=== PATIENT | female | born 1945 | race Caucasian/White ===

== ENCOUNTER 2020-01-25 12:00 | Emergency (ER) | payer MEDICARE, OTHER, SELFPAY ==
[2020-01-25 12:02] VITALS: BP 198/116; PULSE 84; RESP 18; TEMP 36.6; O2SAT 98; BMI 29.0
--- NOTE | 2020-01-25 12:16 | RAD_ITS ---
STUDY: X-RAY - RIGHT SHOULDER REASON FOR EXAM: Female, 74 years old. FALL. TECHNIQUE: 2 view(s) of the shoulder. COMPARISON: None. FINDINGS: Normal glenohumeral articulation. Normal acromioclavicular joint. Normal acromion. Comminuted fracture through the surgical neck of the humerus with extension to the greater tuberosity. Soft tissue swelling. Normal visualized pulmonary apex. RAD/Shoulder min 2 Views IMPRESSION: Comminuted fracture through the surgical neck of the humerus with extension to the greater tuberosity. Electronically Signed: Jeison Waters, at 12:54 EDT , Service support ,
--- NOTE | 2020-01-25 12:16 | CT_ITS ---
STUDY: CT BRAIN WITHOUT CONTRAST REASON FOR EXAM: Female, 74 years old. FALL, RT SHOULDER PAIN RADIATION DOSAGE (If Supplied By Facility): CTDIvol = ( 44.99 ) mGy, DLP = ( 745.49 ) mGycm TECHNIQUE: Transaxial CT imaging of the brain was performed without administration of intravenous contrast material. Individualized dose optimization techniques were used for this CT. COMPARISON: Comparison is made with prior study dated December 27, 2014. FINDINGS: Normal soft tissue structures. Normal calvarium. There is mild cerebral atrophy with widening of the extra-axial spaces and ventricular dilatation. There are areas of decreased attenuation within the white matter tracts of the supratentorial brain, consistent with microvascular disease changes. Normal basal ganglia and thalami. Normal brainstem. Normal cerebellum. There is no intracranial hemorrhage. There are no findings of an acute ischemic infarction. Atherosclerotic calcification of the cavernous portions of the internal carotid arteries bilaterally. Normal visualized paranasal sinuses. CT/Brain/Head without Contrast IMPRESSION: Chronic involutional changes of the brain. Electronically Signed: Jeison Waters, at 12:47 EDT , Service support ,
[2020-01-25] MEDS: Morphine 4 MG/ML Syringe IM (12:24)
--- NOTE | 2020-01-25 12:32 | ED.VIS.FALL ---
History of Present Illness Chief Complaint: Upper Extremity Injury Narrative: Patient presenting for evaluation secondary to a fall. Patient reports that she suffered a mechanical fall today in the garage when her sandal caught on something. She fell on her right side, she does report that she hit her head. She denies any loss of consciousness. No visual changes numbness or weakness associated with this. Patient states that she has a moderate to severe amount of pain in her right arm and shoulder that is worse with palpation and movement. She is not on any sort of anticoagulants. Review of systems otherwise negative. Past Medical History - Allergies and Home Meds Allergies/Adverse Reactions: Allergies amlodipine besylate [From Norvasc] Allergy (Verified 01/25/20 12:04) Swelling bisoprolol fumarate [From Ziac] Allergy (Verified 01/25/20 12:04) Unknown adhesive Adverse Reaction (Verified 01/25/20 12:04) Itching hydrochlorothiazide Adverse Reaction (Verified 01/25/20 12:04) Unknown Primary Care Physician: Bill Schuster III, MD [Primary Care Provider] - Prior records reviewed: Yes Past Medical History: - - Hypertension, hyperlipidemia Surgical History: - - Right total knee arthroplasty 03/24/16, left breast lumpectomy Lives: Spouse/ Significant Other Smoking Status: Never smoker Alcohol: None Drugs: None - Family History Maternal Family History: Reports: Hypertension Paternal Family History: Reports: Heart Disease Physical Exam Vital Signs/Narrative: Vital Signs Temp Pulse Resp BP Pulse Ox 01/25/20 12:02 97.9 F 84 18 198/116 H 98 Diagnostic/Tx/Re-eval Clinical Impression(s) from Imaging Studies Brain CT 01/25/20 12:16 IMPRESSION: Chronic involutional changes of the brain. Electronically Signed: Jeison Waters, at 12:47 EDT , Service support , Shoulder X-Ray 01/25/20 12:16 IMPRESSION: Comminuted fracture through the surgical neck of the humerus with extension to the greater tuberosity. Electronically Signed: Jeison Waters, at 12:54 EDT , Service support , - Medical Decision Making Patient presented secondary to a fall with head injury and a right arm injury. Patient had a CT brain which was negative per radiology. X-rays of the patient's right shoulder show evidence of a comminuted proximal humerus fracture. This is by radiology and my personal interpretation. Patient was placed in a sling and swath she was given morphine in the emergency department. Patient will be discharged with a course of tramadol for pain control. She will be given referral to orthopedics on-call, Dr. Mejia. Patient was discharged in stable condition. ED Disposition - Plan for ED Patient: Disposition: Home or Assisted Living Diagnosis: Proximal humerus fracture Instructions: ED Fracture Upper Extremity, ED Sling and Swathe Prescriptions: traMADol [Ultram] 50 mg PO Q4H PRN PRN 3 Days #18 tab PRN Reason: Pain Prescription Printed Referrals: Armin Mejia MD [STAFF PHYSICIAN] - 3-5 Days
== END 2020-01-25 13:37 | disposition home or self-care (01) ==
PROVIDERS: Emergency Provider Emergency Medicine; PCP Family Medicine
DX: S42.211A Unspecified displaced fracture of surgical neck of right humerus, initial encounter for closed fracture (principal); E78.5 Hyperlipidemia, unspecified; I10 Essential (primary) hypertension; Z79.899 Other long term (current) drug therapy; W18.30XA Fall on same level, unspecified, initial encounter; Y93.01 Activity, walking, marching and hiking; Y92.008 Other place in unspecified non-institutional (private) residence as the place of occurrence of the external cause; Y99.8 Other external cause status
CPT/HCPCS: 70450; 73030; 96372; 99283

== ENCOUNTER 2020-02-07 07:53 | Inpatient (IN) | payer MEDICARE, OTHER, SELFPAY ==
[2020-02-01 15:07] LABS: Absolute Lymphocyte Count 0.63 X10^3/uL (0.83-4.51); Absolute Neutrophil Count 2.3 X10^3/uL (2.0-7.7); Basophil# 0.01 X10^3/uL; Basophil% 0.3 % (0-1); Eosinophil# 0.21 X10^3/uL; Hemoglobin 7.5 g/dL (12.0-15.0); Lymphocyte # 0.63 X10^3/ul (4.0); Lymphocyte % 17.9 % (19-41); Mean Corp Hgb Conc 31.3 g/dL (32-36); Mean Corpuscular Hgb 30.1 pg (27.0-32.0); Mean Corpuscular Volume 96.4 fL (81-99); Mean Platelet Vol. 10.8 fl (6.2-12.0); Monocyte# 0.34 X10^3/uL; Monocyte% 9.7 % (0-10); NRBC Flagged by Analyzer 0 % (0-5); Neutrophil # 2.32 X10^3/uL (2.7-7.7); Neutrophil % 66.1 % (47-70); Platelet Count 149 K/mm3 (150-450); RBC Distribution Width CV 13.5 % (11.6-14.6); RBC Distribution Width SD 47.5 fl (35.1-43.9); Red Blood Count 2.49 M/mm3 (4.2-5.4); White Blood Count 3.5 K/mm3 (4.4-11.0)
--- NOTE | 2020-02-01 15:11 | EKG12_ITS ---
Test Reason : PRE OP Blood Pressure : / mmHG Vent. Rate : 076 BPM Atrial Rate : 076 BPM P-R Int : 144 ms QRS Dur : 100 ms QT Int : 402 ms P-R-T Axes : 044 -15 089 degrees QTc Int : 452 ms Normal sinus rhythm Nonspecific ST and T wave abnormality Abnormal ECG Confirmed by SCARLET LOPEZ, MILLY ([id number]), food expeditor ALYSON WEBSTER ([id number]) on 02/05/2020 11:38:01 AM Referred By: Armin Mejia Confirmed By:MARTHA NOVAK MD
[2020-02-01 15:31] LABS: Anion Gap 2 (5-15); BUN 14 mg/dL (7-18); BUN/Creat Ratio 16.8 RATIO (10-20); Calcium,Total 8.7 mg/dL (8.5-10.1); Chloride 108 mmol/L (98-107); Creatinine, Serum 0.84 mg/dL (0.55-1.02); EST Glomerular Filtration Rate 71 mL/min (>60); Est Glom Filt Rate - Afr Amer 86 mL/min (>60); Glucose 97 mg/dL (74-106); Potassium 4.4 mmol/L (3.5-5.1); Sodium Level 140 mmol/L (136-145)
[2020-02-05 10:50] LABS: Magnesium 2.2 mg/dL (1.6-2.6)
[2020-02-05 12:43] LABS: Probe Check PASS; Specimen Processing Control PASS
[2020-02-07] VITALS (13 sets, daily range): BP systolic 140–174; BP diastolic 63–77; PULSE 55–83; RESP 16–18; TEMP 36.1–37.3; O2SAT 92–100; BMI 30.7
--- NOTE | 2020-02-07 | SHO_PTH ---
PATIENT: BEBETO REMY LOC: [facility] U#:[id number] AGE/SX: 74/F ROOM: NC325 RE02/07/[address]: Dr. Armando Benjamin MD : 1945 BED: 1 DIS: 02/08/2020 SPEC #: [id number] RECD: 02/07/20 14:08 STATUS: JC HOGAN #: [id number] HEIDI: 02/07/20 00:[address]: Armin Mejia DEPT: SURGICAL PATHOLOGY RECD BY: Douglas Schulz ENTERED: 02/08/20 12:00 SP TYPE: HUMERUS OTHR DR: MD Dr. Lola Becerra MD Dr. Frank A Cebul III, MD Dr. Nicholas F Kotsonis, MD Dr. Steven Widmer, MD Tissues: Humerus, NOS Procedures: Decalcification bone/plaque Surgery Specimen Level IV Comments: @ Ordering doctor for DEC edited from to @ by PARUL at 02/08/20 1425 @ Ordering doctor for SUIV edited from to @ by PARUL at 02/08/20 1425 @ Submitting doctor edited from to @ by WALEOD at 02/08/20 1425 HEADER OPERATION: Reverse total shoulder arthroplasty with bone biopsy, right PRE-OP DIAGNOSIS: Two-part fracture of surgical neck of right humerus; displaced fracture of greater tuberosity right humerus TISSUE SUBMITTED: Right humeral head MICROSCOPIC DIAGNOSIS Right humeral head, total shoulder resection: Consistent with organizing fracture callous. AM:catarina 02/14/20 MICROSCOPIC DESCRIPTION Slides are reviewed. GROSS DESCRIPTION Received in fixative is one container labeled with the patient's name and designated right humeral head. The specimen consists of a portion of humeral head measuring 4.5 x 4.5 x 2.5 cm. The articular surface is smooth. The resection margin is irregular and hemorrhagic. No soft tissue is identified. Paper Coater sections are submitted in two cassettes after decalcification. / SHARON:catarina 02/08/20 TC:5 CPT: 66488, 46884
[2020-02-07 08:41] LABS: Hematocrit 25.4 % (37-47); Hemoglobin 7.7 g/dL (12.0-15.0)
[2020-02-07] MEDS: Celecoxib 200 MG Capsule 400 MG PO (08:56)
[2020-02-07] MEDS: Gabapentin 600 MG Tablet PO (08:57)
[2020-02-07 09:26] LABS: Bedside Glucose 85 mg/dL (70-110)
[2020-02-07] MEDS: Lactated Ringers 1,000 ML 100 ML IV (09:35)
[2020-02-07] MEDS: Cefazolin 2 GM in 0.9% Normal Saline 100 ML IV (10:05)
[2020-02-07] MEDS: dexAMETHasone 10 MG/ML Vial IV (10:21)
--- NOTE | 2020-02-07 11:57 | OP.PCM_ITS ---
Report of Operation Date of Procedure: 02/07/20 Pre-Operative Diagnosis: Right three-part proximal humerus fracture Post-Operative Diagnosis: Right three-part proximal humerus fracture Surgery/Procedure Performed:: Right reverse total shoulder replacement Description of Surgical Findings:: Stable shoulder, good repair the tuberosities. powdered sugar supervisor: Yue Lee Type of Anesthesia:: General/Regional Anesthesiologist: Johnie Prabhakar Special Medications: 2 g Ancef, 1 g TXA at incision, 1 g TXA closure, 10 mg Decadron, joint cocktail (5 mg Duramorph, 30 mL of 0.5% Ropivicaine, 1000 units of epinephrine, 30 mg of Toradol), IV vancomycin and incision Specimen's removed: Humeral head fracture component Estimated Blood Loss (mL): 250 Fluids Replaced: 900 mL crystalloid Description of Procedure: Components used 1. [place] reunion glenoid baseplate 2. Eliu reunion 32 mm, +6 mm Glenosphere 3. [place] reunion 32 mm, +6 mm humeral liner 4. [place] reunion reverse TSA humeral adapter tray +4 mm 5. Eliu reunion humeral stem fracture stem, 8 mm size Brief history/Operative indications: 74 yo F with history of R shoulder pain and three-part proximal humerus fracture. Patient failed conservative measures as mentioned in the H&P. After discussion of risk and benefits of reverse total shoulder replacement including but not limited to blood loss, DVTs, PEs, nerve vessel damage, infection, general risk of anesthesia including loss of life, instability and stiffness patient demonstrating understanding wish to proceed was able to sign informed consent. Medical clearance was obtained. Procedure: On the date of the procedure, patient's R upper extremity was marked in the preoperative area. Patient was taken back to the operating room where they were placed on the table in the supine position. Anesthesia assumed control of the C-spine and airway, then administered anesthetic. All bony prominences were identified well-padded, the head was secured and the patient was placed in the beachchair position at about 35? inclination. Anesthesia remained in control of the C-spine airway throughout the remainder of the procedure. Patient was then appropriately fastened to the table and the R upper extremity was prepped in a sterile fashion. The surgeons then scrubbed. Upon reentering the room, the R upper extremity was draped in a sterile fashion and the incision was marked out. Timeout was called, everyone agreed upon the side, the site, the procedure to be performed, patient identity and antibiotics given. Incision was taken down through skin and subcutaneous tissue, fat down to fascia. The stripe of the deltopectoral interval and cephalic vein were identified and blunt dissection was used to retract the deltoid. The cephalic vein was retracted laterally. Clavipectoral fascia was then incised and a cobra retractor was placed in the wound. The proximal one third of the pectoralis major insertion was released. Pectoralis tendon insertion was used to tenodesed the biceps tendon which was identified in the bicipital groove. Tenodesis was done with #1 Vicryl. Proximally we followed the biceps tendon after transecting it into the rotator interval. At this time we identified the greater tuberosity fragment and the head fragment. Attached to the head fragment was the lesser tuberosity. An osteotome was used and perform a osteotomy in order to have the lesser tuberosity connected to the anterior structures. Once we had our greater and lesser tuberosities identified we tagged them with #2 FiberWire sutures. Humeral head was removed and sent for pathology. We released down the anterior portion of the humeral head and a moreau elevator was used to release the inferior portion of the humeral head. The arm was externally rotated and the shoulder was dislocated. The humeral head was then cut at its natural retroversion. Once his humeral head cut was made humerus was retracted out of the way and the glenoid was exposed. After exposing the glenoid, the labrum and the remaining proximal biceps were debrided. At this time we are able to view the entire outer edge of the glenoid. A central pin was placed we sequentially reamed over this central pin to 24mm. Once this was completed the central screw was measured and found to be. The glenoid baseplate was screwed into place. Wound was closely irrigated out with normal saline we then drilled sequentially for 3 screws. Screws were placed superiorly and inferiorly and tightened down the screws. Once the screws were appropriately tightened into place the glenoid baseplate was compressed against the exposed subchondral bone. A 32mm glenosphere was impacted into place engaging the Munson taper. Attention was then turned towards the humerus. The humerus was again externally rotated exposing the proximal portion of the humerus. Central canal finder was then used to open up the canal. We reamed to a 9mm reamer. We then broached to a 8mm fracture stem. We trialed the 6mm liner, with the 4mm humeral baseplate. We obtained an adequate reduction at this time with a nice stable shoulder. Good internal rotation to the gluteus, forward elevation to 140?, external rotation to 20?. Final components were then assembled on the back table, trials were removed and the wound was copiously irrigated with normal saline after dislocating the shoulder. Once the final components were assembled they were impacted into place. Shoulder was then reduced and found to be stable with good range of motion. At this time a Betadine lavage was performed for 3 minutes. Wound is closing out normal saline. We then used the FiberWire sutures and the holes in the fracture stem to repair the tuberosities down. The wound was with chlorhexidine solution then copiously irrigated out with a 1 L normal saline lavage. The deltopectoral fascia was then closed using #1 Vicryl skin was closed using 2-0 Vicryl interrupted sutures and final skin closure was done with 3-0 Monocryl. Steri-Strips are placed for final skin closure. Sterile dressing was placed patient was then placed in a sling and awakened by anesthesia. Patient was then transferred to the PACU for recovery. Postoperative plan: Patient will be admitted to the hospital overnight. They will get physical therapy starting in 2 weeks with normal postoperative regimen. Patient will be placed on aspirin daily for DVT prophylaxis. The first postoperative ap pointment will be in 2 weeks for wound check and initiation of phase 1 physical therapy. - Complications No intraoperative complications - Admit VTE Documentation VTE Present on Admission: No VTE Mechan Device Prophylaxis: SCD's, Knee High DICKSON Hose VTE Pharm Prophylaxis ordered?: Yes
[2020-02-07] MEDS: Lactated Ringers 1,000 ML 999 ML IV (12:30)
--- NOTE | 2020-02-07 12:40 | RAD_ITS ---
STUDY: X-RAY - RIGHT SHOULDER REASON FOR EXAM: Female, 74 years old. Post op right shoulder TECHNIQUE: 3 view(s) of the shoulder. COMPARISON: Comparison is made with prior study dated 01/25/2020. FINDINGS: Status post right shoulder replacement. There is good alignment. Postoperative soft tissue changes. RAD/Shoulder min 2 Views IMPRESSION: Status post right shoulder replacement. There is good alignment. Postoperative soft tissue changes. Electronically Signed: Jeison Waters, at 13:23 EDT , Service support ,
[2020-02-07] MEDS: Lactated Ringers 1,000 ML 125 ML IV (13:23)
[2020-02-07 16:21] LABS: Hematocrit 23.8 % (37-47); Hemoglobin 7.5 g/dL (12.0-15.0)
[2020-02-07 16:39] LABS: Vitamin B12 632 pg/mL (211-911)
--- NOTE | 2020-02-07 16:40 | PN_ITS ---
Reason for Visit: post op right total shoulder. Subjective: This is a 74 year old female that underwent a right total shoulder with Dr. Mejia today. She is doing well with no complaints. She had some numbness in her right hand earlier that has resolved. No fever/chills/nausea/diarrhea/abdominal pain/SOB/cough/fever chills. She has a PMHx of breast cancer, HTN, HLD. She does appear to have a significant normocytic anemia with Hgb 7.7 today. Post op recheck pending. She has recently been on po iron and po folic acid. She reports the iron gives her black stools. No ramila blood in stool. No obvious recent bleeds. The patient had a colonoscopy last year that showed no abnormalities. Vitals/I&O's: Vital Signs Temp Pulse Resp BP Pulse Ox 98.5 F 69 18 157/63 H 94 02/07/20 14:32 02/07/20 14:32 02/07/20 14:32 02/07/20 14:32 02/07/20 15:07 Oxygen Flow Rate (L/min) 2 Oxygen Delivery Method Nasal Cannula Weight: 179 lb 0.246 oz Body Mass Index (BMI) 30.7 Intake and Output for Last 24 Hours 02/05/20 02/06/20 02/07/20 23:59 23:59 23:59 Intake Total 2710 / 2710 Balance 2710 / 2710 General: Alert, Oriented x3, Cooperative HEENT: Atraumatic, PERRLA, EOMI, Normocephalic Neck: Supple, No JVD, Negative Carotid Bruits Lungs: Clear to auscultation, Normal air movement Cardiovascular: Regular rate, No murmurs Abdomen: Bowel Sounds Present, Soft, Non Tender Extremities: No edema, Capillary Refill Less than 3 Seconds Skin: No rashes, No breakdown Musculoskeletal: No Tenderness to Palpation of Joints or Extremities Neurological: Cranial nerves II-XII grossly intact Psych/Mental Status: Normal Affect, Appropriate, Alert and oriented to time, place, person, mood and affect Laboratory Results 02/06/20 10:30: Blood Type Cancelled, A1 Antigen Typing Cancelled, Rho(D) Type Cancelled, Antibody Screen Cancelled, Crossmatch See Detail 02/07/20 08:30: Hgb 7.7 L, Hct 25.4 L 02/07/20 08:40: POC Glucose 85 02/07/20 16:10: Hgb 7.5 L, Hct 23.8 L 02/07/20 16:10: Iron Pending, TIBC Pending, Iron Saturation Pending, Ferritin Pending, Folate Pending 02/07/20 16:10: Vitamin B12 632 Current Medications Acetaminophen (Tylenol) 1,000 mg PO Q8 [facility] Aspirin (Aspirin) 325 mg PO DAILY@0800 [facility] Atorvastatin Calcium (Lipitor) 40 mg PO QHS [facility] Calcium Carbonate (Tums) 500 mg PO DAILYCM [facility] Cholecalciferol (Vitamin D (25mcg)) 2,000 unit PO DAILYCM [facility] Enteral Nutritional Formula (Ensure Surgery) 237 ml PO TIDCM [facility] Last Admin: 02/07/20 16:26 Dose: Not Given Documented by: Famotidine (Pepcid) 20 mg PO DAILY [facility] Lactated Ringer's () 1,000 mls @ 125 mls/hr IV .Q8H [facility] Last Admin: 02/07/20 13:23 Dose: 125 mls/hr Documented by: Lactated Ringer's () 1,000 mls @ 125 mls/hr IV .Q8H [facility] Cefazolin Sodium () 1 gm in 50 mls @ 150 mls/hr IV Q8H [facility] Stop: 02/08/20 02:19 Lactated Ringer's () 1,000 mls @ 100 mls/hr IV .Q10H [facility] Last Infusion: 02/07/20 13:23 Dose: Infused Documented by: Insulin Human Lispro (Humalog Marilynpen (Bkc)) 1 - 6 unit SC Q4H PRN PRN; Protocol PRN Reason: BG>/= 180, SEE PROTOCOL Labetalol HCl (Trandate) 200 mg PO BID [facility] Lisinopril (Zestril) 40 mg PO QHS [facility] Morphine Sulfate () 2 - 4 mg IV Q2H PRN PRN PRN Reason: Pain Score 6-10/10 Morphine Sulfate () 2 - 4 mg IV Q2H PRN PRN PRN Reason: Pain Score 6-10/10 Ondansetron HCl (Zofran) 4 mg IV Q8H PRN PRN PRN Reason: NAUSEA Promethazine HCl (Phenergan) 12.5 mg IM Q6H PRN PRN; Protocol PRN Reason: NAUSEA/VOMITING Senna/Docusate Sodium (Senokot-S, Mariela-Colace) 2 tablet PO BID [facility] Sodium Chloride () 10 - 40 ml IV UD PRN PRN Reason: SALINE FLUSH Tramadol HCl (Ultram) 50 - 100 mg PO Q6H PRN PRN PRN Reason: Pain Score 4-10/10 STROKE Vital Signs/Narrative: Vital Signs Temp Pulse Resp BP Pulse Ox 02/07/20 15:07 94 02/07/20 14:32 98.5 F 69 18 157/63 H 94 02/07/20 13:55 97.0 F L 58 L 16 156/77 H 100 02/07/20 13:45 59 L 16 163/77 H 100 02/07/20 13:30 56 L 16 162/73 H 100 02/07/20 13:15 55 L 16 164/74 H 100 02/07/20 13:00 56 L 16 164/73 H 100 02/07/20 12:45 55 L 16 156/73 H 100 Medical Necessity - Tobacco Use Smoking Status: Never smoker Assessment/Plan 1. osteoarthritis s/p right total shoulder POD#0 - care per Dr. Mejia. Doing well no complaints. Periop cefazolin 2. Anemia, mild thrombocytopenia - normocytic. unclear etiology. check iron/tibc/folate/b12/stool hemoccult/tsh. Given anemia and use of aspirin 325, advise holding other NSAIDs. 3. HTN - mildly elevated, trend. 4. HLD - statin 5. Hx breast cancer DVT ppx: per ortho Thank you for the opportunity to participate in the care of this patient. This patient was seen by Js Alex PA-C under the supervision of Dr. Naik.
[2020-02-07 16:49] LABS: Ferritin 95 ng/mL (8-252); Iron 20 ug/dL (50-170); Iron Binding Capacity,Total 371 ug/dL (250-450); PERCENT IRON SATURATION 5.4 % (15.0-55.0)
[2020-02-07] MEDS: Acetaminophen 500 MG Tablet 1000 MG PO ×2 (17:00→21:23)
[2020-02-07] MEDS: Cefazolin 1 GM/50 ML BAG IV (17:00)
[2020-02-07] MEDS: Senna/Docusate Sodium 1 Tablet 2 TABLET PO ×2 (17:00→21:24)
[2020-02-07] MEDS: Famotidine 20 MG Tablet PO (17:00)
[2020-02-07 17:20] LABS: Thyroid Stim Hormone (TSH) 0.21 uIU/mL (0.358-3.74)
[2020-02-07] MEDS: Ensure Surgery 237 ML LIQUID PO (18:52)
[2020-02-07] MEDS: Labetalol 200 MG Tablet PO (19:04)
[2020-02-07] MEDS: Lisinopril 40 MG Tablet PO (19:04)
[2020-02-07] MEDS: Atorvastatin Calcium 40 MG Tablet PO (21:24)
[2020-02-08] VITALS (14 sets, daily range): BP systolic 135–183; BP diastolic 60–110; PULSE 66–77; RESP 18; TEMP 36.4–37.2; O2SAT 94–100
[2020-02-08] MEDS: traMADol 50 MG Tablet PO ×3 (00:46→11:00)
[2020-02-08] MEDS: Cefazolin 1 GM/50 ML BAG IV (01:28)
[2020-02-08] MEDS: Acetaminophen 500 MG Tablet 1000 MG PO ×2 (05:19→13:33)
[2020-02-08 07:27] LABS: Hematocrit 22.2 % (37-47); Hemoglobin 6.9 g/dL (12.0-15.0); Mean Corp Hgb Conc 31.1 g/dL (32-36); Mean Corpuscular Hgb 29.9 pg (27.0-32.0); Mean Corpuscular Volume 96.1 fL (81-99); Mean Platelet Vol. 11.1 fl (6.2-12.0); Platelet Count 194 K/mm3 (150-450); RBC Distribution Width CV 13.4 % (11.6-14.6); RBC Distribution Width SD 47.4 fl (35.1-43.9); Red Blood Count 2.31 M/mm3 (4.2-5.4); White Blood Count 7.4 K/mm3 (4.4-11.0)
[2020-02-08 07:35] LABS: Anion Gap 3 (5-15); BUN 17 mg/dL (7-18); BUN/Creat Ratio 22.6 RATIO (10-20); Calcium,Total 8.3 mg/dL (8.5-10.1); Chloride 107 mmol/L (98-107); Creatinine, Serum 0.75 mg/dL (0.55-1.02); EST Glomerular Filtration Rate 80 mL/min (>60); Est Glom Filt Rate - Afr Amer 97 mL/min (>60); Estimated Creatinine Clearance 43.91 ml/min; Glucose 104 mg/dL (74-106); Potassium 3.9 mmol/L (3.5-5.1); Sodium Level 137 mmol/L (136-145)
--- NOTE | 2020-02-08 07:45 | PN.ORTHO_ITS ---
Subjective: Patient sitting up in bed, states her pain is very well managed. Patient denies any numbness or tingling in the hands or arm. Patient denies any chest pain, shortness of breath, calf pain, nausea vomiting. Patient has no other complaints at this time. Patient states she is ready for discharge home today. Objective: Dressings clean dry intact. Right arm is in a UltraSling. Patient has good flexion-extension of the elbow good flexion-extension of the wrist, supination pronation of the wrist. 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 I did review the labs and vitals all noted in the medical record. Patient is afebrile. Patient is in no respiratory distress, speaking in full sentences. - Physical Exam Vitals/I&O's: Vital Signs Temp Pulse Resp BP Pulse Ox 98.5 F 66 18 155/65 H 94 02/08/20 03:12 02/08/20 03:12 02/08/20 03:12 02/08/20 03:12 02/08/20 03:12 Oxygen Flow Rate (L/min) 2 Oxygen Delivery Method Room Air Weight: 81.2 kg Body Mass Index (BMI) 30.7 Intake and Output for Last 24 Hours 02/06/20 02/07/20 02/08/20 23:59 23:59 23:59 Intake Total 4368.34 / 4368.34 791.66 / 791.66 Output Total 500 / 500 1300 / 1300 Balance 3868.34 / 3868.34 -508.34 / -508.34 General: Alert, Oriented x3, Cooperative HEENT: PERRLA Oral: Moist Mucosa Cardiovascular: Regular rate Neurological: Cranial nerves II-XII grossly intact Psych/Mental Status: Normal Affect, Alert and oriented to time, place, person, mood and affect Laboratory Results 02/06/20 10:30: Blood Type Cancelled, A1 Antigen Typing Cancelled, Rho(D) Type Cancelled, Antibody Screen Cancelled, Crossmatch See Detail 02/07/20 08:30: Hgb 7.7 L, Hct 25.4 L 02/07/20 08:40: POC Glucose 85 02/07/20 16:10: Hgb 7.5 L, Hct 23.8 L 02/07/20 16:10: Iron 20 L, TIBC 371, Iron Saturation 5.4 L, Ferritin 95, Folate 19.60 02/07/20 16:10: Vitamin B12 632 02/07/20 16:10: TSH 0.21 L 02/08/20 07:10: WBC 7.4, RBC 2.31 L, Hgb 6.9 L, Hct 22.2 L, MCV 96.1, MCH 29.9, MCHC 31.1 L, RDW Std Deviation 47.4 H, RDW Coeff of Juan 13.4, Plt Count 194, MPV 11.1 02/08/20 07:10: Sodium 137, Potassium 3.9, Chloride 107, Carbon Dioxide 27.0, Anion Gap 3 L, BUN 17, Creatinine 0.75, Estim Creat Clear Calc 43.91, Est GFR (MDRD) Af Amer 97, Est GFR (MDRD) Non-Af 80, BUN/Creatinine Ratio 22.6 H, Glucose 104, Calcium 8.3 L Current Medications Acetaminophen (Tylenol) 1,000 mg PO Q8 [facility] Last Admin: 02/08/20 05:19 Dose: 1,000 mg Documented by: Aspirin (Aspirin) 325 mg PO DAILY@0800 [facility] Atorvastatin Calcium (Lipitor) 40 mg PO QHS [facility] Last Admin: 02/07/20 21:24 Dose: 40 mg Documented by: Calcium Carbonate (Tums) 500 mg PO DAILYCM [facility] Cholecalciferol (Vitamin D (25mcg)) 2,000 unit PO DAILYCM [facility] Enteral Nutritional Formula (Ensure Surgery) 237 ml PO TIDCM [facility] Last Admin: 02/07/20 18:52 Dose: 237 ml Documented by: Famotidine (Pepcid) 20 mg PO DAILY [facility] Last Admin: 02/07/20 17:00 Dose: 20 mg Documented by: Insulin Human Lispro (Humalog Kwikpen (Bkc)) 1 - 6 unit SC Q4H PRN PRN; Protocol PRN Reason: BG>/= 180, SEE PROTOCOL Labetalol HCl (Trandate) 200 mg PO BID [facility] Last Admin: 02/07/20 19:04 Dose: 200 mg Documented by: Lisinopril (Zestril) 40 mg PO QHS [facility] Last Admin: 02/07/20 19:04 Dose: 40 mg Documented by: Morphine Sulfate () 2 - 4 mg IV Q2H PRN PRN PRN Reason: Pain Score 6-10/10 Morphine Sulfate () 2 - 4 mg IV Q2H PRN PRN PRN Reason: Pain Score 6-10/10 Ondansetron HCl (Zofran) 4 mg IV Q8H PRN PRN PRN Reason: NAUSEA Promethazine HCl (Phenergan) 12.5 mg IM Q6H PRN PRN; Protocol PRN Reason: NAUSEA/VOMITING Senna/Docusate Sodium (Senokot-S, Mariela-Colace) 2 tablet PO BID [facility] Last Admin: 02/07/20 21:24 Dose: 2 tablet Documented by: Sodium Chloride () 10 - 40 ml IV UD PRN PRN Reason: SALINE FLUSH Tramadol HCl (Ultram) 50 - 100 mg PO Q6H PRN PRN PRN Reason: Pain Score 4-10/10 Last Admin: 02/08/20 01:28 Dose: 50 mg Documented by: Medical Necessity - Tobacco Use Smoking Status: Never smoker Assessment/Plan Status post right reverse total shoulder status post fracture Postop anemia/stable Plan 1. Continue all pain medications as prescribed 2. Continue physical therapy patient remain nonweightbearing with right arm and with continued use of the sling 3. Aspirin 325 mg 1 p.o. daily for postop DVT prophylaxis x30 days 4. Encourage incentive spirometry 4. Encourage incentive spirometry 5. Discharge home if cleared with medicine 6. Continue physical therapy at [facility] as scheduled
--- NOTE | 2020-02-08 07:56 | PCM.DC.ORTHO ---
Discharge Diet: No Restrictions Discharge Activity: May Not Drive May shower in (days): 5 Ice area for (Minutes): 20 - Every hour while awake. Weight Bearing Status: Weight bearing as tolerated, No weight bearing - no weight bearing on right shoulder. Must wear sling. Ice. Keep extremity elevated above heart level: Operative Extremity Call your doctor if your incision/area has: Continuous Slow Oozing, Sudden Increased Bleeding, Increased Pain/ Swelling, Increased Redness, Foul Smelling Discharge Call your doctor if you observe: Fever of 101 or Higher, Coldness, Increased Pain, Numbness or Tingling, Change in Color, Calf discomfort Remove Dressing in (days):: 6 Allergies/Adverse Reactions: Allergies amlodipine besylate [From Norvasc] Allergy (Verified 02/07/20 08:33) Swelling bisoprolol fumarate [From Ziac] Allergy (Verified 02/07/20 08:33) Unknown adhesive Adverse Reaction (Verified 02/07/20 08:33) Itching hydrochlorothiazide Adverse Reaction (Verified 02/07/20 08:33) Unknown Medications to take at Discharge Atorvastatin Calcium [Lipitor] 40 mg PO QHS 03/13/16 Calcium Carbonate [Calcium] 600 mg PO DAILY 03/13/16 Cholecalciferol (VIT D3) [Vitamin D3] 2,000 unit PO DAILY 03/13/16 Labetalol [Trandate (Beta Vincenzo)] 200 mg PO BID 03/13/16 Lisinopril [Zestril] 40 mg PO QHS 03/13/16 Magnesium 250 mg PO DAILY 03/13/16 traMADol [Ultram] 50 mg PO Q6H PRN PRN 01/30/20 Acetaminophen [Tylenol] 1,000 mg PO Q8 #90 tab 02/08/20 Aspirin 325 mg PO DAILY@0800 #30 tab 02/08/20 Senna/Docusate Sodium [Senokot-S] 2 tab PO BID tab 02/08/20 traMADol [Ultram] 50 - 100 mg PO Q6H PRN PRN 7 Days #56 tab 02/08/20 The following prescriptions were given: Aspirin 325 mg PO DAILY@0800 #30 tab Transmission Status: Pending to [facility] Acetaminophen [Tylenol] 1,000 mg PO Q8 #90 tab Transmission Status: Pending to [facility] traMADol [Ultram] 50 - 100 mg PO Q6H PRN PRN 7 Days #56 tab PRN Reason: Pain Score 4-1010 Transmission Status: Sent to [facility] Orders to be completed after discharge: 12 Lead EKG [CVS] Time Frame: 01/30/20, Facility: [facility], Location: Cardiovascular Services Primary Care Physician: Bill Schuster III, MD [Primary Care Provider] - Test Results: Test results from this visit will be discussed in further detail at your follow-up appointment, if applicable. Please Follow Up With: Armin Mejia MD When: as scheduled
[2020-02-08] MEDS: Calcium Carbonate 500 MG Tablet PO (08:26)
[2020-02-08] MEDS: Labetalol 200 MG Tablet PO (08:26)
[2020-02-08] MEDS: Aspirin 325 MG Tablet PO (08:27)
[2020-02-08] MEDS: Ensure Surgery 237 ML LIQUID PO ×2 (08:28→13:33)
[2020-02-08] MEDS: Senna/Docusate Sodium 1 Tablet 2 TABLET PO (11:01)
[2020-02-08] MEDS: Famotidine 20 MG Tablet PO (11:01)
--- NOTE | 2020-02-08 11:03 | PN_ITS ---
Subjective: Doing well, pain in her shoulders controlled well. No issues overnight. Vitals/I&O's: Vital Signs Temp Pulse Resp BP Pulse Ox 98.5 F 66 18 155/65 H 94 02/08/20 03:12 02/08/20 03:12 02/08/20 03:12 02/08/20 03:12 02/08/20 03:12 Oxygen Flow Rate (L/min) 2 Oxygen Delivery Method Room Air Weight: 179 lb 0.246 oz Body Mass Index (BMI) 30.7 Intake and Output for Last 24 Hours 02/06/20 02/07/20 02/08/20 23:59 23:59 23:59 Intake Total 4368.34 / 4368.34 791.66 / 791.66 Output Total 500 / 500 1300 / 1300 Balance 3868.34 / 3868.34 -508.34 / -508.34 General: Alert, Oriented x3, Cooperative, No apparent distress HEENT: Atraumatic, PERRLA, EOMI, Normocephalic Oral: Moist Mucosa Neck: Supple, No JVD Lungs: Clear to auscultation, Normal air movement, No rhonchi, No wheeze, No rales, Diminished Cardiovascular: Regular rate, Regular Rhythm, Normal S1, Normal S2, No murmurs Abdomen: Soft, Non Tender, Non-Distended, No Hepato-splenomegaly Extremities: No edema, Capillary Refill Less than 3 Seconds Skin: No rashes, No breakdown Musculoskeletal: Tenderness - Right shoulder at the incision, she is able to move her fingers Neurological: Neuro grossly intact, Motor Exam 5/5 strength throughout, Sensory exam intact to light touch and pain Psych/Mental Status: Normal Affect, Appropriate Laboratory Results 02/06/20 10:30: Blood Type Cancelled, A1 Antigen Typing Cancelled, Rho(D) Type Cancelled, Antibody Screen Cancelled, Crossmatch See Detail 02/07/20 16:10: Hgb 7.5 L, Hct 23.8 L 02/07/20 16:10: Iron 20 L, TIBC 371, Iron Saturation 5.4 L, Ferritin 95, Folate 19.60 02/07/20 16:10: Vitamin B12 632 02/07/20 16:10: TSH 0.21 L 02/08/20 07:10: WBC 7.4, RBC 2.31 L, Hgb 6.9 L, Hct 22.2 L, MCV 96.1, MCH 29.9, MCHC 31.1 L, RDW Std Deviation 47.4 H, RDW Coeff of Juan 13.4, Plt Count 194, MPV 11.1 02/08/20 07:10: Sodium 137, Potassium 3.9, Chloride 107, Carbon Dioxide 27.0, Anion Gap 3 L, BUN 17, Creatinine 0.75, Estim Creat Clear Calc 43.91, Est GFR (MDRD) Af Amer 97, Est GFR (MDRD) Non-Af 80, BUN/Creatinine Ratio 22.6 H, Glucose 104, Calcium 8.3 L Current Medications Acetaminophen (Tylenol) 1,000 mg PO Q8 [facility] Last Admin: 02/08/20 05:19 Dose: 1,000 mg Documented by: Aspirin (Aspirin) 325 mg PO DAILY@0800 [facility] Last Admin: 02/08/20 08:27 Dose: 325 mg Documented by: Atorvastatin Calcium (Lipitor) 40 mg PO QHS [facility] Last Admin: 02/07/20 21:24 Dose: 40 mg Documented by: [facility] Last Admin: 02/08/20 08:26 Dose: 500 mg Documented by: Cholecalciferol (Vitamin D (25mcg)) [facility] Last Admin: 02/08/20 08:26 Dose: 2,000 unit Documented by: Enteral Nutritional Formula (Ensure Surgery) 237 ml PO TIDCM [facility] Last Admin: 02/08/20 08:28 Dose: 237 ml Documented by: Famotidine (Pepcid) 20 mg PO DAILY [facility] Last Admin: 02/08/20 11:01 Dose: 20 mg Documented by: Insulin Human Lispro (Humalog Kwikpen (Bkc)) 1 - 6 unit SC Q4H PRN PRN; Protocol PRN Reason: BG>/= 180, SEE PROTOCOL Labetalol HCl (Trandate) 200 mg PO BID [facility] Last Admin: 02/08/20 08:26 Dose: 200 mg Documented by: Lisinopril (Zestril) 40 mg PO QHS [facility] Last Admin: 02/07/20 19:04 Dose: 40 mg Documented by: Morphine Sulfate () 2 - 4 mg IV Q2H PRN PRN PRN Reason: Pain Score 6-10/10 Morphine Sulfate () 2 - 4 mg IV Q2H PRN PRN PRN Reason: Pain Score 6-10/10 Ondansetron HCl (Zofran) 4 mg IV Q8H PRN PRN PRN Reason: NAUSEA Promethazine HCl (Phenergan) 12.5 mg IM Q6H PRN PRN; Protocol PRN Reason: NAUSEA/VOMITING Senna/Docusate Sodium (Senokot-S, Mariela-Colace) 2 tablet PO BID [facility] Last Admin: 02/08/20 11:01 Dose: 2 tablet Documented by: Sodium Chloride () 10 - 40 ml IV UD PRN PRN Reason: SALINE FLUSH Tramadol HCl (Ultram) 50 - 100 mg PO Q6H PRN PRN PRN Reason: Pain Score 4-10/10 Last Admin: 02/08/20 11:00 Dose: 100 mg Documented by: Medical Necessity - Tobacco Use Smoking Status: Never smoker Assessment/Plan 1. Right shoulder humeral fracture from mechanical fall status post repair 02/07/2020 -Pain management per primary -Likely stable for discharge today, she does need to be transfused as she is chronically anemic -Follow-up with PCP as an outpatient as well as orthopedic surgery 2. Chronic iron deficiency anemia -She was anemic in 2016, iron studies demonstrate an iron of 20 and iron saturation of 5.4 with a normal ferritin, vitamin B12 was normal -She has been baseline at 7.5 however today she is 6.9 this is likely related to surgery, she will be transfused 2 units today prior to discharge and she should follow-up with her PCP to have a CBC done as an outpatient -She needs to be on oral iron supplementation as an outpatient, she states that iron caused her to have black stools in the past 2. HTN/HLD -Blood pressure stable, will continue with her home medications -Continue with Lipitor DVT: Aspirin per primary Inpatient E&M: 10559 Subs Hosp L2
--- NOTE | 2020-02-08 12:10 | CASEMGMT ---
RN CM Face to Face with patient for initial transition planning/care coordination assessment. RN CM introduced self and role at [facility]. Patient lying in bed, alert and oriented. Patient willing to participate in assessment and is able to answer all questions appropriately. Care providers, pharmacy, and demographics verified. Patient wishes to discharge home, denies need for home health at this time. Patient states she has no further needs or concerns at this time. CM to follow for discharge planning needs that may arise. PCP: [facility] Specialists: mario Mejia; Kaelyn, planner chief Preferred Pharmacy: [facility] Insurance: [facility] [place], [employer] Prescription Benefit: yes Living Will/HPOA: None LNOK: Living Arrangements: Patient lives with in a 1 story home with 2 steps and railing to enter the home. Patient states she was independent at home prior to fracture Transportation: DME/HHC: Patient states she has raised toilet, cane, walker, grab bars. Patient to follow-up with [facility] in 2 weeks. Disposition Plan: Patient to discharge home with family support and follow-up plans in place. Tammie MCCAULEY, RN, CM
--- NOTE | 2020-02-08 12:41 | PHA.DC.MC ---
Pharmacy Service has performed discharge medication reconciliation and counseling for this patient. 1. ASPIRIN 325MG PO DAILY 2. ACETAMINOPHEN 1000MG Q8H 3. SENNA/DOCUSATE 2T PO BID 4. FERROUS SULFATE 325MG PO BIDCM The patient's discharge medication list was reviewed for discrepancies and discrepancies were resolved. Student spoke to patient about tramadol duplication. Patient recently had some filled so will not need new Rx. Advised to follow dosing on prescription sent today. Home Medications Atorvastatin Calcium [Lipitor] 40 mg PO QHS 03/13/16 Calcium Carbonate [Calcium] 600 mg PO DAILY 03/13/16 Cholecalciferol (VIT D3) [Vitamin D3] 2,000 unit PO DAILY 03/13/16 Labetalol [Trandate (Beta Vincenzo)] 200 mg PO BID 03/13/16 Lisinopril [Zestril] 40 mg PO QHS 03/13/16 Magnesium 250 mg PO DAILY 03/13/16 traMADol [Ultram] 50 mg PO Q6H PRN PRN 01/30/20 Acetaminophen [Tylenol] 1,000 mg PO Q8 #90 tab 02/08/20 Aspirin 325 mg PO DAILY@0800 #30 tab 02/08/20 Ferrous Sulfate 325 mg PO BIDCM #60 tab 02/08/20 Senna/Docusate Sodium [Senokot-S] 2 tab PO BID tab 02/08/20 traMADol [Ultram] 50 - 100 mg PO Q6H PRN PRN 7 Days #56 tab 02/08/20 The patient was counseled on the following discharge medications and changes in medications for homegoing were reviewed. The Reason for Use, instructions for use, and potential side effects were reviewed for all new medications. The patient's questions regarding all of their medications were answered. The patient was able to verbally demonstrate an understanding of their discharge medications. Patient counseled by international student advisorAmada.
== END 2020-02-08 19:17 | disposition home or self-care (01) | DRG 483 ==
LOC: ACINP 07:56 → MS3 10:18
PROVIDERS: Anesthesiology; Physician Assistant; Admitting Provider Specialist; PCP Family Medicine; Referring Provider Specialist; Visit Provider Family Medicine
PROC: 0RRJ00Z Replacement of Right Shoulder Joint with Reverse Ball and Socket Synthetic Substitute, Open Approach (ICD-10-PCS; CPT 23472; principal; 2020-02-07 09:30)
DX: S42.231A 3-part fracture of surgical neck of right humerus, initial encounter for closed fracture (principal); Z11.59 Encounter for screening for other viral diseases; Z85.3 Personal history of malignant neoplasm of breast; I10 Essential (primary) hypertension; E78.5 Hyperlipidemia, unspecified; D69.6 Thrombocytopenia, unspecified; M19.011 Primary osteoarthritis, right shoulder; D50.9 Iron deficiency anemia, unspecified; W18.30XA Fall on same level, unspecified, initial encounter; Y93.89 Activity, other specified; Y92.89 Other specified places as the place of occurrence of the external cause; Y99.8 Other external cause status; I25.2 Old myocardial infarction; E66.3 Overweight; Z68.29 Body mass index [BMI] 29.0-29.9, adult
CPT/HCPCS: 36415; 73030; 80048; 82607; 82728; 82746; 82962; 83540; 83550; 83735; 84443; 85014; 85018; 85025; 85027; 86850; 86900; 86901; 86920; 87081; 87635; 88305; 88311; 93005; 97166; 99251; C1713; C1776; G2023; J7040; J7050; J7120; P9016; A4216; G0463; U0003

== ENCOUNTER 2020-09-09 08:17 | Inpatient (IN) | payer MEDICARE, OTHER, SELFPAY ==
[2020-02-07 14:34] VITALS: BMI 30.7
[2020-09-09] VITALS (15 sets, daily range): BP systolic 142–174; BP diastolic 71–98; PULSE 75–104; RESP 18–27; TEMP 36.6–38.9; O2SAT 93–100; BMI 33.6; BMI 31.3; BMI 31.4
--- NOTE | 2020-09-09 08:37 | ED.DCSUM_ITS ---
- ER Visit Summary Date of Service: 09/09/20 Chief Complaint: [Rectal bleeding] History of Present Illness: The patient is a 75 F [presents to the emergency department complaint of rectal bleeding/black tarry stools x3 to 4 days. Patient states that she has had similar episode years ago but no etiology of her bleeding was noted. Patient states this morning she had 1 episode of vomiting blood. She denies any abdominal pain. She denies fever. She states intermittently she has been feeling somewhat lightheaded. She describes a mild dyspnea. She denies any recent illness. She denies any abdominal trauma. Patient is not anticoagulated. Patient has history of hypertension and high cholesterol.] Physical Examination: [HEENT-PERRLA, EOMI. Cranial nerves II through XII grossly intact. TMs clear. Mucous membranes moist. No adenopathy. Cardiovascular-regular rate and rhythm without murmur or ectopy Lungs-clear to auscultation, chest wall stable without crepitus or subcu emphysema Abdomen-normoactive bowel sounds, soft, nontender, no rebound or rigidity, no peritoneal signs. Extremities-intact ?4, normal range of motion, normal pulses, atraumatic] Test Results: [CBC with differential obtained showed a white count of 2.7, hemoglobin 9.2, hematocrit 27.5, plates 97. Sodium was 142, potassium 3.2, chloride 107, CO2 26, BUN 46 and creatinine 0.79. Hemoccult was positive. COVID-19 test was negative.] Emergency Department Course and Treatment: [IV line established on arrival. Patient given 1 L normal same fluid bolus. Patient started on a Protonix IV drip.] Treatment Plan: [Case discussed with Dr. Jaspreet Lopez who will consult on the case. Case discussed with hospitalist who will evaluate patient for admission] Disposition: [Admit] Impression: [Upper GI bleed Pancytopenia] This note was generated with [employer] dictation software. It may contain incorrect words, spelling, and punctuation that were not noted in review of the chart prior to signing ED Disposition - Plan for ED Patient: Referrals: Bill Schuster III, MD [Primary Care Provider] -
[2020-09-09] MEDS: 0.9% Normal Saline 1,000 ML 1000 ML IV (08:46)
[2020-09-09 09:14] LABS: Absolute Lymphocyte Count 0.36 X10^3/uL (0.83-4.51); Absolute Neutrophil Count 2.1 X10^3/uL (2.0-7.7); Basophil# 0.01 X10^3/uL; Basophil% 0.4 % (0-1); Hematocrit 27.5 % (37-47); Hemoglobin 9.2 g/dL (12.0-15.0); Lymphocyte # 0.36 X10^3/ul (4.0); Lymphocyte % 13.4 % (19-41); Mean Corp Hgb Conc 33.5 g/dL (32-36); Mean Corpuscular Hgb 31.8 pg (27.0-32.0); Mean Corpuscular Volume 95.2 fL (81-99); Mean Platelet Vol. 12.5 fl (6.2-12.0); Monocyte# 0.24 X10^3/uL; Monocyte% 8.9 % (0-10); NRBC Flagged by Analyzer 0 % (0-5); Neutrophil # 2.07 X10^3/uL (2.7-7.7); Neutrophil % 76.9 % (47-70); POSITIVE COUNT YES; POSITIVE DIFFERENTIAL YES; Platelet Count 97 K/mm3 (150-450); RBC Distribution Width CV 12.9 % (11.6-14.6); Red Blood Count 2.89 M/mm3 (4.2-5.4); White Blood Count 2.7 K/mm3 (4.4-11.0)
[2020-09-09 09:15] LABS: Differential Indicated SCAN CRITERIA MET
[2020-09-09 09:33] LABS: Anion Gap 9 (5-15); BUN 46 mg/dL (7-18); BUN/Creat Ratio 58.4 RATIO (10-20); Calcium,Total 8.7 mg/dL (8.5-10.1); Chloride 107 mmol/L (98-107); Creatinine, Serum 0.79 mg/dL (0.55-1.02); EST Glomerular Filtration Rate 76 mL/min (>60); Est Glom Filt Rate - Afr Amer 92 mL/min (>60); Estimated Creatinine Clearance 41.45 ml/min; Glucose 99 mg/dL (74-106); Potassium 3.2 mmol/L (3.5-5.1); Sodium Level 142 mmol/L (136-145)
[2020-09-09 09:42] LABS: Lactic Acid 1.1 mmol/L (0.4-1.9)
--- NOTE | 2020-09-09 09:44 | NURSING ---
HOSPITALIST PAGED DR CORTES PAGED AND RETURNED CALL
--- NOTE | 2020-09-09 09:55 | NURSING ---
DR DUNN FOR DR DURAN
[2020-09-09 10:01] LABS: Hypochromasia 1+; Platelet Estimate MKD DEC (ADEQ)
--- NOTE | 2020-09-09 10:03 | NURSING ---
MED SURG MONA UPPER GI BLEED, PANCYTOPENIA
--- NOTE | 2020-09-09 11:08 | CON.PCM_ITS ---
Problem List (1) GI bleed Status: Acute Qualifiers: GI bleed type/associated pathology: unspecified gastrointestinal hemorrhage type Qualified Code(s): K92.2 - Gastrointestinal hemorrhage, unspecified Reason for Consult Date of Consultation: 09/09/20 History of Present Illness: The patient is a 75 F presents to the emergency department complaint of rectal bleeding/black tarry stools x3 to 4 days. Patient states that she has had similar episode years ago but no etiology of her bleeding was noted. Patient states this morning she had 1 episode of vomiting blood. She denies any abdominal pain. She denies fever. She states intermittently she has been feeling somewhat lightheaded. She describes a mild dyspnea. She denies any recent illness. She denies any abdominal trauma. Patient is not anticoagulated. Patient has history of hypertension and high cholesterol. Past Medical History Past Medical History (Chronic Problems): Chronic Problems Osteoarthritis (Chronic) Hyperlipidemia (Chronic) Hypertension (Chronic) Allergies amlodipine besylate [From Norvasc] Allergy (Verified 09/09/20 08:21) Swelling bisoprolol fumarate [From Ziac] Allergy (Verified 09/09/20 08:21) Unknown adhesive Adverse Reaction (Verified 09/09/20 08:21) Itching hydrochlorothiazide Adverse Reaction (Verified 09/09/20 08:21) Unknown Home Medications: Ambulatory Orders Medication Instructions Recorded Calcium Carbonate [Calcium] 600 mg PO DAILY 03/13/16 Cholecalciferol (VIT D3) [Vitamin 2,000 unit PO DAILY 03/13/16 D3] Labetalol [Trandate (Beta Vincenzo)] 200 mg PO BID 03/13/16 Magnesium 250 mg PO DAILY 03/13/16 Acetaminophen [Tylenol] 1,000 mg PO Q8H PRN PRN 09/09/20 Surgical History: - - Right total knee arthroplasty 03/24/16, left breast lumpectomy Psychiatric History: No pertinent psych hx CLINICAL DOCUMENTATION MANAGER History: No pertinent CLINICAL DOCUMENTATION MANAGER history Lives: Spouse/ Significant Other Smoking Status: Never smoker - *Family History Maternal History Items: Hypertension Paternal History Items: Heart Disease Review of Systems Constitutional: Denies: Chills, Fever, Weight Change Cardiovascular: Denies: Chest Pain, Chest Pressure, Chest Tightness, Palpitations Respiratory: Reports: Cough Gastrointestinal: Reports: Hematemesis, Melena, Vomiting. Denies: Abdominal Pain, Constipation, Diarrhea, Nausea - Physical Exam Vitals/I&O's: Vital Signs Temp Pulse Resp BP Pulse Ox 97.9 F 95 27 H 162/98 H 93 09/09/20 10:16 09/09/20 10:16 09/09/20 10:16 09/09/20 10:16 09/09/20 10:16 Oxygen Delivery Method Room Air Weight: 190 lb Body Mass Index (BMI) 33.6 Intake and Output for Last 24 Hours 09/07/20 09/08/20 09/09/20 23:59 23:59 23:59 Intake Total 1110 / 1110 Balance 111 1110 General: Alert, Oriented x3 Lungs: Clear to auscultation Cardiovascular: Regular rate, Regular Rhythm, No murmurs Abdomen: Bowel Sounds Present, Soft, Non Tender, Non-Distended Microbiology Past 72 Hours 09/09/20 08:54 Mucosa - Nose SARS-CoV-2 Antigen (Rapid) - Final 09/09/20 08:30 Stool Stool Occult Blood (CIERRA) - Final Occult Blood Positive Laboratory Results 09/09/20 08:40: WBC 2.7 L, RBC 2.89 L, Hgb 9.2 L, Hct 27.5 L, MCV 95.2, MCH 31.8, MCHC 33.5, RDW Std Deviation 45.0 H, RDW Coeff of Juan 12.9, Plt Count 97 L , MPV 12.5 H, Immature Gran % (Auto) 0.400, Neut % (Auto) 76.9 H, Lymph % (Auto) 13.4 L, [place] % (Auto) 8.9, Eos % (Auto) 0.0, Baso % (Auto) 0.4, Absolute Neuts (auto) 2.1, Absolute Lymphs (auto) 0.36 L, Nucleated RBC % 0, Diff Path Review November foll, Platelet Estimate MKD DEC, Hypochromasia 1+ 09/09/20 08:40: Sodium 142, Potassium 3.2 L, Chloride 107, Carbon Dioxide 26.0, Anion Gap 9, BUN 46 H, Creatinine 0.79, Estim Creat Clear Calc 41.45, Est GFR (MDRD) Af Amer 92, Est GFR (MDRD) Non-Af 76, BUN/Creatinine Ratio 58.4 H, Glucose 99, Calcium 8.7 09/09/20 08:40: Lactic Acid 1.1 09/09/20 08:40: Blood Type A POSITIVE, Antibody Screen NEGATIVE Assessment/Plan All Active Problems GI bleed (Acute) My plan is to perform a upper and lower endoscopy on her tomorrow. Risk benefits of the procedure were reviewed which include bleeding possible injury to the esophagus or colon which could require further operations. In addition they understand that blood clots heart attacks pneumonia strokes are also risk although very low for this type of procedure. All questions asked were answered and they are willing to proceed.
[2020-09-09] MEDS: 0.9% Normal Saline 1,000 ML 75 ML IV (12:48)
[2020-09-09] MEDS: Electrolyte Solution/Peg's 4000 ML PO (12:48)
--- NOTE | 2020-09-09 12:48 | PCM.HP.STD ---
<Heather Mercado [employer]ACHINE [employer]PER[employer] - Last Filed: 09/09/20 13:02> Problem List (1) GI bleed Status: Acute Qualifiers: GI bleed type/associated pathology: unspecified gastrointestinal hemorrhage type Qualified Code(s): K92.2 - Gastrointestinal hemorrhage, unspecified (2) Osteoarthritis Status: Chronic Qualifiers: Osteoarthritis location: multiple joints Osteoarthritis type: primary Qualified Code(s): M89.49 - Other hypertrophic osteoarthropathy, multiple sites (3) Hyperlipidemia Status: Chronic Qualifiers: Hyperlipidemia type: pure hypercholesterolemia Qualified Code(s): E78.00 - Pure hypercholesterolemia, unspecified (4) Hypertension Status: Chronic Qualifiers: Hypertension type: essential hypertension Qualified Code(s): I10 - Essential (primary) hypertension History of Present Illness Date of Admission: 09/09/20 Chief Complaint: Black stools, vomiting blood. The patient is a 75 year old F who presents to the emergency room due to black stools and episode of bloody emesis. Patient states over the past week she has felt unusually weak and fatigued. For the past 2 days she has had black loose stools. Patient also reports episode of dark emesis this morning which was mixed with blood. She denies further episodes of emesis. She denies abdominal pain. She denies recent NSAID use. She states she had a similar episode many years ago and there was no found source of bleeding. She reports mild shortness of breath. Denies lightheadedness, chest pain, dizziness. She has a past medical history of osteoarthritis, hypertension, hyperlipidemia, history of breast cancer, chronic anemia. Past Medical History Past Medical History (Chronic Problems): Chronic Problems Osteoarthritis (Chronic) Hyperlipidemia (Chronic) Hypertension (Chronic) Allergies amlodipine besylate [From Norvasc] Allergy (Verified 09/09/20 08:21) Swelling bisoprolol fumarate [From Ziac] Allergy (Verified 09/09/20 08:21) Unknown adhesive Adverse Reaction (Verified 09/09/20 08:21) Itching hydrochlorothiazide Adverse Reaction (Verified 09/09/20 08:21) Unknown Home Medications: Ambulatory Orders Medication Instructions Recorded Calcium Carbonate [Calcium] 600 mg PO DAILY 03/13/16 Cholecalciferol (VIT D3) [Vitamin 2,000 unit PO DAILY 03/13/16 D3] Labetalol [Trandate (Beta Vincenzo)] 200 mg PO BID 03/13/16 Magnesium 250 mg PO DAILY 03/13/16 Acetaminophen [Tylenol] 1,000 mg PO Q8H PRN PRN 09/09/20 Surgical History: - - Right total knee arthroplasty 03/24/16, left breast lumpectomy, right shoulder surgery Psychiatric History: No pertinent psych hx 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 Denies: Chills, Fever, Weight Change HEENT: Denies: Head Aches, Sinus Congestion, Sinus Drainage Cardiovascular: Denies: Chest Pain, Palpitations Respiratory: Denies: Cough, Shortness of breath at rest, Sputum production Gastrointestinal: Reports: Diarrhea, Hematemesis, Nausea, Melena, Vomiting. Denies: Abdominal Pain Genitourinary: Denies: Dysuria Musculoskeletal: Denies: Joint Pain, Joint Tenderness Skin: Denies: Rash, Wounds Neurological: Denies: Numbness, Tingling, Focal weakness Psychiatric: Denies: Anxiety, Depression, Homicidal Ideations, Suicidal Ideations Hematologic/ Lymphatic: Denies: Easy Bruising, Easy Bleeding VTE Information - Inpt Only VTE Present on Admission: No VTE Mechan Device Prophylaxis: SCD's VTE Pharm Prophylaxis ordered?: No Reason prophylaxis not ordered:: Medical Contraindication Patient Problems: Active and Suspected Problems GI bleed (Acute) - Physical Exam Vitals/I&O's: Vital Signs Temp Pulse Resp BP Pulse Ox 100.1 F H 92 18 161/77 H 100 09/09/20 12:46 09/09/20 12:46 09/09/20 12:46 09/09/20 12:46 09/09/20 12:46 Oxygen Flow Rate (L/min) 2 Oxygen Delivery Method Nasal Cannula Weight: 177 lb Body Mass Index (BMI) 31.3 Intake and Output for Last 24 Hours 09/07/20 09/08/20 09/09/20 23:59 23:59 23:59 Intake Total 1260 / 1260 Output Total 2 / 2 Balance 1258 / 1258 General: Alert, Oriented x3, Cooperative HEENT: Atraumatic, PERRLA, EOMI, Normocephalic Neck: Supple, No JVD, Negative Carotid Bruits Lungs: Clear to auscultation, Normal air movement Cardiovascular: Regular rate, No murmurs Abdomen: Bowel Sounds Present, Soft, Non Tender, Non-Distended Extremities: No clubbing, No cyanosis, No edema, Capillary Refill Less than 3 Seconds Skin: No rashes, No breakdown Musculoskeletal: No Tenderness to Palpation of Joints or Extremities Neurological: Cranial nerves II-XII grossly intact, Neuro grossly intact Psych/Mental Status: Normal Affect, Appropriate Microbiology Past 72 Hours 09/09/20 08:54 Mucosa - Nose SARS-CoV-2 Antigen (Rapid) - Final 09/09/20 08:30 Stool Stool Occult Blood (CIERRA) - Final Occult Blood Positive Laboratory Results 09/09/20 08:40: WBC 2.7 L, RBC 2.89 L, Hgb 9.2 L, Hct 27.5 L, MCV 95.2, MCH 31.8, MCHC 33.5, RDW Std Deviation 45.0 H, RDW Coeff of Juan 12.9, Plt Count 97 L, MPV 12.5 H, Immature Gran % (Auto) 0.400, Neut % (Auto) 76.9 H, Lymph % (Auto) 13.4 L, Greenlee % (Auto) 8.9, Eos % (Auto) 0.0, Baso % (Auto) 0.4, Absolute Neuts (auto) 2.1, Absolute Lymphs (auto) 0.36 L, Nucleated RBC % 0, Diff Path Review November, Platelet Estimate MKD DEC, Hypochromasia 1+ 09/09/20 08:40: Sodium 142, Potassium 3.2 L, Chloride 107, Carbon Dioxide 26.0, Anion Gap 9, BUN 46 H, Creatinine 0.79, Estim Creat Clear Calc 41.45, Est GFR (MDRD) Af Amer 92, Est GFR (MDRD) Non-Af 76, BUN/Creatinine Ratio 58.4 H, Glucose 99, Calcium 8.7 09/09/20 08:40: Lactic Acid 1.1 09/09/20 08:40: Blood Type A POSITIVE, Antibody Screen NEGATIVE Current Medications Acetaminophen (Acetaminophen 325 Mg Tablet) 650 mg PO Q6H PRN PRN PRN Reason: Pain Score 1-10/Temp > 100.7 F Calcium Carbonate (Calcium Carbonate 500 Mg Tablet) 500 mg PO DAILYCM STEPH Cholecalciferol (Cholecalciferol (Vit D3) 1,000 Unit (25mcg)) 2,000 unit PO DAILY STEPH Sodium Chloride () 1,000 mls @ 75 mls/hr IV .[id number] STEPH Pantoprazole Sodium 40 mg/ (Sodium Chloride) 110 mls @ 330 mls/hr IV Q12 STEPH Labetalol HCl (Labetalol 100 Mg Tablet) 200 mg PO BID STEPH Magnesium Chloride (Magnesium Chloride 64 Mg Delay Rel.Tablet) 64 mg PO DAILY STEPH Melatonin (Melatonin 3 Mg Tablet) 3 mg PO QHS PRN PRN PRN Reason: INSOMNIA Ondansetron HCl (Ondansetron 4 Mg/2 Ml Vial) 4 mg IV Q8H PRN PRN PRN Reason: NAUSEA/VOMITING Assessment/Plan All Active Problems GI bleed (Acute) 1. Acute GI bleed- Dr. Lopez, general surgery consulted. Plan for EGD/colonoscopy tomorrow. IV PPI. Clear liquid diet. N.p.o. after midnight. Trend CBC. 2. Mild hypokalemia-replace per protocol, trend BMP. 3. Chronic normocytic anemia/iron deficiency anemia-trend CBC. 4. Hypertension-elevated on admission. Continue home labetalol regimen. As needed hydralazine for systolic blood pressure greater than 160. 5. Hyperlipidemia-not on statin. DVT prophylaxis- SCDs CODE STATUS: Discussed with patient, elects full CODE STATUS. This patient was seen by ROBINSON Smith under the supervision of Dr. Benjamin. <Armando Benjamin F - Last Filed: 09/09/20 13:50> History of Present Illness The patient is a 75 year old F [] Past Medical History Allergies amlodipine besylate [From Norvasc] Allergy (Verified 09/09/20 08:21) Swelling bisoprolol fumarate [From Ziac] Allergy (Verified 09/09/20 08:21) Unknown adhesive Adverse Reaction (Verified 09/09/20 08:21) Itching hydrochlorothiazide Adverse Reaction (Verified 09/09/20 08:21) Unknown - Physical Exam Vitals/I&O's: Vital Signs Temp Pulse Resp BP Pulse Ox 100.1 F H 92 18 161/77 H 100 09/09/20 12:46 09/09/20 12:46 09/09/20 12:46 09/09/20 12:46 09/09/20 12:46 Oxygen Flow Rate (L/min) 2 Oxygen Delivery Method Nasal Cannula Weight: 177 lb Body Mass Index (BMI) 31.3 Intake and Output for Last 24 Hours 09/07/20 09/08/20 09/09/20 23:59 23:59 23:59 Intake Total 1260 / 1260 Output Total 2 / 2 Balance 1258 / 1258 Microbiology Past 72 Hours 09/09/20 08:54 Mucosa - Nose SARS-CoV-2 Antigen (Rapid) - Final 09/09/20 08:30 Stool Stool Occult Blood (CIERRA) - Final Occult Blood Positive Laboratory Results 09/09/20 08:40: WBC 2.7 L, RBC 2.89 L, Hgb 9.2 L, Hct 27.5 L, MCV 95.2, MCH 31.8, MCHC 33.5, RDW Std Deviation 45.0 H, RDW Coeff of Juan 12.9, Plt Count 97 L, MPV 12.5 H, Immature Gran % (Auto) 0.400, Neut % (Auto) 76.9 H, Lymph % (Auto) 13.4 L, Greenlee % (Auto) 8.9, Eos % (Auto) 0.0, Baso % (Auto) 0.4, Absolute Neuts (auto) 2.1, Absolute Lymphs (auto) 0.36 L, Nucleated RBC % 0, Diff Path Review November, Platelet Estimate MKD DEC, Hypochromasia 1+ 09/09/20 08:40: Sodium 142, Potassium 3.2 L, Chloride 107, Carbon Dioxide 26.0, Anion Gap 9, BUN 46 H, Creatinine 0.79, Estim Creat Clear Calc 41.45, Est GFR (MDRD) Af Amer 92, Est GFR (MDRD) Non-Af 76, BUN/Creatinine Ratio 58.4 H, Glucose 99, Calcium 8.7 09/09/20 08:40: Lactic Acid 1.1 09/09/20 08:40: Blood Type A POSITIVE, Antibody Screen NEGATIVE Current Medications Acetaminophen (Acetaminophen 325 Mg Tablet) 650 mg PO Q6H PRN PRN PRN Reason: Pain Score 1-10/Temp > 100.7 F Calcium Carbonate (Calcium Carbonate 500 Mg Tablet) 500 mg PO DAILYCM STEPH Cholecalciferol (Cholecalciferol (Vit D3) 1,000 Unit (25mcg)) 2,000 unit PO DAILY [facility] Hydralazine HCl (Hydralazine 20 Mg/Ml Vial) 5 mg IV Q4H PRN PRN PRN Reason: BLOOD PRESSURE Sodium Chloride () 1,000 mls @ 75 mls/hr IV .[id number] [facility] Last Admin: 09/09/20 12:48 Dose: 75 mls/hr Documented by: Pantoprazole Sodium 40 mg/ (Sodium Chloride) 110 mls @ 330 mls/hr IV Q12 STEPH Labetalol HCl (Labetalol 100 Mg Tablet) 200 mg PO BID [facility] Last Admin: 09/09/20 13:31 Dose: 200 mg Documented by: Magnesium Chloride (Magnesium Chloride 64 Mg Delay Rel.Tablet) 64 mg PO DAILY [facility] Melatonin (Melatonin 3 Mg Tablet) 3 mg PO QHS PRN PRN PRN Reason: INSOMNIA Ondansetron HCl (Ondansetron 4 Mg/2 Ml Vial) 4 mg IV Q8H PRN PRN PRN Reason: NAUSEA/VOMITING Addendum: Dr. Benjamin I personally examined the patient and reviewed the chart. I agree with the above. 75-year-old female presents from home because of 2 days of dark black stools and an episode of bloody emesis today. She states that she has been feeling weak and fatigued over the last week. She denies any use of anticoagulants or NSAIDs. She is not on any aspirin at home and only has a history of hypertension taking labetalol twice daily. We will plan for EGD and a colonoscopy tomorrow, she is currently on clears with a bowel prep overnight. We will continue with twice daily Protonix and will monitor her hemoglobin. She denies any abdominal pain. She is hemodynamically stable and her hemoglobin on admission was 9.2, which is probably baseline. She was at 11.9 in 2015 and 2015 however in 2019 her hemoglobin has been steady at 7.5. OBSV E&M: 01483 Initial observation care L3
[2020-09-09] MEDS: Labetalol 100 MG Tablet 200 MG PO ×2 (13:31→21:35)
[2020-09-09] MEDS: Potassium Chloride Oral Tablet 20 MEQ 40 MEQ PO (13:34)
[2020-09-09] MEDS: Acetaminophen 325 MG Tablet 650 MG PO (18:17)
[2020-09-09 19:46] LABS: Hematocrit 22.5 % (37-47); Hemoglobin 7.3 g/dL (12.0-15.0)
[2020-09-10] VITALS (18 sets, daily range): BP systolic 136–179; BP diastolic 65–85; PULSE 67–90; RESP 16–18; TEMP 36.7–37.6; O2SAT 95–100; BMI 31.3
--- NOTE | 2020-09-10 | GASB_PTH ---
PATIENT: BEBETO REMY LOC: MS3 U#:[id number] AGE/SX: 75/F ROOM: CO313 RE09/10/[address]: Dr. Armando Benjamin MD : 1945 BED: 1 DIS: 09/11/2020 SPEC #: [id number] RECD: 09/10/20 13:09 STATUS: JC HOGAN #: [id number] HEIDI: 09/10/20 00:[address]: Jaspreet Lopez DEPT: SURGICAL PATHOLOGY RECD BY: Douglas Schulz ENTERED: 09/10/20 13:10 SP TYPE: Gastric Bx OTHR DR: MD Dr. Bill Forrester III, MD Dr. Nicholas F Kotsonis, MD Tissues: Gastric mucous membrane Procedures: Surgery Specimen Level IV Comments: @ Ordering doctor for SUIV edited from to @ pia TERAN at 09/10/20 1440 @ Submitting doctor edited from to @ pia TERAN at 09/10/20 1440 HEADER OPERATION: Colonoscopy, [place] PRE-OP DIAGNOSIS: GI bleed TISSUE SUBMITTED: Antral biopsy, H. pylori and path MICROSCOPIC DIAGNOSIS Antral biopsy: Mild gastritis. See microscopic description and comment. SHARON:catarina 09/11/2020 COMMENT The results of immunohistochemistry for Helicobacter pylori will be reported separately ([id number]). MICROSCOPIC DESCRIPTION Slides are reviewed. The specimen shows fragments of gastric mucosa with chronic inflammatory cell infiltrates in the lamina propria consisting of lymphocytes and plasma cells, consistent with mild chronic gastritis. GROSS DESCRIPTION Received in fixative is one container labeled with the patient's name and designated antral biopsy. The specimen consists of one irregular fragment of light zhang soft tissue that measures 0.4 x 0.3 x 0.1 cm. The specimen is totally submitted in one cassette. / SHARON:catarina 09/10/20 TC:3 CPT: 76529
[2020-09-10] MEDS: 0.9% Normal Saline 1,000 ML 75 ML IV ×2 (06:06→14:19)
[2020-09-10 08:02] LABS: Anion Gap 7 (5-15); BUN 27 mg/dL (7-18); BUN/Creat Ratio 45.5 RATIO (10-20); Calcium,Total 8.3 mg/dL (8.5-10.1); Chloride 117 mmol/L (98-107); Creatinine, Serum 0.59 mg/dL (0.55-1.02); EST Glomerular Filtration Rate 106 mL/min (>60); Est Glom Filt Rate - Afr Amer 128 mL/min (>60); Estimated Creatinine Clearance 41.45 ml/min; Glucose 87 mg/dL (74-106); Potassium 3.2 mmol/L (3.5-5.1); Sodium Level 147 mmol/L (136-145)
[2020-09-10 08:05] LABS: Absolute Lymphocyte Count 0.81 X10^3/uL (0.83-4.51); Absolute Neutrophil Count 1.3 X10^3/uL (2.0-7.7); Basophil# 0.01 X10^3/uL; Basophil% 0.4 % (0-1); Eosinophil# 0.03 X10^3/uL; Eosinophils% 1.3 % (0-5); Hematocrit 28.7 % (37-47); Hemoglobin 9.4 g/dL (12.0-15.0); Lymphocyte # 0.81 X10^3/ul (4.0); Lymphocyte % 34.6 % (19-41); Mean Corp Hgb Conc 32.8 g/dL (32-36); Mean Corpuscular Hgb 31.3 pg (27.0-32.0); Mean Corpuscular Volume 95.7 fL (81-99); Mean Platelet Vol. 12.2 fl (6.2-12.0); Monocyte# 0.24 X10^3/uL; Monocyte% 10.3 % (0-10); NRBC Flagged by Analyzer 0 % (0-5); Neutrophil # 1.25 X10^3/uL (2.7-7.7); Neutrophil % 53.4 % (47-70); POSITIVE COUNT YES; Platelet Count 89 K/mm3 (150-450); RBC Distribution Width CV 13.4 % (11.6-14.6); RBC Distribution Width SD 46.9 fl (35.1-43.9); White Blood Count 2.3 K/mm3 (4.4-11.0)
[2020-09-10 08:18] LABS: International Normalized Ratio 1.1; Prothrombin Time (Protime)PT. 13.5 SECONDS (11.7-14.9)
[2020-09-10 08:19] LABS: Partial Thromboplast Time 34.4 Seconds (24.1-36.2)
[2020-09-10] MEDS: hydrALAZINE 20 MG/ML Vial 5 MG IV (10:02)
--- NOTE | 2020-09-10 12:27 | OP.CCLET_ITS ---
09/10/2020 [address] [place] [address] Re : Upper GI endoscopy procedure for Gabi Ashby Dear Dr. Schuster This procedure was performed on Thursday, September 10, 2020. My impressions and recommendations are as follows: Impressions : - Normal esophagus. - Normal stomach. Biopsied. - Normal examined duodenum. No specimens collected. Recommendations : - [facility]. - Advance diet as tolerated. - Continue present medications. - Await pathology results. - Repeat upper endoscopy (date not yet determined) for surveillance. - Return to primary care physician PRN. My findings are described in the full procedure note, which is enclosed. If I can be of further assistance, please feel free to contact me at Doctor phone number(s): , Fax: [phone], Work: . Sincerely, MD Jaspreet Hernandez MD 09/10/2020 12:27:04 PM This report has been signed electronically.
--- NOTE | 2020-09-10 12:27 | OP.EGD_ITS ---
Patient Name: Gabi Ashby Procedure Date: 09/10/2020 11:50 AM Date of : 1945 Age: 75 Procedure: Upper GI endoscopy Indications: Recent gastrointestinal bleeding Providers: Jasrpeet Lopez MD Medicines: See the Anesthesia note for documentation of the administered medications Patient Profile: This is a 75 year old female. Refer to note in patient chart for documentation of history and physical. Complications: No immediate complications. Procedure: Pre-Anesthesia Assessment: - Prior to the procedure, a History and Physical was performed, and patient medications and allergies were reviewed. The patient's tolerance of previous anesthesia was also reviewed. The risks and benefits of the procedure and the sedation options and risks were discussed with the patient. All questions were answered, and informed consent was obtained. Prior Anticoagulants: The patient has taken no previous anticoagulant or antiplatelet agents. ASA Grade Assessment: II - A patient with mild systemic disease. After reviewing the risks and benefits, the patient was deemed in satisfactory condition to undergo the procedure. After obtaining informed consent, the endoscope was passed under direct vision. Throughout the procedure, the patient's blood pressure, pulse, and oxygen saturations were monitored continuously. The gastroscope was introduced through the mouth, and advanced to the second part of duodenum. The upper GI endoscopy was accomplished without difficulty. The patient tolerated the procedure well. Scope In: 12:02:35 PM Scope Out: 12:05:27 PM Total Procedure Duration Time 0 hours 2 minutes 52 seconds Findings: The examined esophagus was normal. The entire examined stomach was normal. Biopsies were taken with a cold forceps for Helicobacter pylori testing. The examined duodenum was normal. No biopsies or other specimens were collected for this exam. Impression: - Normal esophagus. - Normal stomach. Biopsied. - Normal examined duodenum. No specimens collected. Recommendation: - [facility]. - Advance diet as tolerated. - Continue present medications. - Await pathology results. - Repeat upper endoscopy (date not yet determined) for surveillance. - Return to primary care physician PRN. Procedure Code(s): --- Professional --- 20983, Esophagogastroduodenoscopy, flexible, transoral; with biopsy, single or multiple Diagnosis Code(s): --- Professional --- K92.2, Gastrointestinal hemorrhage, unspecified CPT copyright 2017 [employer]. All rights reserved. The codes documented in this report are preliminary and upon braille coder review may be revised to meet current compliance requirements. MD Jaspreet Hernandez MD 09/10/2020 12:27:04 PM This report has been signed electronically. Number of Addenda: 0 Note Initiated On: 09/10/2020 11:50 AM
--- NOTE | 2020-09-10 12:30 | IMM_PTH ---
PATIENT: BEBETO REMY LOC: MS3 U#:[id number] AGE/SX: 75/F ROOM: AZ313 RE09/10/[address]: Dr. Armando Benjamin MD : 1945 BED: 1 DIS: 09/11/2020 SPEC #: [id number] RECD: 09/10/20 14:40 STATUS: JC HOGAN #: [id number] HEIDI: 09/10/20 12:[address]: Jaspreet Lopez DEPT: IMMUNOHISTOCHEMISTRY RECD BY: Johanne Dupont ENTERED: 09/10/20 14:40 SP TYPE: IMMUNO OTHR DR: MD Dr. Armando Elizabeth III, MD Tissues: Stomach, NOS Procedures: H Pylori (initial) PHYSICIAN & INSTITUTION [place] [id number] SPECIMEN INFORMATION: Tissue Source: Antral biopsy Clinical Info: GI bleed Specimen Number: [id number] CPT code: 43881 METHODOLOGY: Deparaffinized sections of prefer/formalin-fixed tissue or PAP/DQ stained slides are incubated with monoclonal/polyclonal antibodies/oligonucleotide probes. Localization is made via biotin free immunoperoxidase method. Appropriate controls are performed and reacted as expected. Results on target cell population are indicated in the following table: RESULTS: ANTIBODY / CLONE RESULT H Pylori (polyclonal) negative These tests were developed and their performance characteristics determined by [facility]. They may not have been cleared or approved by the U.S. Food and Drug Administration. The FDA has determined that such clearance or approval is not necessary. INTERPRETATION: Antral biopsy: Negative for Helicobacter pylori organisms. SJ:catarina 09/11/2020
--- NOTE | 2020-09-10 12:31 | OP.COLON_ITS ---
Patient Name: Gabi Ashby Procedure Date: 09/10/2020 12:06 PM Date of : 1945 Age: 75 Procedure: Colonoscopy Indications: Gastrointestinal bleeding Providers: Jaspreet Lopez MD Medicines: See the Anesthesia note for documentation of the administered medications Patient Profile: This is a 75 year old female. Refer to note in patient chart for documentation of history and physical. Last Colonoscopy: 10 years ago. Complications: No immediate complications. Procedure: Pre-Anesthesia Assessment: - Prior to the procedure, a History and Physical was performed, and patient medications and allergies were reviewed. The patient's tolerance of previous anesthesia was also reviewed. The risks and benefits of the procedure and the sedation options and risks were discussed with the patient. All questions were answered, and informed consent was obtained. Prior Anticoagulants: The patient has taken no previous anticoagulant or antiplatelet agents. ASA Grade Assessment: II - A patient with mild systemic disease. After reviewing the risks and benefits, the patient was deemed in satisfactory condition to undergo the procedure. After I obtained informed consent, the scope was passed under direct vision. Throughout the procedure, the patient's blood pressure, pulse, and oxygen saturations were monitored continuously. The colonoscope was introduced through the anus with the intention of advancing to the cecum. The scope was advanced to the ascending colon before the procedure was aborted. Medications were given. The colonoscopy was aborted due to the extreme difficulty of the procedure. Applying abdominal pressure did not allow for the successful completion of the procedure. The colonoscopy was extremely difficult due to significant looping. Successful completion of the procedure was aided by applying abdominal pressure. The patient tolerated the procedure well. The quality of the bowel preparation was good. Scope In: 12:08:14 PM Scope Withdrawal Time 0 hours 7 minutes 24 seconds Scope Out: 12:20:36 PM Total Procedure Duration Time 0 hours 12 minutes 22 seconds Findings: Non-bleeding internal hemorrhoids were found during retroflexion. The hemorrhoids were mild and small. The exam was otherwise without abnormality. Impression: - The procedure was aborted due to the extreme difficulty of the procedure. - Non-bleeding internal hemorrhoids. - The examination was otherwise normal. - No specimens collected. Recommendation: - [facility]. - Advance diet as tolerated. - Continue present medications. - Perform an air contrast barium enema today. - Repeat colonoscopy in 10 years for screening purposes. Procedure Code(s): --- Professional --- 91256, 53, Colonoscopy, flexible; diagnostic, including collection of specimen(s) by brushing or washing, when performed (separate procedure) Diagnosis Code(s): --- Professional --- Z53.8, Procedure and treatment not carried out for other reasons K64.8, Other hemorrhoids K92.2, Gastrointestinal hemorrhage, unspecified CPT copyright 2017 [employer]. All rights reserved. The codes documented in this report are preliminary and upon safety deposit boxes custodian review may be revised to meet current compliance requirements. MD Jaspreet Hernandez MD 09/10/2020 12:31:12 PM This report has been signed electronically. Number of Addenda: 0 Note Initiated On: 09/10/2020 12:06 PM
--- NOTE | 2020-09-10 12:31 | OP.CCLET_ITS ---
09/10/2020 [address] [place] [address] Re : Colonoscopy procedure for Gabi Ashby Dear Dr. Schuster This procedure was performed on Thursday, September 10, 2020. My impressions and recommendations are as follows: Impressions : - The procedure was aborted due to the extreme difficulty of the procedure. - Non-bleeding internal hemorrhoids. - The examination was otherwise normal. - No specimens collected. Recommendations : - [facility]. - Advance diet as tolerated. - Continue present medications. - Perform an air contrast barium enema today. - Repeat colonoscopy in 10 years for screening purposes. My findings are described in the full procedure note, which is enclosed. If I can be of further assistance, please feel free to contact me at Doctor phone number(s): , Fax: [phone], Work: . Sincerely, MD Jaspreet Hernandez MD 09/10/2020 12:31:12 PM This report has been signed electronically.
--- NOTE | 2020-09-10 13:02 | PCM.PROGNOTE ---
<RogelioHeather SCRAP PICKER - Last Filed: 09/10/20 13:11> Patient Problems: Active and Suspected Problems GI bleed (Acute) Subjective: Patient seen and examined. Denies further nausea, vomiting. Received 2 units of blood overnight. Denies shortness of breath, lightheadedness. Underwent EGD/colonoscopy. No source of bleeding found however colonoscopy was aborted due to procedure difficulty. - Physical Exam Vitals/I&O's: Vital Signs Temp Pulse Resp BP Pulse Ox 99.7 F H 85 16 159/67 H 97 09/10/20 12:41 09/10/20 12:41 09/10/20 12:41 09/10/20 12:41 09/10/20 12:41 Oxygen Flow Rate (L/min) 96 Oxygen Delivery Method Room Air Weight: 176 lb 15.088 oz Body Mass Index (BMI) 31.3 Intake and Output for Last 24 Hours 09/08/20 09/09/20 09/10/20 23:59 23:59 23:59 Intake Total 2320 / 2320 2918.75 / 2918.75 Output Total 2 / 2 Balance 2318 / 2318 2918.75 / 2918.75 General: Alert, Oriented x3, Cooperative HEENT: Atraumatic, PERRLA, EOMI, Normocephalic Neck: Supple, No JVD, Negative Carotid Bruits Lungs: Clear to auscultation, Normal air movement Cardiovascular: Regular rate, No murmurs Abdomen: Bowel Sounds Present, Soft, Non Tender Extremities: No clubbing, No cyanosis, No edema, Capillary Refill Less than 3 Seconds Skin: No rashes, No breakdown Musculoskeletal: No Tenderness to Palpation of Joints or Extremities Neurological: Cranial nerves II-XII grossly intact, Neuro grossly intact Psych/Mental Status: Normal Affect, Appropriate Microbiology Past 72 Hours 09/09/20 08:54 Mucosa - Nose SARS-CoV-2 Antigen (Rapid) - Final 09/09/20 08:30 Stool Stool Occult Blood (CIERRA) - Final Occult Blood Positive Laboratory Results 09/09/20 08:40: Crossmatch See Detail 09/09/20 19:34: Hgb 7.3 L, Hct 22.5 L 09/10/20 07:30: WBC 2.3 L, RBC 3.00 L, Hgb 9.4 L, Hct 28.7 L, MCV 95.7, MCH 31.3, MCHC 32.8, RDW Std Deviation 46.9 H, RDW Coeff of Juan 13.4, Plt Count 89 L, MPV 12.2 H, Immature Gran % (Auto) 0.000, Neut % (Auto) 53.4, Lymph % (Auto) 34.6, [place] % (Auto) 10.3 H, Eos % (Auto) 1.3, Baso % (Auto) 0.4, Absolute Neuts (auto) 1.3 L, Absolute Lymphs (auto) 0.81 L, Nucleated RBC % 0 09/10/20 07:30: Sodium 147 H, Potassium 3.2 L, Chloride 117 H, Carbon Dioxide 23.0, Anion Gap 7, BUN 27 H, Creatinine 0.59, Estim Creat Clear Calc 41.45, Est GFR (MDRD) Af Amer 128, Est GFR (MDRD) Non-Af 106, BUN/Creatinine Ratio 45.5 H, Glucose 87, Calcium 8.3 L 09/10/20 07:30: PT 13.5, INR 1.1, APTT 34.4 Current Medications Acetaminophen (Acetaminophen 325 Mg Tablet) 650 mg PO Q6H PRN PRN PRN Reason: Pain Score 1-10/Temp > 100.7 F Last Admin: 09/09/20 18:17 Dose: 650 mg Documented by: Calcium Carbonate (Calcium Carbonate 500 Mg Tablet) [facility] Cholecalciferol (Cholecalciferol (Vit D3) 1,000 Unit (25mcg)) 2,000 unit PO DAILY [facility] Hydralazine HCl (Hydralazine 20 Mg/Ml Vial) 5 mg IV Q4H PRN PRN PRN Reason: BLOOD PRESSURE Last Admin: 09/10/20 10:02 Dose: 5 mg Documented by: Sodium Chloride () 1,000 mls @ 75 mls/hr IV .[id number] [facility] Last Admin: 09/10/20 06:06 Dose: 75 mls/hr Documented by: Pantoprazole Sodium 40 mg/ (Sodium Chloride) 110 mls @ 330 mls/hr IV Q12 [facility] Last Infusion: 09/09/20 22:09 Dose: Infused Documented by: Labetalol HCl (Labetalol 100 Mg Tablet) 200 mg PO BID [facility] Last Admin: 09/09/20 21:35 Dose: 200 mg Documented by: Magnesium Chloride (Magnesium Chloride 64 Mg Delay Rel.Tablet) 64 mg PO DAILY [facility] Melatonin (Melatonin 3 Mg Tablet) 3 mg PO QHS PRN PRN PRN Reason: INSOMNIA Ondansetron HCl (Ondansetron 4 Mg/2 Ml Vial) 4 mg IV Q8H PRN PRN PRN Reason: NAUSEA/VOMITING Medical Necessity - Tobacco Use Smoking Status: Never smoker Assessment/Plan All Active Problems GI bleed (Acute) 1. Acute GI bleed- Dr. Lopez, general surgery consulted. EGD/colonoscopy tomorrow 09/10/2020. EGD normal, biopsies taken. Colonoscopy aborted due to procedure difficulties however no evidence of bleeding. IV PPI. Await further surgery recommendations. Barium enema ordered. 2. Mild hypokalemia-replace per protocol, trend BMP. 3. Acute blood loss anemia secondary to #1 on chronic normocytic anemia/iron deficiency anemia-status post 2 units PRBC. Trend CBC. 4. Hypertension-elevated on admission. Continue home labetalol regimen. As needed hydralazine for systolic blood pressure greater than 160. Improved. 5. Hyperlipidemia-not on statin. DVT prophylaxis- SCDs This patient was seen by ROBINSON Smith under the supervision of Dr. Benjamin. <Armando Benjamin F - Last Filed: 09/10/20 13:45> - Physical Exam Vitals/I&O's: Vital Signs Temp Pulse Resp BP Pulse Ox 99.0 F 84 18 158/65 H 96 09/10/20 12:58 09/10/20 12:58 09/10/20 12:58 09/10/20 12:58 09/10/20 12:58 Oxygen Flow Rate (L/min) 96 Oxygen Delivery Method Room Air Weight: 176 lb 15.088 oz Body Mass Index (BMI) 31.3 Intake and Output for Last 24 Hours 09/08/20 09/09/20 09/10/20 23:59 23:59 23:59 Intake Total 2320 / 2320 2918.75 / 2918.75 Output Total 2 / 2 Balance 2318 / 2318 2918.75 / 2918.75 Microbiology Past 72 Hours 09/09/20 08:54 Mucosa - Nose SARS-CoV-2 Antigen (Rapid) - Final 09/09/20 08:30 Stool Stool Occult Blood (CIERRA) - Final Occult Blood Positive Laboratory Results 09/09/20 08:40: Diff Path Review Reviewed 09/09/20 08:40: Crossmatch See Detail 09/09/20 19:34: Hgb 7.3 L, Hct 22.5 L 09/10/20 07:30: WBC 2.3 L, RBC 3.00 L, Hgb 9.4 L, Hct 28.7 L, MCV 95.7, MCH 31.3, MCHC 32.8, RDW Std Deviation 46.9 H, RDW Coeff of Juan 13.4, Plt Count 89 L, MPV 12.2 H, Immature Gran % (Auto) 0.000, Neut % (Auto) 53.4, Lymph % (Auto) 34.6, [place] % (Auto) 10.3 H, Eos % (Auto) 1.3, Baso % (Auto) 0.4, Absolute Neuts (auto) 1.3 L, Absolute Lymphs (auto) 0.81 L, Nucleated RBC % 0 09/10/20 07:30: Sodium 147 H, Potassium 3.2 L, Chloride 117 H, Carbon Dioxide 23.0, Anion Gap 7, BUN 27 H, Creatinine 0.59, Estim Creat Clear Calc 41.45, Est GFR (MDRD) Af Amer 128, Est GFR (MDRD) Non-Af 106, BUN/Creatinine Ratio 45.5 H, Glucose 87, Calcium 8.3 L 09/10/20 07:30: PT 13.5, INR 1.1, APTT 34.4 Current Medications Acetaminophen (Acetaminophen 325 Mg Tablet) 650 mg PO Q6H PRN PRN PRN Reason: Pain Score 1-10/Temp > 100.7 F Last Admin: 09/09/20 18:17 Dose: 650 mg Documented by: Calcium Carbonate (Calcium Carbonate 500 Mg Tablet) [facility] Last Admin: 09/10/20 13:06 Dose: 500 mg Documented by: Cholecalciferol (Cholecalciferol (Vit D3) 1,000 Unit (25mcg)) 2,000 unit PO DAILY [facility] Last Admin: 09/10/20 13:05 Dose: 2,000 unit Documented by: Hydralazine HCl (Hydralazine 20 Mg/Ml Vial) 5 mg IV Q4H PRN PRN PRN Reason: BLOOD PRESSURE Last Admin: 09/10/20 10:02 Dose: 5 mg Documented by: Sodium Chloride () 1,000 mls @ 75 mls/hr IV .[id number] [facility] Last Admin: 09/10/20 06:06 Dose: 75 mls/hr Documented by: Pantoprazole Sodium 40 mg/ (Sodium Chloride) 110 mls @ 330 mls/hr IV Q12 [facility] Last Admin: 09/10/20 13:07 Dose: Not Given Documented by: Labetalol HCl (Labetalol 100 Mg Tablet) 200 mg PO BID [facility] Last Admin: 09/10/20 13:05 Dose: 200 mg Documented by: Magnesium Chloride (Magnesium Chloride 64 Mg Delay Rel.Tablet) 64 mg PO DAILY [facility] Last Admin: 09/10/20 13:06 Dose: 64 mg Documented by: Melatonin (Melatonin 3 Mg Tablet) 3 mg PO QHS PRN PRN PRN Reason: INSOMNIA Ondansetron HCl (Ondansetron 4 Mg/2 Ml Vial) 4 mg IV Q8H PRN PRN PRN Reason: NAUSEA/VOMITING Addendum: Dr. Benjamin I personally examined the patient and reviewed the chart. I agree with the above. 75-year-old female presents from home because of 2 days of dark black stools and an episode of bloody emesis today. She states that she has been feeling weak and fatigued over the last week. She denies any use of anticoagulants or NSAIDs. She is not on any aspirin at home and only has a history of hypertension taking labetalol twice daily. We will plan for EGD and a colonoscopy tomorrow, she is currently on clears with a bowel prep overnight. We will continue with twice daily Protonix and will monitor her hemoglobin. She denies any abdominal pain. She is hemodynamically stable and her hemoglobin on admission was 9.2, which is probably baseline. She was at 11.9 in 2014 and 2015 however in 2019 her hemoglobin has been steady at 7.5. 09/10/2020: Feels much better after being transfused 2 units, hemoglobin dropped to 7.3 and is back up to 9.4 after 2 units which is an appropriate increase. Her EGD was unremarkable today however her colonoscopy could not be completed as she had excessive looping, however the colonoscope did make it to the ascending colon and findings then were unremarkable. She does have some nonbleeding internal hemorrhoids which could be the cause of her bleeding. We will continue with PPI and will follow her hemoglobin in the morning. Appreciate surgery's assistance. OBSV E&M: [id number] Subsequent observation care L2
[2020-09-10] MEDS: Labetalol 100 MG Tablet 200 MG PO ×2 (13:05→21:14)
[2020-09-10] MEDS: Magnesium Chloride 64 MG Delay Rel.Tablet PO (13:06)
[2020-09-10] MEDS: Calcium Carbonate 500 MG Tablet PO (13:06)
[2020-09-10 13:17] LABS: Pathologist Review Reviewed
[2020-09-10] MEDS: Potassium Chloride Oral Tablet 20 MEQ 40 MEQ PO (14:24)
[2020-09-10] MEDS: Acetaminophen 325 MG Tablet 650 MG PO (22:12)
[2020-09-11] VITALS (7 sets, daily range): BP systolic 152–182; BP diastolic 67–82; PULSE 63–78; RESP 18; TEMP 36.8–37.2; O2SAT 94–95
[2020-09-11] MEDS: 0.9% Normal Saline 1,000 ML 75 ML IV (03:36)
[2020-09-11 06:51] LABS: Hematocrit 24.2 % (37-47); Mean Corp Hgb Conc 33.1 g/dL (32-36); Mean Corpuscular Hgb 31.1 pg (27.0-32.0); Mean Corpuscular Volume 94.2 fL (81-99); Mean Platelet Vol. 11.9 fl (6.2-12.0); POSITIVE COUNT YES; Platelet Count 76 K/mm3 (150-450); RBC Distribution Width CV 13.9 % (11.6-14.6); RBC Distribution Width SD 47.3 fl (35.1-43.9); Red Blood Count 2.57 M/mm3 (4.2-5.4); White Blood Count 1.7 K/mm3 (4.4-11.0)
[2020-09-11 07:14] LABS: Anion Gap 6 (5-15); BUN 12 mg/dL (7-18); BUN/Creat Ratio 22.1 RATIO (10-20); Calcium,Total 8.2 mg/dL (8.5-10.1); Chloride 117 mmol/L (98-107); Creatinine, Serum 0.54 mg/dL (0.55-1.02); EST Glomerular Filtration Rate 117 mL/min (>60); Est Glom Filt Rate - Afr Amer 141 mL/min (>60); Estimated Creatinine Clearance 41.45 ml/min; Glucose 88 mg/dL (74-106); Potassium 3.5 mmol/L (3.5-5.1); Sodium Level 145 mmol/L (136-145)
[2020-09-11] MEDS: Calcium Carbonate 500 MG Tablet PO (07:28)
[2020-09-11] MEDS: Magnesium Chloride 64 MG Delay Rel.Tablet PO (07:28)
[2020-09-11] MEDS: Labetalol 100 MG Tablet 200 MG PO (07:29)
--- NOTE | 2020-09-11 09:00 | RAD_ITS ---
STUDY: BARIUM ENEMA. REASON FOR EXAM: Female, 75 years old. Incomplete colonoscopy. Rectal bleeding. FLUOROSCOPY TIME (if supplied): ( 60 seconds ) minutes/seconds. Images were obtained. TECHNIQUE: A pediatric urologist film was obtained. Following this, contrast was instilled retrograde through the rectum. Entire colon was opacified. COMPARISON: None. FINDINGS: A pediatric urologist film was obtained. Unremarkable bowel gas pattern. There is evidence of a diverticulosis of the sigmoid colon. The sigmoid colon is redundant. No evidence of a antegrade or retrograde obstruction to the flow of contrast. No mass lesion is seen. RAD/Barium Enema No Air Cont IMPRESSION: Sigmoid diverticulosis without radiographic evidence of diverticulitis. No mass lesion is seen. Electronically Signed: Jeison Waters MD at 10:42 EST , Service support ,
--- NOTE | 2020-09-11 10:25 | CASEMGMT ---
RN ISSA Face to Face with patient for initial transition planning/care coordination assessment. RN CM introduced self and role at [facility]. Patient lying in bed, alert and oriented, at bedside. Patient willing to participate in assessment and is able to answer all questions appropriately. Care providers, pharmacy, and demographics verified. Patient wishes to discharge home, denies need for home health at this time. Patient states she has no further needs or concerns at this time. CM to follow for discharge planning needs that may arise. PCP: [facility] Specialists: [employer] [employer] [facility]erred [facility] Prescription Benefit: yes Living Will/HPOA: none LNOK: Living Arrangements: Patient lives with in a single story home with 3 steps and railing to enter the home. Patient states she is independent at home. Transportation: self/ DME/HHC: Patient states she has shower chair, raised toilet, cane, walker, grab bars at home. Patient denies previous HHC. Disposition Plan: Patient to discharge home with family support and follow-up plans in place. Tammie MCCAULEY, RN, CM
[2020-09-11] MEDS: Acetaminophen 325 MG Tablet 650 MG PO (12:44)
[2020-09-11] MEDS: hydrALAZINE 20 MG/ML Vial 5 MG IV (12:44)
[2020-09-11 13:18] LABS: Hematocrit 26.4 % (37-47); POSITIVE COUNT YES
--- NOTE | 2020-09-11 13:52 | PCM.DC ---
- Discharge Diagnoses Current Active Problems: Current Active and Chronic Problems GI bleed (Acute) Osteoarthritis (Chronic) Hyperlipidemia (Chronic) Hypertension (Chronic) You will use the following diet at home:: Other - Advance diet as tolerated Discharge Activity: Return to Normal Activity Call your doctor if you observe: Shortness of breath, Dizziness, Fainting spells, Chest pain Instructions: Understanding Diverticulosis and Diverticulitis, ED Diverticulosis Allergies/Adverse Reactions: Allergies amlodipine besylate [From Norvasc] Allergy (Verified 09/09/20 08:21) Swelling bisoprolol fumarate [From Ziac] Allergy (Verified 09/09/20 08:21) Unknown adhesive Adverse Reaction (Verified 09/09/20 08:21) Itching hydrochlorothiazide Adverse Reaction (Verified 09/09/20 08:21) Unknown Medications to take at Discharge Calcium Carbonate [Calcium] 600 mg PO DAILY 03/13/16 Cholecalciferol (VIT D3) [Vitamin D3] 2,000 unit PO DAILY 03/13/16 Labetalol [Trandate (Beta Vincenzo)] 200 mg PO BID 03/13/16 Magnesium 250 mg PO DAILY 03/13/16 Acetaminophen [Tylenol] 1,000 mg PO Q8H PRN PRN 09/09/20 Pantoprazole Sodium [Protonix] 40 mg PO BID #60 tab 09/11/20 The following prescriptions were given: Pantoprazole Sodium [Protonix] 40 mg PO BID #60 tab Transmission Status: Pending to [facility] [facility] Primary Care Physician: Bill Schuster III, MD [Primary Care Provider] - Please follow up with your Primary Care Physician in: 1 Week Test Results: Test results from this visit will be discussed in further detail at your follow-up appointment, if applicable. Please Follow Up With: Jaspreet Lopez MD When: 2 Weeks Proposed Discharge Date: 09/11/20
--- NOTE | 2020-09-11 13:58 | PCM.DC.SUM ---
<Heather Mercado INSTRUMENT CHECKER - Last Filed: 09/11/20 14:05> Discharge Date and Diagnosis - Problem List Patient Problems: Active and Suspected Problems GI bleed (Acute) Date of Admission: 09/09/20 Date of Discharge: 09/11/20 - Primary Discharge Diagnosis Acute Problems: Active Problems 1. Acute GI bleed, unclear source 2. Mild hypokalemia 3. Acute blood loss anemia secondary to #1 on chronic normocytic anemia/iron deficiency anemia 4. Hypertension 5. Hyperlipidemia - Secondary Discharge Diagnosis Chronic Problems: Chronic Problems Osteoarthritis (Chronic) Hyperlipidemia (Chronic) Hypertension (Chronic) Hospital Course and Treatment Imaging Results: Diagnostic Data Barium Enema 09/11/20 09:00 IMPRESSION: Sigmoid diverticulosis without radiographic evidence of diverticulitis. No mass lesion is seen. Electronically Signed: Jeison Waters MD at 10:42 EST , Service support , Dr. Lopez, general surgery Operations: None Procedures: Colonoscopy, EGD Summary of Care Provided: The patient is a 75 year old F admitted 09/09/2020 due to black stools and vomiting blood. 1. Acute GI bleed- Dr. Lopez, general surgery consulted. EGD normal, biopsies taken. Colonoscopy aborted due to procedure difficulties however no evidence of bleeding. Stool positive for occult blood. Barium enema shows sigmoid diverticulosis without evidence of diverticulitis. Unclear source of bleeding. Continue PPI twice daily. Follow-up with general surgery in 2 weeks. 2. Mild hypokalemia-replace per protocol, resolved. 3. Acute blood loss anemia secondary to #1 on chronic normocytic anemia/iron deficiency anemia-status post 2 units PRBC. Hemoglobin stable at discharge. 4. Hypertension-Continue home labetalol regimen. 5. Hyperlipidemia-not on statin. General: Alert, Oriented x3, Cooperative HEENT: Atraumatic, PERRLA, EOMI, Normocephalic Neck: Supple, No JVD, Negative Carotid Bruits Lungs: Clear to auscultation, Normal air movement Cardiovascular: Regular rate, No murmurs Abdomen: Bowel Sounds Present, Soft, Non Tender Extremities: No clubbing, No cyanosis, No edema, Capillary Refill Less than 3 Seconds Skin: No rashes, No breakdown Musculoskeletal: No Tenderness to Palpation of Joints or Extremities Neurological: Cranial nerves II-XII grossly intact, Neuro grossly intact Psych/Mental Status: Normal Affect, Appropriate Patient seen and examined prior to discharge. Physical assessment as noted above. Patient is stable for discharge with follow up recommendations as noted above. This patient was seen by ROBINSON Smith under the supervision of Dr. Benjamin. Patient Problems: Active and Suspected Problems GI bleed (Acute) - Physical Exam Vitals/I&O's: Vital Signs Temp Pulse Resp BP Pulse Ox 98.2 F 63 18 182/78 H 94 09/11/20 12:36 09/11/20 12:44 09/11/20 12:36 09/11/20 12:39 09/11/20 12:36 Oxygen Flow Rate (L/min) 96 Oxygen Delivery Method Room Air Weight: 176 lb 15.088 oz Body Mass Index (BMI) 31.3 Intake and Output for Last 24 Hours 09/09/20 09/10/20 09/11/20 23:59 23:59 23:59 Intake Total 2320 / 2320 4643.75 / 4643.75 1428.75 / 1428.75 Output Total 2 / 2 300 / 300 Balance 2318 / 2318 4643.75 / 4643.75 1128.75 / 1128.75 Microbiology Past 72 Hours 09/09/20 08:54 Mucosa - Nose SARS-CoV-2 Antigen (Rapid) - Final 09/09/20 08:30 Stool Stool Occult Blood (CIERRA) - Final Occult Blood Positive Laboratory Results 09/11/20 06:20: WBC 1.7 L, RBC 2.57 L, Hgb 8.0 L, Hct 24.2 L, MCV 94.2, MCH 31.1, MCHC 33.1, RDW Std Deviation 47.3 H, RDW Coeff of Juan 13.9, Plt Count 76 L, MPV 11.9 09/11/20 06:20: Sodium 145, Potassium 3.5, Chloride 117 H, Carbon Dioxide 22.0, Anion Gap 6, BUN 12, Creatinine 0.54 L, Estim Creat Clear Calc 41.45, Est GFR (MDRD) Af Amer 141, Est GFR (MDRD) Non-Af 117, BUN/Creatinine Ratio 22.1 H, Glucose 88, Calcium 8.2 L 09/11/20 13:05: Hgb 9.0 L, Hct 26.4 L Current Medications Acetaminophen (Acetaminophen 325 Mg Tablet) 650 mg PO Q6H PRN PRN PRN Reason: Pain Score 1-10/Temp > 100.7 F Last Admin: 09/11/20 12:44 Dose: 650 mg Documented by: Calcium Carbonate (Calcium Carbonate 500 Mg Tablet) 500 mg PO DAILYCM [facility] Last Admin: 09/11/20 07:28 Dose: 500 mg Documented by: Cholecalciferol (Cholecalciferol (Vit D3) 1,000 Unit (25mcg)) 2,000 unit PO DAILY [facility] Last Admin: 09/11/20 07:28 Dose: 2,000 unit Documented by: Hydralazine HCl (Hydralazine 20 Mg/Ml Vial) 5 mg IV Q4H PRN PRN PRN Reason: BLOOD PRESSURE Last Admin: 09/11/20 12:44 Dose: 5 mg Documented by: Sodium Chloride () 1,000 mls @ 75 mls/hr IV .[id number] [facility] Last Infusion: 09/11/20 11:10 Dose: 75 mls/hr Documented by: Pantoprazole Sodium 40 mg/ (Sodium Chloride) 110 mls @ 330 mls/hr IV Q12 [facility] Last Infusion: 09/11/20 11:10 Dose: Infused Documented by: Labetalol HCl (Labetalol 100 Mg Tablet) 200 mg PO BID [facility] Last Admin: 09/11/20 07:29 Dose: 200 mg Documented by: Magnesium Chloride (Magnesium Chloride 64 Mg Delay Rel.Tablet) 64 mg PO DAILY [facility] Last Admin: 09/11/20 07:28 Dose: 64 mg Documented by: Melatonin (Melatonin 3 Mg Tablet) 3 mg PO QHS PRN PRN PRN Reason: INSOMNIA Ondansetron HCl (Ondansetron 4 Mg/2 Ml Vial) 4 mg IV Q8H PRN PRN PRN Reason: NAUSEA/VOMITING Sodium Chloride (0.9% Saline Lock 10 Ml Syringe) 10 - 40 ml IV UD PRN PRN Reason: SALINE FLUSH Discharge Diet: Light diet - advance as tolerated Discharge Activity: Return to Normal Activity Call your doctor if you observe: Shortness of breath, Dizziness, Fainting spells, Chest pain Home Medications: Medications to take at Discharge Calcium Carbonate [Calcium] 600 mg PO DAILY 03/13/16 Cholecalciferol (VIT D3) [Vitamin D3] 2,000 unit PO DAILY 03/13/16 Labetalol [Trandate (Beta Vincenzo)] 200 mg PO BID 03/13/16 Magnesium 250 mg PO DAILY 03/13/16 Acetaminophen [Tylenol] 1,000 mg PO Q8H PRN PRN 09/09/20 Pantoprazole Sodium [Protonix] 40 mg PO BID #60 tab 09/11/20 Following Prescriptions Were Given to Patient: Pantoprazole Sodium [Protonix] 40 mg PO BID #60 tab Transmission Status: Received by [facility] [facility] Primary Care Physician: Bill Schuster III, MD [Primary Care Provider] - Please follow up with your Primary Care Physician in: 1 Week Please Follow Up With: Jaspreet Lopez MD When: 2 Weeks Patient Instructions: Understanding Diverticulosis and Diverticulitis, ED Diverticulosis Disposition: Home Minutes spent on discharge:: 35 Patient Condition:: Stable Medical Necessity - Tobacco Use Smoking Status: Never smoker Meaningful Use Info Meaningful Use Diagnoses (Choose all that apply): None applicable <Armando Benjamin F - Last Filed: 09/11/20 15:33> Discharge Date and Diagnosis - Primary Discharge Diagnosis Acute Problems: Active Problems GI bleed (Acute) - Secondary Discharge Diagnosis Chronic Problems: Chronic Problems Osteoarthritis (Chronic) Hyperlipidemia (Chronic) Hypertension (Chronic) Hospital Course and Treatment Imaging Results: 09/11/20 09:00 Barium Enema No Air Cont [RAD] Urgent Summary of Care Provided: The patient is a 75 year old F [] - Physical Exam Vitals/I&O's: Vital Signs Temp Pulse Resp BP Pulse Ox 98.5 F 78 18 165/67 H 95 09/11/20 14:49 09/11/20 14:49 09/11/20 14:49 09/11/20 14:49 09/11/20 14:49 Oxygen Flow Rate (L/min) 96 Oxygen Delivery Method Room Air Weight: 176 lb 15.088 oz Body Mass Index (BMI) 31.3 Intake and Output for Last 24 Hours 09/09/20 09/10/20 09/11/20 23:59 23:59 23:59 Intake Total 2320 / 2320 4643.75 / 4643.75 1428.75 / 1428.75 Output Total 300 / 300 Balance 2318 / 2318 4643.75 / 4643.75 1128.75 / 1128.75 Microbiology Past 72 Hours 09/09/20 08:54 Mucosa - Nose SARS-CoV-2 Antigen (Rapid) - Final 09/09/20 08:30 Stool Stool Occult Blood (CIERRA) - Final Occult Blood Positive Laboratory Results 09/11/20 06:20: WBC 1.7 L, RBC 2.57 L, Hgb 8.0 L, Hct 24.2 L, MCV 94.2, MCH 31.1, MCHC 33.1, RDW Std Deviation 47.3 H, RDW Coeff of Juan 13.9, Plt Count 76 L, MPV 11.9 09/11/20 06:20: Sodium 145, Potassium 3.5, Chloride 117 H, Carbon Dioxide 22.0, Anion Gap 6, BUN 12, Creatinine 0.54 L, Estim Creat Clear Calc 41.45, Est GFR (MDRD) Af Amer 141, Est GFR (MDRD) Non-Af 117, BUN/Creatinine Ratio 22.1 H, Glucose 88, Calcium 8.2 L 09/11/20 13:05: Hgb 9.0 L, Hct 26.4 L Addendum: Dr. Benjamin I personally examined the patient and reviewed the chart. I agree with the above. 75-year-old female presents from home because of 2 days of dark black stools and an episode of bloody emesis today. She states that she has been feeling weak and fatigued over the last week. She denies any use of anticoagulants or NSAIDs. She is not on any aspirin at home and only has a history of hypertension taking labetalol twice daily. We will plan for EGD and a colonoscopy tomorrow, she is currently on clears with a bowel prep overnight. We will continue with twice daily Protonix and will monitor her hemoglobin. She denies any abdominal pain. She is hemodynamically stable and her hemoglobin on admission was 9.2, which is probably baseline. She was at 11.9 in 2014 and 2015 however in 2019 her hemoglobin has been steady at 7.5. 09/10/2020: Feels much better after being transfused 2 units, hemoglobin dropped to 7.3 and is back up to 9.4 after 2 units which is an appropriate increase. Her EGD was unremarkable today however her colonoscopy could not be completed as she had excessive looping, however the colonoscope did make it to the ascending colon and findings then were unremarkable. She does have some nonbleeding internal hemorrhoids which could be the cause of her bleeding. We will continue with PPI and will follow her hemoglobin in the morning. Appreciate surgery's assistance. 09/11/2020: Feels better today, states that she still has a little bit of black stools but no bright blood in her stools today. She had her barium enema which did not show any mass lesion and was okay for discharge by general surgery. Her hemoglobin this morning was down to 8 however it was rechecked at 1:00 this afternoon and it was up to 9 and she felt good enough to go home and would like to go home. The plan for discharge was discussed and she expressed understanding of the risks and benefits for discharge. She will need to follow-up with general surgery as an outpatient and would also recommend following up with her PCP in 3 to 5 days. Inpatient E&M: [id number] Disch Hosp
--- NOTE | 2020-09-11 15:07 | PHA.DC.MC ---
Pharmacy Service has performed discharge medication reconciliation and counseling for this patient. 1. PANTOPRAZOLE 40MG PO BID The patient's discharge medication list was reviewed for discrepancies and discrepancies were resolved. Home Medications Calcium Carbonate [Calcium] 600 mg PO DAILY 03/13/16 Cholecalciferol (VIT D3) [Vitamin D3] 2,000 unit PO DAILY 03/13/16 Labetalol [Trandate (Beta Vincenzo)] 200 mg PO BID 03/13/16 Magnesium 250 mg PO DAILY 03/13/16 Acetaminophen [Tylenol] 1,000 mg PO Q8H PRN PRN 09/09/20 Pantoprazole Sodium [Protonix] 40 mg PO BID #60 tab 09/11/20 The patient was counseled on the following discharge medications and changes in medications for homegoing were reviewed. The Reason for Use, instructions for use, and potential side effects were reviewed for all new medications. The patient's questions regarding all of their medications were answered. The patient was able to verbally demonstrate an understanding of their discharge medications.
== END 2020-09-11 15:17 | disposition home or self-care (01) | DRG 378 ==
LOC: ED 09:12 → MS3 10:14
PROVIDERS: Anesthesiology; Nurse Practitioner Family; Surgery; Admitting Provider Family Medicine; Emergency Provider Emergency Medicine; PCP Family Medicine; Visit Provider Family Medicine
PROC: 0DJD8ZZ Inspection of Lower Intestinal Tract, Via Natural or Artificial Opening Endoscopic (ICD-10-PCS; CPT 45378; principal; 2020-09-10 12:25)
DX: K92.2 Gastrointestinal hemorrhage, unspecified (principal); D62 Acute posthemorrhagic anemia; D61.818 Other pancytopenia; K57.30 Diverticulosis of large intestine without perforation or abscess without bleeding; K29.70 Gastritis, unspecified, without bleeding; K64.8 Other hemorrhoids; E87.6 Hypokalemia; D50.9 Iron deficiency anemia, unspecified; I10 Essential (primary) hypertension; E78.5 Hyperlipidemia, unspecified; Z79.899 Other long term (current) drug therapy
CPT/HCPCS: 36415; 74270; 80048; 82274; 83605; 85014; 85018; 85025; 85027; 85610; 85730; 86850; 86900; 86901; 86920; 87426; 88305; 88342; 97802; 99285; J7030; J7040; P9016; A4216; J2405

== ENCOUNTER 2020-09-17 20:22 | Inpatient (IN) | payer MEDICARE, OTHER, SELFPAY ==
[2020-09-10 11:19] VITALS: BMI 31.3
[2020-09-17] VITALS (8 sets, daily range): BP systolic 188–193; BP diastolic 96–109; PULSE 79–103; RESP 12–34; TEMP 36.4; O2SAT 86–97; BMI 28.5
--- NOTE | 2020-09-17 20:51 | EKG12_ITS ---
Test Reason : AM EKG Blood Pressure : / mmHG Vent. Rate : 074 BPM Atrial Rate : 074 BPM P-R Int : 134 ms QRS Dur : 106 ms QT Int : 502 ms P-R-T Axes : 000 -15 097 degrees QTc Int : 557 ms Sinus rhythm with marked sinus arrhythmia Incomplete left bundle branch block ST & T wave abnormality, consider anterior ischemia Prolonged QT Abnormal ECG Confirmed by OLEGARIO LOPEZ, CHRISTA ([id number]), brands editor MICHAEL OLIVIER ([id number]) on 09/19/2020 11:06:28 AM Referred By: CEE Confirmed By:CHRISTA MELVIN MD
[2020-09-17 21:21] LABS: Absolute Lymphocyte Count 0.37 X10^3/uL (0.83-4.51); Absolute Neutrophil Count 3.8 X10^3/uL (2.0-7.7); Basophil# 0.01 X10^3/uL; Basophil% 0.2 % (0-1); Eosinophil# 0.01 X10^3/uL; Eosinophils% 0.2 % (0-5); Hematocrit 28.4 % (37-47); Hemoglobin 9.2 g/dL (12.0-15.0); Lymphocyte # 0.37 X10^3/ul (4.0); Lymphocyte % 8.2 % (19-41); Mean Corp Hgb Conc 32.4 g/dL (32-36); Mean Corpuscular Hgb 31.4 pg (27.0-32.0); Mean Corpuscular Volume 96.9 fL (81-99); Mean Platelet Vol. 11.5 fl (6.2-12.0); Monocyte# 0.35 X10^3/uL; Monocyte% 7.8 % (0-10); NRBC Flagged by Analyzer 0 % (0-5); Neutrophil # 3.75 X10^3/uL (2.7-7.7); Neutrophil % 83.2 % (47-70); POSITIVE DIFFERENTIAL YES; POSITIVE MORPHOLOGY YES; Platelet Count 154 K/mm3 (150-450); RBC Distribution Width CV 13.5 % (11.6-14.6); RBC Distribution Width SD 48.1 fl (35.1-43.9); Red Blood Count 2.93 M/mm3 (4.2-5.4); White Blood Count 4.5 K/mm3 (4.4-11.0)
--- NOTE | 2020-09-17 21:26 | RAD_ITS ---
STUDY: X-RAY CHEST REASON FOR EXAM: Female, 75 years old. dyspnea TECHNIQUE: AP portable COMPARISON: 12/27/2014 FINDINGS: Bilateral perihilar interstitial thickening is noted. There are patchy areas of slightly increased density in the lower lobes and left upper lobe possibly inflammatory.. There is no demonstrated pleural abnormality. Heart is enlarged.. Normal mediastinum and pati. Normal visualized pulmonary arteries. Mildly calcified aortic arch and descending thoracic aorta. Normal visualized thoracic spine. Normal visualized ribs, and clavicles. Right shoulder prosthesis is noted. There is no demonstrated abnormality of the visualized soft tissue structures of the upper abdomen. RAD/Chest 1 View (Portable) IMPRESSION: ASHD and coexisting bilateral perihilar interstitial thickening with patchy areas of increased density possibly inflammatory. Clinical correlation recommended to exclude possibility of Covid 19 pneumonia Electronically Signed: Nicolas Metz MD at 21:44 EST , Service support ,
[2020-09-17 21:30] LABS: International Normalized Ratio 1.1; Prothrombin Time (Protime)PT. 14.1 SECONDS (11.7-14.9)
[2020-09-17 21:31] LABS: Partial Thromboplast Time 33.7 Seconds (24.1-36.2)
[2020-09-17 21:35] LABS: Allen Test Positive; Base Excess 2 mmol/L (-2 to +2); Bicarbonate 26.1 mmol/L (22-26); Blood Gas Specimen Type ART; O2 Delivery Device Cannula; PO2 96 mmHG (75-100); SITE L Radial; SO2 98 % (95-99); Total Carbon Dioxide 27 mmol/L; pCO2 37.1 mmHg (35-45); pH 7.46 (7.35-7.45)
[2020-09-17 21:35] LABS: Differential Indicated SCAN CRITERIA MET
[2020-09-17 21:50] LABS: ALB/GLOB Ratio 1.1 RATIO (0.9-2.4); AST(SGOT) 13 U/L (15-37); Alanine Aminotransfer ALT/SGPT 29 U/L (13-56); Albumin, Serum 3.3 g/dL (3.2-5.0); Alkaline Phosphatase 82 U/L (45-117); Anion Gap 7 (5-15); BUN 11 mg/dL (7-18); BUN/Creat Ratio 14.9 RATIO (10-20); Calcium,Total 8.5 mg/dL (8.5-10.1); Chloride 106 mmol/L (98-107); Creatinine, Serum 0.74 mg/dL (0.55-1.02); EST Glomerular Filtration Rate 82 mL/min (>60); Est Glom Filt Rate - Afr Amer 99 mL/min (>60); Estimated Creatinine Clearance 43.27 ml/min; Globulin 2.9 g/dL (2.2-4.2); Glucose 146 mg/dL (74-106); Lactic Acid 1.3 mmol/L (0.4-1.9); Lipase 70 U/L (73-393); Potassium 3.1 mmol/L (3.5-5.1); Protein, Total 6.2 g/dL (6.4-8.2); Sodium Level 142 mmol/L (136-145)
[2020-09-17 21:51] LABS: Anisocytosis RARE; Hypochromasia RARE; Macrocytosis RARE; Platelet Estimate ADEQUATE (ADEQ); Red Cell Morphology N CHROM NORMAL (NORM C&C)
--- NOTE | 2020-09-17 22:07 | CT_ITS ---
STUDY: CTA CHEST REASON FOR EXAM: Female, 75 years old. Dyspnea. Shortness of breath and cough. Please see second COVID 19 vaccine 3 days ago. RADIATION DOSAGE (If Supplied By Facility): CTDIvol = ( 14.78 ) mGy, DLP = ( 503.07 ) mGycm TECHNIQUE: The examination was performed with the intravenous administration of IV 100mL Isovue-370. Post-processing of the angiographic images was performed, with multiplanar reformation and 3D reconstruction. Individualized dose optimization techniques were used for this CT. COMPARISON: Chest, 09/17/2020. FINDINGS: Normal enhancement of the main pulmonary artery and right and left pulmonary arteries. Normal enhancement of the bilateral peripheral pulmonary arteries. There is no demonstrated pulmonary embolism. Without tortuosity of the thoracic aorta without aneurysm. There is no demonstrated aortic dissection. The heart is mildly enlarged. Small pericardial effusion. There are coronary artery calcifications. Normal mediastinum. Normal hilar regions. Normal visualized trachea and bronchi. The lungs are well expanded. Small bilateral pleural effusions and subsegmental atelectasis. There is patchy areas of consolidation in both upper lobes with thickened interlobular septa. Normal chest wall structures. There are degenerative changes of thoracic spine. Normal visualized upper abdomen. CT/CTA Chest W/WO Contrast IMPRESSION: 1. No evidence of pulmonary embolus. 2. No aortic dissection or aneurysm. 3. Cardiomegaly with mild paraortic pericardial effusion. 4. Septal thickening and patchy alveolar infiltrates in the upper lobes. 5. Bilateral pleural effusions and atelectasis. Electronically Signed: Brendan Beckford DO at 23:33 EST Tel [phone], Service support ,
--- NOTE | 2020-09-17 22:08 | ED.VIS.GEN ---
History of Present Illness Chief Complaint: Shortness of Breath Informant: Patient, Significant Other Narrative: 75-year-old female presenting for shortness of breath and cough. Patient states that she has been this way for a week. She was actually admitted last week for a GI bleed and was transfused 2 units. She tells me her stool has been black since discharge but her tells me that it is actually been normal and then she agrees with that statement. Reportedly her shortness of breath is worsened over the past several days. Cough is nonproductive. Noted to be 86% on room air by triage. She does not wear oxygen at home. Patient got her second Covid vaccination on Wednesday. Patient denies any known cardiac history. She denies any chest pain. - Past Medical History (1) Hyperlipidemia Status: Chronic (2) Hypertension Status: Chronic (3) Osteoarthritis Status: Chronic Past Medical History - Allergies and Home Meds Allergies/Adverse Reactions: Allergies amlodipine besylate [From Norvasc] Allergy (Verified 09/17/20 20:38) Swelling bisoprolol fumarate [From Ziac] Allergy (Verified 09/17/20 20:38) Unknown adhesive Adverse Reaction (Verified 09/17/20 20:38) Itching hydrochlorothiazide Adverse Reaction (Verified 09/17/20 20:38) Unknown Primary Care Physician: Bill Schuster III, MD [Primary Care Provider] - Prior records reviewed: Yes Surgical History: - - Right total knee arthroplasty 03/24/16, left breast lumpectomy, right shoulder surgery Lives: Spouse/ Significant Other Smoking Status: Never smoker Drugs: None - Family History Maternal Family History: Reports: Hypertension Paternal Family History: Reports: Heart Disease Review of Systems General: Denies: Chills, Fever, Sweats Eyes: Denies: Visual changes - bilaterally, Diplopia ENT: Denies: Rhinorrhea, Sore throat Cardiovascular: Denies: Chest pain, Palpitations Respiratory: Reports: Dyspnea, Cough, Dyspnea on exertion Gastrointestinal: Denies: Abdominal pain, Nausea, Vomiting, Diarrhea, Melena, Hematochezia Genitourinary: Denies: Dysuria, Hematuria, Frequency Musculoskeletal: Denies: Back pain, Extremity Pain Skin: Denies: Rash, Wounds Neurological: Denies: Headache, Weakness, Numbness Physical Exam Vital Signs/Narrative: Vital Signs Temp Pulse Resp BP Pulse Ox 09/17/20 22:00 27 H 97 09/17/20 21:22 79 34 H 96 09/17/20 20:55 26 H 86 09/17/20 20:23 97.5 F L 96 26 H 191/96 H 88 Inital Vital Signs reviewed: Yes General: Well nourished, Well developed, No Acute Distress Head: Normocephalic, Atraumatic Eyes: Perrl, EOMI ENT: Moist mucous membranes, No rhinorrhea Neck: Supple, Nontender Cardiovascular: Regular rate, Regular rhythm, Murmur Respiratory: CTA bilaterally, Chest nontender, - - The patient is tachypneic Abdomen: Soft, Nontender, Nondistended, Normal bowel sounds Back: Nontender, Normal Inspection Extremities: Nontender, Edema - 1+ pitting edema of the lower extremity. Skin: No rash, Pallor Neurological: Alert, Oriented x3, Cranial nerves II-XII grossly intact, Normal Strength, Normal Sensation Psychological: Normal affect, Normal Mood Diagnostic/Tx/Re-eval Clinical Impression(s) from Imaging Studies Chest X-Ray 09/17/20 21:26 IMPRESSION: ASHD and coexisting bilateral perihilar interstitial thickening with patchy areas of increased density possibly inflammatory. Clinical correlation recommended to exclude possibility of Covid 19 pneumonia Electronically Signed: Nicolas Metz MD at 21:44 EST , Service support , Chest CTA 09/17/20 22:07 IMPRESSION: 1. No evidence of pulmonary embolus. 2. No aortic dissection or aneurysm. 3. Cardiomegaly with mild paraortic pericardial effusion. 4. Septal thickening and patchy alveolar infiltrates in the upper lobes. 5. Bilateral pleural effusions and atelectasis. Electronically Signed: Brendan Beckford DO at 23:33 EST Tel [phone], Service support , Laboratory Last Values WBC 4.5 K/mm3 (4.4-11.0) 09/17/20 21:00 RBC 2.93 M/mm3 (4.2-5.4) L 09/17/20 21:00 Hgb 9.2 g/dL (12.0-15.0) L 09/17/20 21:00 Hct 28.4 % (37-47) L 09/17/20 21:00 MCV 96.9 fL (81-99) 09/17/20 21:00 MCH 31.4 pg (27.0-32.0) 09/17/20 21:00 MCHC 32.4 g/dL (32-36) 09/17/20 21:00 RDW Std Deviation 48.1 fl (35.1-43.9) H 09/17/20 21:00 RDW Coeff of Juan 13.5 % (11.6-14.6) 09/17/20 21:00 Plt Count 154 K/mm3 (150-450) 09/17/20 21:00 MPV 11.5 fl (6.2-12.0) 09/17/20 21:00 Immature Gran % (Auto) 0.400 % (0.0-0.9) 09/17/20 21:00 Neut % (Auto) 83.2 % (47-70) H 09/17/20 21:00 Lymph % (Auto) 8.2 % (19-41) L 09/17/20 21:00 [place] % (Auto) 7.8 % (0-10) 09/17/20 21:00 Eos % (Auto) 0.2 % (0-5) 09/17/20 21:00 Baso % (Auto) 0.2 % (0-1) 09/17/20 21:00 Absolute Neuts (auto) 3.8 X10^3/uL (2.0-7.7) 09/17/20 21:00 Absolute Lymphs (auto) 0.37 X10^3/uL (0.83-4.51) L 09/17/20 21:00 Nucleated RBC % 0 % (0-5) 09/17/20 21:00 Differential Comment SEE COMMENT 09/17/20 21: Platelet Estimate ADEQUATE (ADEQ) 09/17/20 21:00 RBC Morphology N CHROM NORMAL (NORM C&C) 09/17/20 21:00 Hypochromasia RARE 09/17/20 21:00 Anisocytosis RARE 09/17/20 21:00 Macrocytosis RARE 09/17/20 21:00 PT 14.1 SECONDS (11.7-14.9) 09/17/20 21:00 INR 1.1 09/17/20 21: APTT 33.7 Seconds (24.1-36.2) 09/17/20 21: Specimen Type ART 09/17/20: Sample Site L Radial 09/17/20: pH 7.46 (7.35-7.45) H 09/17/20: Bicarbonate Actual 26.1 mmol/L (22-26) H 09/17/20: Total CO2 27 mmol/L 09/17/20: Base Excess 2 mmol/L (-2 to +2) 09/17/20: O2 Saturation 98 % (95-99) 09/17/20: ABG pCO2 37.1 mmHg (35-45) 09/17/20: ABG pO2 96 mmHG (75-100) 09/17/20: Rocky Test Positive 09/17/20: O2 Delivery Device Cannula 09/17/20: Liter Flow 3.0 /min 09/17/20: Sodium 142 mmol/L (136-145) 09/17/20 21: Potassium 3.1 mmol/L (3.5-5.1) L 09/17/20: Chloride 106 mmol/L (98-107) 09/17/20 21: Carbon Dioxide 29.0 mmol/L (21.0-32.0) 09/17/20 21: Anion Gap 7 (5-15) 09/17/20 21: BUN 11 mg/dL (7-18) 09/17/20 21:00 Creatinine 0.74 mg/dL (0.55-1.02) 09/17/20 21: Estim Creat Clear Calc 43.27 ml/min 09/17/20 21:00 Est GFR (MDRD) Af Amer 99 mL/min (>60) 09/17/20 21: Est GFR (MDRD) Non-Af 82 mL/min (>60) 09/17/20 21: BUN/Creatinine Ratio 14.9 RATIO (10-20) 09/17/20 21: Glucose 146 mg/dL (74-106) H 09/17/20 21:00 Lactic Acid 1.3 mmol/L (0.4-1.9) 09/17/20 21:00 Calcium 8.5 mg/dL (8.5-10.1) 09/17/20 21:00 Total Bilirubin 0.60 mg/dL (0.20-1.00) 09/17/20 21:00 AST 13 U/L (15-37) L 09/17/20 21:00 ALT 29 U/L (13-56) 09/17/20 21:00 Alkaline Phosphatase 82 U/L (45-117) 09/17/20 21:00 Troponin I < 0.015 ng/mL (<0.045) 09/17/20 21:00 B-Natriuretic Peptide 1228.8 pg/mL (0-100) H 09/17/20 21:00 Total Protein 6.2 g/dL (6.4-8.2) L 09/17/20 21:00 Albumin 3.3 g/dL (3.2-5.0) 09/17/20 21: Globulin 2.9 g/dL (2.2-4.2) 09/17/20 21:00 Albumin/Globulin Ratio 1.1 RATIO (0.9-2.4) 09/17/20 21:00 Lipase 70 U/L (73-393) L 09/17/20 21:00 - EKG Initial EKG Interpretation: Sinus Rhythm - EKG demonstrates a sinus rhythm with sinus arrhythmia at a rate of 97 - Medical Decision Making Basic blood work showed an elevated beta natruretic peptide of about 1100. White count is 4.5. Troponin negative. Lactic acid negative. ABG negative. CT of the chest is negative for pulmonary embolism. It does show bilateral pleural effusions, possible pericardial effusion, and alveolar infiltrates in the upper lobes. During the patient's last admission she was noted to be leukopenic her Covid test have been negative both then and now and she has had 2 Covid vaccinations. She has not had no fever no sputum production. She does have some lower extremity mild pretibial edema. Remains tachypneic despite supplemental oxygen. She continued to have high blood pressure readings however she was quite anxious and consistently moving her arm and rubbing the cough stating that it hurt. Eventually placed her on BiPAP which is called her breathing has made her less anxious. We are going to reevaluate her blood pressure after she settles in on that. I went ahead and gave her Lasix. Hesitant to give her any additional antihypertensive until she is more relaxed was the not to cause her to be hypotensive. Patient has not had an echocardiogram that I can see in the computer. Patient used to be a smoker and has some emphysematous changes on the CT. Unsure of the etiology of these alveolar infiltrates. Plan is admission to ICU. 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
--- NOTE | 2020-09-17 23:48 | PCM.HP.STD ---
<Judith Moeller - Last Filed: 09/18/20 00:14> Problem List (1) Acute exacerbation of CHF (congestive heart failure) Status: Acute (2) Hypokalemia Status: Acute (3) Iron deficiency anemia Status: Acute (4) Hyperlipidemia Status: Chronic Qualifiers: Hyperlipidemia type: pure hypercholesterolemia Qualified Code(s): E78.00 - Pure hypercholesterolemia, unspecified (5) Hypertension Status: Chronic Qualifiers: Hypertension type: essential hypertension Qualified Code(s): I10 - Essential (primary) hypertension History of Present Illness Date of Admission: 09/17/20 Chief Complaint: Shortness of breath The patient is a 75 year old F presents today with shortness of breath and a room air pulse ox of 88%. Patient reports that this has been ongoing over the past 2 to 3 weeks. Patient denies fever, chills, chest pain, palpitations, nausea, vomiting. Patient was recently admitted with a GI bleed which her and her report has been resolved. Patient is a poor historian so information was gathered from her and her who is at bedside. Patient has no history of heart failure and is currently on BiPAP FiO2 30% and appears comfortable. Past Medical History Past Medical History (Chronic Problems): Chronic Problems Osteoarthritis (Chronic) Hyperlipidemia (Chronic) Hypertension (Chronic) Allergies amlodipine besylate [From Norvasc] Allergy (Verified 09/17/20 20:38) Swelling bisoprolol fumarate [From Ziac] Allergy (Verified 09/17/20 20:38) Unknown adhesive Adverse Reaction (Verified 09/17/20 20:38) Itching hydrochlorothiazide Adverse Reaction (Verified 09/17/20 20:38) Unknown Home Medications: Ambulatory Orders Medication Instructions Recorded Calcium Carbonate [Calcium] 600 mg PO DAILY 03/13/16 Cholecalciferol (VIT D3) [Vitamin 2,000 unit PO DAILY 03/13/16 D3] Labetalol [Trandate (Beta Vincenzo)] 200 mg PO BID 03/13/16 Magnesium 250 mg PO DAILY 03/13/16 Acetaminophen [Tylenol] 1,000 mg PO Q8H PRN PRN 09/09/20 Pantoprazole Sodium [Protonix] 40 mg PO BID #60 tab 09/11/20 Hydroxychloroquine Sulfate 200 mg PO BID 09/18/20 Surgical History: - - Right total knee arthroplasty, left breast lumpectomy, right shoulder surgery Psychiatric History: No pertinent psych hx BUSINESS ADMINISTRATOR History: No pertinent BUSINESS ADMINISTRATOR history Lives: Spouse/ Significant Other Smoking Status: Never smoker Tobacco Use: Non-smoker Drugs: None - *Family History Maternal History Items: Hypertension Paternal History Items: Heart Disease Review of Systems Constitutional: Reports: Fatigue. Denies: Chills, Fever, Weight Change HEENT: Denies: Head Aches, Sinus Congestion, Sinus Drainage Cardiovascular: Reports: Edema - Nonpitting bilateral lower extremity edema. Denies: Chest Pain, Palpitations Respiratory: Reports: Cough - Dry nonproductive, Shortness of breath at rest, Shortness of breath upon exertion, -. Denies: Sputum production Gastrointestinal: Denies: Abdominal Pain, Nausea, Vomiting Genitourinary: Denies: Dysuria Musculoskeletal: Denies: Joint Pain, Joint Tenderness Skin: Denies: Rash, Wounds Neurological: Denies: Numbness, Tingling, Focal weakness Psychiatric: Denies: Anxiety, Depression, Homicidal Ideations, Suicidal Ideations Hematologic/ Lymphatic: Denies: Easy Bruising, Easy Bleeding VTE Information - Inpt Only VTE Present on Admission: No VTE Mechan Device Prophylaxis: None VTE Pharm Prophylaxis ordered?: Yes Patient Problems: Active and Suspected Problems Acute hypoxemic respiratory failure (Acute) Acute exacerbation of CHF (congestive heart failure) (Acute) Hypokalemia (Acute) Iron deficiency anemia (Acute) Bilateral pleural effusion (Acute) - Physical Exam Vitals/I&O's: Vital Signs Temp Pulse Resp BP Pulse Ox 97.5 F L 102 H 30 H 189/109 H 96 09/17/20 20:23 09/17/20 23:00 09/17/20 23:00 09/17/20 23:00 09/17/20 23:00 Oxygen Flow Rate (L/min) 2 Oxygen Delivery Method Nasal Cannula Weight: 166 lb Body Mass Index (BMI) 28.5 General: Alert, Oriented x3, Cooperative HEENT: Atraumatic, PERRLA, EOMI, Normocephalic Neck: Supple, No JVD, Negative Carotid Bruits Lungs: Clear to auscultation, Normal air movement, Short of Breath - BiPAP, Wheezes - Bilateral bases Cardiovascular: Regular rate, Regular Rhythm, Murmur, Tachycardic Abdomen: Bowel Sounds Present, Soft, Non Tender Extremities: Capillary Refill Less than 3 Seconds, Edema - Nonpitting bilateral lower extremities, Peripheral Pulses Normal Skin: No rashes, No breakdown Musculoskeletal: No Tenderness to Palpation of Joints or Extremities Neurological: Cranial nerves II-XII grossly intact Psych/Mental Status: Normal Affect, Appropriate Microbiology Past 72 Hours 09/17/20 21:00 Mucosa - Nose SARS-CoV-2 Antigen (Rapid) - Final Laboratory Results 09/17/20 21:00: WBC 4.5, RBC 2.93 L, Hgb 9.2 L, Hct 28.4 L, MCV 96.9, MCH 31.4, MCHC 32.4, RDW Std Deviation 48.1 H, RDW Coeff of Juan 13.5, Plt Count 154, MPV 11.5, Immature Gran % (Auto) 0.400, Neut % (Auto) 83.2 H, Lymph % (Auto) 8.2 L, [place] % (Auto) 7.8, Eos % (Auto) 0.2, Baso % (Auto) 0.2, Absolute Neuts (auto) 3.8, Absolute Lymphs (auto) 0.37 L, Nucleated RBC % 0, Differential Comment SEE COMMENT, Platelet Estimate ADEQUATE, RBC Morphology N CHROM, Hypochromasia RARE, Anisocytosis RARE, Macrocytosis RARE 09/17/20 21:00: PT 14.1, INR 1.1, APTT 33.7 09/17/20 21:00: Sodium 142, Potassium 3.1 L, Chloride 106, Carbon Dioxide 29.0, Anion Gap 7, BUN 11, Creatinine 0.74, Estim Creat Clear Calc 43.27, Est GFR (MDRD) Af Amer 99, Est GFR (MDRD) Non-Af 82, BUN/Creatinine Ratio 14.9, Glucose 146 H, Calcium 8.5, Total Bilirubin 0.60, AST 13 L, ALT 29, Alkaline Phosphatase 82, Troponin I < 0.015, Total Protein 6.2 L, Albumin 3.3, Globulin 2.9, Albumin/Globulin Ratio 1.1, Lipase 70 L 09/17/20 21:00: Lactic Acid 1.3 09/17/20 21:00: B-Natriuretic Peptide 1228.8 H 09/17/20 21:28: Specimen Type ART, Sample Site L Radial, pH 7.46 H, Bicarbonate Actual 26.1 H, Total CO2 27, Base Excess 2, O2 Saturation 98, ABG pCO2 37.1, ABG pO2 96, Rocky Test Positive, O2 Delivery Device Cannula, Liter Flow 3.0 Assessment/Plan All Active Problems GI bleed (Acute) Acute hypoxemic respiratory failure (Acute) Acute exacerbation of CHF (congestive heart failure) (Acute) Hypokalemia (Acute) Iron deficiency anemia (Acute) Bilateral pleural effusion (Acute) 1. Acute congestive heart failure exacerbation -BNP 1228. Received 80 mg IV Lasix x1 in ER. -Initiate IV Lasix 40 mg twice daily. -Obtain echocardiogram in the morning. -BiPAP initiated in ER will continue. 2. Hypokalemia -Potassium 3.1, will initiate oral potassium replacement. 3. Iron deficiency anemia -Chronic, will trend hemoglobin. 4.Hypertension -Continue labetalol. 5. Hyperlipidemia -Not on a statin. DVT prophylaxis subcu Lovenox. This patient was seen by ROBINSON Weiner under the supervision of Dr. Luna. <Patrick Luna - Last Filed: 09/18/20 01:26> History of Present Illness The patient is a 75 year old F with recent admission for GI bleed between September 09 to September 11, 2020 came to ED with exertional dyspnea for past 2 to 3 weeks which progressed to worst today, dyspnea at rest. Denies chest pain/tightness. No fever or chills.. Patient found hypoxic 86% on room air, tachypneic RR 34 per note high blood pressure, 188/105 and heart rate 95 in ED. Patient put on BiPAP. [] Past Medical History Allergies amlodipine besylate [From Norvasc] Allergy (Verified 09/17/20 20:38) Swelling bisoprolol fumarate [From Ziac] Allergy (Verified 09/17/20 20:38) Unknown adhesive Adverse Reaction (Verified 09/17/20 20:38) Itching hydrochlorothiazide Adverse Reaction (Verified 09/17/20 20:38) Unknown Objective: General: Alert, Oriented x3, Cooperative, short of breath HEENT: Atraumatic, PERRLA, EOMI, Normocephalic Oral: On BiPAP. No Gingival or Mucosal Lesions/ Ulcerations Neck: Supple, No JVD, Negative Carotid Bruits Lungs: Air entry diminished in bilateral lung bases. Mild expiratory rhonchi. Tachypnea, labored breathing Cardiovascular: Regular rate, Regular Rhythm, Normal S1, Normal S2, No murmurs Abdomen: Bowel Sounds Present, Soft, Non Tender, Non-Distended : No renal angle tenderness. No suprapubic tenderness. Extremities: Bilateral leg 3+ edema, Capillary Refill Less than 3 Seconds Skin: No rashes, No breakdown Musculoskeletal: No Tenderness to Palpation of Joints or Extremities Neurological: Cranial nerves II-XII grossly intact, Deep Tendon Reflexes 2+/4 and Symmetrical, Neuro grossly intact Psych/Mental Status: Normal Affect, Appropriate. - Physical Exam Vitals/I&O's: Vital Signs Temp Pulse Resp BP Pulse Ox 98 F 89 17 160/87 H 98 09/18/20 00:11 09/18/20 01:11 09/18/20 01:11 09/18/20 00:11 09/18/20 01:11 Oxygen Flow Rate (L/min) 2 Oxygen Delivery Method Bi-pap Weight: 178 lb 12.718 oz Body Mass Index (BMI) 31.6 Microbiology Past 72 Hours 09/17/20 21:00 Mucosa - Nose SARS-CoV-2 Antigen (Rapid) - Final Laboratory Results 09/17/20 21:00: WBC 4.5, RBC 2.93 L, Hgb 9.2 L, Hct 28.4 L, MCV 96.9, MCH 31.4, MCHC 32.4, RDW Std Deviation 48.1 H, RDW Coeff of Juan 13.5, Plt Count 154, MPV 11.5, Immature Gran % (Auto) 0.400, Neut % (Auto) 83.2 H, Lymph % (Auto) 8.2 L, [place] % (Auto) 7.8, Eos % (Auto) 0.2, Baso % (Auto) 0.2, Absolute Neuts (auto) 3.8, Absolute Lymphs (auto) 0.37 L, Nucleated RBC % 0, Differential Comment SEE COMMENT, Platelet Estimate ADEQUATE, RBC Morphology N CHROM, Hypochromasia RARE, Anisocytosis RARE, Macrocytosis RARE 09/17/20 21:00: PT 14.1, INR 1.1, APTT 33.7 09/17/20 21:00: Sodium 142, Potassium 3.1 L, Chloride 106, Carbon Dioxide 29.0, Anion Gap 7, BUN 11, Creatinine 0.74, Estim Creat Clear Calc 43.27, Est GFR (MDRD) Af Amer 99, Est GFR (MDRD) Non-Af 82, BUN/Creatinine Ratio 14.9, Glucose 146 H, Calcium 8.5, Total Bilirubin 0.60, AST 13 L, ALT 29, Alkaline Phosphatase 82, Troponin I < 0.015, Total Protein 6.2 L, Albumin 3.3, Globulin 2.9, Albumin/Globulin Ratio 1.1, Lipase 70 L 09/17/20 21:00: Lactic Acid 1.3 09/17/20 21:00: B-Natriuretic Peptide 1228.8 H 09/17/20 21:28: Specimen Type ART, Sample Site L Radial, pH 7.46 H, Bicarbonate Actual 26.1 H, Total CO2 27, Base Excess 2, O2 Saturation 98, ABG pCO2 37.1, ABG pO2 96, Rocky Test Positive, O2 Delivery Device Cannula, Liter Flow 3.0 09/18/20 01:05: Troponin I Pending Current Medications Acetaminophen (Acetaminophen 325 Mg Tablet) 650 mg PO Q6H PRN PRN PRN Reason: Pain Score 1-10/Temp > 100.7 F Calcium Carbonate (Calcium Carbonate 500 Mg Tablet) 500 mg PO DAILY STEPH Cholecalciferol (Cholecalciferol (Vit D3) 1,000 Unit (25mcg)) 2,000 unit PO DAILY STEPH Enoxaparin Sodium (Enoxaparin 40 Mg/0.4 Ml Syringe) 40 mg SC DAILY STEPH Furosemide (Furosemide 40 Mg/4 Ml Vial) 40 mg IV BID@1000,1700 STEPH Hydralazine HCl (Hydralazine 20 Mg/Ml Vial) 10 mg IV Q4H PRN PRN PRN Reason: SBP GREATER THAN 170 Sodium Chloride () 250 mls @ 15 mls/hr IV .[id number] PRN PRN Reason: Saline Flush Sodium Chloride () 250 mls @ 15 mls/hr IV .[id number] PRN PRN Reason: Additional IVPB Infusion Labetalol HCl (Labetalol 200 Mg Tablet) 200 mg PO BID STEPH Magnesium Chloride (Magnesium Chloride 64 Mg Delay Rel.Tablet) 64 mg PO DAILY STEPH Ondansetron HCl (Ondansetron 4 Mg/2 Ml Vial) 4 mg IV Q8H PRN PRN PRN Reason: NAUSEA/VOMITING Pantoprazole Sodium (Pantoprazole Sodium 40 Mg Tablet) 40 mg PO BID STEPH Potassium Chloride (Potassium Chloride Oral Tablet 20 Meq) 40 meq PO BID@1000,1700 STEPH Sodium Chloride (0.9% Saline Lock 10 Ml Syringe) 10 - 40 ml IV UD PRN PRN Reason: SALINE FLUSH Assessment/Plan This patient was seen in conjunction with NILSON Wong. I have independently interviewed and examined the patient and reviewed pertinent history, examination findings, laboratory and plan of management. I have reviewed the note and agree with the documented findings with the few additional points. In brief, patient is admitted for dyspnea on exertion progressive dyspnea at rest most probably secondary to acute heart failure exacerbation. Patient had IV fluid resuscitation during previous admission. Patient had 80 mg IV Lasix and her shortness of breath has improved. Continue Lasix 40 mg IV twice daily, heart failure core measures including intake and output, fluid restriction less than 1500 mL, daily weight monitoring, kidney and electrolytes monitoring, 2D echo and low-salt diet. Titrate the BiPAP. Mild hypokalemia, K3.1. Potassium getting replaced. Check magnesium. BNP elevated. Fasting for tomorrow a.m. Patient denies history of smoking. Other comorbidities as mentioned above including chronic iron deficiency anemia. Patient had recent EGD last admission which was reported normal. I have discussed my assessment with NILSON Wong and orders have been reviewed. Living will/advanced directive/end of life care: Patient does not have living will or advanced directive. Her is power of banking attorney for health. After discussion of benefits/risks procedures involved with full code, DNR CC arrest and DNR CC, the patient opted for full code. Patient does want artificial life support including intubation, tube feed, ventilator and/chest compression, central venous catheter, vasopressor and DC shock if needed Total time spent in [id number] encounter in discussion of advanced directive 16 minutes. Inpatient E&M: 86903 Init Hosp L3 Procedures: 26339 Advncd Care Plan 30 Min
[2020-09-18] VITALS (34 sets, daily range): BP systolic 108–179; BP diastolic 54–96; PULSE 62–96; RESP 12–25; TEMP 36.6–37.3; O2SAT 95–998; BMI 31.6; BMI 31.7
[2020-09-18] MEDS: Furosemide 100 MG/10 ML Vial 80 MG IV (00:02)
--- NOTE | 2020-09-18 00:59 | ECHOD_ITS ---
Reason For Study: CHF Procedure This was a 2D Doppler, Color Flow transthoracic echocardiogram. The study was technically difficult. Exam performed portable in ICU/CCU. Left Ventricle Normal LV size. Mild concentric left ventricular hypertrophy. The estimated ejection fraction is 53 %. Stage 1 diastolic dysfunction. No regional wall motion abnormalities noted. Right Ventricle Normal RV size. Normal systolic function. Atria Normal left atrium. Normal right atrium. Mitral Valve Normal mitral valve. Mild (1+) eccentric mitral valve insufficiency. Tricuspid Valve Normal tricuspid valve. Mild tricuspid valve insufficiency. Aortic Valve Trisinus/trileaflet aortic valve. Mild focal aortic valve calcification. Peak aortic valve gradient 39 mmHg. Mean aortic valve gradient 24 mmHg. Mild (1+) eccentric aortic valve insufficiency. Pulmonic Valve Normal pulmonic valve. Great Vessels Normal aortic root. The pulmonary artery is normal size. Normal inferior vena cava. Pericardium/Pleural Small pericardial effusion. MMode/2D Measurements & Calculations LVIDd: 5.8 cm IVSd: 1.3 cm LVOT diam: 2.0 cm LVIDs: 3.6 cm LVPWd: 1.3 cm LVOT area: 3.2 cm2 RVDd: 3.4 cm FS: 37.4 % Ao root diam: 2.8 cm LAV(MOD-bp): 101.0 ml LA A4 area: 26.7 cm2 LAV(MOD-bp) Indexed: 54.3 ml/m2 LAV(MOD-sp2): 98.5 ml LAV(MOD-sp4): 96.2 ml LA dimension(2D): 3.8 cm RA A4 area: 16.7 cm2 Time Measurements MV dec time: 0.21 sec Doppler Measurements & Calculations MV E max endy: 104.4 cm/sec Lat Peak E' Endy: 4.5 cm/sec Med Peak E' Endy: 3.3 cm/sec MV A max endy: 133.7 cm/sec E/E' lat: 23.4 E/E' med: 31.7 MV E/A: 0.78 Ao V2 max: 311.5 cm/sec AI max endy: 460.4 cm/sec LV V1 max: 130.3 cm/sec Ao max P.9 mmHg AI max P.0 mmHg LV V1 max P.8 mmHg Ao V2 mean: 235.5 cm/sec AI dec slope: 193.2 cm/sec2 LV V1 mean P.1 mmHg Ao mean P.2 mmHg AI P1/2t: 698.0 msec LV V1 mean: 97.6 cm/sec Ao V2 VTI: 66.2 cm LV V1 VTI: 26.7 cm GEMMA(I,D): 1.3 cm2 GEMMA(V,D): 1.3 cm2 SV(LVOT): 84.3 ml PA V2 max: 93.2 cm/sec Interpretation Summary Normal LV size. The estimated ejection fraction is 53 %. Mild (1+) eccentric mitral valve insufficiency. Mild (1+) eccentric aortic valve insufficiency. Small pericardial effusion. Mild focal aortic valve calcification. Stage 1 diastolic dysfunction. Mean aortic valve gradient 24 mmHg. Mild concentric left ventricular hypertrophy. Ordering Physician: Judith Moeller Referring Physician: Bill Schuster Performed By: Teresa Gonzales RDCS, RVT
[2020-09-18] MEDS: Labetalol 200 MG Tablet PO ×3 (01:38→21:10)
[2020-09-18 04:56] LABS: Absolute Lymphocyte Count 0.36 X10^3/uL (0.83-4.51); Absolute Neutrophil Count 3.3 X10^3/uL (2.0-7.7); Basophil# 0.01 X10^3/uL; Basophil% 0.2 % (0-1); Differential Indicated SCAN CRITERIA MET; Hematocrit 27.6 % (37-47); Hemoglobin 9.1 g/dL (12.0-15.0); Lymphocyte # 0.36 X10^3/ul (4.0); Lymphocyte % 8.8 % (19-41); Mean Corpuscular Hgb 31.7 pg (27.0-32.0); Mean Corpuscular Volume 96.2 fL (81-99); Mean Platelet Vol. 11.4 fl (6.2-12.0); Monocyte# 0.42 X10^3/uL; Monocyte% 10.3 % (0-10); NRBC Flagged by Analyzer 0 % (0-5); Neutrophil # 3.27 X10^3/uL (2.7-7.7); Neutrophil % 80.2 % (47-70); POSITIVE DIFFERENTIAL YES; Platelet Count 148 K/mm3 (150-450); RBC Distribution Width CV 13.4 % (11.6-14.6); RBC Distribution Width SD 47.5 fl (35.1-43.9); Red Blood Count 2.87 M/mm3 (4.2-5.4); White Blood Count 4.1 K/mm3 (4.4-11.0)
[2020-09-18 05:19] LABS: Anion Gap 6 (5-15); BUN 10 mg/dL (7-18); BUN/Creat Ratio 14.3 RATIO (10-20); Calcium,Total 8.6 mg/dL (8.5-10.1); Chloride 101 mmol/L (98-107); EST Glomerular Filtration Rate 87 mL/min (>60); Est Glom Filt Rate - Afr Amer 106 mL/min (>60); Estimated Creatinine Clearance 41.45 ml/min; Glucose 110 mg/dL (74-106); Magnesium 1.7 mg/dL (1.6-2.6); Potassium 2.8 mmol/L (3.5-5.1); Sodium Level 141 mmol/L (136-145); Thyroid Stim Hormone (TSH) 0.09 uIU/mL (0.358-3.74)
--- NOTE | 2020-09-18 05:40 | CON.PCM_ITS ---
Reason for Consult Date of Consultation: 09/18/20 Reason for Consultation: Acute hypoxemic respiratory failure History of Present Illness: The patient is a 75-year-old female, with a history as outlined below, who presented to the emergency department on September 17 with complaints of progressive shortness of breath which initially began on Wednesday. The patient was just discharged from the hospital on September 11 after having been admitted for 2 days with a suspected GI bleed. The patient did receive transfusion of blood products during her hospitalization. She denied having been short of breath upon discharge from the hospital. She denies a history of any known cardiac disease. On presentation to the emergency department, the patient was noted to be hypertensive with a blood pressure of 191/96 mmHg. She was also tachypneic and hypoxemic, saturating 88% on room air. Laboratory evaluation revealed a normal white blood cell count. Hemoglobin was stable at 9.2 g/dL. Coagulation profile was within normal limits. ABG obtained on 3 L/min revealed a pH of 7.46 with a corresponding PCO2 of 37 and PO2 of 96. Chemistry profile was notable for a potassium of 3.1. Creatinine was within normal limits. Troponin was negative. However, BNP was elevated to 1228. CTA chest showed no evidence for PE. Small bilateral pleural effusions with subsegmental atelectasis was noted. The patient received IV Lasix and was started on BiPAP therapy. She was admitted to the medical intensive care unit for further management. Past Medical History Past Medical History (Chronic Problems): Chronic Problems Osteoarthritis (Chronic) Hyperlipidemia (Chronic) Hypertension (Chronic) Allergies amlodipine besylate [From Norvasc] Allergy (Verified 09/17/20 20:38) Swelling bisoprolol fumarate [From Ziac] Allergy (Verified 09/17/20 20:38) Unknown adhesive Adverse Reaction (Verified 09/17/20 20:38) Itching hydrochlorothiazide Adverse Reaction (Verified 09/17/20 20:38) Unknown Home Medications: Ambulatory Orders Medication Instructions Recorded Calcium Carbonate [Calcium] 600 mg PO DAILY 03/13/16 Cholecalciferol (VIT D3) [Vitamin 2,000 unit PO DAILY 03/13/16 D3] Labetalol [Trandate (Beta Vincenzo)] 200 mg PO BID 03/13/16 Magnesium 250 mg PO DAILY 03/13/16 Acetaminophen [Tylenol] 1,000 mg PO Q8H PRN PRN 09/09/20 Pantoprazole Sodium [Protonix] 40 mg PO BID #60 tab 09/11/20 Hydroxychloroquine Sulfate 200 mg PO BID 09/18/20 Surgical History: - - Right total knee arthroplasty, left breast lumpectomy, right shoulder surgery Psychiatric History: No pertinent psych hx [employer] History: No pertinent [employer] history Lives: Spouse/ Significant Other Smoking Status: Never smoker Tobacco Use: Non-smoker Drugs: None - *Family History Maternal History Items: Hypertension Paternal History Items: Heart Disease Review of Systems Constitutional: Denies: Chills, Fever Eyes: Denies: Blurred vision, Double vision HEENT: Denies: Head Aches, Sinus Congestion, Sinus Drainage Cardiovascular: Reports: Edema. Denies: Chest Pain, Palpitations Respiratory: Reports: Shortness of Breath Gastrointestinal: Denies: Abdominal Pain, Nausea, Vomiting Genitourinary: Denies: Dysuria Musculoskeletal: Denies: Joint Pain, Joint Tenderness Skin: Denies: Rash, Wounds Neurological: Denies: Numbness, Tingling, Focal weakness Psychiatric: Denies: Anxiety, Depression, Homicidal Ideations, Suicidal Ideations Hematologic/ Lymphatic: Reports: Anemia, Hx of blood transfusion Patient Problems: Active and Suspected Problems Acute hypoxemic respiratory failure (Acute) Acute exacerbation of CHF (congestive heart failure) (Acute) Hypokalemia (Acute) Iron deficiency anemia (Acute) Bilateral pleural effusion (Acute) Objective: The patient's most recent lab work, culture data and imaging studies have all been personally reviewed. - Physical Exam Vitals/I&O's: Vital Signs Temp Pulse Resp BP Pulse Ox 97.9 F 73 23 H 151/66 H 97 09/18/20 04:00 09/18/20 05:00 09/18/20 05:00 09/18/20 05:00 09/18/20 05:00 Oxygen Flow Rate (L/min) 30 Oxygen Delivery Method Nasal Cannula Weight: 178 lb 12.718 oz Body Mass Index (BMI) 31.6 Intake and Output for Last 24 Hours 09/16/20 09/17/20 09/18/20 23:59 23:59 23:59 Intake Total 120 / 120 Output Total 1200 / 1200 Balance -1080 / -1080 General: Alert, Oriented x3, Cooperative, No apparent distress HEENT: Atraumatic, PERRLA, Normocephalic Oral: Moist Mucosa, No Gingival or Mucosal Lesions/ Ulcerations Neck: Supple, No Nodes, Trachea Midline Lungs: Normal air movement, No rhonchi, No wheeze, No rales Cardiovascular: Regular rate, Regular Rhythm, Murmur Abdomen: Bowel Sounds Present, Soft, Non Tender Extremities: No clubbing, No cyanosis, Edema Skin: No breakdown Musculoskeletal: No Tenderness to Palpation of Joints or Extremities Lymphatic: No Cervical, Supraclavicular, or Inguinal Adenopathy Neurological: Cranial nerves II-XII grossly intact, Neuro grossly intact Psych/Mental Status: Alert and oriented to time, place, person, mood and affect Labs (Last 48 Hours) 09/17/20 09/17/20 09/17/20 21:00 21:00 21:00 WBC 4.5 RBC 2.93 L Hgb 9.2 L Hct 28.4 L MCV 96.9 MCH 31.4 MCHC 32.4 RDW Std Deviation 48.1 H RDW Coeff of Juan 13.5 Plt Count 154 MPV 11.5 Immature Gran % (Auto) 0.400 Neut % (Auto) 83.2 H Lymph % (Auto) 8.2 L [place] % (Auto) 7.8 Eos % (Auto) 0.2 Baso % (Auto) 0.2 Absolute Neuts (auto) 3.8 Absolute Lymphs (auto) 0.37 L Nucleated RBC % 0 Differential Comment SEE COMMENT Diff Path Review Platelet Estimate ADEQUATE RBC Morphology N CHROM Hypochromasia RARE Anisocytosis RARE Macrocytosis RARE PT 14.1 INR 1.1 APTT 33.7 Specimen Type Sample Site pH Bicarbonate Actual Total CO2 Base Excess O2 Saturation ABG pCO2 ABG pO2 Rocky Test O2 Delivery Device Liter Flow Sodium 142 Potassium 3.1 L Chloride 106 Carbon Dioxide 29.0 Anion Gap 7 BUN 11 Creatinine 0.74 Estim Creat Clear Calc 43.27 Est GFR (MDRD) Af Amer 99 Est GFR (MDRD) Non-Af 82 BUN/Creatinine Ratio 14.9 Glucose 146 H Lactic Acid Calcium 8.5 Magnesium Total Bilirubin 0.60 AST 13 L ALT 29 Alkaline Phosphatase 82 Troponin I < 0.015 B-Natriuretic Peptide Total Protein 6.2 L Albumin 3.3 Globulin 2.9 Albumin/Globulin Ratio 1.1 Lipase 70 L TSH 09/17/20 09/17/20 09/17/20 21:00 21:00 21:28 WBC RBC Hgb Hct MCV MCH MCHC RDW Std Deviation RDW Coeff of Juan Plt Count MPV Immature Gran % (Auto) Neut % (Auto) Lymph % (Auto) [place] % (Auto) Eos % (Auto) Baso % (Auto) Absolute Neuts (auto) Absolute Lymphs (auto) Nucleated RBC % Differential Comment Diff Path Review Platelet Estimate RBC Morphology Hypochromasia Anisocytosis Macrocytosis PT INR APTT Specimen Type ART Sample Site L Radial pH 7.46 H Bicarbonate Actual 26.1 H Total CO2 27 Base Excess 2 O2 Saturation 98 ABG pCO2 37.1 ABG pO2 96 Rocky Test Positive O2 Delivery Device Cannula Liter Flow 3.0 Sodium Potassium Chloride Carbon Dioxide Anion Gap BUN Creatinine Estim Creat Clear Calc Est GFR (MDRD) Af Amer Est GFR (MDRD) Non-Af BUN/Creatinine Ratio Glucose Lactic Acid 1.3 Calcium Magnesium Total Bilirubin AST ALT Alkaline Phosphatase Troponin I B-Natriuretic Peptide 1228.8 H Total Protein Albumin Globulin Albumin/Globulin Ratio Lipase TSH 09/18/20 09/18/20 09/18/20 01:05 04:50 04:50 WBC 4.1 L RBC 2.87 L Hgb 9.1 L Hct 27.6 L MCV 96.2 MCH 31.7 MCHC 33.0 RDW Std Deviation 47.5 H RDW Coeff of Juan 13.4 Plt Count 148 L MPV 11.4 Immature Gran % (Auto) 0.500 Neut % (Auto) 80.2 H Lymph % (Auto) 8.8 L [place] % (Auto) 10.3 H Eos % (Auto) 0.0 Baso % (Auto) 0.2 Absolute Neuts (auto) 3.3 Absolute Lymphs (auto) 0.36 L Nucleated RBC % 0 Differential Comment Diff Path Review May foll Platelet Estimate RBC Morphology Hypochromasia Anisocytosis Macrocytosis PT INR APTT Specimen Type Sample Site pH Bicarbonate Actual Total CO2 Base Excess O2 Saturation ABG pCO2 ABG pO2 Rocky Test O2 Delivery Device Liter Flow Sodium 141 Potassium 2.8 L Chloride 101 Carbon Dioxide 34.0 H Anion Gap 6 BUN 10 Creatinine 0.70 Estim Creat Clear Calc 41.45 Est GFR (MDRD) Af Amer 106 Est GFR (MDRD) Non-Af 87 BUN/Creatinine Ratio 14.3 Glucose 110 H Lactic Acid Calcium 8.6 Magnesium 1.7 Total Bilirubin AST ALT Alkaline Phosphatase Troponin I 0.099 H 0.126 H B-Natriuretic Peptide Total Protein Albumin Globulin Albumin/Globulin Ratio Lipase TSH 0.09 L Microbiology 09/17/20 21:00 Mucosa - Nose SARS-CoV-2 Antigen (Rapid) - Final Clinical Impression(s) from Imaging Studies Chest X-Ray 09/17/20 21:26 IMPRESSION: ASHD and coexisting bilateral perihilar interstitial thickening with patchy areas of increased density possibly inflammatory. Clinical correlation recommended to exclude possibility of Covid 19 pneumonia Electronically Signed: Nicolas Metz MD at 21:44 EST , Service support , Chest CTA 09/17/20 22:07 IMPRESSION: 1. No evidence of pulmonary embolus. 2. No aortic dissection or aneurysm. 3. Cardiomegaly with mild paraortic pericardial effusion. 4. Septal thickening and patchy alveolar infiltrates in the upper lobes. 5. Bilateral pleural effusions and atelectasis. Electronically Signed: Brendan Beckford DO at 23:33 EST Tel [phone], Service support , Current Medications Acetaminophen (Acetaminophen 325 Mg Tablet) 650 mg PO Q6H PRN PRN PRN Reason: Pain Score 1-10/Temp > 100.7 F Calcium Carbonate (Calcium Carbonate 500 Mg Tablet) 500 mg PO DAILY [facility] Cholecalciferol (Cholecalciferol (Vit D3) 1,000 Unit (25mcg)) 2,000 unit PO DAILY [facility] Enoxaparin Sodium (Enoxaparin 40 Mg/0.4 Ml Syringe) 40 mg SC DAILY [facility] Furosemide (Furosemide 40 Mg/4 Ml Vial) 40 mg IV BID@1000,1700 [facility] Hydralazine HCl (Hydralazine 20 Mg/Ml Vial) 10 mg IV Q4H PRN PRN PRN Reason: SBP more than 180 mmHg Hydroxychloroquine Sulfate (Hydroxychloroquine 200 Mg Tablet) 200 mg PO BID [facility] Sodium Chloride () 250 mls @ 15 mls/hr IV .[id number] PRN PRN Reason: Saline Flush Sodium Chloride () 250 mls @ 15 mls/hr IV .[id number] PRN PRN Reason: Additional IVPB Infusion Labetalol HCl (Labetalol 200 Mg Tablet) 200 mg PO BID [facility] Last Admin: 09/18/20 01:38 Dose: 200 mg Documented by: Magnesium Chloride (Magnesium Chloride 64 Mg Delay Rel.Tablet) 64 mg PO DAILY [facility] Pantoprazole Sodium (Pantoprazole Sodium 40 Mg Tablet) 40 mg PO BID [facility] Prochlorperazine Edisylate (Prochlorperazine 10 Mg/2 Ml Vial) 5 mg IV Q6H PRN PRN PRN Reason: NAUSEA/VOMITING Sodium Chloride (0.9% Saline Lock 10 Ml Syringe) 10 - 40 ml IV UD PRN PRN Reason: SALINE FLUSH Assessment/Plan Active and Suspected Problems Acute hypoxemic respiratory failure (Acute) Acute exacerbation of CHF (congestive heart failure) (Acute) Hypokalemia (Acute) Iron deficiency anemia (Acute) Bilateral pleural effusion (Acute) RECOMMENDATIONS: 1. Await results of echocardiogram. 2. Wean supplemental oxygen to maintain saturations at or above 90%. 3. Continue diuretic therapy as tolerated by hemodynamics and renal function. 4. Potassium repletion as ordered. 5. Encourage incentive spirometer use and mobilize patient as tolerated. IMPRESSIONS: 1. Acute hypoxemic respiratory failure Clinical concern for decompensated heart failure given presenting symptoms, radiographic findings and symptom response to noninvasive positive pressure ventilatory support and diuretic therapy. The patient has been weaned to supplemental oxygen via nasal cannula as of this morning. She reports significant improvement in her respiratory symptoms. Echocardiogram is currently pending. Recommend continuing gentle diuresis as tolerated by hemodynamics and renal function. 2. Hypokalemia Electrolyte repletion as ordered. Recheck levels in the morning. 3. Anemia/hypertension/GERD Complicates care, management, recovery and prognosis. Continue home medications as indicated. Continue to monitor H&H daily. Transfuse if hemoglobin drops below 7 g/dL. This note was generated with [employer] dictation software. It may contain incorrect words, spelling, and punctuation that were not noted in checking the note before signing. Inpatient E&M: 70604 Init Hosp L3
--- NOTE | 2020-09-18 05:55 | EKG12_ITS ---
Test Reason : SOB Blood Pressure : / mmHG Vent. Rate : 097 BPM Atrial Rate : 097 BPM P-R Int : 144 ms QRS Dur : 100 ms QT Int : 372 ms P-R-T Axes : 096 -11 083 degrees QTc Int : 472 ms Sinus rhythm with marked sinus arrhythmia Nonspecific ST and T wave abnormality Abnormal ECG Confirmed by SCARLET LOPEZ, MILLY ([id number]), manager editorial MICHAEL OLIVIER ([id number]) on 09/23/2020 10:22:09 A M Referred By: RICH Confirmed By:MARTHA NOVAK MD
[2020-09-18 07:49] LABS: T4 Free Direct 1.37 ng/dL (0.76-1.46)
[2020-09-18] MEDS: Potassium Chloride 10mEq/100mL 10 MEQ/100 ML IV.SOLN. 100 MEQ IV BOLUS ×4 (09:10→13:14)
[2020-09-18] MEDS: Hydroxychloroquine 200 MG Tablet PO ×2 (09:12→21:10)
[2020-09-18] MEDS: Enoxaparin 40 MG/0.4 ML Syringe SC (09:13)
[2020-09-18] MEDS: Furosemide 40 MG/4 ML Vial IV ×2 (09:13→18:27)
[2020-09-18] MEDS: Pantoprazole Sodium 40 MG Tablet PO ×2 (09:13→21:10)
[2020-09-18] MEDS: Magnesium Chloride 64 MG Delay Rel.Tablet PO (09:14)
[2020-09-18] MEDS: Calcium Carbonate 500 MG Tablet PO (09:14)
[2020-09-18 11:52] LABS: Pathologist Review Reviewed
--- NOTE | 2020-09-18 12:19 | PCM.PN.HOSP ---
Patient Problems: Active and Suspected Problems Acute hypoxemic respiratory failure (Acute) Acute exacerbation of CHF (congestive heart failure) (Acute) Hypokalemia (Acute) Iron deficiency anemia (Acute) Bilateral pleural effusion (Acute) Subjective: Patient seen and examined. She was admitted with complaint of shortness of breath and has been managed for acute exacerbation of heart failure. Patient seen today. She feels much better and states her shortness of breath is vastly improved. Review of systems otherwise negative. He was on 2 L of oxygen and has remained hemodynamically stable. Potassium is 2.8 today. Troponin did trend up slightly to 0.126 this early due to demand ischemia from heart failure should he have any chest pain whatsoever. Schedule 0.09 but free T4 is 1.37. Vitals/I&O's: Vital Signs Temp Pulse Resp BP Pulse Ox 97.8 F 64 18 111/74 98 09/18/20 12:00 09/18/20 12:00 09/18/20 12:00 09/18/20 12:00 09/18/20 12:00 Oxygen Flow Rate (L/min) 2 Oxygen Delivery Method Nasal Cannula Weight: 178 lb 12.718 oz Body Mass Index (BMI) 31.6 Intake and Output for Last 24 Hours 09/16/20 09/17/20 09/18/20 23:59 23:59 23:59 Intake Total 620 / 620 Output Total 1850 / 1850 Balance -1230 / -1230 General: Alert, Oriented x3, Cooperative, No apparent distress HEENT: Atraumatic, PERRLA, EOMI, Normocephalic Oral: Moist Mucosa Neck: Supple, No JVD, Negative Carotid Bruits Lungs: - - diminished breath sounds bibasally, no wheezes or crackles. On 2L of oxygen. Cardiovascular: Regular rate, Regular Rhythm, Normal S1, Normal S2, No murmurs Abdomen: Bowel Sounds Present, Soft, Non Tender Extremities: No clubbing, No cyanosis, No edema, Capillary Refill Less than 3 Seconds Skin: No rashes, No breakdown Musculoskeletal: No Tenderness to Palpation of Joints or Extremities Lymphatic: No Cervical, Supraclavicular, or Inguinal Adenopathy Neurological: Cranial nerves II-XII grossly intact, Neuro grossly intact, Motor Exam 5/5 strength throughout Psych/Mental Status: Normal Affect, Appropriate, Alert and oriented to time, place, person, mood and affect Microbiology Past 72 Hours 09/17/20 21:00 Mucosa - Nose SARS-CoV-2 Antigen (Rapid) - Final Laboratory Results 09/17/20 21:00: WBC 4.5, RBC 2.93 L, Hgb 9.2 L, Hct 28.4 L, MCV 96.9, MCH 31.4, MCHC 32.4, RDW Std Deviation 48.1 H, RDW Coeff of Juan 13.5, Plt Count 154, MPV 11.5, Immature Gran % (Auto) 0.400, Neut % (Auto) 83.2 H, Lymph % (Auto) 8.2 L, [place] % (Auto) 7.8, Eos % (Auto) 0.2, Baso % (Auto) 0.2, Absolute Neuts (auto) 3.8, Absolute Lymphs (auto) 0.37 L, Nucleated RBC % 0, Differential Comment SEE COMMENT, Platelet Estimate ADEQUATE, RBC Morphology N CHROM, Hypochromasia RARE, Anisocytosis RARE, Macrocytosis RARE 09/17/20 21:00: PT 14.1, INR 1.1, APTT 33.7 09/17/20 21:00: Sodium 142, Potassium 3.1 L, Chloride 106, Carbon Dioxide 29.0, Anion Gap 7, BUN 11, Creatinine 0.74, Estim Creat Clear Calc 43.27, Est GFR (MDRD) Af Amer 99, Est GFR (MDRD) Non-Af 82, BUN/Creatinine Ratio 14.9, Glucose 146 H, Calcium 8.5, Total Bilirubin 0.60, AST 13 L, ALT 29, Alkaline Phosphatase 82, Troponin I < 0.015, Total Protein 6.2 L, Albumin 3.3, Globulin 2.9, Albumin/Globulin Ratio 1.1, Lipase 70 L 09/17/20 21:00: Lactic Acid 1.3 09/17/20 21:00: B-Natriuretic Peptide 1228.8 H 09/17/20 21:28: Specimen Type ART, Sample Site L Radial, pH 7.46 H, Bicarbonate Actual 26.1 H, Total CO2 27, Base Excess 2, O2 Saturation 98, ABG pCO2 37.1, ABG pO2 96, Rocky Test Positive, O2 Delivery Device Cannula, Liter Flow 3.0 09/18/20 01:05: Troponin I 0.099 H 09/18/20 04:50: WBC 4.1 L, RBC 2.87 L, Hgb 9.1 L, Hct 27.6 L, MCV 96.2, MCH 31.7, MCHC 33.0, RDW Std Deviation 47.5 H, RDW Coeff of Juan 13.4, Plt Count 148 L, MPV 11.4, Immature Gran % (Auto) 0.500, Neut % (Auto) 80.2 H, Lymph % (Auto) 8.8 L, [place] % (Auto) 10.3 H, Eos % (Auto) 0.0, Baso % (Auto) 0.2, Absolute Neuts (auto) 3.3, Absolute Lymphs (auto) 0.36 L, Nucleated RBC % 0, Diff Path Review Reviewed 09/18/20 04:50: Sodium 141, Potassium 2.8 L, Chloride 101, Carbon Dioxide 34.0 H, Anion Gap 6, BUN 10, Creatinine 0.70, Estim Creat Clear Calc 41.45, Est GFR (MDRD) Af Amer 106, Est GFR (MDRD) Non-Af 87, BUN/Creatinine Ratio 14.3, Glucose 110 H, Calcium 8.6, Magnesium 1.7, Troponin I 0.126 H, TSH 0.09 L 09/18/20 04:50: Free T4 1.37 Diagnostic Data Chest X-Ray 09/17/20 21:26 IMPRESSION: ASHD and coexisting bilateral perihilar interstitial thickening with patchy areas of increased density possibly inflammatory. Clinical correlation recommended to exclude possibility of Covid 19 pneumonia Electronically Signed: Nicolas Metz MD at 21:44 EST , Service support , Chest CTA 09/17/20 22:07 IMPRESSION: 1. No evidence of pulmonary embolus. 2. No aortic dissection or aneurysm. 3. Cardiomegaly with mild paraortic pericardial effusion. 4. Septal thickening and patchy alveolar infiltrates in the upper lobes. 5. Bilateral pleural effusions and atelectasis. Electronically Signed: Brendan Beckford DO at 23:33 EST Tel [phone], Service support , Current Medications Acetaminophen (Acetaminophen 325 Mg Tablet) 650 mg PO Q6H PRN PRN PRN Reason: Pain Score 1-10/Temp > 100.7 F Calcium Carbonate (Calcium Carbonate 500 Mg Tablet) 500 mg PO DAILY [facility] Last Admin: 09/18/20 09:14 Dose: 500 mg Documented by: Cholecalciferol (Cholecalciferol (Vit D3) 1,000 Unit (25mcg)) 2,000 unit PO DAILY [facility] Last Admin: 09/18/20 09:13 Dose: 2,000 unit Documented by: Enoxaparin Sodium (Enoxaparin 40 Mg/0.4 Ml Syringe) 40 mg SC DAILY [facility] Last Admin: 09/18/20 09:13 Dose: 40 mg Documented by: Furosemide (Furosemide 40 Mg/4 Ml Vial) 40 mg IV BID@1000,1700 [facility] Last Admin: 09/18/20 09:13 Dose: 40 mg Documented by: Hydralazine HCl (Hydralazine 20 Mg/Ml Vial) 10 mg IV Q4H PRN PRN PRN Reason: SBP more than 180 mmHg Hydroxychloroquine Sulfate (Hydroxychloroquine 200 Mg Tablet) 200 mg PO BID [facility] Last Admin: 09/18/20 09:12 Dose: 200 mg Documented by: Sodium Chloride () 250 mls @ 15 mls/hr IV .[id number] PRN PRN Reason: Saline Flush Last Admin: 09/18/20 09:10 Dose: 15 mls/hr Documented by: Sodium Chloride () 250 mls @ 15 mls/hr IV .[id number] PRN PRN Reason: Additional IVPB Infusion Labetalol HCl (Labetalol 200 Mg Tablet) 200 mg PO BID [facility] Last Admin: 09/18/20 09:12 Dose: 200 mg Documented by: Magnesium Chloride (Magnesium Chloride 64 Mg Delay Rel.Tablet) 64 mg PO DAILY [facility] Last Admin: 09/18/20 09:14 Dose: 64 mg Documented by: Pantoprazole Sodium (Pantoprazole Sodium 40 Mg Tablet) 40 mg PO BID [facility] Last Admin: 09/18/20 09:13 Dose: 40 mg Documented by: Prochlorperazine Edisylate (Prochlorperazine 10 Mg/2 Ml Vial) 5 mg IV Q6H PRN PRN PRN Reason: NAUSEA/VOMITING Sodium Chloride (0.9% Saline Lock 10 Ml Syringe) 10 - 40 ml IV UD PRN PRN Reason: SALINE FLUSH STROKE Vital Signs/Narrative: Vital Signs Temp Pulse Resp BP BP Pulse Ox 09/18/20 12:00 97.8 F 64 18 111/74 98 09/18/20 11:52 97.8 F 66 18 98 09/18/20 11:40 91 18 998 09/18/20 11:02 68 09/18/20 11:00 66 23 H 112/54 L 97 09/18/20 10:00 66 24 H 124/58 H 95 09/18/20 09:00 70 23 H 145/64 H 98 09/18/20 08:28 97 Medical Necessity - Tobacco Use Smoking Status: Never smoker Tobacco Use: Non-smoker Assessment/Plan All Active Problems GI bleed (Acute) Acute hypoxemic respiratory failure (Acute) Acute exacerbation of CHF (congestive heart failure) (Acute) Hypokalemia (Acute) Iron deficiency anemia (Acute) Bilateral pleural effusion (Acute) #Acute heart failure with preserved EF As of breath has improved. She is on 2 L of oxygen now. 2D echo done today showed normal left ventricular size with left ventricular hypertrophy and estimated EF of 53% with stage I diastolic dysfunction and no regional wall motion abnormalities noted. Aortic valve gradient is 24 mmHg. Continue diuresing with IV Lasix 40 mg twice daily. Monitor intake and output. Fluid restriction to 1500 cc daily. #Hypokalemia: Potassium is 2.8 today. Will replace aggressively per protocol and trend. #Iron deficiency anemia Hemogllobin is 9.1. This is chronic. Will monitor. #Hypertension: On labetalol. IV hydralazine prn #Hyperlipidemia: Likely diet controlled as she is not on a statin #Subclinical hyperthyroidism: TSH was markedly suppressed free T3 is within normal limits. Should follow-up with PCP for monitoring and repeat labs as needed. #DVT prophylaxis: lovenox Inpatient E&M: 30292 Subs Hosp L2
--- NOTE | 2020-09-18 14:28 | CASEMGMT ---
ORALIA PARSONS readmission note: Prior admission: Admitted 09/10/20 with GIB. Discharged home with her . She declined need for HHC. Protonix was e-scribed to [facility]. Pt instructed to f/u with her PCP and w/Dr Lopez. Current admission: Pt re-admitted w/new dx of Acute CHF. Pt does not have history of CHF. ORALIA PARSONS to room to meet with pt. Pt states she did leaf size picker the Protonix and has been taking all of her medications as instructed. She states she made an appt with PCP, Dr Isabelle Schuster for Saturday 09/[address] Lopez, 09/24. Pt states she manages her own medications and appts. She voices concern re: almost being out of her blood pressure pill. She states that [facility] only gave her 5 tablets as they are awaiting response back from Dr Isabelle Schuster's for refill. She states she only had 2 tablets left and that her has went to the pharmacy 2 or 3 times to see if they have it ready yet, but Dr Schuster's office has not sent in a script for a refill. ORALIA PARSONS placed call to [facility]. She states they are still awaiting response from Dr Schuster's office for refill on the Labetalol. ORALIA PARSONS placed call to Dr Isabelle Schuster's office and spoke with Jenna. She was made aware of pt need for refill. She states they are no longer accepting requests from pharmacies for refills, that the pt/family must call in for the request. She states pt has had had a physical with Dr Schuster since 2018, and other than that she has only been in to see [facility] for pre-op visit. Jenna was made aware pt is currently in the hospital and that she reports she has an appt with Dr Schuster on 09/23 and that she states she only has 2 tablets of Labetolo left. She states she will send a message to Dr Schuster to inquire if he will be willing to send a refill prior to pt's appt. She asks for ORALIA PARSONS to inform pt that she needs to schedule an appt for a physical in addition to her hospital f/u visit on Wednesday. Pt made aware. Jenna also states, that per their records, pt should have ran out of her Labetolol weeks ago. RN ISSA inquired of pt about this and she states she has been taking it as prescribed and has not run out of it until now. Discussed new diagnoses of CHF and reviewed importance of fluid restriction and daily weights. Discussed HHC and [facility] for teaching/med mgmt. Pt declines need for HHC but states is interested in [facility]. Order placed and call placed to [facility]. VM left w/Bo re: new referral. D/C Plan: Home w/ and discharge plans in place. [facility] referral made d/t new diagnoses of CHF. Palliative screening completed using [facility] screening tool. Pt does not meet criteria/no referral made at this time. Akbar MCCAULEY RN CM
[2020-09-18] MEDS: 0.9% Saline Lock 10 ML Syringe IV (18:27)
[2020-09-19] VITALS (13 sets, daily range): BP systolic 115–160; BP diastolic 58–84; PULSE 57–86; RESP 16–20; TEMP 36.6–37.5; O2SAT 93–100
--- NOTE | 2020-09-19 07:22 | PN_ITS ---
Subjective: The patient was seen and examined at the bedside this morning. Events from the last 24 hours have been reviewed. The patient is currently afebrile, hemodynamically stable and maintaining appropriate oxygen saturations on 2 L/min via nasal cannula. The patient is currently documented to be overall net -1 L for the hospital admission. The patient remains on twice daily scheduled IV Lasix. Objective: The patient's most recent lab work, culture data and imaging studies have all been personally reviewed. Surface echocardiogram revealed normal LV size with mild concentric LVH and an ejection fraction of 53%. Stage I diastolic dysfunction was noted. Rapid coronavirus antigen testing was negative. Blood cultures have shown no growth to date. General: Alert, Cooperative, No apparent distress HEENT: Atraumatic, Normocephalic Oral: Moist Mucosa, No Gingival or Mucosal Lesions/ Ulcerations Neck: Supple, No Nodes, Trachea Midline Lungs: Normal air movement, No rhonchi, No wheeze, No rales Cardiovascular: Regular rate, Regular Rhythm, Murmur Abdomen: Bowel Sounds Present, Soft, Non Tender Extremities: No clubbing, No cyanosis Skin: No breakdown Musculoskeletal: No Tenderness to Palpation of Joints or Extremities Lymphatic: No Cervical, Supraclavicular, or Inguinal Adenopathy Neurological: Cranial nerves II-XII grossly intact, Neuro grossly intact Psych/Mental Status: Alert and oriented to time, place, person, mood and affect Vital Signs Temp Pulse Resp BP Pulse Ox 98.5 F 61 17 160/73 H 100 09/19/20 04:00 09/19/20 04:00 09/19/20 04:00 09/19/20 04:00 09/19/20 04:00 Oxygen Flow Rate (L/min) 2 Oxygen Delivery Method Nasal Cannula Weight: 178 lb 12.718 oz Body Mass Index (BMI) 31.6 Intake and Output for Last 24 Hours 09/17/20 09/18/20 09/19/20 23:59 23:59 23:59 Intake Total 1479.5 / 1554.5 75 / 75 Output Total 2500 / 2600 100 / 100 Balance -1020.5 / -1045.5 -25 / -25 Labs (Last 48 Hours) 09/17/20 09/17/20 09/17/20 21:00 21:00 21:00 WBC 4.5 RBC 2.93 L Hgb 9.2 L Hct 28.4 L MCV 96.9 MCH 31.4 MCHC 32.4 RDW Std Deviation 48.1 H RDW Coeff of Juan 13.5 Plt Count 154 MPV 11.5 Immature Gran % (Auto) 0.400 Neut % (Auto) 83.2 H Lymph % (Auto) 8.2 L Graves % (Auto) 7.8 Eos % (Auto) 0.2 Baso % (Auto) 0.2 Absolute Neuts (auto) 3.8 Absolute Lymphs (auto) 0.37 L Nucleated RBC % 0 Differential Comment SEE COMMENT Diff Path Review Platelet Estimate ADEQUATE RBC Morphology N CHROM Hypochromasia RARE Anisocytosis RARE Macrocytosis RARE PT 14.1 INR 1.1 APTT 33.7 Specimen Type Sample Site pH Bicarbonate Actual Total CO2 Base Excess O2 Saturation ABG pCO2 ABG pO2 Rocky Test O2 Delivery Device Liter Flow Sodium 142 Potassium 3.1 L Chloride 106 Carbon Dioxide 29.0 Anion Gap 7 BUN 11 Creatinine 0.74 Estim Creat Clear Calc 43.27 Est GFR (MDRD) Af Amer 99 Est GFR (MDRD) Non-Af 82 BUN/Creatinine Ratio 14.9 Glucose 146 H Lactic Acid Calcium 8.5 Magnesium Total Bilirubin 0.60 AST 13 L ALT 29 Alkaline Phosphatase 82 Troponin I < 0.015 B-Natriuretic Peptide Total Protein 6.2 L Albumin 3.3 Globulin 2.9 Albumin/Globulin Ratio 1.1 Lipase 70 L TSH Free T4 09/17/20 09/17/20 09/17/20 21:00 21:00 21:28 WBC RBC Hgb Hct MCV MCH MCHC RDW Std Deviation RDW Coeff of Juan Plt Count MPV Immature Gran % (Auto) Neut % (Auto) Lymph % (Auto) Graves % (Auto) Eos % (Auto) Baso % (Auto) Absolute Neuts (auto) Absolute Lymphs (auto) Nucleated RBC % Differential Comment Diff Path Review Platelet Estimate RBC Morphology Hypochromasia Anisocytosis Macrocytosis PT INR APTT Specimen Type ART Sample Site L Radial pH 7.46 H Bicarbonate Actual 26.1 H Total CO2 27 Base Excess 2 O2 Saturation 98 ABG pCO2 37.1 ABG pO2 96 Rocky Test Positive O2 Delivery Device Cannula Liter Flow 3.0 Sodium Potassium Chloride Carbon Dioxide Anion Gap BUN Creatinine Estim Creat Clear Calc Est GFR (MDRD) Af Amer Est GFR (MDRD) Non-Af BUN/Creatinine Ratio Glucose Lactic Acid 1.3 Calcium Magnesium Total Bilirubin AST ALT Alkaline Phosphatase Troponin I B-Natriuretic Peptide 1228.8 H Total Protein Albumin Globulin Albumin/Globulin Ratio Lipase TSH Free T4 09/18/20 09/18/20 09/18/20 01:05 04:50 04:50 WBC 4.1 L RBC 2.87 L Hgb 9.1 L Hct 27.6 L MCV 96.2 MCH 31.7 MCHC 33.0 RDW Std Deviation 47.5 H RDW Coeff of Juan 13.4 Plt Count 148 L MPV 11.4 Immature Gran % (Auto) 0.500 Neut % (Auto) 80.2 H Lymph % (Auto) 8.8 L Graves % (Auto) 10.3 H Eos % (Auto) 0.0 Baso % (Auto) 0.2 Absolute Neuts (auto) 3.3 Absolute Lymphs (auto) 0.36 L Nucleated RBC % 0 Differential Comment Diff Path Review Reviewed Platelet Estimate RBC Morphology Hypochromasia Anisocytosis Macrocytosis PT INR APTT Specimen Type Sample Site pH Bicarbonate Actual Total CO2 Base Excess O2 Saturation ABG pCO2 ABG pO2 Rocky Test O2 Delivery Device Liter Flow Sodium 141 Potassium 2.8 L Chloride 101 Carbon Dioxide 34.0 H Anion Gap 6 BUN 10 Creatinine 0.70 Estim Creat Clear Calc 41.45 Est GFR (MDRD) Af Amer 106 Est GFR (MDRD) Non-Af 87 BUN/Creatinine Ratio 14.3 Glucose 110 H Lactic Acid Calcium 8.6 Magnesium 1.7 Total Bilirubin AST ALT Alkaline Phosphatase Troponin I 0.099 H 0.126 H B-Natriuretic Peptide Total Protein Albumin Globulin Albumin/Globulin Ratio Lipase TSH 0.09 L Free T4 09/18/20 04:50 WBC RBC Hgb Hct MCV MCH MCHC RDW Std Deviation RDW Coeff of Juan Plt Count MPV Immature Gran % (Auto) Neut % (Auto) Lymph % (Auto) Graves % (Auto) Eos % (Auto) Baso % (Auto) Absolute Neuts (auto) Absolute Lymphs (auto) Nucleated RBC % Differential Comment Diff Path Review Platelet Estimate RBC Morphology Hypochromasia Anisocytosis Macrocytosis PT INR APTT Specimen Type Sample Site pH Bicarbonate Actual Total CO2 Base Excess O2 Saturation ABG pCO2 ABG pO2 Rocky Test O2 Delivery Device Liter Flow Sodium Potassium Chloride Carbon Dioxide Anion Gap BUN Creatinine Estim Creat Clear Calc Est GFR (MDRD) Af Amer Est GFR (MDRD) Non-Af BUN/Creatinine Ratio Glucose Lactic Acid Calcium Magnesium Total Bilirubin AST ALT Alkaline Phosphatase Troponin I B-Natriuretic Peptide Total Protein Albumin Globulin Albumin/Globulin Ratio Lipase TSH Free T4 1.37 Microbiology 09/17/20 21:00 Mucosa - Nose SARS-CoV-2 Antigen (Rapid) - Final Clinical Impression(s) from Imaging Studies Chest X-Ray 09/17/20 21:26 IMPRESSION: ASHD and coexisting bilateral perihilar interstitial thickening with patchy areas of increased density possibly inflammatory. Clinical correlation recommended to exclude possibility of Covid 19 pneumonia Electronically Signed: Nicolas Metz MD at 21:44 EST , Service support , Chest CTA 09/17/20 22:07 IMPRESSION: 1. No evidence of pulmonary embolus. 2. No aortic dissection or aneurysm. 3. Cardiomegaly with mild paraortic pericardial effusion. 4. Septal thickening and patchy alveolar infiltrates in the upper lobes. 5. Bilateral pleural effusions and atelectasis. Electronically Signed: Brendan Beckford DO at 23:33 EST Tel [phone], Service support , Medical Necessity - Tobacco Use Smoking Status: Never smoker Tobacco Use: Non-smoker Assessment/Plan All Active Problems GI bleed (Acute) Acute hypoxemic respiratory failure (Acute) Acute exacerbation of CHF (congestive heart failure) (Acute) Hypokalemia (Acute) Iron deficiency anemia (Acute) Bilateral pleural effusion (Acute) RECOMMENDATIONS: 1. Wean supplemental oxygen to maintain saturations at or above 90%. 2. Continue diuretic therapy as tolerated by hemodynamics and renal function. 3. Potassium repletion as ordered. 4. Encourage incentive spirometer use and mobilize patient as tolerated. 5. Given the patient's lack of further ICU needs, will sign off. Please call with any additional questions. IMPRESSIONS: 1. Acute hypoxemic respiratory failure Clinical concern for decompensated heart failure given presenting symptoms, radiographic findings and symptom response to noninvasive positive pressure ventilatory support and diuretic therapy. Plan to continue diuretic therapy as tolerated by hemodynamics and renal function. Continue to wean supplemental oxygen to maintain saturations at or above 90%. Encourage incentive spirometer use and mobilize patient as tolerated. 2. Hypokalemia Electrolyte repletion as ordered. Recheck levels in the morning. 3. Anemia/hypertension/GERD Complicates care, management, recovery and prognosis. Continue home medications as indicated. Continue to monitor H&H daily. Transfuse if hemoglobin drops below 7 g/dL. This note was generated with [employer] dictation software. It may contain incorrect words, spelling, and punctuation that were not noted in checking the note before signing. Inpatient E&M: 98247 Subs Hosp L2
[2020-09-19 08:12] LABS: Absolute Lymphocyte Count 0.61 X10^3/uL (0.83-4.51); Absolute Neutrophil Count 1.4 X10^3/uL (2.0-7.7); Hematocrit 27.9 % (37-47); Lymphocyte # 0.61 X10^3/ul (4.0); Mean Corp Hgb Conc 32.3 g/dL (32-36); Mean Corpuscular Hgb 31.4 pg (27.0-32.0); Mean Corpuscular Volume 97.2 fL (81-99); Mean Platelet Vol. 11.3 fl (6.2-12.0); Monocyte# 0.36 X10^3/uL; Monocyte% 15.3 % (0-10); NRBC Flagged by Analyzer 0 % (0-5); Neutrophil # 1.38 X10^3/uL (2.7-7.7); Neutrophil % 58.7 % (47-70); Platelet Count 148 K/mm3 (150-450); RBC Distribution Width CV 13.4 % (11.6-14.6); RBC Distribution Width SD 47.9 fl (35.1-43.9); Red Blood Count 2.87 M/mm3 (4.2-5.4); White Blood Count 2.4 K/mm3 (4.4-11.0)
[2020-09-19 08:24] LABS: Anion Gap 4 (5-15); BUN 12 mg/dL (7-18); BUN/Creat Ratio 17.5 RATIO (10-20); Calcium,Total 8.5 mg/dL (8.5-10.1); Chloride 102 mmol/L (98-107); Creatinine, Serum 0.68 mg/dL (0.55-1.02); EST Glomerular Filtration Rate 90 mL/min (>60); Est Glom Filt Rate - Afr Amer 108 mL/min (>60); Estimated Creatinine Clearance 41.45 ml/min; Glucose 94 mg/dL (74-106); Potassium 3.2 mmol/L (3.5-5.1); Sodium Level 142 mmol/L (136-145)
[2020-09-19] MEDS: Enoxaparin 40 MG/0.4 ML Syringe SC (10:22)
[2020-09-19] MEDS: Labetalol 200 MG Tablet PO ×2 (10:22→21:15)
[2020-09-19] MEDS: Pantoprazole Sodium 40 MG Tablet PO ×2 (10:22→21:15)
[2020-09-19] MEDS: Hydroxychloroquine 200 MG Tablet PO ×2 (10:22→21:15)
[2020-09-19] MEDS: Magnesium Chloride 64 MG Delay Rel.Tablet PO (10:23)
[2020-09-19] MEDS: Calcium Carbonate 500 MG Tablet PO (10:23)
[2020-09-19] MEDS: Furosemide 40 MG/4 ML Vial IV ×2 (10:23→17:35)
[2020-09-19] MEDS: Potassium Chloride Oral Tablet 20 MEQ 40 MEQ PO (13:11)
--- NOTE | 2020-09-19 13:15 | PN_ITS ---
Patient Problems: Active and Suspected Problems Acute hypoxemic respiratory failure (Acute) Acute exacerbation of CHF (congestive heart failure) (Acute) Hypokalemia (Acute) Iron deficiency anemia (Acute) Bilateral pleural effusion (Acute) Subjective: Patient seen and examined. Feels much better today. She has no complaints. Re view systems otherwise negative. Potassium is 3.2 today. Vitals/I&O's: Vital Signs Temp Pulse Resp BP Pulse Ox 97.9 F 70 19 H 144/66 H 97 09/19/20 07:55 09/19/20 11:10 09/19/20 07:55 09/19/20 07:55 09/19/20 07:55 Oxygen Flow Rate (L/min) 3 Oxygen Delivery Method Nasal Cannula Weight: 178 lb 12.718 oz Body Mass Index (BMI) 31.6 Intake and Output for Last 24 Hours 09/17/20 09/18/20 09/19/20 23:59 23:59 23:59 Intake Total 1479.5 / 1554.5 75 / 75 Output Total 2500 / 2600 950 / 950 Balance -1020.5 / -1045.5 -875 / -875 General: Alert, Oriented x3, Cooperative HEENT: Atraumatic, PERRLA, EOMI, Normocephalic Oral: Moist Mucosa Neck: Supple, No JVD, Negative Carotid Bruits Lungs: Clear to auscultation, Normal air movement Cardiovascular: Regular rate, No murmurs Abdomen: Bowel Sounds Present, Soft, Non Tender Extremities: No edema, Capillary Refill Less than 3 Seconds Skin: No rashes, No breakdown Musculoskeletal: No Tenderness to Palpation of Joints or Extremities Neurological: Cranial nerves II-XII grossly intact, Neuro grossly intact, Motor Exam 5/5 strength throughout Psych/Mental Status: Normal Affect, Appropriate, Alert and oriented to time, place, person, mood and affect Microbiology Past 72 Hours 09/17/20 21:00 Mucosa - Nose SARS-CoV-2 Antigen (Rapid) - Final Laboratory Results 09/19/20 08:00: WBC 2.4 L, RBC 2.87 L, Hgb 9.0 L, Hct 27.9 L, MCV 97.2, MCH 31.4, MCHC 32.3, RDW Std Deviation 47.9 H, RDW Coeff of Juan 13.4, Plt Count 148 L, MPV 11.3, Immature Gran % (Auto) 0.000, Neut % (Auto) 58.7, Lymph % (Auto) 26.0, [place] % (Auto) 15.3 H, Eos % (Auto) 0.0, Baso % (Auto) 0.0, Absolute Neuts (auto) 1.4 L, Absolute Lymphs (auto) 0.61 L, Nucleated RBC % 0 09/19/20 08:00: Sodium 142, Potassium 3.2 L, Chloride 102, Carbon Dioxide 36.0 H , Anion Gap 4 L, BUN 12, Creatinine 0.68, Estim Creat Clear Calc 41.45, Est GFR (MDRD) Af Amer 108, Est GFR (MDRD) Non-Af 90, BUN/Creatinine Ratio 17.5, Glucose 94, Calcium 8.5 Current Medications Acetaminophen (Acetaminophen 325 Mg Tablet) 650 mg PO Q6H PRN PRN PRN Reason: Pain Score 1-10/Temp > 100.7 F Calcium Carbonate (Calcium Carbonate 500 Mg Tablet) 500 mg PO DAILY [facility] Last Admin: 09/19/20 10:23 Dose: 500 mg Documented by: Cholecalciferol (Cholecalciferol (Vit D3) 1,000 Unit (25mcg)) 2,000 unit PO DAILY [facility] Last Admin: 09/19/20 10:22 Dose: 2,000 unit Documented by: Enoxaparin Sodium (Enoxaparin 40 Mg/0.4 Ml Syringe) 40 mg SC DAILY [facility] Last Admin: 09/19/20 10:22 Dose: 40 mg Documented by: Furosemide (Furosemide 40 Mg/4 Ml Vial) 40 mg IV BID@1000,1700 [facility] Last Admin: 09/19/20 10:23 Dose: 40 mg Documented by: Hydralazine HCl (Hydralazine 20 Mg/Ml Vial) 10 mg IV Q4H PRN PRN PRN Reason: SBP more than 180 mmHg Hydroxychloroquine Sulfate (Hydroxychloroquine 200 Mg Tablet) 200 mg PO BID [facility] Last Admin: 09/19/20 10:22 Dose: 200 mg Documented by: Sodium Chloride () 250 mls @ 15 mls/hr IV .[id number] PRN PRN Reason: Saline Flush Last Infusion: 09/18/20 19:48 Dose: 0 mls/hr Documented by: Sodium Chloride () 250 mls @ 15 mls/hr IV .[id number] PRN PRN Reason: Additional IVPB Infusion Labetalol HCl (Labetalol 200 Mg Tablet) 200 mg PO BID [facility] Last Admin: 09/19/20 10:22 Dose: 200 mg Documented by: Magnesium Chloride (Magnesium Chloride 64 Mg Delay Rel.Tablet) 64 mg PO DAILY [facility] Last Admin: 09/19/20 10:23 Dose: 64 mg Documented by: Pantoprazole Sodium (Pantoprazole Sodium 40 Mg Tablet) 40 mg PO BID [facility] Last Admin: 09/19/20 10:22 Dose: 40 mg Documented by: Prochlorperazine Edisylate (Prochlorperazine 10 Mg/2 Ml Vial) 5 mg IV Q6H PRN PRN PRN Reason: NAUSEA/VOMITING Sodium Chloride (0.9% Saline Lock 10 Ml Syringe) 10 - 40 ml IV UD PRN PRN Reason: SALINE FLUSH Last Admin: 09/18/20 18:27 Dose: 10 ml Documented by: STROKE Vital Signs/Narrative: Vital Signs Pulse 09/19/20 11:10 70 Medical Necessity - Tobacco Use Smoking Status: Never smoker Tobacco Use: Non-smoker Assessment/Plan All Active Problems GI bleed (Acute) Acute hypoxemic respiratory failure (Acute) Acute exacerbation of CHF (congestive heart failure) (Acute) Hypokalemia (Acute) Iron deficiency anemia (Acute) Bilateral pleural effusion (Acute) #Acute heart failure with preserved EF * shortness of breath much better. * 2D echo done today showed normal left ventricular size with left ventricular hypertrophy and estimated EF of 53% with stage I diastolic dysfunction and no regional wall motion abnormalities noted. Aortic valve gradient is 24 mmHg. * On IV Lasix 40 mg twice daily. Monitor intake and output. * Fluid restriction to 1500 cc daily. * #Hypokalemia: Potassium is 3.2 today. Will replace aggressively per protocol and trend. #Iron deficiency anemia * stable. is chronic. Will monitor * #Hypertension: On labetalol. IV hydralazine prn #Hyperlipidemia: Likely diet controlled as she is not on a statin #Subclinical hyperthyroidism: TSH was markedly suppressed free T3 is within normal limits. Should follow-up with PCP for monitoring and repeat labs as needed. #DVT prophylaxis: lovenox Disposition: for likely dc tomorrow. Inpatient E&M: [id number] Subs Hosp L2
[2020-09-20] VITALS (10 sets, daily range): BP systolic 122–148; BP diastolic 60–77; PULSE 62–81; RESP 16–18; TEMP 36.9–37.2; O2SAT 87–97
[2020-09-20 06:51] LABS: Anion Gap 4 (5-15); BUN 17 mg/dL (7-18); BUN/Creat Ratio 21.7 RATIO (10-20); Calcium,Total 8.7 mg/dL (8.5-10.1); Chloride 105 mmol/L (98-107); Creatinine, Serum 0.78 mg/dL (0.55-1.02); EST Glomerular Filtration Rate 77 mL/min (>60); Est Glom Filt Rate - Afr Amer 93 mL/min (>60); Estimated Creatinine Clearance 41.45 ml/min; Glucose 89 mg/dL (74-106); Potassium 3.5 mmol/L (3.5-5.1); Sodium Level 144 mmol/L (136-145)
[2020-09-20] MEDS: Furosemide 40 MG/4 ML Vial IV (08:47)
[2020-09-20] MEDS: Pantoprazole Sodium 40 MG Tablet PO (08:47)
[2020-09-20] MEDS: Enoxaparin 40 MG/0.4 ML Syringe SC (08:47)
[2020-09-20] MEDS: Magnesium Chloride 64 MG Delay Rel.Tablet PO (08:47)
[2020-09-20] MEDS: Hydroxychloroquine 200 MG Tablet PO (08:47)
[2020-09-20] MEDS: Calcium Carbonate 500 MG Tablet PO (08:48)
[2020-09-20] MEDS: Labetalol 200 MG Tablet PO (08:48)
[2020-09-20] MEDS: 0.9% Saline Lock 10 ML Syringe IV (08:55)
--- NOTE | 2020-09-20 11:03 | DCINST_ITS ---
- Discharge Diagnoses Current Active Problems: Current Active and Chronic Problems Acute hypoxemic respiratory failure (Acute) Acute exacerbation of CHF (congestive heart failure) (Acute) Hypokalemia (Acute) Iron deficiency anemia (Acute) Bilateral pleural effusion (Acute) Osteoarthritis (Chronic) Hyperlipidemia (Chronic) Hypertension (Chronic) You will use the following diet at home:: Cardiac Your food should be the consistency of: Regular Your liquids should be the consistency of: Regular/Thin Discharge Activity: Return to Normal Activity Weight Bearing Status: Weight bearing as tolerated Call your doctor if you observe: Shortness of breath, Dizziness, Fainting spells, Swelling in the ankles, Chest pain Instructions: Heart Failure Allergies/Adverse Reactions: Allergies amlodipine besylate [From Norvasc] Allergy (Verified 09/17/20 20:38) Swelling bisoprolol fumarate [From Ziac] Allergy (Verified 09/17/20 20:38) Unknown adhesive Adverse Reaction (Verified 09/17/20 20:38) Itching hydrochlorothiazide Adverse Reaction (Verified 09/17/20 20:38) Unknown Medications to take at Discharge Calcium Carbonate [Calcium] 600 mg PO DAILY 03/13/16 Cholecalciferol (VIT D3) [Vitamin D3] 2,000 unit PO DAILY 03/13/16 Magnesium 250 mg PO DAILY 03/13/16 Acetaminophen [Tylenol] 1,000 mg PO Q8H PRN PRN 09/09/20 Pantoprazole Sodium [Protonix] 40 mg PO BID #60 tab 09/11/20 Hydroxychloroquine Sulfate 200 mg PO BID 09/18/20 Furosemide [Lasix] 40 mg PO DAILY #30 tab 09/20/20 Lisinopril 5 mg PO DAILY #30 tab 09/20/20 Metoprolol(XL)Succ [Toprol Xl (Beta Vincenzo)] 25 mg PO DAILY #30 tab 09/20/20 Potassium Chloride Oral Tablet [K-Dur] 20 meq PO DAILY #30 tab 09/20/20 The following prescriptions were given: Potassium Chloride Oral Tablet [K-Dur] 20 meq PO DAILY #30 tab Transmission Status: Pending to [facility] Furosemide [Lasix] 40 mg PO DAILY #30 tab Transmission Status: Pending to [facility] Lisinopril 5 mg PO DAILY #30 tab Transmission Status: Pending to [facility] Metoprolol(XL)Succ [Toprol Xl (Beta Vincenzo)] 25 mg PO DAILY #30 tab Transmission Status: Pending to [facility] Primary Care Physician: Bill Schuster III, MD [Primary Care Provider] - Test Results: Test results from this visit will be discussed in further detail at your follow- up appointment, if applicable. Please Follow Up With: Bill Schuster III, MD When: 1-2 weeks Please Follow Up With: Franc Edwards MD When: 2-4 weeks to establish cardiology follow up Proposed Discharge Date: 09/20/20
--- NOTE | 2020-09-20 11:09 | PCM.DC.SUM ---
Discharge Date and Diagnosis - Problem List Patient Problems: Active and Suspected Problems Acute hypoxemic respiratory failure (Acute) Acute exacerbation of CHF (congestive heart failure) (Acute) Hypokalemia (Acute) Iron deficiency anemia (Acute) Bilateral pleural effusion (Acute) Date of Admission: 09/17/20 Date of Discharge: 09/20/20 - Primary Discharge Diagnosis Acute Problems: Active Problems Acute hypoxemic respiratory failure (Acute) Acute exacerbation of CHF (congestive heart failure) (Acute) Hypokalemia (Acute) Iron deficiency anemia (Acute) Bilateral pleural effusion (Acute) acute heart failure with preserved EF - Secondary Discharge Diagnosis Chronic Problems: Chronic Problems Osteoarthritis (Chronic) Hyperlipidemia (Chronic) Hypertension (Chronic) Hospital Course and Treatment Imaging Results: Diagnostic Data Chest X-Ray 09/17/20 21:26 IMPRESSION: ASHD and coexisting bilateral perihilar interstitial thickening with patchy areas of increased density possibly inflammatory. Clinical correlation recommended to exclude possibility of Covid 19 pneumonia Electronically Signed: Nicolas Metz MD at 21:44 EST , Service support , Chest CTA 09/17/20 22:07 IMPRESSION: 1. No evidence of pulmonary embolus. 2. No aortic dissection or aneurysm. 3. Cardiomegaly with mild paraortic pericardial effusion. 4. Septal thickening and patchy alveolar infiltrates in the upper lobes. 5. Bilateral pleural effusions and atelectasis. Electronically Signed: Brendan Beckford DO at 23:33 EST Tel [phone], Service support , critical care- Dr Martinez Operations: None Procedures: 2-D Echocardiogram Summary of Care Provided: The patient is a 75 year old F with a past medical history as outlined was admitted through the ED on 09/17/2020 with a complaint of worsening shortness of breath which had begun a few days prior to admission. Patient had just been discharged on September 11 from the hospital after being admitted for 2 days of on account of suspected GI bleed. She received blood transfusions during that admission. She did not have any history of cardiac disease. On admission in the ED this time, she was found to be hypertensive and tachypneic as well as hypoxemic, with saturation of 88% on room air. Hemoglobin was stable at 9.2. Troponin was negative and EKG showed no acute ST changes. BNP was elevated at thousand 228 and CTA of the chest was negative for PE but did show small bilateral pleural effusions. She was started on IV Lasix and started on BiPAP and admitted to the ICU and managed for acute hypoxic respiratory failure due to acute exacerbation of heart failure. Shortness of breath resolved and patient was weaned off of BiPAP and onto oxygen and subsequently weaned off of oxygen. She was diuresed extensively with IV Lasix. 2D echo done showed EF of 53% with stage I diastolic dysfunction and normal left ventricular size with left ventricular hypertrophy and no regional wall motion abnormalities noted. Hospital stay was complicated by hypokalemia which resolved with correction. TSH was also markedly suppressed though T3 was within normal limits. Patient remained stable and was discharged on 09/20/2020 with a prescription for p.o. Lasix 40 mg daily as well as p.o. lisinopril 5 mg daily and p.o. metoprolol 25 mg daily. She is to follow-up with her primary care doctor and was referred to cardiology. Of note, her labetalol was discontinued. Patient seen and examined prior to discharge; she has no complaints. Review of systems otherwise negative. Labs and vitals reviewed. Home meds reviewed and reconciled. [] O/E: Vital Signs Temp Pulse Resp BP Pulse Ox 98.9 F 67 16 122/60 H 96 09/20/20 11:09 09/20/20 11:09 09/20/20 11:09 09/20/20 11:09 09/20/20 11:09 General: Alert, Oriented x3, Cooperative HEENT: Atraumatic, PERRLA, EOMI, Normocephalic Neck: Supple, No JVD, Negative Carotid Bruits Lungs: Clear to auscultation, Normal air movement Cardiovascular: Regular rate, No murmurs Abdomen: Bowel Sounds Present, Soft, Non Tender Extremities: No clubbing, No cyanosis, No edema, Capillary Refill Less than 3 Seconds Skin: No rashes, No breakdown, - - Lumbar dressing, drain intact. Musculoskeletal: No Tenderness to Palpation of Joints or Extremities Neurological: Cranial nerves II-XII grossly intact, Neuro grossly intact Psych/Mental Status: Normal Affect, Appropriate Plan is for discharge home today. Patient Problems: Active and Suspected Problems Acute hypoxemic respiratory failure (Acute) Acute exacerbation of CHF (congestive heart failure) (Acute) Hypokalemia (Acute) Iron deficiency anemia (Acute) Bilateral pleural effusion (Acute) - Physical Exam Vitals/I&O's: Vital Signs Temp Pulse Resp BP Pulse Ox 98.9 F 80 16 148/77 H 94 09/20/20 08:33 09/20/20 10:35 09/20/20 08:33 09/20/20 08:33 09/20/20 08:52 Oxygen Flow Rate (L/min) 1 Oxygen Delivery Method Room Air Weight: 173 lb 8.061 oz Body Mass Index (BMI) 31.6 Intake and Output for Last 24 Hours 09/18/20 09/19/20 09/20/20 23:59 23:59 23:59 Intake Total 1479.5 / 1554.5 435 / 555 240 / 240 Output Total 2500 / 2600 1150 / 1150 300 / 300 Balance -1020.5 / -1045.5 -715 / -595 -60 / -60 Microbiology Past 72 Hours 09/17/20 21:08 Blood Culture (Wb) - Right Wrist Blood Culture - Preliminary No growth in 48 hours. 09/17/20 21:00 Blood Culture (Wb) - Anticubital Right Blood Culture - Preliminary No growth in 48 hours. 09/17/20 21:00 Mucosa - Nose SARS-CoV-2 Antigen (Rapid) - Final Laboratory Results 09/20/20 06:09: Sodium 144, Potassium 3.5, Chloride 105, Carbon Dioxide 35.0 H, Anion Gap 4 L, BUN 17, Creatinine 0.78, Estim Creat Clear Calc 41.45, Est GFR (MDRD) Af Amer 93, Est GFR (MDRD) Non-Af 77, BUN/Creatinine Ratio 21.7 H, Glucose 89, Calcium 8.7 Current Medications Acetaminophen (Acetaminophen 325 Mg Tablet) 650 mg PO Q6H PRN PRN PRN Reason: Pain Score 1-10/Temp > 100.7 F Calcium Carbonate (Calcium Carbonate 500 Mg Tablet) 500 mg PO DAILY [facility] Last Admin: 09/20/20 08:48 Dose: 500 mg Documented by: Cholecalciferol (Cholecalciferol (Vit D3) 1,000 Unit (25mcg)) 2,000 unit PO DAILY [facility] Last Admin: 09/20/20 08:48 Dose: 2,000 unit Documented by: Enoxaparin Sodium (Enoxaparin 40 Mg/0.4 Ml Syringe) 40 mg SC DAILY [facility] Last Admin: 09/20/20 08:47 Dose: 40 mg Documented by: Furosemide (Furosemide 40 Mg/4 Ml Vial) 40 mg IV BID@1000,1700 [facility] Last Admin: 09/20/20 08:47 Dose: 40 mg Documented by: Hydralazine HCl (Hydralazine 20 Mg/Ml Vial) 10 mg IV Q4H PRN PRN PRN Reason: SBP more than 180 mmHg Hydroxychloroquine Sulfate (Hydroxychloroquine 200 Mg Tablet) 200 mg PO BID [facility] Last Admin: 09/20/20 08:47 Dose: 200 mg Documented by: Sodium Chloride () 250 mls @ 15 mls/hr IV .[id number] PRN PRN Reason: Saline Flush Last Infusion: 09/19/20 15:51 Dose: Infused Documented by: Sodium Chloride () 250 mls @ 15 mls/hr IV .[id number] PRN PRN Reason: Additional IVPB Infusion Labetalol HCl (Labetalol 200 Mg Tablet) 200 mg PO BID [facility] Last Admin: 09/20/20 08:48 Dose: 200 mg Documented by: Magnesium Chloride (Magnesium Chloride 64 Mg Delay Rel.Tablet) 64 mg PO DAILY [facility] Last Admin: 09/20/20 08:47 Dose: 64 mg Documented by: Pantoprazole Sodium (Pantoprazole Sodium 40 Mg Tablet) 40 mg PO BID [facility] Last Admin: 09/20/20 08:47 Dose: 40 mg Documented by: Prochlorperazine Edisylate (Prochlorperazine 10 Mg/2 Ml Vial) 5 mg IV Q6H PRN PRN PRN Reason: NAUSEA/VOMITING Sodium Chloride (0.9% Saline Lock 10 Ml Syringe) 10 - 40 ml IV UD PRN PRN Reason: SALINE FLUSH Last Admin: 09/20/20 08:55 Dose: 10 ml Documented by: Discharge Diet: Low fat/ Low Cholesterol Discharge Activity: Return to Normal Activity Weight Bearing Status: Weight bearing as tolerated Call your doctor if you observe: Shortness of breath, Dizziness, Fainting spells, Swelling in the ankles, Chest pain Home Medications: Medications to take at Discharge Calcium Carbonate [Calcium] 600 mg PO DAILY 03/13/16 Cholecalciferol (VIT D3) [Vitamin D3] 2,000 unit PO DAILY 03/13/16 Magnesium 250 mg PO DAILY 03/13/16 Acetaminophen [Tylenol] 1,000 mg PO Q8H PRN PRN 09/09/20 Pantoprazole Sodium [Protonix] 40 mg PO BID #60 tab 09/11/20 Hydroxychloroquine Sulfate 200 mg PO BID 09/18/20 Furosemide [Lasix] 40 mg PO DAILY #30 tab 09/20/20 Lisinopril 5 mg PO DAILY #30 tab 09/20/20 Metoprolol(XL)Succ [Toprol Xl (Beta Vincenzo)] 25 mg PO DAILY #30 tab 09/20/20 Potassium Chloride Oral Tablet [K-Dur] 20 meq PO DAILY #30 tab 09/20/20 Following Prescriptions Were Given to Patient: Potassium Chloride Oral Tablet [K-Dur] 20 meq PO DAILY #30 tab Transmission Status: Received by [address] Furosemide [Lasix] 40 mg PO DAILY #30 tab Transmission Status: Received by [address] Lisinopril 5 mg PO DAILY #30 tab Transmission Status: Received by [address] Metoprolol(XL)Succ [Toprol Xl (Beta Vincenzo)] 25 mg PO DAILY #30 tab Transmission Status: Received by [address] Primary Care Physician: Bill Schuster III, MD [Primary Care Provider] - Please Follow Up With: Bill Schuster III, MD When: 1-2 weeks Please Follow Up With: Franc Edwards MD When: 2-4 weeks to establish cardiology follow up Patient Instructions: Heart Failure Disposition: Home Minutes spent on discharge:: 45 Patient Condition:: Stable Medical Necessity - Tobacco Use Smoking Status: Never smoker Tobacco Use: Non-smoker Meaningful Use Info Meaningful Use Diagnoses (Choose all that apply): CHF - CHF INDIGO/ARB ordered at discharge?: Yes Documented LVEF (%): 53 Inpatient E&M: 45808 Disch Hosp
--- NOTE | 2020-09-20 12:54 | PHA.DC.MC ---
Pharmacy Service has performed discharge medication reconciliation and counseling for this patient. 1. FUROSEMIDE 40MG PO DAILY 2. LISINOPRIL 5MG PO DAILY 3. METOPROLOL SUCCINATE 25MG PO DAILY 4. POTASSIUM CHLORIDE 20MEQ PO DAILY The patient's discharge medication list was reviewed for discrepancies and discrepancies were resolved. Home Medications Calcium Carbonate [Calcium] 600 mg PO DAILY 03/13/16 Cholecalciferol (VIT D3) [Vitamin D3] 2,000 unit PO DAILY 03/13/16 Magnesium 250 mg PO DAILY 03/13/16 Acetaminophen [Tylenol] 1,000 mg PO Q8H PRN PRN 09/09/20 Pantoprazole Sodium [Protonix] 40 mg PO BID #60 tab 09/11/20 Hydroxychloroquine Sulfate 200 mg PO BID 09/18/20 Furosemide [Lasix] 40 mg PO DAILY #30 tab 09/20/20 Lisinopril 5 mg PO DAILY #30 tab 09/20/20 Metoprolol(XL)Succ [Toprol Xl (Beta Vincenzo)] 25 mg PO DAILY #30 tab 09/20/20 Potassium Chloride Oral Tablet [K-Dur] 20 meq PO DAILY #30 tab 09/20/20 The patient was counseled on the following discharge medications and changes in medications for homegoing were reviewed. The Reason for Use, instructions for use, and potential side effects were reviewed for all new medications. The patient's questions regarding all of their medications were answered. The patient was able to verbally demonstrate an understanding of their discharge medications.
--- NOTE | 2020-09-23 15:38 | CASEMGMT ---
ORALIA PARSNOS Discharge Follow up Phone Call: BAUTISTA: Krista Strata: 3 Call Date: 09/23/2020 Time of Call:[id number] Duration: <1 min Admitting Diagnosis: exac of CHF, hypokalemia, iron deficiency anemia ORALIA PARSONS completed FU tc after recent hospitalization. Left message on pt vm to return call if able/want to.
--- NOTE | 2020-09-30 08:47 | CCN.REFER ---
Unable to get a hold of patient to discuss CCN. Multiple voicemails left between [employer] COUNSELOR and this RN.
== END 2020-09-20 12:57 | disposition home or self-care (01) | DRG 291 ==
LOC: ED 23:38 → ICU 09-18 00:54 → PCU 09-19 11:26
PROVIDERS: Nurse Practitioner Family; Admitting Provider Internal Medicine; Emergency Provider Emergency Medicine; PCP Family Medicine; Visit Provider Student in an Organized Health Care Education/Training Program
DX: I11.0 Hypertensive heart disease with heart failure (principal); J96.01 Acute respiratory failure with hypoxia; I50.33 Acute on chronic diastolic (congestive) heart failure; E87.6 Hypokalemia; D50.9 Iron deficiency anemia, unspecified; E78.5 Hyperlipidemia, unspecified; K21.9 Gastro-esophageal reflux disease without esophagitis; E05.90 Thyrotoxicosis, unspecified without thyrotoxic crisis or storm
CPT/HCPCS: 36415; 36600; 71045; 71275; 80048; 80053; 82803; 83605; 83690; 83735; 83880; 84439; 84443; 84484; 85025; 85610; 85730; 87040; 87426; 93005; 93306; 94002; 94003; 97110; 97161; 97166; 97530; 97535; 97802; 99285; J7050; Q9967; A4216; J1940

== ENCOUNTER → 2021-01-29 06:52 | Outpatient (CLI) | payer MEDICARE, OTHER, SELFPAY ==
[2021-01-16 15:43] VITALS: BMI 29.4
--- NOTE | 2021-01-29 13:23 | STRESSREP ---
Stress Test Report Pharmacologic myocardial perfusion stress test. 75-year-old lady with history of coronary artery disease. Stress protocol: Resting EKG demonstrates normal sinus rhythm with a rate of 69 bpm normal intervals are noted resting blood pressure is 156/88 mmHg. 0.4 mg of regadenoson was infused per usual protocol followed by rapid intravenous saline flush injection continuous EKG monitoring was performed. The maximum heart rate attained was 92 bpm which was 62% of max infected heart rate the maximum workload was 1 metabolic equivalent. At rest and during peak infusion nonspecific ST changes were noted with did not meet the criteria for ischemia. No clinical angina was noted. Myocardial perfusion protocol. 10.8 mCi of technetium 99m sestamibi was injected stress images were obtained stress and rest images were reconstructed and compared in the short axis vertical long horizontal long axis. Gated images were also obtained per Perfusion SPECT analysis: Review of the stress images demonstrated normal uptake of tracer noted in all areas of the myocardium. The resting images similarly demonstrate normal uptake of tracer noted in all areas of the myocardium. No areas of reversibility are noted to suggest ischemia no previous infarct is noted. Gated SPECT analysis: The gated ejection fraction is 58%. Conclusion: Normal pharmacologic myocardial perfusion stress test with no evidence of ischemia. Preserved ejection fraction.
== END ==
PROVIDERS: PCP Family Medicine; Referring Provider Internal Medicine Cardiovascular Disease; Visit Provider Internal Medicine Cardiovascular Disease
DX: I25.10 Atherosclerotic heart disease of native coronary artery without angina pectoris (principal)
CPT/HCPCS: 78452; 93017; A9500; A4216; J2785

== ENCOUNTER 2022-12-10 10:56 | Emergency (ER) | payer MEDICARE, OTHER, SELFPAY ==
[2022-12-10 10:57] VITALS: BP 180/162; PULSE 85; RESP 14; TEMP 36.2; O2SAT 98; BMI 29.8
--- NOTE | 2022-12-10 11:32 | CT_ITS ---
INDICATION: Right orbital tenderness, fall EXAMINATION: CT FACIAL BONES - CT Maxillofacial W/O Contrast Injection TECHNIQUE: Helically acquired images were obtained of the facial bones. A radiation dose optimization technique was used for this scan. IV Contrast dosage and agent: None. RADIATION DOSAGE (If Supplied By Facility): CTDIvol = ( 29.68 ) mGy, DLP = ( 532.76 ) mGycm COMPARISON: FINDINGS: SOFT TISSUES: There is right periorbital edema. VISUALIZED PARANASAL SINUSES: There is high attenuation fluid within the right maxillary sinus consistent with hemorrhage. There is mild opacification of the ethmoids sinuses as well. There is a sclerotic round focus within the right frontal sinus suggestive of an osteoma. VISUALIZED MASTOID AIR CELLS: Clear. FACIAL BONES, MANDIBLE AND TMJs: There is a right orbital roof fracture with downward displacement. There is a right orbital floor fracture as well with no herniating fat nor an extraocular muscle. There is a fracture of the right lateral orbital wall as well. There are degenerative changes of the right TMJ. VISUALIZED DENTITION: No periodontal osseous erosion. ORBITAL CONTENTS: Both globes, extraocular muscles and retrobulbar fat appear unremarkable. CT/Sinus/Facial Bone IMPRESSION: Right orbital roof, floor and lateral wall fractures. Right periorbital edema. Electronically Signed: Ilana Guzman MD at 12:58 EDT ,
--- NOTE | 2022-12-10 11:32 | CT_ITS ---
INDICATION: fall, head injury EXAMINATION: CT BRAIN - CT Head or Brain W/O Contrast Injection TECHNIQUE: Multiple axial images were obtained of the head without intravenous contrast. A radiation dose optimization technique was used for this scan. IV Contrast dosage and agent: None. RADIATION DOSAGE (If Supplied By Facility): CTDIvol = ( 44.99 ) mGy, DLP = ( 745.49 ) mGycm COMPARISON: January 22, 2020 FINDINGS: BRAIN PARENCHYMA: No intra- or extra-axial hemorrhage. No evidence of acute infarct. No intracranial mass or mass effect. There is preservation of the diego/white matter interface. Posterior fossa structures are unremarkable. CSF SPACES: Appropriate for age. No hydrocephalus. Basal cisterns are patent. CALVARIUM, SKULL BASE, PARANASAL SINUSES AND MASTOID AIR CELLS: There is a right orbital roof fracture associated with inferiorly displaced bone fragments. There is a right orbital floor fracture as well. There is partial opacification of the visualized paranasal sinuses. There is a separate dedicated CT report of the facial bones. ASPECTS Score for Acute Strokes: 10 CT/Brain/Head without Contrast IMPRESSION: No acute intracranial process. Right orbital roof and floor fractures. Electronically Signed: Ilana Guzman MD at 12:44 EDT ,
--- NOTE | 2022-12-10 11:44 | CT_ITS ---
INDICATION: fall EXAMINATION: CT CERVICAL SPINE - CT Spine Cervical W/O Contrast Injection TECHNIQUE: Helically acquired images were obtained of the cervical spine. 2D reformatted images were reviewed. A radiation dose optimization technique was used for this scan. IV Contrast dosage and agent: None. RADIATION DOSAGE (If Supplied By Facility): CTDIvol = ( 21.72 ) mGy, DLP = ( 438.62 ) mGycm COMPARISON: July 29, 2014 FINDINGS: VERTEBRAE: No fracture or traumatic subluxation. No discrete lytic or blastic abnormality. Normal alignment. There is multilevel facet hypertrophy. Normal craniocervical junction and cervicothoracic junction. DISCS and SPINAL CANAL: There is multilevel degenerative disc disease. No critical stenosis. NECK SOFT TISSUES: No prevertebral soft tissue swelling. There is no cervical adenopathy. LUNG APICES: Clear. CT/Spine Cervical without Contras IMPRESSION: Multilevel degenerative changes. Electronically Signed: Ilana Guzman MD at 13:04 EDT ,
--- NOTE | 2022-12-10 11:52 | EX.ED.DYSGE1 ---
HPI <VIKI Santos - Last Filed: 12/10/22 15:42> History of Present Illness Chief Complaint: Head Injury Narrative Narrative: Patient presenting today with her after a mechanical fall that occurred this morning. She reports that she was walking in a parking lot and tripped over a raised area on the concrete and fell face first, hitting the right side of her head on the ground. She reports pain to the right side of her face and to her right wrist. She denies any loss of consciousness, use of blood thinners, neck pain, back pain, and seizure-like activity. PFSH <VIKI Santos - Last Filed: 12/10/22 15:42> [facility] Medical History (HFpEF) heart failure with preserved ejection fraction Acute hypoxemic respiratory failure Atherosclerosis of coronary artery of [place] heart without angina pectoris Bilateral pleural effusion Breast cancer, left DDD (degenerative disc disease) Diverticulosis Essential hypertension GERD (gastroesophageal reflux disease) GI bleed History of malignant neoplasm of left breast History of [place] (myocardial infarction) History of non-ST elevation myocardial infarction (NSTEMI) (09/18/20) History of uterine cancer Hyperlipidemia Hypokalemia Iron deficiency anemia Nonrheumatic aortic (valve) stenosis Osteoarthritis Rheumatoid arthritis Home Medications magnesium 250 mg tablet 250 mg PO DAILY supplement 03/13/16 [History Last Taken 09/07/20 08:00] acetaminophen 500 mg tablet 1,000 mg PO Q8H PRN PRN Pain 1-10 Or Fever 09/09/20 [History Last Taken 09/08/20 10:00] hydroxychloroquine 200 mg tablet 200 mg PO BID arthritis 09/18/20 [History Last Taken Unknown] calcium carbonate 600 mg-vitamin D3 10 mcg (400 unit) tablet 1 tablet PO DAILY 10/09/20 [History Last Taken Unknown] furosemide 40 mg tablet 40 mg PO DAILY #90 tabs 08/19/21 [Rx Last Taken Unknown] lisinopril 40 mg tablet 40 mg PO DAILY 08/19/21 [History Last Taken Unknown] metoprolol succinate 25 mg tablet,extended release 24 hr 25 mg PO DAILY #90 tabs 08/19/21 [Rx Last Taken Unknown] rosuvastatin 10 mg tablet 10 mg PO DAILY 08/19/21 [History Last Taken Unknown] potassium chloride 20 mEq tablet,extended release(part/cryst) 20 meq PO DAILY #30 tabs 10/10/21 [Rx Last Taken Unknown] Allergy/AdvReac Type Severity Reaction Status Date / Time amlodipine besylate Allergy Swelling Verified 12/10/22 10:57 [From Norvasc] bisoprolol fumarate Allergy Unknown Verified 12/10/22 10:57 [From Ziac] adhesive AdvReac Itching Verified 12/10/22 10:57 hydrochlorothiazide AdvReac Unknown Verified 12/10/22 10:57 Family History Mother Cancer Uterine Hypertension Hyperlipidemia Osteoporosis Father Myocardial infarction, Onset Age: 39 Grandmother Diabetes Sister Hypertension Osteoporosis Brother Hypertension Aunt Thyroid disorder Surgical History History of colonoscopy (01/03/19) History of esophagogastroduodenoscopy (EGD) (01/03/19) History of left breast biopsy (05/24/12) History of lymph node biopsy (06/06/12) History of partial mastectomy of left breast (06/06/12) History of shoulder surgery (02/07/20) History of total abdominal hysterectomy (1979) History of total right knee replacement (03/24/16) Social History Smoking Status: Never smoker alcohol intake: never substance use type: does not use ROS <VIKI Santos - Last Filed: 12/10/22 15:42> ROS ED Constitutional Constitutional ED: Denies chills or fever(s) Eyes Eyes: Denies blurry vision or diplopia Cardiovascular Cardiovascular: Denies chest pain Respiratory/Chest Respiratory/Chest: Denies cough or dyspnea Gastrointestinal Gastrointestinal: Denies abdominal pain, nausea or vomiting Musculoskeletal Musculoskeletal: Denies arthralgias, back pain, myalgias or neck pain Integumentary Reports Abrasions; Denies abscess or rash Neurologic Neurologic: Denies confusion, dizziness, paresthesias or weakness EXAM <VIKI Santos - Last Filed: 12/10/22 15:42> Physical Exam Const Vital Signs: 12/10/22 10:57 12/10/22 12:34 Temperature 97.2 F L Temperature Source Temporal Pulse Rate 85 Respiratory Rate 14 Respiratory Effort Normal Non-Labored Blood Pressure 180/162 H Blood Pressure Mean 168 Pulse Ox 98 Oxygen Delivery Method Room Air Positive well nourished, well developed and no apparent distress General Appearance ED: well developed HEENT Reports normocephalic HEENT Narrative: Abrasion above the right eyebrow, edema surrounding the right eye with tenderness to palpation to the orbital bones on the right side. No trauma to the eye, visual acuity intact, PERRL. Mouth ED: Yes moist mucous membranes normal Eyes PERRL and EOMs intact bilaterally Neck full ROM and supple Chest Wall inspection of chest normal Resp normal respiratory effort and clear to auscultation bilaterally Cardio regular rate and regular rhythm GI soft to palpation, non-tender, non-distended and no masses Back/Spine normal ROM and normal to inspection Extremity normal to inspection and full ROM Extremity Narrative: Pain with range of motion of the right wrist. Radial pulses 2+ bilaterally, good capillary refill, sensation intact. Neuro oriented x3, CN's II-XII intact bilaterally, moves all extremities, no focal motor deficits and no sensory deficits noted Sensorium / Orientation: awake and alert Motor Exam: strength 5/5 throughout Psych mental status grossly normal and thought process normal Skin no rashes or lesions noted and no wounds <Dr. Kevin Davis MD - Last Filed: 12/10/22 15:56> Physical Exam Const Vital Signs: 12/10/22 10:57 12/10/22 12:34 Temperature 97.2 F L Temperature Source Temporal Pulse Rate 85 Respiratory Rate 14 Respiratory Effort Normal Non-Labored Blood Pressure 180/162 H Blood Pressure Mean 168 Pulse Ox 98 Oxygen Delivery Method Room Air [facility] <VIKI Santos - Last Filed: 12/10/22 15:42> [facility] Narrative Medical decision making narrative: Patient presenting today after a mechanical fall that took place in a parking lot this morning. She is stable, well-appearing, and in no acute distress. She does have a small superficial linear laceration above her right eyebrow as well as swelling and ecchymosis surrounding the right orbit with pain to palpation to the right orbit. No injury to the eye itself or visual changes. Patient complaining of pain to her right wrist as well, x-ray to be obtained to rule out fracture dislocation and does show a distal radial fracture. Head, neck, and facial CT will be obtained to rule out intracranial bleed and fracture. Brain CT negative for any acute intracranial bleeding, facial CT does show a right orbital roof, floor, lateral wall fracture, wrist x-ray shows a distal radial fracture. Patient does not want anything for pain at this time. I have cleaned the abrasion above her right eyebrow and placed a small amount of skin glue to the area. Wrist was placed in a volar splint. She has been given a referral for ENT and orthopedics. Discharged home in stable condition and is comfortable with plan. Radiography Diagnostic Testing: Clinical Impression(s) from Imaging Studies Brain CT 12/10/22 11:32 IMPRESSION: No acute intracranial process. Right orbital roof and floor fractures. Electronically Signed: Ilana Guzman MD at 12:44 EDT , Facial/Sinus 12/10/22 11:32 IMPRESSION: Right orbital roof, floor and lateral wall fractures. Right periorbital edema. Electronically Signed: Ilana Guzman MD at 12:58 EDT , Cervical Spine CT 12/10/22 11:44 IMPRESSION: Multilevel degenerative changes. Electronically Signed: Ilana Guzman MD at 13:04 EDT , Wrist X-Ray 12/10/22 12:05 IMPRESSION: Distal radial fracture. Degenerative changes. Electronically Signed: Ilana Guzman MD at 12:27 EDT , Imaging reviewed and interpreted by attending ED physician, in agreement with radiology. <Dr. Kevin Davis MD - Last Filed: 12/10/22 15:56> MDM Radiography Diagnostic Testing: Clinical Impression(s) from Imaging Studies Brain CT 12/10/22 11:32 IMPRESSION: No acute intracranial process. Right orbital roof and floor fractures. Electronically Signed: Ilana Guzman MD at 12:44 EDT , Facial/Sinus 12/10/22 11:32 IMPRESSION: Right orbital roof, floor and lateral wall fractures. Right periorbital edema. Electronically Signed: Ilana Guzman MD at 12:58 EDT , Cervical Spine CT 12/10/22 11:44 IMPRESSION: Multilevel degenerative changes. Electronically Signed: Ilana Guzman MD at 13:04 EDT , Wrist X-Ray 12/10/22 12:05 IMPRESSION: Distal radial fracture. Degenerative changes. Electronically Signed: Ilana Guzman MD at 12:27 EDT , Treatment and Re-Evaluation :: I have personally performed a face to face assessment of the patient and have reviewed the STONE Note. I performed a substantive portion of the visit including all aspects of the following. My [place] findings include: History: Patient on mechanical trip and fall. Hit face. No loss consciousness. Also hurt the right wrist a little bit but denies it hurting now. In fact denies that her face or head has any pain. She is not anticoagulated. She is acting normally per her . Exam: Patient awake alert thoroughly appropriate. Minimal right wrist tenderness but her range of motion is excellent. No swelling. She has an abrasion of the right upper cheek just lateral to the eyebrow. Some contusion and swelling in that area. No subcu air. No entrapment with range of motion of the eye. No nasal bleeding. Neck is nontender. Medical Decision Making: My independent interpretation of the patient's CT of the spine face and brain showed no intracranial injury but there is left-sided facial fractures. These are verified on final read. Left wrist actually did show some impacted distal radius fracture with good positioning. She will be placed in a splint. She will follow-up for the other injuries. These do not need to be repaired acutely. Procedures <VIKI Santos - Last Filed: 12/10/22 15:42> Lacerations laceration: Length: 1 cm Depth: Skin Shape: Linear Prep: Chlorhexadine Laceration repair: Dermabond Upper Extremity Splints Upper Extremity Splint: Orthoglass and Volar Location: Right Discharge Plan Triage Chief Complaint: Head Injury ED Midlevel Provider: Kasia Tavares ED Provider: Kevin Davis Dx/Rx/DC Orders Clinical Impression: Orbital fracture, Fracture of wrist, Laceration Instructions: ED Facial Fracture, ED Fracture, Upper Extremity Prescriptions: No Action calcium carbonate-vitamin D3 600 mg(1,500mg) -400 unit tablet 1 tablet PO DAILY rosuvastatin 10 mg tablet 10 mg PO DAILY lisinopril 40 mg tablet 40 mg PO DAILY metoprolol succinate 25 mg tablet extended release 24 hr 25 mg PO DAILY Qty: 90 3RF furosemide 40 mg tablet 40 mg PO DAILY Qty: 90 3RF magnesium 250 MG tablet 250 mg PO DAILY Label Comments: supplement acetaminophen 500 MG tablet 1,000 mg PO Q8H PRN PRN (Reason: Pain 1-10 Or Fever) hydroxychloroquine 200 MG tablet 200 mg PO BID potassium chloride 20 mEq tablet,ER particles/crystals 20 meq PO DAILY Qty: 30 11RF Primary Care Provider: Shamir Moody Referrals: Shamir Moody MD [Primary Care Provider] - Anuj Ayers MD [Med Staff - Active Staff] - 5-7 Days Canelo Gallegos MD [Med Staff - Active Staff] - 1 Week Activity Restrictions/Additional Instructions: Please follow-up with ENT and orthopedics, ice your face several times a day for the next several days, you can take Tylenol for pain. Disposition Disposition: Home, Self Care Discharge Date/Time: 12/10/22 14:08
--- NOTE | 2022-12-10 12:05 | RAD_ITS ---
INDICATION: pain, fall EXAMINATION/TECHNIQUE: X-RAY - RIGHT XR Wrist Min 3 Views 3 VIEWS COMPARISON: FINDINGS: SOFT TISSUES: No soft tissue swelling or gas. No radiopaque foreign body. BONES/JOINTS: The bones are diffusely demineralized. There is an impacted fracture of the distal radial metaphysis. There are degenerative changes throughout the wrist and visualized hand. No sclerotic or destructive changes observed. RAD/Wrist min 3 Views IMPRESSION: Distal radial fracture. Degenerative changes. Electronically Signed: Ilana Guzman MD at 12:27 EDT ,
== END 2022-12-10 14:08 | disposition home or self-care (01) ==
PROVIDERS: Emergency Provider Emergency Medicine; PCP Family Medicine; Visit Provider Emergency Medicine
DX: S01.111A Laceration without foreign body of right eyelid and periocular area, initial encounter (principal); I11.0 Hypertensive heart disease with heart failure; I50.32 Chronic diastolic (congestive) heart failure; S02.121A Fracture of orbital roof, right side, initial encounter for closed fracture; S02.31XA Fracture of orbital floor, right side, initial encounter for closed fracture; E78.5 Hyperlipidemia, unspecified; S05.11XA Contusion of eyeball and orbital tissues, right eye, initial encounter; I25.10 Atherosclerotic heart disease of native coronary artery without angina pectoris; W19.XXXA Unspecified fall, initial encounter; S52.501A Unspecified fracture of the lower end of right radius, initial encounter for closed fracture
CPT/HCPCS: 12011; 29125; 70450; 70486; 72125; 73110; 99282

== ENCOUNTER 2023-08-18 08:48 | Inpatient (IN) | payer MEDICARE, OTHER, SELFPAY ==
[2023-08-18] VITALS (12 sets, daily range): BP systolic 106–130; BP diastolic 54–114; PULSE 70–119; RESP 14–32; TEMP 36.2–37.6; O2SAT 88–98; BMI 23.7; BMI 27.7
--- NOTE | 2023-08-18 09:06 | EX.ED.DYSGE1 ---
HPI History of Present Illness Chief Complaint: Weakness Detail of Chief Complaint: Multiple complaints and weakness Informant: patient and spouse/S.O. Limited: other (Both the patient and her spouse are not good informants. They look at 1 another for assistance but are unable to give assistance.) Onset/Context/Timing Onset: Weeks and Month(s) (Cough has been present for 3 to 6 months.) Context: - (Not applicable) Timing: Intermittent Quality: Bilateral costal pain with coughing and generalized weakness Location: HPI narrative Current Severity: Patient is unable to quantitate Maximum Severity: Not able to quantitate Worsened by: Patient does not recall Relieved by: Nothing Associated Symptoms Associated Symptoms: Dry mouth, thirst also reports nausea and vomiting for 2 to 3 weeks Narrative Narrative: Patient is a 78-year-old woman with history of coronary disease, congestive heart failure, essential hypertension, hyperlipidemia and iron deficiency anemia. Patient presents with multiple symptoms that started several weeks ago and up to several months ago. Her cough has been present for months. She is on lisinopril. Patient reports cough became productive of colored sputum 2 days ago. She has never smoked. She denies ill contacts. She denies rhinorrhea does report mild congestion and no postnasal drainage. She denies sore throat. The only chest discomfort she has is the pain she has when she coughs right and left costal margins. She does endorse intermittent nausea and vomiting for the past couple of weeks. She states her emesis looks like phlegm . She denies blood or coffee-ground emesis. Her last normal bowel movement was this morning. Her stool has not been black or maroon in color. She denies bruising easily. She does endorse frequency without urgency, hematuria or dysuria. This has been present for months as well. Patient denies headache, visual, ocular auditory symptoms. Patient denies trouble with speech or swallowing. Patient denies paresthesia, anesthesia or motor weakness. Patient denies problems with coordination or balance. When asked if she has had a fever she responded yes. However she nor her have checked her temperature in the past several weeks. She denies chills. Patient is on Plaquenil for arthritis. She was unaware that she was on Plaquenil. Prior similar symptoms: No Recent Illness/Hospitalization: No [facility] Medical History (HFpEF) heart failure with preserved ejection fraction Acute hypoxemic respiratory failure Atherosclerosis of coronary artery of [place] heart without angina pectoris Bilateral pleural effusion Breast cancer, left DDD (degenerative disc disease) Diverticulosis Essential hypertension GERD (gastroesophageal reflux disease) GI bleed History of malignant neoplasm of left breast History of [place] (myocardial infarction) History of non-ST elevation myocardial infarction (NSTEMI) (09/18/20) History of uterine cancer Hyperlipidemia Hypokalemia Iron deficiency anemia Nonrheumatic aortic (valve) stenosis Osteoarthritis Rheumatoid arthritis Home Medications magnesium 250 mg tablet 250 mg PO DAILY supplement 03/13/16 [History Last Taken 08/16/23] acetaminophen 500 mg tablet 1,000 mg PO Q8H PRN Pain 1-10 Or Fever 09/09/20 [History Last Taken 08/17/23] hydroxychloroquine 200 mg tablet 200 mg PO BID arthritis 09/18/20 [History Last Taken 08/16/23] calcium carbonate 600 mg-vitamin D3 10 mcg (400 unit) tablet 1 tablet PO DAILY 10/09/20 [History Last Taken 08/16/23] Allergy/AdvReac Type Severity Reaction Status Date / Time amlodipine besylate Allergy Swelling Verified 08/18/23 08:49 [From Norvasc] bisoprolol fumarate Allergy Unknown Verified 08/18/23 08:49 [From Ziac] adhesive AdvReac Itching Verified 08/18/23 08:49 hydrochlorothiazide AdvReac Unknown Verified 08/18/23 08:49 Family History Mother Cancer Uterine Hypertension Hyperlipidemia Osteoporosis Father Myocardial infarction, Onset Age: 39 Grandmother Diabetes Sister Hypertension Osteoporosis Brother Hypertension Aunt Thyroid disorder Surgical History History of colonoscopy (01/03/19) History of esophagogastroduodenoscopy (EGD) (01/03/19) History of left breast biopsy (05/24/12) History of lymph node biopsy (06/06/12) History of partial mastectomy of left breast (06/06/12) History of shoulder surgery (02/07/20) History of total abdominal hysterectomy (1979) History of total right knee replacement (03/24/16) Social History Smoking Status: Never smoker alcohol intake: never substance use type: does not use ROS ROS ED Constitutional Constitutional ED: Reports fever(s) and subjective; Denies chills, sweats or weight loss Eyes Eyes: Denies blurry vision, change in vision or diplopia ENT ENT ED: Denies ear pain or rhinorrhea Cardiovascular Cardiovascular: Denies chest pain, orthopnea, palpitations, paroxysmal nocturnal dyspnea or racing heartbeat Respiratory/Chest Respiratory/Chest: Reports cough and sputum; Denies dyspnea, dyspnea on exertion, orthopnea or paroxysmal nocturnal dyspnea Gastrointestinal Gastrointestinal: Reports nausea and vomiting; Denies abdominal pain, constipation, diarrhea or melena Genitourinary Genitourinary ED: Reports urinary frequency; Denies dysuria or hematuria Musculoskeletal Musculoskeletal: Reports other Details: She has knee pain and scheduled to see Dr. Mark Mejia today. ; Denies arthralgias or myalgias Integumentary Denies rash Neurologic Neurologic: Reports weakness; Denies headache(s) or paresthesias Psychiatric Psychiatric: Denies anxiety Endocrine Endocrinology: Denies cold intolerance or heat intolerance Hematologic/Lymphatic Hematologic/Lymphatic: Reports systems reviewed and no addt'l complaints, except as documented EXAM Physical Exam Const Vital Signs: 08/18/23 08:49 08/18/23 09:15 08/18/23 09:25 Temperature 97.1 F L 97.2 F L Temperature Source Temporal Oral Pulse Rate 110 H 115 H Respiratory Rate 16 19 H Respiratory Effort Normal Non-Labored Respiratory Pattern Normal Blood Pressure 130/114 H 116/67 Blood Pressure Mean 119 83 Pulse Ox 96 95 Oxygen Delivery Method Room Air Room Air 08/18/23 10:15 Temperature 98.1 F Temperature Source Temporal Pulse Rate 119 H Respiratory Rate 32 H Respiratory Effort Respiratory Pattern Blood Pressure 108/54 L Blood Pressure Mean 72 Pulse Ox 88 Oxygen Delivery Method Room Air Positive well nourished and well developed General Appearance ED: well developed, NAD and pallor; Negative for cyanotic or diaphoretic HEENT Reports dry mucous membranes HEENT Narrative: Head is atraumatic and normocephalic. Ears are normal. Nares are patent. Mucosa is dry. Posterior pharynx is normal. Mouth ED: Yes dry mucous membranes Mouth: dry mucous membranes Eyes PERRL and EOMs intact bilaterally General Eye ED: Yes pale conjunctiva; Negative for scleral icterus Neck no lymphadenopathy, supple and no JVD Chest Wall inspection of chest normal and palpation of chest normal Resp normal respiratory effort and No clear to auscultation bilaterally Auscultation: rales right base Cardio S1 normal heart sound, S2 normal heart sound and no murmurs Rate: tachycardic Rhythm: abnormal rhythm irregularly irregular GI normal to inspection, nondistended, normoactive bowel sounds, non-tender, non-distended and no masses; Negative for hepatosplenomegaly Palpation: soft Back/Spine no CVA tenderness Thoracic Spine / Upper Back: Negative for thoracic spinal tenderness Lumbar Spine / Lower Back: Negative for lumbar spinal tenderness Extremity Extremity Narrative: There is swelling of the knees. There is no warmth or redness over the right or left knee. Patella is not ballotable. There is no laxity varus valgus stress testing. She has pain with movement. There is no laxity with Desirae's test. General Extremety ED: Yes edema; Negative for tenderness General Extremity: edema Neuro oriented x3, CN's II-XII intact bilaterally and no sensory deficits noted Sensorium / Orientation: alert Motor Exam: strength 5/5 throughout Psych mental status grossly normal Skin no rashes or lesions noted, no wounds and No skin turgor normal General Skin Exam: pallor; Negative for jaundice MDM MDM MDM Narrative Medical decision making narrative: Patient with constellation of symptoms. Suspect her chronic cough is due to lisinopril. The fact that she denies productive cough yellow-colored sputum will obtain chest x-ray since rales were noted in the right lower lobe. Since she has history of iron deficiency anemia and appears pale will obtain CBC to assess H&H and indices. Will obtain UA because of her complaint of frequency. Orthostatic vital signs were ordered since she does complain of occasional lightheadedness and clinically is dehydrated. If she is orthostatic will give more than the 500 cc of normal saline that was ordered. Only 500 cc was ordered since she has history of congestive heart failure. Since monitor confirmed irregular heartbeat was due to A-fib and not PVCs and there is no history of A-fib EKG was obtained. Suspect patient's chronic cough is due to INDIGO inhibitor if she is still on lisinopril. Chest x-ray is consistent with an acute pneumonia since she does have productive cough of yellow-colored sputum for the past 2 days. I was informed at 1017 that patient's pulse ox is now 88%. History & Record Review Additional record(s) reviewed:: Prior outpatient record, Prior ED visit and Prior labs Lab Data Attestation: I reviewed the patient's lab results. Lab results narrative: Patient's H&H is 9.9 and 30.2. Will compare to prior. White count is 3.7 with slight shift. Lactate is normal. Comprehensive metabolic panel is unremarkable. Lactate is normal. Labs: Laboratory Results - last 24 hr 08/18/23 08/18/23 09:13 10:20 WBC 3.7 L RBC 3.26 L Hgb 9.9 L Hct 30.2 L MCV 92.6 MCH 30.4 MCHC 32.8 RDW Std Deviation 50.2 H RDW Coeff of Juan 14.7 H Plt Count 142 L MPV 11.8 Immature Gran % (Auto) 0.300 Neut % (Auto) 85.0 H Lymph % (Auto) 6.4 L Dukes % (Auto) 8.3 Eos % (Auto) 0.0 Baso % (Auto) 0.0 Absolute Neuts (auto) 3.2 Absolute Lymphs (auto) 0.24 L Nucleated RBC % 0 Sodium 132 L Potassium 3.6 Chloride 101 Carbon Dioxide 25.0 Anion Gap 6 BUN 13 Creatinine 0.76 Estim Creat Clear Calc 53.83 Est GFR (MDRD) Af Amer 96 Est GFR (MDRD) Non-Af 79 BUN/Creatinine Ratio 17.2 Glucose 109 H Lactic Acid 1.1 Calcium 9.2 Radiography Chest X-Ray - ED: 2 View and Read by ED Physician (2 view chest x-ray was independent reviewed interpreted by me for right upper lobe pneumonia. Patient has a prosthetic right shoulder noted. Cardiac silhouette and size normal. Osseous structures other than the prosthetic joint are unremarkable.) Diagnostic Testing: Clinical Impression(s) from Imaging Studies Chest X-Ray 08/18/23 09:44 IMPRESSION: Heterogeneous consolidation in the right upper lobe. Radiographic follow-up recommended. CT scan of the chest may be considered. Electronically Signed: Jeison Waters MD at 10:03 EST , Management Discussion w/another healthcare provider: Hospitalist (Hospitalist was paged for admission to [facility] for pneumonia, hypoxia, sepsis without endorgan dysfunction.) Treatment and Re-Evaluation :: Nurse informed me that the monitor reveals atrial fibs. She also informed to the patient states she is on no blood pressure med. This is contrary to what she told me. She was asked if she could contact patient's pharmacy to determine what meds she is on and to please contact her primary care physician since patient is not a reliable informant. Discharge Plan Dx/Rx/DC Orders Clinical Impression: Right upper lobe pulmonary infiltrate, Acute hypoxic respiratory failure, Neutropenia, Sinus tachycardia by electrocardiography, Chronic anemia, Acute hyponatremia Disposition Disposition: Acute Care Hospital [facility]
[2023-08-18 09:23] LABS: Absolute Lymphocyte Count 0.24 X10^3/uL (0.83-4.51); Absolute Neutrophil Count 3.2 X10^3/uL (2.0-7.7); Hematocrit 30.2 % (37-47); Hemoglobin 9.9 g/dL (12.0-15.0); Lymphocyte # 0.24 X10^3/ul (0.83-4.51); Lymphocyte % 6.4 % (19-41); Mean Corp Hgb Conc 32.8 g/dL (32-36); Mean Corpuscular Hgb 30.4 pg (27.0-32.0); Mean Corpuscular Volume 92.6 fL (81-99); Mean Platelet Vol. 11.8 fl (6.2-12.0); Monocyte# 0.31 X10^3/uL; Monocyte% 8.3 % (0-10); NRBC Flagged by Analyzer 0 % (0-5); Neutrophil # 3.17 X10^3/uL (2.7-7.7); POSITIVE DIFFERENTIAL YES; Platelet Count 142 K/mm3 (150-450); RBC Distribution Width CV 14.7 % (11.6-14.6); RBC Distribution Width SD 50.2 fl (35.1-43.9); Red Blood Count 3.26 M/mm3 (4.2-5.4); White Blood Count 3.7 K/mm3 (4.4-11.0)
[2023-08-18] MEDS: 0.9% Normal Saline (500mL Bag) 500 ML 1000 ML IV (09:27)
--- NOTE | 2023-08-18 09:44 | RAD_ITS ---
STUDY: X-RAY CHEST REASON FOR EXAM: Female, 78 years old. Chronic cough, productive past 2 days TECHNIQUE: PA and lateral views of the chest. COMPARISON: Comparison is made with prior study dated September 17, 2020. FINDINGS: EKG electrodes are seen. Residual clips are seen in the left axilla. Heterogeneous consolidation in the right upper lobe. Radiographic follow-up recommended. CT scan of the thorax may be indicated. There is no demonstrated pleural abnormality. Normal size heart. Normal mediastinum and pati. Normal visualized pulmonary arteries. Normal visualized aortic arch and descending thoracic aorta. There are diffuse degenerative changes of the visualized thoracic spine. Status post reverse right shoulder replacement. There is no demonstrated abnormality of the visualized soft tissue structures of the upper abdomen. RAD/Chest PA and Lateral IMPRESSION: Heterogeneous consolidation in the right upper lobe. Radiographic follow-up recommended. CT scan of the chest may be considered. Electronically Signed: Jeison Waters MD at 10:03 EST ,
[2023-08-18 09:56] LABS: Anion Gap 6 (5-15); BUN 13 mg/dL (7-18); BUN/Creat Ratio 17.2 RATIO (10-20); Calcium,Total 9.2 mg/dL (8.5-10.1); Chloride 101 mmol/L (98-107); Creatinine, Serum 0.76 mg/dL (0.55-1.02); EST Glomerular Filtration Rate 79 mL/min (>60); Est Glom Filt Rate - Afr Amer 96 mL/min (>60); Estimated Creatinine Clearance 53.83 ml/min; Glucose 109 mg/dL (74-106); Potassium 3.6 mmol/L (3.5-5.1); Sodium Level 132 mmol/L (136-145)
[2023-08-18] MEDS: Ceftriaxone 2 GM in 0.9% Normal Saline (50mL MB+) 50 ML IV (10:54)
[2023-08-18 11:02] LABS: Lactic Acid 1.1 mmol/L (0.4-1.9)
--- OUTSIDE RECORDS SUMMARY | 2023-08-18 11:12 | XMS RPT_ITS | CCD ---
Author Name Unknown Address [address] [place] [address] Organization [facility] Care Team Providers Care Lathe Mechanic Name Role Phone Arley BRONSON Pily Unavailable Stewart Moody MD Primary Care Provider STEWART MOODY Primary Care UnavailLELO Willis Attending Unavailable LELO WHITE Referring Unavailable LELO WHITE Referring Unavailable STEWART MOODY Primary Care Unavailab beck Allergies Allergy Classification Reported Allergen(s) Allergy Type Date of Onset Reaction(s) Facility (15 sources) Adhesive Tape; Translations: [ADHESIVE TAPE (ROSINS)] Allergy to substance 2 Rash [facility] Work Phone: (15 sources) amLODIPine; Translations: [AMLODIPINE BESYLATE] Drug Allergy 2 Swelling [facility] (15 sources) atorvastatin; Translations: [ATORVASTATIN] Drug Allergy 1 Other: See Comments [facility] Work Phone: (15 sources) Bisoprolol / hydroCHLOROthiaz kaci; Translations: [BISOPROLOL-HYDR OCHLOROTHIAZIDE] Drug Allergy 6 [facility] Work Phone: Medications Completed/Discontinued Medications Medication Drug Class(es) Dates Sig (Normalized) Sig (Original) acetaminophen 500 mg oral tablet (14 sources) take 1 tablet by mouth every eight hours as needed acetaminophen (TYLENOL) 500 mg tablet Take 500 mg by mouth every 8 hours as needed. 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; Translations: [Malignant neoplasm of unspecified site of left female breast] 06-01-2022 Chronic Cancer of breast (20 sources) History of malignant neoplasm of breast; Translations: [Personal history of malignant neoplasm of breast] Onset: 12-16-2016 Episodic Coronary atherosclerosis and other heart disease (2 sources) Coronary arteriosclerosis; Translations: [Atherosclerotic heart disease of [place] coronary artery without angina pectoris] Chronic Disorders of lipid metabolism (17 sources) Hyperlipidemia; Translations: [Hyperlipidemia, unspecified] Onset: 03-24-2018 Chronic Essential hypertension (16 sources) Benign essential hypertension; Translations: [Essential (primary) hypertension] Chronic Osteoarthritis (20 sources) Primary gonarthrosis, bilateral; Translations: [Bilateral primary osteoarthritis of knee] Onset: 01-23-2015 01-23-2015 Chronic Osteoporosis (14 sources) Osteoporosis; Translations: [Age-related osteoporosis without current pathological fracture] Onset: 08-14-2008 01-06-2017 Chronic Other nervous system disorders (14 sources) Carpal tunnel syndrome of right wrist; Translations: [Carpal tunnel syndrome, right upper limb] Onset: 02-15-2017 02-15-2017 Chronic Other screening for suspected conditions (not mental disorders or infectious disease) (8 sources) Mammography abnormal; Translations: [Other abnormal and inconclusive findings on diagnostic imaging of breast] Onset: 06-11-2023 Episodic Rheumatoid arthritis and related disease (16 sources) Rheumatoid arthritis of multiple joints; Translations: [Rheumatoid arthritis with rheumatoid factor of multiple sites without organ or systems involvement] Onset: 10-05-2017 Chronic Secondary malignancies (14 sources) Secondary malignant neoplasm of axillary lymph nodes; Translations: [Secondary and unspecified malignant neoplasm of axilla and upper limb lymph nodes] Onset: 06-22-2012 06-22-2012 Chronic Spondylosis; intervertebral disc disorders; other back problems (20 sources) Degeneration of lumbar intervertebral disc; Translations: [Other intervertebral disc degeneration, lumbar region] Onset: 12-09-2012 12-09-2012 Chronic Past or Other Problems Problem Classification Problem Date Documented Da te Episodic/Chronic Deficiency and other anemia (16 sources) Chronic anemia; Translations: [Anemia, unspecified] Onset: 8 Episodic Gastrointestinal hemorrhage (14 sources) Gastrointestinal hemorrhage; Translations: [Hematemesis] Onset: 1 09-23-2020 Episodic Other connective tissue disease (14 sources) Pain in limb; Translations: [Pain in unspecified limb] Onset: 7 04-06-2017 Episodic Other fractures (14 sources) Compression fracture of lumbar spine; Translations: [Wedge compression fracture of fifth lumbar vertebra, sequela] Onset: 8 07-11-2018 Episodic Residual codes; unclassified (15 sources) Estrogen receptor positive tumor; Translations: [Estrogen receptor positive status [ER+]] Onset: 3 07-18-2012 Episodic Spondylosis; intervertebral disc disorders; other back problems (14 sources) Lumbar radiculopathy; Translations: [Radiculopathy, lumbar region] Onset: 8 06-06-2018 Episodic Results Test Name Value Interpretation Reference Range Facil ity Vital Signs Date Time Vital Sign Value Performing Clinician Anival morin 07-21-2022 10:02-0500 Body height 161.9 cm Lelo White COMMODITIES TRADER.COMBUSTION ANALYST Work Phone: [facility] 07-21-2022 10:02-0500 Body temperature 98.8 [degF] Lelo White COMMODITIES TRADER.COMBUSTION ANALYST Work Phone: [facility] 07-21-2022 10:02-0500 Body weight 82.33 kg Lelo White COMMODITIES TRADER.COMBUSTION ANALYST Work Phone: [facility] 07-21-2022 10:02-0500 Diastolic blood pressure 82 mm[Hg] Lelo White COMMODITIES TRADER.COMBUSTION ANALYST Work Phone: [facility] 07-21-2022 10:02-0500 Heart rate 65 /min Lelo White COMMODITIES TRADER.COMBUSTION ANALYST Work Phone: [facility] 07-21-2022 10:02-0500 Systolic blood pressure 156 mm[Hg] [place] White COMMODITIES TRADER.COMBUSTION ANALYST Work Phone: [facility] 06-22-2022 08:40-0500 Body weight 82.56 kg Stewart Moody MD Work Phone: [facility] 06-22-2022 08:40-0500 Diastolic blood pressure 80 mm[Hg] Stewart Moody MD Work Phone: [facility] 06-22-2022 08:40-0500 Heart rate 65 /min Stewart Moody MD Work Phone: [facility] 06-22-2022 08:40-0500 Respiratory rate 16 /min Stewart Moody MD Work Phone: [facility] 06-22-2022 08:40-0500 SaO2% (BldA) [Mass fraction] 97 % Stewart Moody MD Work Phone: [facility] 06-22-2022 08:40-0500 Systolic blood pressure 136 mm[Hg] Stewart Moody MD Work Phone: [facility] 12-12-2021 10:38-0400 Body weight 80.56 kg Stewart Moody MD Work Phone: [facility] 12-12-2021 10:38-0400 Diastolic blood pressure 84 mm[Hg] Stewart Moody MD Work Phone: [facility] 12-12-2021 10:38-0400 Heart rate 61 /min Stewart Moody MD Work Phone: [facility] 12-12-2021 10:38-0400 Respiratory rate 16 /min Stewart Moody MD Work Phone: [facility] 12-12-2021 10:38-0400 SaO2% (BldA) [Mass fraction] 98 % Stewart Moody MD Work Phone: [facility] 12-12-2021 10:38-0400 Systolic blood pressure 120 mm[Hg] Stewart Moody MD Work Phone: [facility] Encounters Encounter Date Encounter Type Care Provider Facility Start: 07-21-2023 End: 07-21-2023 ambulatory STEWART MOODY Facility:[facility] Start: 06-21-2023 Telephone encounter Lelo rasmussen APRN.CNP Work Phone: Hematology/Oncology Procedures Date Procedure Procedure Detail Performing Clinician Start: 07-14-2022 Us breast uni real t catherine with image limited Lelo Cindy COMMODITIES TRADER.COMBUSTION ANALYST Work Phone: Start: 07-14-2022 [place]ART[place] RIGHT D lana hWite COMMODITIES TRADER.COMBUSTION ANALYST Work Phone: Start: 06-22-2022 Lipid 1996 panel - S alexander or Plasma Us 1 Work Phone: Start: 06-01-2022 End: 06-01-2022 Mammography Lelo White COMMODITIES TRADER .COMBUSTION ANALYST Work Phone: Start: 06-26-2021 Adult depression screening assessment Stewart Moody MD Work Phone: Start: 05-12-2021 Mammography Shamir Moody MD Work Phone: Start: 09-10-2020 Colonoscopy Shamir Moody MD Work Phone: Plan of Treatment Date Care Activity Detail Author Start: 09-10-2030 Colonoscopy COLONOSCOPY [facility] Start: 09-10-2030 COLORECTAL CANCER SCREENING COLORECTAL CANCER SCREENING [facility] Start: 06-22-2027 Lipid 1996 panel - S alexander or Plasma Lipid Screening [facility] Start: 06-22-2027 LIPID SCREEN LIPID SCREEN [facility] Start: 11-29-2025 LIPID SCREEN LIPID SCREEN [facility] Start: 06-22-2025 DIABETES SCREEN DIABETES SCREEN [facility] Start: 06-22-2025 Diabetes Screening Diabetes Screenin g [facility] Start: 06-24-2024 DIABETES SCREEN DIABETES SCREEN [facility] Start: 06-22-2023 ANNUAL PCP TEAM CREEL SELECTOR TONE DISEASE VISIT ANNUAL PCP TEAM CHRONIC DISEASE VISIT [facility] Start: 06-22-2023 COVID-19 VACCINE (5 - Booster for Pfizer series) COVID-19 VACCINE (5 - Booster for Pfizer series) [facility] Immunizations Immunization Date Immunization Notes Care Provider Kathy palmer 04-12-2023 influenza (aIIV4) vaccine, age 65+ yr, quadrivalent, PF (FLUAD QUAD) Screen Wstr [facility] 04-22-2022 influenza (aIIV4) vaccine, age 65+ yr, quadrivalent, PF (FLUAD QUADRIVALENT) Stewart Moody MD Work Phone: [facility] Work Phone: 04-27-2021 influenza (aIIV4) vaccine, age 65+ yr, quadrivalent, PF (FLUAD QUADRIVALENT) Stewart Moody MD Work Phone: [facility] Work Phone: 09-14-2020 COVID-19 vaccine, ag e 12+ yr (PFIZER-BIONTECH - PURPLE TOP) Stewart Moody MD Work Phone: [facility] 08-24-2020 COVID-19 vaccine, ag e 12+ yr (PFIZER-BIONTECH - PURPLE TOP) Stewart Moody MD Work Phone: [facility] Payers Date Payer Category Payer Private Health Insurance [facility] AARP SUPPLEMENT [id number] 2013-Present [phone] [address] [place] [address] Indemnity [id number] 2013 Private Health Insurance [facility] AARP SUPPLEMENT [id number] 2013-Present [phone] [address] [place] [address] Indemnity [id number] 2013 Unknown [id number] 2012 Medicare MEDICARE MEDICAR E A AND B [id number] 2012-Present [phone] [place] [address] Medicare [id number] 2012 Medicare MEDICARE MEDICAR E A AND B [id number] 2012-Present [phone] [place] [address] Medicare [id number] 2012 Medicare [id number] Social History Date Type Detail Facility Start: 05-12-2011 Tobacco smoking stat us [facility] Never smoked tobacco [facility] Start: 12-12-2021 End: 07-21-2022 Alcohol intake Current non-drinker of alcohol (finding) [facility] Start: 1945 Sex Assigned At Not on file [facility] Start: 12-02-2021 End: 06-01-2022 Exposure to SARS-CoV-2 (event) Not sure [facility] Start: 05-12-2011 Tobacco use and exposure Smokeless tobacco non-user [facility] Work Phone: Start: 06-16-2020 End: 06-22-2022 History of Social function [facility] Work Phone: Start: 06-16-2020 End: 06-22-2022 Tobacco use panel [facility] Work Phone: Adult Depression Screening Assessment 0 [facility] Work Phone: Goals Date Patient Goal Desired Activity /State Personal health goal Clinical Notes 06-10-2017 to 07-21-2023 Telephone Encounter - Ani Salmon - 06/21/2023 12:19 PM ESTTelephone Encounter - Lelo White APRN.CNP - 06/21/2023 12:13 PM Dana Downs Mammo Tech - 06/11/2023 9:30 AM EST Note Date & Type Note Facility 07-21-2023 Note HNO ID: [id number] Author: LELO WHITE APRN.AIYANA Service: ? Author Type: Nurse Practitioner Type: Progress Notes Filed: 07/21/2023 09:56 Note Text: Chief Complaint Patient presents with: Established Patient HPI: Gabi Ashby is a 77 year old female who presents here today for follow up breast cancer. Per Dr. Parish's previous note: H/o abnormal mammogram on 03/03/12. It showed possible new nodular density seen in the superior left breast in the oblique view only. Right breast mammogram on 05/04/12 confirmed the lesion and ultrasound then showed a solid mass, slight lobularity, and exhibiting shadowing. This nodular density measures 8 x 7 x 6 mm in size and is seen at one o'clock approximately 4 cm from the nipple. She was seen by Dr. Schuster and core biopsy of the left breast lesion showed moderately to poorly differentiated invasive ductal carcinoma. It was ER positive, OR positiveand Her2/barb 2+. She underwent left breast lumpectomy and sentinel node biopsy on 06/06/12. Pathology showed invasive ductal carcinoma measuring 0.9 x 0.6 x 0.5cm. It was grade 2 tumor without LVI. Surgical margin was negative with the closest margin of 6 mm posteriorly. One sentinel node was involved with metastasis measuring 0.5mm. Her Onctype Dx recurrence score is 6, with a 5% risks of distant recurrence on tamoxifen for 5 years Radiation:08/22/12-10/05/12. Started arimidex after radiation. Stopped December 2016 d/t hand aches/pains. Xray done in 2017-showed compression fx to L5 and degenerative changes to thoracic spine. PT has helped with pain in the past. No new concerns today. I fell in December. R wrist fx. Casted for 2 months. [facility]. R hand dominant. Appetite: Too much. Energy level: Pretty good. Denies fevers or recent illness. Resp:occ. cough over past 2 weeks-spouse also with cough, denies sob h/o seasonal allergies Cardiac:denies chest pain/palpitations GI:denies abd pain, n/v, moving bowels regularly :denies dysuria/hematuria Extrem:denies pain Endo:denies hot flashes Neuro:denies symptoms of neuropathy Skin:denies rashes/lesions Heme:denies bleeding The ROS is otherwise negative. Past medical history, appointments, medications, allergies reviewed. No changes. EXAM: BP 163/93 Pulse 98 Temp 37.2 ?C (98.9 ?F) (Temporal) Ht 161.9 cm (5' 3.75 ) Wt 73.5 kg (162 lb) SpO2 98% BMI 28.03 kg/m? APPEARANCE Well appearing, alert, in no acute distress, well-hydrated, well nourished. HEART RRR with normal S1 and S2, no murmurs LUNG clear to auscultation BREAST FEMALE no mass/nodule b/l LYMPH NODES No cervical lymphadenopathy, No supraclavicular lymphadenopathy, and No axillary lymphadenopathy. ABDOMEN bowel sounds normoactive, soft, non-tender EXTREMITIES No edema NEURO Awake, alert and oriented x 3, using a cane, and No involuntary motions. SKIN Skin color, texture, turgor normal, no suspicious rashes or lesions RADIOLOGY: Mammogram 06/11/23: IMPRESSION: BENIGN FINDING There is no mammographic evidence of malignancy. A 1 year screening mammogram is recommended. ASSESSMENT/PLAN: 1. Personal history of breast cancer - ICD9: V10.3, ICD10: Z85.3 Stage IIA, [id number], invasive ductal carcinoma of the left breast s/p lumpectomy and sentinel node biopsy. - No concerning findings on exam. - Pt. now over 10 years out from radiation. - Stopped Arimidex December 2016-declines further therapy. - Reviewed mammogram with pt. - Pt. states that her BP is better at home. She will recheck her BP once she is home today. But she has also been out of her meds. - Follow up with Rheum. as scheduled. - Advised pt. to take otc mucinex. Follow up with PCP if cough worsens or does not improve. - Mammogram due 2023. - Needs f/u with Telma Sainz CNP (Dr. Moody) for Rx refills/physical. - Follow up in one year. - Pt. aware to call office with any questions/concerns. The patient indicates understanding of these issues and agrees with the plan. All documentation from previous visit of 07/21/22-Марина/myself was copied and pasted, documentation has been reviewed and edited as necessary for today's visit. Lelo White APRN.AIYANA [facility] 06-21-2023 Miscellaneous Notes Patient informed No concerning findings on exam. Follow up as scheduled. Thank you. Lelo White APRN.COMBUSTION ANALYST Patient calling for 06/11 mamm results documented in this encounter [facility] 06-11-2023 Note HNO ID: [id number] Author: Dana Balderrama Mammo Tech Service: ? Author Type: Order Entry Specialist Type: Progress Notes Filed: 06/11/2023 9:45 AM Note Text: Radiology Service Progress Note PATIENT NAME: Gabi Ashby DATE OF SERVICE: June 11, 2023 TIME: 9:11 AM PATIENT IDENTITY VERIFICATION COMPLETED USING TWO (2) IDENTIFIERS: Name and Date of confirmed by patient verbally. FALL SCREENING: Has the patient had 2 falls in the last year or 1 fall with injury or currently using an Ambulatory Assistive Device (Walker, Cane, Wheelchair, Crutches, etc.)? No PATIENT GENDER DATA: Female. status: : No status: NO. PATIENT RELEVANT IMPLANT DATA REVIEWED: Not Applicable RADIOLOGY DEPARTMENT: Mammography PERIPHERAL IV DATA: Not applicable SIGNED BY: Lavelle Westbrook June 11, 2023 9:11 AM [facility] 06-11-2023 History of Present illness Narrative Radiology Service Progress Note PATIENT NAME: Gabi Ashby DATE OF SERVICE: June 11, 2023 TIME: 9:11 AM PATIENT IDENTITY VERIFICATION COMPLETED USING TWO (2) IDENTIFIERS: Name and Date of confirmed by patient verbally. FALL SCREENING: Has the patient had 2 falls in the last year or 1 fall with injury or currently using an Ambulatory Assistive Device (Walker, Cane, Wheelchair, Crutches, etc.)? No PATIENT GENDER DATA: Female. status: : No status: NO. PATIENT RELEVANT IMPLANT DATA REVIEWED: Not Applicable RADIOLOGY DEPARTMENT: Mammography PERIPHERAL IV DATA: Not applicable SIGNED BY: Lavelle Westbrook June 11, 2023 9:11 AM documented in this encounter [facility] 02-11-2023 Note HNO ID: [id number] Author: Nora Vanessa MA Service: ? Author Type: Security Guards Dispatcher Type: Progress Notes Filed: 02/11/2023 9:43 AM Note Text: POPULATION HEALTH NAVIGATION OUTREACH Action/FYI Letter prepared and placed in outgoing mail. Navigation Signature: Nora Vanessa MA February 11, 2023 9:42 AM [facility] 02-10-2023 Note Patient Outreach (NE TNAV) GABI ASHBY ([id number]) 1945 F Date Time Provider Department 02/10/23 MULU VYAS During your visit today, we recorded the following information about you: Mulu Vyas MA 02/10/2023 3:32 PM Signed POPULATION HEALTH NAVIGATION OUTREACH Action/FYI Unable to LVM mailbox isn't set up. No Mychart Mailed letter Annual medicare wellness exam BP CONTROLLED (<130/80) Never done ADVANCE DIRECTIVE DISCUSSION Patient Identified by Name and : NO Outreach Outcome/Action Unable to reach patient: Phone number not valid / voicemail full Letter mailed Did you use a PCP flex slot to schedule this appointment? N/A Reason for Outreach Care Gap or Scheduling/Wellness visits Payer: Payor: MEDICARE / Plan: MEDICARE A AND B / Product Type: Medicare / Care Gap Reviewed:: Annual Wellness visit Controlling Blood Pressure Reminder: Reminder note to check Health Maintenance for items below Health Maintenance items due: BP CONTROLLED (<130/80) Never done DTAP,TDAP,TD(1 - Tdap) Never done ADVANCE DIRECTIVE DISCUSSION due on 07/12/2022 DEPRESSION ASSESSMENT due on 07/12/2022 Navigation Signature: Mulu Vyas MA February 10, 2023 10:22 AM Nora Vanessa MA 02/11/2023 9:43 AM Signed POPULATION HEALTH NAVIGATION OUTREACH Action/FYI Letter prepared and placed in outgoing mail. Navigation Signature: Nora Vanessa MA February 11, 2023 9:42 AM Allergies As of Date: 02/10/2023 Noted Allergy Reaction ADHESIVE TAPE (ROSINS) 06/16/2012 2 - Rash LIPITOR (ATORVASTATIN) 06/09/2021 14 - Other: See Comments Comments: Headache NORVASC (AMLODIPINE BESYLATE) 10/01/2011 7 - Swelling ZIAC (BISOPROLOL-HYDROCHLOROTHIAZ*/12/2005 Comments: headaches Date Reviewed: 07/21/2022 Reviewed by: Lelo White APRN.COMBUSTION ANALYST - Fully Assessed Reason for Visit: Population Health Navigation Outreach [3910] Cmt: ACO [facility] PCSA Prescriptions as of 02/11/2023 - rosuvastatin (CRESTOR) 20 mg tablet Take 1 tablet by mouth daily at bedtime. - lisinopril (ZESTRIL, PRINIVIL) 40 mg tablet Take 1 tablet by mouth once daily. - metoprolol succinate ER (TOPROL XL) 25 mg 24 hr tablet Take 1 tablet by mouth once daily. - omega 1-nyj-boy-fish-turmeric 417 mg-120 mg- 276 mg-600 mg cap Take 1 capsule by mouth once daily. - acetaminophen (TYLENOL) 500 mg tablet Take 500 mg by mouth every 8 hours as needed. - hydroxychloroquine (PLAQUENIL) 200 mg tablet Take 1.5 tablets by mouth once daily. - CALCIUM CARBONATE/VITAMIN D3 (CALCIUM 600 + D,3, ORAL) Take 1 tablet by mouth once daily. 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 ER+ (estrogen receptor positive status) [Z17.0] 07/18/2012 Seroma [IDE0994] 08/01/2012 10/05/2017 Degenerative disc disease, lumbar [M51.36] 12/09/2012 Degenerative arthritis of lumbar spine [M47.816]12/09/2012 Cervical radiculopathy at C6 [M54.12] 01/02/2015 02/26/2015 Cervical radiculopathy at C7 [M54.12] 01/02/2015 02/26/2015 Cervical radiculitis [M54.12] 01/02/2015 02/26/2015 Lumbosacral neuritis [M54.17] 01/02/2015 06/06/2018 Abnormal gait [R26.9] 01/02/2015 02/25/2016 Arm weakness [R29.898] 01/02/2015 02/25/2016 Primary osteoarthritis of both knees [M17.0] 01/23/2015 Degenerative disc disease, cervical [M50.30] 02/26/2015 History of left breast cancer [Z85.3] 12/16/2016 Carpal tunnel syndrome, right [G56.01] 02/15/2017 Paresthesia and pain of left extremity [M79.609*04/06/2017 Trochanteric bursitis of left hip [M70.62] 06/10/2017 03/24/2018 Rheumatoid arthritis involving multiple sites w*10/05/2017 Hyperlipidemia with target LDL less than 100 [E*03/24/2018 Arthritis, degenerative [M19.90] 03/24/2018 Chronic anemia [D64.9] 03/24/2018 Lumbar radiculopathy [M54.16] 06/06/2018 Compression fracture of L5 lumbar vertebra, seq*07/11/2018 Gastrointestinal hemorrhage with hematemesis [K*09/23/2020 Letter Text Encounter Status:Closed by MULU VYAS on 02/10/23 [facility] 02-10-2023 Note HNO ID: [id number] Author: Mulu Vyas MA Service: ? Author Type: Security Guards Dispatcher Type: Progress Notes Filed: 02/10/2023 3:32 PM Note Text: POPULATION HEALTH NAVIGATION OUTREACH Action/FYI Unable to LVM mailbox isn't set up. No Mychart Mailed letter Annual medicare wellness exam BP CONTROLLED (<130/80) Never done ADVANCE DIRECTIVE DISCUSSION Patient Identified by Name and : NO Outreach Outcome/Action Unable to reach patient: Phone number not valid / voicemail full Letter mailed Did you use a PCP flex slot to schedule this appointment? N/A Reason for Outreach Care Gap or Scheduling/Wellness visits Payer: Payor: MEDICARE / Plan: MEDICARE A AND B / Product Type: Medicare / Care Gap Reviewed:: Annual Wellness visit Controlling Blood Pressure Reminder: Reminder note to check Health Maintenance for items below Health Maintenance items due: BP CONTROLLED (<130/80) Never done DTAP,TDAP,TD(1 - Tdap) Never done ADVANCE DIRECTIVE DISCUSSION due on 07/12/2022 DEPRESSION ASSESSMENT due on 07/12/2022 Navigation Signature: Mulu Vyas MA February 10, 2023 10:22 AM [facility] 07-21-2022 History of Present illness Narrative Chief Complaint Patient presents with: Established Patient HPI: Gabi Ashby is a 76 year old female who presents here today for follow up breast cancer. Per Dr. Parish's previous note: H/o abnormal mammogram on 03/03/12. It showed possible new nodular density seen in the superior left breast in the oblique view only. Right breast mammogram on 05/04/12 confirmed the lesion and ultrasound then showed a solid mass, slight lobularity, and exhibiting shadowing. This nodular density measures 8 x 7 x 6 mm in size and is seen at one o'clock approximately 4 cm from the nipple. She was seen by Dr. Schuster and core biopsy of the left breast lesion showed moderately to poorly differentiated invasive ductal carcinoma. It was ER positive, OR positive and Her2/barb 2+. She underwent left breast lumpectomy and sentinel node biopsy on 06/06/12. Pathology showed invasive ductal carcinoma measuring 0.9 x 0.6 x 0.5cm. It was grade 2 tumor without LVI. Surgical margin was negative with the closest margin of 6 mm posteriorly. One sentinel node was involved with metastasis measuring 0.5mm. Her Onctype Dx recurrence score is 6, with a 5% risks of distant recurrence on tamoxifen for 5 years Radiation:08/22/12-10/05/12. Started arimidex after radiation. Stopped December 2016 d/t hand aches/pains. Xray done in 2017-showed compression fx to L5 and degenerative changes to thoracic spine. PT has helped with pain in the past. I've lost 3 siblings over the past few months. Appetite: Too much. Energy level: It's fine. Denies fevers or recent illness. Resp:denies cough or sob h/o seasonal allergies Cardiac:denies chest pain/palpitations GI:denies abd pain, n/v, moving bowels regularly :denies dysuria/hematuria Extrem:denies pain Endo:denies hot flashes Neuro:denies symptoms of neuropathy Skin:denies rashes/lesions Heme:denies bleeding The ROS is otherwise negative. Past medical history, appointments, medications, allergies reviewed. No changes. EXAM: BP 156/82 Pulse 65 Temp 37.1 C (98.8 F) (Temporal) Ht 161.9 cm (5' 3.75 ) Wt 82.3 kg (181 lb 8 oz) BMI 31.40 kg/m APPEARANCE Well appearing, alert, in no acute distress, well-hydrated, well nourished. HEART RRR with normal S1 and S2, no murmurs LUNG clear to auscultation BREAST FEMALE no mass/nodule b/l LYMPH NODES No cervical lymphadenopathy, No supraclavicular lymphadenopathy, and No axillary lymphadenopathy. ABDOMEN bowel sounds normoactive, soft, non-tender EXTREMITIES No edema NEURO Awake, alert and oriented x 3, Normal gait, and No involuntary motions. SKIN Skin color, texture, turgor normal, no suspicious rashes or lesions RADIOLOGY: Mammogram 06/01/22: IMPRESSION: INCOMPLETE: NEEDS ADDITIONAL IMAGING EVALUATION The possible asymmetry in the right breast is indeterminate. Additional views with possible ultrasound are recommended. R dx mammogram 07/14/22: IMPRESSION: BENIGN FINDING The 5 mm oval focal asymmetry in the right breast resembles a cyst and is benign. There is no mammographic evidence of malignancy. R US 07/14/22: IMPRESSION: BENIGN FINDING There is no sonographic evidence of malignancy. The 5 mm oval cyst in the right breast is consistent with a complicated cyst and is benign. Return to annual mammogram screening schedule is recommended. ASSESSMENT/PLAN: 1. Personal history of breast cancer - ICD9: V10.3, ICD10: Z85.3 Stage IIA, [id number], invasive ductal carcinoma of the left breast s/p lumpectomy and sentinel node biopsy. - No concerning findings on exam. - Stopped Arimidex December 2016-declines further therapy. - Pt. states that her BP is better at home. She will recheck her BP once she is home today. - Reviewed mammogram/R dx mamm/US with pt. - Mammogram due May 2023. - Follow up in one year. - Pt. aware to call office with any questions/concerns. The patient indicates understanding of these issues and agrees with the plan. All documentation from previous visit of 06/26/21-Марина/myself was copied and pasted, documentation has been reviewed and edited as necessary for today's visit. Lelo White APRN.CNP documented in this encounter [facility] 07-14-2022 Miscellaneous Notes Spoke with patient and scheduled. Sravanthi Yuan Please see previous phone note. Pt. needs OV. Thank you. Lelo White APRN.CNP documented in this encounter [facility] 07-14-2022 History of Present illness Narrative Radiology Service Progress Note PATIENT NAME: Gabi Ashby DATE OF SERVICE: July 14, 2022 TIME: 3:44 PM PATIENT IDENTITY VERIFICATION COMPLETED USING TWO (2) IDENTIFIERS: Name and Date of confirmed by patient verbally. FALL SCREENING: Has the patient had 2 falls in the last year or 1 fall with injury or currently using an Ambulatory Assistive Device (Walker, Cane, Wheelchair, Crutches, etc.)? No PATIENT GENDER DATA: Female. status: : No status: NO. PATIENT RELEVANT IMPLANT DATA REVIEWED: Not Applicable RADIOLOGY DEPARTMENT: Ultrasound PERIPHERAL IV DATA: Not applicable SIGNED BY: Betty Hudson RDMS July 14, 2022 3:44 PM documented in this encounter [facility] 07-14-2022 History of Present illness Narrative Radiology Service Progress Note PATIENT NAME: Gabi Ashby DATE OF SERVICE: July 14, 2022 TIME: 1:59 PM PATIENT IDENTITY VERIFICATION COMPLETED USING TWO (2) IDENTIFIERS: Name and Date of confirmed by patient verbally. FALL SCREENING: Has the patient had 2 falls in the last year or 1 fall with injury or currently using an Ambulatory Assistive Device (Walker, Cane, Wheelchair, Crutches, etc.)? No PATIENT GENDER DATA: Female. status: : No status: NO. PATIENT RELEVANT IMPLANT DATA REVIEWED: Not Applicable RADIOLOGY DEPARTMENT: Mammography PERIPHERAL IV DATA: Not applicable SIGNED BY: RT Porsha(R) July 14, 2022 1:59 PM documented in this encounter [facility] 06-23-2022 Miscellaneous Notes Patient returned call and given provider's message below with verbalized understanding. VM left for patient to call PCP office for message below. Mikayla Brand RN Please call patient and let her know her cholesterol has increased, recommend increasing her Crestor to 20 mg. The rest of her blood work is in acceptable ranges. Thanks, Telma Sainz APRN.AIYANA documented in this encounter [facility] 06-22-2022 Miscellaneous Notes Thank you, hopefully they can get her imaging completed sooner than July with her history of breast CA. Patient was instructed to call to see if she could be scheduled sooner for her callback diagnostic mammogram. She was directed to speak with the [facility] due to no available openings at the [place] location at this time. documented in this encounter [facility] 06-22-2022 History of Present illness Narrative Chief Complaint Patient presents with: Follow Up: 6 month HPI Gabi Ashby is a 76 year old female who presents here today for 6 month follow up. Has been in good health without hospitalizations or ER visits. Patient with history of left breast cancer with abnormal screening mammogram last month. Diagnostic mammogram and US ordered, but have not been completed. States that she could not get an appointment until 07/14. States that she does get pain under her right breast occasionally, but has not felt any masses. Following up with oncology and has been off of Arimidex since 2017. CAD: Following with [facility] cardiology. Last OV 08/2021. Switched to Crestor at last OV and has been tolerating without side effects. Due for lipid panel. Denies angina, SOB, palpitations, LE edema on current regimen. F/u in 1 year with cardiology. Walking on a daily basis for exercise. Working on low sodium and cholesterol diet. BP elevated >130/80 today on current regimen without side effects. Denies hyper/hypotension symptoms. Patient following up with Dr. Gonzales for RA every 6 months. Joint pain and swelling improved on Plaquenil without side effects. Reduced her dosage to 1.5 tablets daily. Has follow up appointment in September. Will obtain records. PHQ-2 / Depression screen He in the past two weeks denies having felt down, depressed, hopeless or with little interest or pleasure in doing things. Will be getting her Shingrix in July at the pharmacy. Refusing COVID and Prevnar 20 vaccine today. Does not have living will or DPOA. Would like forms for home. FULL CODE. Past medical history, appointments, medications, allergies reviewed. Previous Medical History PAST MEDICAL HISTORY Diagnosis Date Anemia 2/2 GI hemorrhage Carpal tunnel syndrome, right 02/15/[address] Edwards Degenerative arthritis of lumbar spine 12/09/2012 Degenerative disc disease, cervical 02/26/2015 Degenerative disc disease, lumbar 12/09/2012 Diverticulosis of colon (without mention of hemorrhage) Essential hypertension, benign GI hemorrhage 09/2020 Malignant neoplasm of breast (female), unspecified site 2011 Breast cancer LEFT, Dr. Parish Malignant neoplasm of corpus uteri, except isthmus (HCC) 1979 Uterine cancer [place], old Osteoarthritis Other and unspecified hyperlipidemia Rheumatoid arthritis involving multiple sites with positive rheumatoid factor (HCC) 10/05/2017 Dr. Gonzales Snoring Previous Surgical History PAST SURGICAL HISTORY Procedure Laterality Date BX BREAST PERC VACUUM/ROTN 05/24/2012 U/S guided bx UOQ left breast BX/EXC LYMPH NODE OPEN DEEP AXILLARY NODE 06/06/2012 LEFT COLONOSCOPY FLX DX W/COLLJ SPEC WHEN PFRMD 01/24/2010 Colonoscopy COLONOSCOPY FLX DX W/COLLJ SPEC WHEN PFRMD 01/03/2019 Colonoscopy COLONOSCOPY FLX DX W/COLLJ SPEC WHEN PFRMD N/A 09/10/2020 [facility]-Dr. Lopez ESOPHAGOGASTRODUODENOSCOPY TRANSORAL DIAGNOSTIC 01/03/2019 EGD ESOPHAGOGASTRODUODENOSCOPY TRANSORAL DIAGNOSTIC N/A 09/10/2020 [facility]-Dr. Lopez MASTECTOMY, PARTIAL 06/06/2012 LEFT PAST SURGICAL HISTORY OF Right shoulder replacement SURGERY (GENERAL SURGERY) CONSULT Right 03/24/2016 right knee replacement - [facility] TOTAL ABDOMINAL HYSTERECT W/WO RMVL TUBE OVARY 1979 uterine ca Family History FAMILY HISTORY Problem Relation Age of Onset Cancer Mother uterine Hypertension Mother hyperlipidemia Arthritis Mother Osteoporosis Mother Heart Father DE at age 39 Hypertension Sister arthritis Osteoporosis Sister Arthritis Sister hypertension Hypertension Brother None Brother None Brother None Brother Diabetes Maternal Grandmother Thyroid Maternal Aunt Patient Allergies ALLERGIES Allergen Reactions Adhesive Tape (Tash* Rash Lipitor [Atorvastat* Other: See Comments Headache Norvasc [Amlodipine* Swelling Ziac [Bisoprolol-Hy* headaches Current Medications Current Outpatient Medications on File Prior to Visit Medication Sig omega 4-oip-rws-fish-turmeric 417 mg-120 mg- 276 mg-600 mg cap Take by mouth. acetaminophen (TYLENOL) 500 mg tablet Take 500 mg by mouth every 8 hours as needed. lidocaine (XYLOCAINE) 5 % ointment Apply 1 application to affected area three times daily. (Patient taking differently: Apply 1 application to affected area three times daily. Taking prn) hydroxychloroquine (PLAQUENIL) 200 mg tablet Take 1.5 tablets by mouth once daily. CALCIUM CARBONATE/VITAMIN D3 (CALCIUM 600 + D,3, ORAL) Take 1 tablet by mouth once daily. rosuvastatin (CRESTOR) 10 mg tablet Take 1 tablet by mouth daily at bedtime. lisinopril (ZESTRIL, PRINIVIL) 40 mg tablet Take 1 tablet by mouth once daily. metoprolol succinate ER (TOPROL XL) 25 mg 24 hr tablet Take 1 tablet by mouth once daily. No current facility-administered medications on file prior to visit. Social History Social History Tobacco Use Smoking status: Never Smokeless tobacco: Never Vaping Use Vaping Use: Never used Substance Use Topics Alcohol use: No Drug use: No Review of Symptoms REVIEW OF SYSTEMS GENERAL: No weight loss, malaise or fevers RESPIRATORY: Negative for cough, hemoptysis, wheezing, COPD, dyspnea or shortness of breath CARDIOVASCULAR: Negative for chest pain, leg swelling, hypertension, CHF or palpitations GI: No nausea, vomiting, or diarrhea SKIN: Negative for lesions, rash, and itching EXAM: BP 136/80 Pulse 65 Resp 16 Wt 82.6 kg (182 lb) SpO2 97% BMI 31.46 kg/m General Appearance: Well appearing, alert, in no acute distress, well-hydrated, well nourished.. Skin: Skin color, texture, turgor normal, no suspicious rashes or lesions. Lungs: Lungs clear to auscultation. No wheezing, rhonchi, rales.. Heart: RRR with 2/6 CIRILO heard throughout. Most prominent at RUSB. Abdomen: Normal abdominal exam, Abdomen soft, non-tender. Bowel sounds normal. No masses, organomegaly. Extremities: No deformities, edema, skin discoloration, clubbing or cyanosis. Good capillary refill. Health Maintenance List PNEUMOCOCCAL: 65+(1 - PCV) Never done BP CONTROLLED (<130/80) Never done SHINGRIX VACCINE(1 of 2) Never done ADVANCE DIRECTIVE DISCUSSION Never done DEPRESSION ASSESSMENT Never done LDL CHOLESTEROL due on 11/29/2021 COVID-19 VACCINE(5 - Booster for Pfizer series) due on 02/13/2022 DTAP,TDAP,TD(1 - Tdap) due on 12/12/2022 ANNUAL PCP TEAM CHRONIC DISEASE VISIT due on 12/12/2022 MAMMOGRAM due on 06/01/2023 DIABETES SCREEN due on 06/24/2024 LIPID SCREEN due on 11/29/2025 COLORECTAL CANCER SCREENING due on 09/10/2030 BONE DENSITY Completed INFLUENZA Completed HEPATITIS C SCREENING Completed Data reviewed Component Latest Ref Rng & Units 06/24/2021 Protein, Total 6.3 - 8.0 g/dL 6.0 (L) Albumin 3.9 - 4.9 g/dL 4.6 Calcium 8.5 - 10.2 mg/dL 9.3 Bilirubin, Total 0.2 - 1.3 mg/dL 0.4 Alkaline Phosphatase 34 - 123 U/L 103 AST 13 - 35 U/L 15 Glucose 74 - 99 mg/dL 85 BUN 7 - 21 mg/dL 13 Creatinine 0.58 - 0.96 mg/dL 0.79 Sodium 136 - 144 mmol/L 136 Potassium 3.7 - 5.1 mmol/L 4.0 Chloride 97 - 105 mmol/L 99 CO2 22 - 30 mmol/L 26 Anion Gap 9 - 18 mmol/L 11 ALT 7 - 38 U/L 12 eGFR- >60 eGFR-All Other Races . >60 WBC 3.70 - 11.00 k/uL 3.50 (L) RBC 3.90 - 5.20 m/uL 3.53 (L) Hemoglobin 11.5 - 15.5 g/dL 11.2 (L) Hematocrit 36.0 - 46.0 % 33.1 (L) MCV 80.0 - 100.0 fL 93.8 MCH 26.0 - 34.0 pG 31.7 MCHC 30.5 - 36.0 g/dL 33.8 RDW-CV 11.5 - 15.0 % 12.8 Platelet Count 150 - 400 k/uL 138 (L) MPV 9.0 - 12.7 fL 11.3 Absolute nRBC <0.01 k/uL <0.01 ASSESSMENT/PLAN: 1. 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 No change to regimen today. F/u with cardiology in August. Red flags for re-assessment reviewed with patient in detail. - METOPROLOL SUCCINATE ER 25 MG TABLET,EXTENDED RELEASE 24 HR - COMP METABOLIC PANEL - LIPID PANEL, NONFASTING 2. Hyperlipidemia with target LDL less than 100 - ICD9: 272.4, ICD10: E78.5 - to be determined upon return of lab results - Continue current medication. - Encouraged following a low fat, low cholesterol diet. - Discussed the benefits of regular aerobic exercise and weight loss. - ROSUVASTATIN 10 MG TABLET 3. Essential hypertension, benign - ICD9: 401.1, ICD10: I10 - suboptimal control - Continue current medication(s) - Encouraged dietary sodium restriction/DASH diet - Recommended regular aerobic exercise. - Follow up in 1 month for BP recheck. - Reviewed risks of HTN and principles of treatment - Goal of BP <130/80 - LISINOPRIL 40 MG TABLET 4. Rheumatoid arthritis involving multiple sites with positive rheumatoid factor (HCC) - ICD9: 714.0, ICD10: M05.79 Improved with Plaquenil. F/u with rheumatology. 5. Abnormal mammogram - ICD9: 793.80, ICD10: R92.8 Will assist patient in scheduling diagnostic mammogram and US this week. F/u with oncology as recommended by their office. 6. History of left breast cancer - ICD9: V10.3, ICD10: Z85.3 See above. 7. ER+ (estrogen receptor positive status) - ICD9: V86.0, ICD10: Z17.0 See above. 8. Chronic anemia - ICD9: 285.9, ICD10: D64.9 recheck - CBC + DIFF 9. Advance directive discussed with patient - ICD9: V65.49, ICD10: Z71.89 Given Living will and DPOA forms for home to review and complete. Will return copies to our office. Stewart Moody MD documented in this encounter [facility] 06-02-2022 Miscellaneous Notes Patient returned call and was transferred to the Breast Center. LM for patient to return call. When patient calls, please advise patient that, per Lelo's note below, she needs to have additional mammogram images done and her office visit w/ Lelo will be rescheduled to after the imaging appointment. Then transfer her to the Breast Center at [phone] to schedule her additional imaging. Once transferred, document and route this note to P [facility] HEM/ONC PSR so follow up with Lelo can be rescheduled. Sravanthi Yuan Please inform pt. that the radiologist would like additional images of R breast. Please schedule R dx mamm/US soon. Move OV out until after above. Thank you. Lelo White APRN.AIYANA documented in this encounter [facility] 06-01-2022 Miscellaneous Notes June 01, 2022 PID: [id number] Gabi Ashby [address] [place] [address] Dear Ms. Ashby, Your recent breast imaging exam on 06/01/2022 showed a possible finding that requires additional imaging studies for a complete evaluation. Most such findings are probably benign (not cancer). If you have a healthcare provider who ordered/prescribed your screening mammogram: Please call [phone] or [phone]: [phone] to schedule an appointment for your additional imaging (if you have not already done so). If you DO NOT have a healthcare provider (ie you did not have an order/prescription for your screening mammogram): Please call to schedule an appointment for your additional imaging (if you have not already done so). You must have an order/prescription from your physician when calling to schedule your appointment. If your order/prescription is not electronic, you must bring the hard copy with you on the day of your exam to avoid delays. Your imaging studies and reports are kept on file at [facility] as part of your permanent medical record, and are available for your continuing care. Thank you for allowing us to help in meeting your health care needs. Sincerely, Dr. Ruiz Interpreting Radiologist [facility] (Additional imaging) documented in this encounter [facility] 06-01-2022 History of Present illness Narrative Radiology Service Progress Note PATIENT NAME: Gabi Ashby DATE OF SERVICE: June 01, 2022 TIME: 11:38 AM PATIENT IDENTITY VERIFICATION COMPLETED USING TWO (2) IDENTIFIERS: Name and Date of confirmed by patient verbally. FALL SCREENING: Has the patient had 2 falls in the last year or 1 fall with injury or currently using an Ambulatory Assistive Device (Walker, Cane, Wheelchair, Crutches, etc.)? No PATIENT GENDER DATA: Female. status: : No status: NO. PATIENT RELEVANT IMPLANT DATA REVIEWED: Not Applicable RADIOLOGY DEPARTMENT: Mammography PERIPHERAL IV DATA: Not applicable SIGNED BY: Flaca Jordan [email or web address] Jessica June 01, 2022 11:38 AM documented in this encounter [facility] 12-12-2021 History of Present illness Narrative Chief Complaint Patient presents with: Follow Up: 6 month HPI Gabi Ashby is a 76 year old female who presents here today for Above Complaints. Has been in good health without hospitalizations or ER visits. Patient with history of left breast cancer with normal diagnostic mammogram in June. Due for repeat in May. Following up with oncology and has been off of the Arimidex since 2016. CAD: Switched to Crestor at last OV and has been tolerating without side effedts. Denies angina, SOB, palpitations, LE edema on current regimen. No changes to regimen at OV with cardiology in August. F/u in 1 year. BP well controlled on current regimen. Denies hyper/hypotension symptoms. Patient following up with Dr. Gonzales for RA every 6 months. Joint pain and swelling improved on Plaquenil without side effects. Reduced her dosage to 1.5 tablets daily. Has follow up appointment in April. Will obtain records. Refusing COVID vaccine today. Would like to get at the pharmacy instead. Past medical history, appointments, medications, allergies reviewed. Previous Medical History PAST MEDICAL HISTORY Diagnosis Date Anemia 2/2 GI hemorrhage Carpal tunnel syndrome, right 02/15/[address] Edwards Degenerative arthritis of lumbar spine 12/09/2012 Degenerative disc disease, cervical 02/26/2015 Degenerative disc disease, lumbar 12/09/2012 Diverticulosis of colon (without mention of hemorrhage) Essential hypertension, benign GI hemorrhage 09/2020 Malignant neoplasm of breast (female), unspecified site 2011 Breast cancer LEFT, Dr. Parish Malignant neoplasm of corpus uteri, except isthmus (HCC) 1979 Uterine cancer [place], old Osteoarthritis Other and unspecified hyperlipidemia Rheumatoid arthritis involving multiple sites with positive rheumatoid factor (HCC) 10/05/2017 Dr. Christian Crespo Previous Surgical History PAST SURGICAL HISTORY Procedure Laterality Date BX BREAST PERC VACUUM/ROTN 05/24/2012 U/S guided bx UOQ left breast BX/EXC LYMPH NODE OPEN DEEP AXILLARY NODE 06/06/2012 LEFT COLONOSCOPY FLX DX W/COLLJ SPEC WHEN PFRMD 01/24/2010 Colonoscopy COLONOSCOPY FLX DX W/COLLJ SPEC WHEN PFRMD 01/03/2019 Colonoscopy COLONOSCOPY FLX DX W/COLLJ SPEC WHEN PFRMD N/A 09/10/2020 [facility]-Dr. Lopez ESOPHAGOGASTRODUODENOSCOPY TRANSORAL DIAGNOSTIC 01/03/2019 EGD ESOPHAGOGASTRODUODENOSCOPY TRANSORAL DIAGNOSTIC N/A 09/10/2020 [facility]-Dr. Lopez MASTECTOMY, PARTIAL 06/06/2012 LEFT PAST SURGICAL HISTORY OF Right shoulder replacement SURGERY (GENERAL SURGERY) CONSULT Right 03/24/2016 right knee replacement - [facility] TOTAL ABDOMINAL HYSTERECT W/WO RMVL TUBE OVARY 1979 uterine ca Family History FAMILY HISTORY Problem Relation Age of Onset Cancer Mother uterine Hypertension Mother hyperlipidemia Arthritis Mother Osteoporosis Mother Heart Father DE at age 39 Hypertension Sister arthritis Osteoporosis Sister Arthritis Sister hypertension Hypertension Brother None Brother None Brother None Brother Diabetes Maternal Grandmother Thyroid Maternal Aunt Patient Allergies ALLERGIES Allergen Reactions Adhesive Tape (Tash* Rash Lipitor [Atorvastat* Other: See Comments Headache Norvasc [Amlodipine* Swelling Ziac [Bisoprolol-Hy* headaches Current Medications Current Outpatient Medications on File Prior to Visit Medication Sig lisinopril (ZESTRIL, PRINIVIL) 40 mg tablet Take 1 tablet by mouth once daily. cephALEXin (KEFLEX) 500 mg capsule TAKE ONE(1) TABLET PO THREE TIMES DAILY X10 DAYS. rosuvastatin (CRESTOR) 10 mg tablet Take 1 tablet by mouth daily at bedtime. omega 1-wnj-vnd-fish-turmeric 417 mg-120 mg- 276 mg-600 mg cap Take by mouth. metoprolol succinate ER (TOPROL XL) 25 mg 24 hr tablet Take 1 tablet by mouth once daily. acetaminophen (TYLENOL) 500 mg tablet Take 500 mg by mouth every 8 hours as needed. lidocaine (XYLOCAINE) 5 % ointment Apply 1 application to affected area three times daily. (Patient taking differently: Apply 1 application to affected area three times daily. Taking prn ) hydroxychloroquine (PLAQUENIL) 200 mg tablet Take two tablets by mouth once daily. CALCIUM CARBONATE/VITAMIN D3 (CALCIUM 600 + D,3, ORAL) Take 1 tablet by mouth once daily. No current facility-administered medications on file prior to visit. Social History Social History Tobacco Use Smoking status: Never Smoker Smokeless tobacco: Never Used Vaping Use Vaping Use: Never used Substance Use Topics Alcohol use: No Drug use: No Review of Symptoms REVIEW OF SYSTEMS GENERAL: No weight loss, malaise or fevers RESPIRATORY: Negative for cough, hemoptysis, wheezing, COPD, dyspnea or shortness of breath CARDIOVASCULAR: Negative for chest pain, leg swelling, hypertension, CHF or palpitations GI: No nausea, vomiting, or diarrhea SKIN: Negative for lesions, rash, and itching EXAM: BP 120/84 Pulse 61 Resp 16 Wt 80.6 kg (177 lb 9.6 oz) SpO2 98% BMI 30.70 kg/m General Appearance: Well appearing, alert, in no acute distress, well-hydrated, well nourished.. Skin: Skin color, texture, turgor normal, no suspicious rashes or lesions. Lungs: Lungs clear to auscultation. No wheezing, rhonchi, rales.. Heart: RRR with 2/6 CIRILO heard throughout Abdomen: Normal abdominal exam, Abdomen soft, non-tender. Bowel sounds normal. No masses, organomegaly. Extremities: No deformities, edema, skin discoloration, clubbing or cyanosis. Good capillary refill. . Health Maintenance List PNEUMOCOCCAL: 65+(1 - PCV) Never done BP CONTROLLED (<130/80) Never done DTAP,TDAP,TD(1 - Tdap) Never done SHINGRIX VACCINE(1 of 2) Never done ADVANCE DIRECTIVE DISCUSSION Never done COVID-19 VACCINE(4 - Booster for Pfizer series) due on 07/17/2021 LDL CHOLESTEROL due on 11/29/2021 MAMMOGRAM due on 05/12/2022 ANNUAL PCP TEAM CHRONIC DISEASE VISIT due on 06/09/2022 DEPRESSION SCREENING due on 06/26/2022 DIABETES SCREEN due on 06/24/2024 LIPID SCREEN due on 11/29/2025 COLORECTAL CANCER SCREENING due on 09/10/2030 BONE DENSITY Completed INFLUENZA Completed HEPATITIS C SCREENING Completed Data reviewed Component Latest Ref Rng & Units 06/10/2021 06/24/2021 Protein, Total 6.3 - 8.0 g/dL 6.1 (L) 6.0 (L) Albumin 3.9 - 4.9 g/dL 4.4 4.6 Calcium 8.5 - 10.2 mg/dL 9.3 9.3 Bilirubin, Total 0.2 - 1.3 mg/dL 0.5 0.4 Alkaline Phosphatase 34 - 123 U/L 100 103 AST 13 - 35 U/L 14 15 Glucose 74 - 99 mg/dL 100 (H) 85 BUN 7 - 21 mg/dL 15 13 Creatinine 0.58 - 0.96 mg/dL 0.76 0.79 Sodium 136 - 144 mmol/L 135 (L) 136 Potassium 3.7 - 5.1 mmol/L 4.1 4.0 Chloride 97 - 105 mmol/L 97 99 CO2 22 - 30 mmol/L 27 26 Anion Gap 9 - 18 mmol/L 11 11 ALT 7 - 38 U/L 10 12 eGFR- >60 >60 eGFR-All Other Races . >60 >60 WBC 3.70 - 11.00 k/uL 3.50 (L) RBC 3.90 - 5.20 m/uL 3.53 (L) Hemoglobin 11.5 - 15.5 g/dL 11.2 (L) Hematocrit 36.0 - 46.0 % 33.1 (L) MCV 80.0 - 100.0 fL 93.8 MCH 26.0 - 34.0 pG 31.7 MCHC 30.5 - 36.0 g/dL 33.8 RDW-CV 11.5 - 15.0 % 12.8 Platelet Count 150 - 400 k/uL 138 (L) MPV 9.0 - 12.7 fL 11.3 Absolute nRBC <0.01 k/uL <0.01 Iron 41 - 186 ug/dL 71 TIBC 232 - 386 ug/dL 353 Transferrin Saturation 15 - 57 % 20 Ferritin 14.7 - 205.1 ng/mL 74.4 Vitamin B12 232 - 1,245 pg/mL 680 Folate >4.7 ng/mL >20.0 ASSESSMENT/PLAN: 1. Essential hypertension, benign - ICD9: 401.1, ICD10: I10 (primary diagnosis) - good control - Continue current medication(s) - Encouraged dietary sodium restriction/DASH diet - Recommended regular aerobic exercise. - Reviewed risks of HTN and principles of treatment - Goal of BP <130/80 - LISINOPRIL 40 MG TABLET - COMP METABOLIC PANEL 2. Hyperlipidemia with target LDL less than 100 - ICD9: 272.4, ICD10: E78.5 - to be determined upon return of lab results - Continue current medication. - Encouraged following a low fat, low cholesterol diet. - Discussed the benefits of regular aerobic exercise and weight loss. - ROSUVASTATIN 10 MG TABLET - COMP METABOLIC PANEL - LIPID PANEL, NONFASTING 3. Coronary artery disease involving pokagon heart without angina pectoris, unspecified vessel or lesion type - ICD9: 414.01, ICD10: I25.10 Asymptomatic on medical management. Continue statin as prescribed. F/u with cardiology yearly. Red flags for re-assessment reviewed with patient in detail. - METOPROLOL SUCCINATE ER 25 MG TABLET,EXTENDED RELEASE 24 HR 4. Rheumatoid arthritis involving multiple sites with positive rheumatoid factor (HCC) - ICD9: 714.0, ICD10: M05.79 Pain/swelling improved on current regimen. F/u with rheumatology. Will obtain records. 5. History of left breast cancer - ICD9: V10.3, ICD10: Z85.3 In remission. Follow up with mammogram as ordered and with oncology as scheduled. 6. Chronic anemia - ICD9: 285.9, ICD10: D64.9 Recheck CBC. Will call with results. - CBC + DIFF Stewart Moody MD documented in this encounter [facility] documented as of this encounter (statuses as of 12/12/2021) [facility]2017 History of Past illness Narrative* Problem Noted Date Resolved Date Trochanteric bursitis of left hip 06/10/2017 03/24/2018 Cervical radiculopathy at C6 01/02/2015 Cervical radiculopathy at C7 01/02/2015 Cervical radiculitis 01/02/2015 02/26/2015 Lumbosacral neuritis 01/02/2015 06/06/2018 Abnormal gait 01/02/2015 02/25/2016 Arm weakness 01/02/2015 02/25/2016 Seroma 08/01/2012 10/05/2017 Breast cancer 06/16/2012 12/10/2021 Hypopotassemia 09/27/2008 01/16/2015 Sprain of thoracic region 08/01/20082014 documented as of this encounter (statuses as of 06/02/2022) [facility] History of Past illness Narrative* Problem Noted Date Resolved Date Trochanteric bursitis of left hip 06/10/2017 03/24/2018 Cervical radiculopathy at C6 01/02/2015 Cervical radiculopathy at C7 01/02/2015 Cervical radiculitis 01/02/2015 02/26/2015 Lumbosacral neuritis 01/02/2015 06/06/2018 Abnormal gait 01/02/2015 02/25/2016 Arm weakness 01/02/2015 02/25/2016 Seroma 08/01/2012 10/05/2017 Breast cancer 06/16/2012 12/10/2021 Hypopotassemia 09/27/2008 01/16/2015 Sprain of thoracic region 08/01/20082014 documented as of this encounter (statuses as of 06/02/2022) [facility] History of Past illness Narrative* Problem Noted Date Resolved Date Trochanteric bursitis of left hip 06/10/2017 03/24/2018 Cervical radiculopathy at C6 01/02/2015 Cervical radiculopathy at C7 01/02/2015 Cervical radiculitis 01/02/2015 02/26/2015 Lumbosacral neuritis 01/02/2015 06/06/2018 Abnormal gait 01/02/2015 02/25/2016 Arm weakness 01/02/2015 02/25/2016 Seroma 08/01/2012 10/05/2017 Breast cancer 06/16/2012 12/10/2021 Hypopotassemia 09/27/2008 01/16/2015 Sprain of thoracic region 08/01/20082014 documented as of this encounter (statuses as of 06/03/2022) [facility] History of Past illness Narrative* Problem Noted Date Resolved Date Trochanteric bursitis of left hip 06/10/2017 03/24/2018 Cervical radiculopathy at C6 01/02/2015 Cervical radiculopathy at C7 01/02/2015 Cervical radiculitis 01/02/2015 02/26/2015 Lumbosacral neuritis 01/02/2015 06/06/2018 Abnormal gait 01/02/2015 02/25/2016 Arm weakness 01/02/2015 02/25/2016 Seroma 08/01/2012 10/05/2017 Breast cancer 06/16/2012 12/10/2021 Hypopotassemia 09/27/2008 01/16/2015 Sprain of thoracic region 08/01/20082014 documented as of this encounter (statuses as of 06/22/2022) [facility] History of Past illness Narrative* Problem Noted Date Resolved Date Trochanteric bursitis of left hip 06/10/2017 03/24/2018 Cervical radiculopathy at C6 01/02/2015 Cervical radiculopathy at C7 01/02/2015 Cervical radiculitis 01/02/2015 02/26/2015 Lumbosacral neuritis 01/02/2015 06/06/2018 Abnormal gait 01/02/2015 02/25/2016 Arm weakness 01/02/2015 02/25/2016 Seroma 08/01/2012 10/05/2017 Breast cancer 06/16/2012 12/10/2021 Hypopotassemia 09/27/2008 01/16/2015 Sprain of thoracic region 08/01/20082014 documented as of this encounter (statuses as of 06/23/2022) [facility] History of Past illness Narrative* Problem Noted Date Resolved Date Trochanteric bursitis of left hip 06/10/2017 03/24/2018 Cervical radiculopathy at C6 01/02/2015 Cervical radiculopathy at C7 01/02/2015 Cervical radiculitis 01/02/2015 02/26/2015 Lumbosacral neuritis 01/02/2015 06/06/2018 Abnormal gait 01/02/2015 02/25/2016 Arm weakness 01/02/2015 02/25/2016 Seroma 08/01/2012 10/05/2017 Breast cancer 06/16/2012 12/10/2021 Hypopotassemia 09/27/2008 01/16/2015 Sprain of thoracic region 08/01/20082014 documented as of this encounter (statuses as of 07/05/2022) [facility] History of Past illness Narrative* Problem Noted Date Resolved Date Trochanteric bursitis of left hip 06/10/2017 03/24/2018 Cervical radiculopathy at C6 01/02/2015 Cervical radiculopathy at C7 01/02/2015 Cervical radiculitis 01/02/2015 02/26/2015 Lumbosacral neuritis 01/02/2015 06/06/2018 Abnormal gait 01/02/2015 02/25/2016 Arm weakness 01/02/2015 02/25/2016 Seroma 08/01/2012 10/05/2017 Breast cancer 06/16/2012 12/10/2021 Hypopotassemia 09/27/2008 01/16/2015 Sprain of thoracic region 08/01/20082014 documented as of this encounter (statuses as of 07/16/2022) [facility] History of Past illness Narrative* Problem Noted Date Resolved Date Trochanteric bursitis of left hip 06/10/2017 03/24/2018 Cervical radiculopathy at C6 01/02/2015 Cervical radiculopathy at C7 01/02/2015 Cervical radiculitis 01/02/2015 02/26/2015 Lumbosacral neuritis 01/02/2015 06/06/2018 Abnormal gait 01/02/2015 02/25/2016 Arm weakness 01/02/2015 02/25/2016 Seroma 08/01/2012 10/05/2017 Breast cancer 06/16/2012 12/10/2021 Hypopotassemia 09/27/2008 01/16/2015 Sprain of thoracic region 08/01/20082014 documented as of this encounter (statuses as of 07/21/2022) [facility] History of Past illness Narrative* Problem Noted Date Diagnosed Date Resolved Date Trochanteric bursitis of left hip 06/10/2017 03/24/2018 Cervical radiculopathy at C6 01/02/2015 02/26/2015 Cervical radiculopathy at C7 01/02/2015 02/26/2015 Cervical radiculitis 01/02/2015 015 Lumbosacral neuritis 01/02/2015 018 Abnormal gait 01/02/2015 02/25/2016 Arm weakness 01/02/2015 02/25/2016 Seroma 08/01/2012 10/05/2017 Breast cancer 06/16/2012 12/10/2021 Hypopotassemia 09/27/2008 01/16/2015 Sprain of thoracic region 08/01/2008 documented as of this encounter (statuses as of 05/16/2023) [facility] History of Past illness Narrative* Problem Noted Date Diagnosed Date Resolved Date Trochanteric bursitis of left hip 06/10/2017 03/24/2018 Cervical radiculopathy at C6 01/02/2015 02/26/2015 Cervical radiculopathy at C7 01/02/2015 02/26/2015 Cervical radiculitis 01/02/2015 015 Lumbosacral neuritis 01/02/2015 018 Abnormal gait 01/02/2015 02/25/2016 Arm weakness 01/02/2015 02/25/2016 Seroma 08/01/2012 10/05/2017 Breast cancer 06/16/2012 12/10/2021 Hypopotassemia 09/27/2008 01/16/2015 Sprain of thoracic region 08/01/2008 documented as of this encounter (statuses as of 05/16/2023) [facility] History of Past illness Narrative* Problem Noted Date Diagnosed Date Resolved Date Trochanteric bursitis of left hip 06/10/2017 03/24/2018 Cervical radiculopathy at C6 01/02/2015 02/26/2015 Cervical radiculopathy at C7 01/02/2015 02/26/2015 Cervical radiculitis 01/02/2015 015 Lumbosacral neuritis 01/02/2015 018 Abnormal gait 01/02/2015 02/25/2016 Arm weakness 01/02/2015 02/25/2016 Seroma 08/01/2012 10/05/2017 Breast cancer 06/16/2012 12/10/2021 Hypopotassemia 09/27/2008 01/16/2015 Sprain of thoracic region 08/01/2008 documented as of this encounter (statuses as of 05/16/2023) [facility] History of Past illness Narrative* Problem Noted Date Diagnosed Date Resolved Date Trochanteric bursitis of left hip 06/10/2017 03/24/2018 Cervical radiculopathy at C6 01/02/2015 02/26/2015 Cervical radiculopathy at C7 01/02/2015 02/26/2015 Cervical radiculitis 01/02/2015 015 Lumbosacral neuritis 01/02/2015 018 Abnormal gait 01/02/2015 02/25/2016 Arm weakness 01/02/2015 02/25/2016 Seroma 08/01/2012 10/05/2017 Breast cancer 06/16/2012 12/10/2021 Hypopotassemia 09/27/2008 01/16/2015 Sprain of thoracic region 08/01/2008 documented as of this encounter (statuses as of 06/12/2023) [facility] History of Past illness Narrative* Problem Noted Date Diagnosed Date Resolved Date Trochanteric bursitis of left hip 06/10/2017 03/24/2018 Cervical radiculopathy at C6 01/02/2015 02/26/2015 Cervical radiculopathy at C7 01/02/2015 02/26/2015 Cervical radiculitis 01/02/2015 015 Lumbosacral neuritis 01/02/2015 018 Abnormal gait 01/02/2015 02/25/2016 Arm weakness 01/02/2015 02/25/2016 Seroma 08/01/2012 10/05/2017 Breast cancer 06/16/2012 12/10/2021 Hypopotassemia 09/27/2008 01/16/2015 Sprain of thoracic region 08/01/2008 documented as of this encounter (statuses as of 06/21/2023) [facility] note* Diagnosis Essential hypertension, benign- Primary Hyperlipidemia with target LDL less than 100 Other and unspecified hyperlipidemia Coronary artery disease involving pokagon heart without angina pectoris, unspecified vessel or lesion type Rheumatoid arthritis involving multiple sites with positive rheumatoid factor (HCC) History of left breast cancer Chronic anemia Anemia, unspecified documented in this encounter [facility] note* Diagnosis History of left breast cancer- Primary Abnormal mammogram of right breast documented in this encounter [facility] note* Diagnosis Coronary artery disease involving pokagon heart without angina pectoris, unspecified vessel or lesion type- Primary Hyperlipidemia with target LDL less than 100 Other and unspecified hyperlipidemia Essential hypertension, benign Rheumatoid arthritis involving multiple sites with positive rheumatoid factor (HCC) Abnormal mammogram Abnormal mammogram, unspecified History of left breast cancer ER+ (estrogen receptor positive status) Estrogen receptor positive status [ER+] Chronic anemia Anemia, unspecified Advance directive discussed with patient Other specified counseling documented in this encounter [facility] note* Diagnosis Hyperlipidemia with target LDL less than 100 Other and unspecified hyperlipidemia documented in this encounter [facility] note* Diagnosis Personal history of breast cancer- Primary Personal history of malignant neoplasm of breast Encounter for screening mammogram for high-risk patient documented in this encounter [facility] note* Diagnosis History of left breast cancer Abnormal mammogram of right breast documented in this encounter [facility] note* Diagnosis History of left breast cancer Abnormal mammogram of right breast documented in this encounter [facility] note* Diagnosis 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 for referral (narrative)* Diagnostic Procedure Only (Routine) - Pending Review Specialty Diagnoses / Procedures Referred By Korina santoyo Referred To Contact [facility] Diagnoses History of left breast cancer Abnormal mammogram of right breast Procedures US BREAST LTD RT US BREAST UNI REAL TIME WITH IMAGE LIMITED Lelo White APRN.COMBUSTION ANALYST [address] [place] [address] [facility] [address] [place] [address] Referral ID Status Reason Start Date Expiration Date Visits Requested Visits Authorized [id number] Pending Review Auto-Generat ed Referral 2 07/02/2023 1 1 * Diagnostic Procedure Only (Routine) - Authorized Specialty Diagnoses / Procedures Referred By Korina t Referred To Contact [facility] Diagnoses History of left breast cancer Abnormal mammogram of right breast Procedures [facility] DIAGNOSTIC RT DIAGNOSTIC MAMMOGRAPHY COMPUTER-AIDED DETCJ UNI Lelo White APRN.COMBUSTION ANALYST [address] [place] [address] [facility] [address] [place] [address] Referral ID Status Reason Start Date Expiration Date Visits Requested Visits Authorized [id number] Authorized Auto-Generat ed Referral 2 07/02/[address] [facility] for referral (narrative)* Diagnostic Procedure Only (Routine) - Authorized Specialty Diagnoses / Procedures Referred By Korina santoyo Referred To Contact [facility] Diagnoses Personal history of breast cancer Encounter for screening mammogram for high-risk patient Procedures [place] SCREENING SCREENING MAMMOGRAPHY BI 2-VIEW BREAST INC CAD Lelo White APRN.COMBUSTION ANALYST [address] [place] [address] [facility] [address] [place] [address] Referral ID Status Reason Start Date Expiration Date Visits Requested Visits Authorized [id number] Authorized Auto-Generat ed Referral 07/21/2022 08/20/[address] [facility] for referral (narrative)* Diagnostic Procedure Only (Routine) - Closed Specialty Diagnoses / Procedures Referred By Korina santoyo Referred To Contact [facility] Diagnoses History of left breast cancer Abnormal mammogram of right breast Procedures US BREAST LTD RT US BREAST UNI REAL TIME WITH IMAGE LIMITED Lelo White APRN.COMBUSTION ANALYST [address] [place] [address] [facility] [address] [place] [address] Referral ID Status Reason Start Date Expiration Date V isits Requested Visits Authorized [id number] Closed Auto-Generate d Referral 06/02/2022 07/02/[address] 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) Encounter for screening mammogram for high-risk patient Procedures [place] SCREENING SCREENING MAMMOGRAPHY BI 2-VIEW BREAST INC [facility] Lelo White APRN.COMBUSTION ANALYST [address] [place] [address] [facility] [address] [place] [address] Referral ID Status Reason Start Date Expiration Date V isits Requested Visits Authorized [id number] Closed Auto-Generate d Referral 07/01/2021 07/31/2022 1 1 [facility] for visit Narrative* Diagnostic Procedure Only (Routine) - Closed Specialty Diagnoses / Procedures Referred By Contac t Referred To Contact [facility] Diagnoses History of left breast cancer Abnormal mammogram of right breast Procedures [facility] DIAGNOST[facility] RT DIAGNOSTIC MAMMOGRAPHY COMPUTER-AIDED DETCJ [facility] Lelo White APRN.COMBUSTION ANALYST [address] [place] [address] [facility] [address] [place] [address] Referral ID Status Reason Start Date Expiration Date V isits Requested Visits Authorized [id number] Closed Auto-Generate d Referral 06/02/2022 07/02/[address] 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) Encounter for screening mammogram for high-risk patient Procedures [place] SCREENING SCREENING MAMMOGRAPHY BI 2-VIEW BREAST INC CAD CindyLelo, CALEB.COMBUSTION ANALYST [address] [place] [address] [facility] [address] [place] [address] Referral ID Status Reason Start Date Expiration Date V isits Requested Visits Authorized [id number] Closed Auto-Generate d Referral 07/01/2021 07/31/2022 [facility] Procedure Only (Routine) - Closed Specialty Diagnoses / Procedures Referred By Contac t Referred To Contact [facility] Diagnoses Personal history of breast cancer Encounter for screening mammogram for high-risk patient Procedures [place] SCREENING SCREENING MAMMOGRAPHY BI 2-VIEW BREAST INC CAD CindyLelo, COMMODITIES TRADER.COMBUSTION ANALYST [address] [place] [address] [facility] [address] [place] [address] Referral ID Status Reason Start Date Expiration Date V isits Requested Visits Authorized [id number] Closed Auto-Generate d Referral 07/21/2022 08/20/2023 1 1 [facility] Advance Directives No Advanced Directives Records FoundDocuments on File Type Date Recorded 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 Advance Directive(s) 01/03/2019 7:21 AM Advance Directive(s) 12/26/2018 8:49 AM Summary Purpose Family History No Family History Records Found Additional Source Comments Source Comments (unrecognize d section and content) In the event this informatio n is protected by the Federal Confidentiality of Alcohol and Drug Abuse Patient Records regulations: The Federal rules restrict any use of the information to criminally investigate or prosecute any alcohol or drug abuse patient.[facility] event this information is protected by the Federal Confidentiality of Alcohol and Drug Abuse Patient Records regulations: The Federal rules restrict any use of the information to criminally investigate or prosecute any alcohol or drug abuse patient.[facility] the event this information is protected by the Federal Confidentiality of Alcohol and Drug Abuse Patient Records regulations: The Federal rules restrict any use of the information to criminally investigate or prosecute any alcohol or drug abuse patient.[facility] the event this information is protected by the Federal Confidentiality of Alcohol and Drug Abuse Patient Records regulations: The Federal rules restrict any use of the information to criminally investigate or prosecute any alcohol or drug abuse patient.[facility] the event this information is protected by the Federal Confidentiality of Alcohol and Drug Abuse Patient Records regulations: The Federal rules restrict any use of the information to criminally investigate or prosecute any alcohol or drug abuse patient.[facility] the event this information is protected by the Federal Confidentiality of Alcohol and Drug Abuse Patient Records regulations: The Federal rules restrict any use of the information to criminally investigate or prosecute any alcohol or drug abuse patient.[facility] the event this information is protected by the Federal Confidentiality of Alcohol and Drug Abuse Patient Records regulations: The Federal rules restrict any use of the information to criminally investigate or prosecute any alcohol or drug abuse patient.[facility] the event this information is protected by the Federal Confidentiality of Alcohol and Drug Abuse Patient Records regulations: The Federal rules restrict any use of the information to criminally investigate or prosecute any alcohol or drug abuse patient.[facility] the event this information is protected by the Federal Confidentiality of Alcohol and Drug Abuse Patient Records regulations: The Federal rules restrict any use of the information to criminally investigate or prosecute any alcohol or drug abuse patient.[facility] the event this information is protected by the Federal Confidentiality of Alcohol and Drug Abuse Patient Records regulations: The Federal rules restrict any use of the information to criminally investigate or prosecute any alcohol or drug abuse patient.[facility] the event this information is protected by the Federal Confidentiality of Alcohol and Drug Abuse Patient Records regulations: The Federal rules restrict any use of the information to criminally investigate or prosecute any alcohol or drug abuse patient.[facility] the event this information is protected by the Federal Confidentiality of Alcohol and Drug Abuse Patient Records regulations: The Federal rules restrict any use of the information to criminally investigate or prosecute any alcohol or drug abuse patient.[facility] the event this information is protected by the Federal Confidentiality of Alcohol and Drug Abuse Patient Records regulations: The Federal rules restrict any use of the information to criminally investigate or prosecute any alcohol or drug abuse patient.[facility] the event this information is protected by the Federal Confidentiality of Alcohol and Drug Abuse Patient Records regulations: The Federal rules restrict any use of the information to criminally investigate or prosecute any alcohol or drug abuse patient.[facility] Reason for Visit (unrecogniz ed section and content) Reason Comments Results Reason Comments Mammogram Result Call Back Reason Comments Results Reason Comments Patient Update Appointment Reason Comments Future Appointment Reason Comments Established Patient Reason Comments Radiology US Specialty Diagnoses / Procedures Referred By Contac t Referred To Contact [facility] Diagnoses History of left breast cancer Abnormal mammogram of right breast Procedures US BREAST LTD RT US BREAST UNI REAL TIME WITH IMAGE LIMITED Lelo White APRN.COMBUSTION ANALYST [address] [place] [address] [facility] [address] [place] [address] Referral ID Status Reason Start Date Expiration Date V isits Requested Visits Authorized [id number] Closed Auto-Generate d Referral 06/02/2022 07/02/2023 1 1 Care Teams (unrecognized sec tion and content) Lathe Mechanic Relationship Specialty Start Date End Date Stewart Moody MD [address] [place], [place] [address] PCP - General Family Medicine 12/04/20 Pily Tubbs, AIYANA [address] [place] [address] Specialty Supervisor Press Room Family Medicine 01/25/19 Lathe Mechanic Relationship Specialty Start Date End Date Stewart Moody MD [address] [place], [place] [id number] [phone] PCP - General Family Medicine 12/04/20 Pily Tubbs CNP [address] [facility] [place] [address] Specialty Supervisor Press Room Family Medicine 01/25/19 Lathe Mechanic Relationship Specialty Start Date End Date Stewart Moody MD [address] [place] [address] PCP - General Family Medicine 12/04/20 Pily Tubbs CNP [address] [facility] [place] [address] Specialty Supervisor Press Room Family Medicine 01/25/19 Lathe Mechanic Relationship Specialty Start Date End Date Stewart Moody MD [address] [place] [address] PCP - General Family Medicine 12/04/20 Pily Tubbs CNP [address] [place] [address] Specialty Supervisor Press Room Family Medicine 01/25/19 Lathe Mechanic Relationship Specialty Start Date End Date Stewart Moody MD [address] [place] [address] PCP - General Family Medicine 12/04/20 Pily Tubbs CNP [address] [facility] [place] [address] Specialty Supervisor Press Room Family Medicine 01/25/19 Lathe Mechanic Relationship Specialty Start Date End Date Stewart Moody MD [address] [place] [address] PCP - General Family Medicine 12/04/20 Pily Tubbs CNP [address] [facility] [place] [place] [address] Specialty Supervisor Press Room Family Medicine 01/25/19 Lathe Mechanic Relationship Specialty Start Date End Date Stewart Moody MD [address] [place] [address] PCP - General Family Medicine 12/04/20 Pily Tubbs COMBUSTION ANALYST [address] [facility] [place] [address] Specialty Supervisor Press Room Family Medicine 01/25/19 Lathe Mechanic Relationship Specialty Start Date End Date Stewart Moody MD [address] [place] [address] PCP - General Family Medicine 12/04/20 Pily Tubbs CNP [address] [facility] [place] [address] Specialty Supervisor Press Room Family Medicine 01/25/19 Lathe Mechanic Relationship Specialty Start Date End Date Stewart Moody MD [address] [place] [address] PCP - General Family Medicine 12/04/20 Pily Tubbs CNP [address] [facility] [place] [address] Specialty Supervisor Press Room Family Medicine 01/25/19 Lathe Mechanic Relationship Specialty Start Date End Date Stewart Moody MD [address] [place] [address] PCP - General Family Medicine 12/04/20 Pily Tubbs, COMBUSTION ANALYST [address] [facility] [place] [address] Specialty Supervisor Press Room Family Medicine 01/25/19 Lathe Mechanic Relationship Specialty Start Date End Date Stewart Moody MD [address] [place], [place] [id number] PCP - General Family Medicine 12/04/20 Pily Tubbs, COMBUSTION ANALYST [address] [place] [address] Specialty Supervisor Press Room Family Medicine 01/25/19 Lathe Mechanic Relationship Specialty Start Date End Date Stewart Moody MD [address] [place], [place] [id number] PCP - General Family Medicine 12/04/20 Pily Tubbs, COMBUSTION ANALYST [address] [facility] [place] [address] Specialty Supervisor Press Room Family Medicine 01/25/19 Lathe Mechanic Relationship Specialty Start Date End Date Stewart Moody MD [address] [place], [place] [id number] PCP - General Family Medicine 12/04/20 Pily Tubbs COMBUSTION ANALYST [address] [facility], [place] [id number] Specialty Supervisor Press Room Family Medicine 01/25/19 INFORMATION SOURCE (unrecogn ized section and content) FOR RECORDS PERTAINING TO PATIENTS WHO ARE OR HAVE BEEN ENROLLED IN A CHEMICAL DEPENDENCY/SUBSTANCEABUSE PROGRAM, SOME INFORMATION MAY BE OMITTED. This clinical summary was aggregated from multiple sources. Caution should be exercised in using it in the provision of clinical care. This summary normalizes information from multiple sources, and as a consequence, information in this document may materially change the coding, format and clinical context of patient data. In addition, data may be omitted in some cases. CLINICAL DECISIONS SHOULD BE BASED ON THE PRIMARY CLINICAL RECORDS. [employer] [facility] provides no warranty or guarantee of the accuracy or completeness of information in this document.
--- NOTE | 2023-08-18 11:28 | PCM.HP.STD ---
HPI - General General Date of Admission: 08/18/23 Date of Service: 08/18/23 Chief Complaint: Cough, dyspnea, fatigue, malaise. HPI Narrative The patient is a 78 y/o F w/ PMHx: HFpEF, CAD, Hx L Breast CA, GERD w/ Hx GI bleed, HTN, HLD, Hx Uterine CA, Chronic normocytic anemia/iron deficiency anemia, Rheumatoid arthritis who presents to the [facility] ED on 08/18/2023 with history of generalized, fatigue and ongoing cough more severe over the last several weeks although she does have more of a chronic component cough with pleuritic chest discomfort nausea and occasional bouts of emesis reportedly over the last 2 to 3 weeks. Patient notes her emesis is normal-appearing with no blood or coffee-ground emesis. She has been having normal bowel movements. She does report that she has been having fevers but she has not checked her temperatures at all. She denies any chills. Patient does report that she has had minimal appetite over the last 2 to 3 days. Workup in the ED included T98.1, heart rate 119, BP 108/54, respiratory rate 32, 88% on room air, CBC with WBC 3.7, hemoglobin 9.9, MCV 92.6, platelet 142 with lymphopenia, BMP with sodium 132, glucose 109, lactic acid 1.1, chest x-ray with consolidation right upper lobe, blood culture x 2 pending per ED. In the ED patient administered IV azithromycin and IV Rocephin therapy, EKG with [facility] Medical History (HFpEF) heart failure with preserved ejection fraction Acute hypoxemic respiratory failure Atherosclerosis of coronary artery of [place] heart without angina pectoris Bilateral pleural effusion Breast cancer, left DDD (degenerative disc disease) Diverticulosis Essential hypertension GERD (gastroesophageal reflux disease) GI bleed History of malignant neoplasm of left breast History of DC (myocardial infarction) History of non-ST elevation myocardial infarction (NSTEMI) (09/18/20) History of uterine cancer Hyperlipidemia Hypokalemia Iron deficiency anemia Nonrheumatic aortic (valve) stenosis Osteoarthritis Rheumatoid arthritis Home Medications magnesium 250 mg tablet 250 mg PO DAILY supplement 03/13/16 [History Last Taken 08/16/23] acetaminophen 500 mg tablet 1,000 mg PO Q8H PRN Pain 1-10 Or Fever 09/09/20 [History Last Taken 08/17/23] hydroxychloroquine 200 mg tablet 200 mg PO BID arthritis 09/18/20 [History Last Taken 08/16/23] calcium carbonate 600 mg-vitamin D3 10 mcg (400 unit) tablet 1 tablet PO DAILY 10/09/20 [History Last Taken 08/16/23] Allergy/AdvReac Type Severity Reaction Status Date / Time amlodipine besylate Allergy Swelling Verified 08/18/23 08:49 [From Norvasc] bisoprolol fumarate Allergy Unknown Verified 08/18/23 08:49 [From Ziac] adhesive AdvReac Itching Verified 08/18/23 08:49 hydrochlorothiazide AdvReac Unknown Verified 08/18/23 08:49 Family History Mother Cancer Uterine Hypertension Hyperlipidemia Osteoporosis Father Myocardial infarction, Onset Age: 39 Grandmother Diabetes Sister Hypertension Osteoporosis Brother Hypertension Aunt Thyroid disorder Surgical History History of colonoscopy (01/03/19) History of esophagogastroduodenoscopy (EGD) (01/03/19) History of left breast biopsy (05/24/12) History of lymph node biopsy (06/06/12) History of partial mastectomy of left breast (06/06/12) History of shoulder surgery (02/07/20) History of total abdominal hysterectomy (1979) History of total right knee replacement (03/24/16) Social History (Updated 08/18/23 @ 11:[address] Lola Naik MD) household members: spouse Smoking Status: Never smoker alcohol intake: never substance use type: does not use ROS ROS Narrative Admission Review of Systems: CONSTITUTIONAL: No weight loss, + subjective fever, chills, weakness or fatigue. HEENT: Eyes: No visual loss, blurred vision, double vision or yellow sclerae. Ears, Nose, Throat: No hearing loss, sneezing, congestion, runny nose or sore throat. SKIN: No rash or itching, lesions, wounds. CARDIOVASCULAR: + Pleuritic chest discomfort otherwise No chest pain, chest pressure or chest discomfort, palpitations, edema, orthopnea, syncopal events. RESPIRATORY: + Shortness of breath, cough with mildly productive sputum no wheezing, hemoptysis. GASTROINTESTINAL: + Anorexia, nausea, emesis. No diarrhea, abdominal pain, melena, BRBPR. GENITOURINARY: No dysuria, frequency, urgency or retention. NEUROLOGICAL: No headache, dizziness, syncope, paralysis, ataxia, numbness or tingling in the extremities, focal weakness, change in bowel or bladder control, seizure. MUSCULOSKELETAL: + muscle, back pain, joint pain or stiffness. HEMATOLOGIC: + Chronic anemia, easy bleeding/bruising. LYMPHATICS: No enlarged nodes. No history of splenectomy. PSYCHIATRIC: No history of depression or anxiety. ENDOCRINOLOGIC: No reports of sweating, cold or heat intolerance. No polyuria or polydipsia. ALLERGIES: No history of asthma, hives, eczema or rhinitis. Vital Signs Vital Signs Vital Signs: 08/18/23 08:49 08/18/23 09:15 08/18/23 09:25 Temperature 97.1 F L 97.2 F L Temperature Source Temporal Oral Pulse Rate 110 H 115 H Respiratory Rate 16 19 H Respiratory Effort Normal Non-Labored Respiratory Pattern Normal Blood Pressure 130/114 H 116/67 Blood Pressure Mean 119 83 Pulse Ox 96 95 Oxygen Delivery Method Room Air Room Air 08/18/23 10:15 Temperature 98.1 F Temperature Source Temporal Pulse Rate 119 H Respiratory Rate 32 H Respiratory Effort Respiratory Pattern Blood Pressure 108/54 L Blood Pressure Mean 72 Pulse Ox 88 Oxygen Delivery Method Room Air Weight Weight: 142 lb 9.6 oz Body Mass Index (BMI) 23.7 Physical Exam Narrative Physical Examination: General: Awake, alert, oriented x 3 and cooperative, seated upright in the ED bed, fatigued and ill-appearing, heart rate his come down. Skin: Normal color, normal turgor, no icterus, no cyanosis except for occasional staged ecchymoses. HEENT: AT/NC, EOMI, PERRLA, dry MM, no carotid bruits or JVD noted. Lungs: Diminished, greater bases, right upper lobe, more so posteriorly, still increased respiratory rate but no distress noted, no accessory muscle usage noted, able to speak in full sentences, no rales, ronchi or wheezing. Heart: Improved but remains mildly tachycardic with regular rhythm; no gallop, rub audible. Abdomen: Soft, NTTP, ND, hyperactive BS, no HSM. Extremities: No cyanosis, clubbing, or edema. Neurological: Patient awake, alert, oriented as noted, cognitive function intact; pupils equally reactive to light and accommodation, cranial nerves II-XII grossly normal, moving all 4 extremities, no focal deficits, strength severely globally decreased secondary to acute presentation. Psychiatric: Affect appears flat, fatigued, ill-appearing, no acute evidence of depressive or anxiety feelings. Results Lab / Micro Data 08/18/23 09:13 08/18/23 09:13 Labs: Laboratory Results - last 24 hr 08/18/23 09:13: WBC 3.7 L, RBC 3.26 L, Hgb 9.9 L, Hct 30.2 L, MCV 92.6, MCH 30.4, MCHC 32.8, RDW Std Deviation 50.2 H, RDW Coeff of Juan 14.7 H, Plt Count 142 L, MPV 11.8, Immature Gran % (Auto) 0.300, Neut % (Auto) 85.0 H, Lymph % (Auto) 6.4 L, [place] % (Auto) 8.3, Eos % (Auto) 0.0, Baso % (Auto) 0.0, Absolute Neuts (auto) 3.2, Absolute Lymphs (auto) 0.24 L, Nucleated RBC % 0, Sodium 132 L, Potassium 3.6, Chloride 101, Carbon Dioxide 25.0, Anion Gap 6, BUN 13, Creatinine 0.76, Estim Creat Clear Calc 53.83, Est GFR (MDRD) Af Amer 96, Est GFR (MDRD) Non-Af 79, BUN/Creatinine Ratio 17.2, Glucose 109 H, Calcium 9.2 08/18/23 10:20: Lactic Acid 1.1 Imaging Radiology Impression Chest X-Ray 08/18/23 09:44 IMPRESSION: Heterogeneous consolidation in the right upper lobe. Radiographic follow-up recommended. CT scan of the chest may be considered. Electronically Signed: Jeison Waters MD at 10:03 EST , Assessment & Plan Assessment/Plan (1) Right upper lobe pulmonary infiltrate: PLAN: Plan The patient is a 78 y/o F w/ PMHx: HFpEF, CAD, Hx L Breast CA, GERD w/ Hx GI bleed, HTN, HLD, Hx Uterine CA, Chronic normocytic anemia/iron deficiency anemia, Rheumatoid arthritis who presents to the [facility] ED on 08/18/2023 with history of generalized, fatigue and ongoing cough more severe over the last several weeks although she does have more of a chronic component cough with pleuritic chest discomfort nausea and occasional bouts of emesis reportedly over the last 2 to 3 weeks. #1. Acute Hypoxia (presentation not consistent with respiratory failure) secondary to Acute RUL Pneumonia/Consolidation: Chest x-ray upon presentation in the ED with consolidation right upper lobe. Will admit to MS telemetry given #2 associated, maintain on oxygen with wean as tolerated to room air, continue ATC budesonide, PRN albuterol, will maintain on IV Rocephin an Azithromycin but given reported history of bouts of emesis in case of aspiration component will monitor and request ST evaluation but location consistent with aspiration pattern, will additionally obtain CT chest also given appearance to assure not loculated with need for IR involvement, HOB, IS parameters w/ pending sputum cultures, full respiratory viral panel and urine antigens. Bld cx x 2 obtained in the ED. PT/OT/case management consulted for discharge planning. #2. Sinus tachycardia, initial concern for possible new onset atrial fibrillation however this is ruled out: EKG in the ED with initial concerns for possible atrial fibrillation with RVR however following EKG review with previous EKGs it is very similar and more consistent with sinus tachycardia, will maintain on telemetry to be cautious. As noted below reinitiating patient beta-milana therapy. #3. Hyponatremia, mild, likely hypovolemic component: Admission sodium 132, baseline previously normal, given acute illness suspect likely poor intake, will continue to judiciously hydrate and repeat CMP in AM. #4. HFpEF: 09/18/2020 echocardiogram with normal LV size, EF 53%, mild MVI and JIGNESH, small pericardial effusion, stage I diastolic dysfunction, mean AV gradient 24 mmHg, mild concentric LVH. Will continue aspirin, not on statin nor beta-milana therapy nor INDIGO inhibitor/ARB nor any diuretic therapy per current list but at last cardiology visit patient medication included lovastatin 10 mg daily, metoprolol succinate 25 mg extended release daily, lisinopril 40 mg daily, Lasix 40 mg daily, potassium chloride 20 mill equivalent daily. Given patient low BP upon presentation we will further assess once IV fluids additionally administered judiciously but at this time will prioritize restarting statin therapy, metoprolol succinate and once appropriate add Lasix and lisinopril if able. From discussions suspect that she was lost to follow-up during COVID. #5. Nonobstructive CAD: Most recent cardiology note noted 08/19/2021, no PCI noted in the record, currently patient is not on statin, beta-milana therapy nor INDIGO inhibitor however in the past at most recent cardiology visit 08/19/2021 as noted above she was on statin, metoprolol, lisinopril therapy. Given patient low BP upon presentation we will further assess once IV fluids additionally administered judiciously but at this time will prioritize restarting statin therapy, metoprolol succinate and once appropriate add Lasix and lisinopril if able. From discussions suspect that she was lost to follow-up during COVID. #6. Chronic normocytic anemia/Fe Deficiency anemia: Admission hemoglobin 9.9, MCV 92.6, baseline appears 89, stable, continue to trend. #7. Chronic thrombocytopenia, unclear etiology: Admission platelets 142, baseline appears similar although has been lower in the past but labs are remote since recent presentation, will continue to trend CBC. #8. History of breast cancer: Patient with history of left-sided breast cancer, unclear specific type, status post remote 2011 partial mastectomy left breast, considered in remission, encourage continued outpatient follow-up as previously arranged. #9. History uterine cancer: Patient status post total abdominal hysterectomy in 1979, considered in remission, encourage continued outpatient follow-up as previously arranged. #10. Rheumatoid arthritis: Will continue patient home hydroxychloroquine regimen. #11. GERD with history of GI bleed: Patient is not on any PPI, encourage continued outpatient follow-up and assessment. #12. DVT prophylaxis: Lovenox. #13. CODE status: Patient HCPOA and living will are not in place but her would be her decision-maker if necessary she notes. Discussed CODE status at length including difference between FULL code, DNR-CCA and DNR-CC status. Following discussions about the differences in these status, requested Full Code status. Advanced Care Planning Face to Face Time: 16 minutes. Charges/Coding Visit Charges Inpatient E&M: 01169 Init Hosp L3 Procedures Hospitalists Procedures: 04001 Advncd Care Plan 30 Min
[2023-08-18] MEDS: Azithromycin 500 MG in Dextrose 5%-Water (250mL Bag) 250 ML 250 MG IV (11:47)
[2023-08-18 11:57] LABS: Magnesium 1.9 mg/dL (1.6-2.6)
--- NOTE | 2023-08-18 12:10 | CT_ITS ---
STUDY: CT CHEST WITHOUT CONTRAST REASON FOR EXAM: Female, 78 years old. Consolidation, pna RADIATION DOSAGE (If Supplied By Facility): CTDIvol = ( 7.85 ) mGy, DLP = ( 286.39 ) mGycm TECHNIQUE: Transaxial imaging was performed without the administration of intravenous contrast material. Multiplanar coronal and sagittal images were reformatted. Individualized dose optimization techniques were used for this CT. COMPARISON: Comparison is made with prior chest radiograph done earlier in the day. FINDINGS: CHEST Surgical clips are seen in the left axilla. There is evidence of a dense consolidation in the peripheral lateral aspect of the right upper lobe. Mild increased markings are also seen in the left upper lobe with scattered nodular infiltrates in both upper lobes. Radiographic follow-up recommended. Small right pleural effusion. There are calcifications of the coronary arteries. There are multiple small lymph nodes within the mediastinum, which are normal in size and morphology most compatible with reactive lymph hyperplasia. Calcified right hilar lymph nodes. Normal unenhanced pulmonary arteries. Normal aorta arch and descending thoracic aorta. There are multi-level degenerative changes of the thoracic spine. There is no demonstrated abnormality of the visualized upper abdomen. CT/Chest without Contrast IMPRESSION: Dense consolidation in the right upper lobe with areas of patchy infiltrates in both upper lobes. Scattered nodular peripheral density seen. Radiographic follow-up is recommended. Right pleural effusion. Electronically Signed: Jeison Waters MD at 12:33 EST ,
[2023-08-18] MEDS: 0.9% Normal Saline (1000mL) 1,000 ML 100 ML IV (14:35)
[2023-08-18] MEDS: Metoprolol(XL)Succ 25 MG Tablet PO (14:35)
[2023-08-18] MEDS: Azithromycin 250 MG in Dextrose 5%-Water (250mL Bag) 250 ML IV (16:18)
--- OUTSIDE RECORDS SUMMARY | 2023-08-18 16:37 | XMS RPT_ITS | CCD ---
Author Name Unknown Address [address] [place] [address] Organization [facility] Care Team Providers Care Conference Translator Name Role Phone Arley BRONSON Pily Unavailable [phone] Stewart Moody MD Primary Care Provider STEWART MOODY Primary Care UnavailLELO Willis Attending Unavailable LELO WHITE Referring Unavailable LELO WHITE Referring Unavailable STEWART MOODY Primary Care Unavailab beck Allergies Allergy Classification Reported Allergen(s) Allergy Type Date of Onset Reaction(s) Facility (15 sources) Adhesive Tape; Translations: [ADHESIVE TAPE (ROSINS)] Allergy to substance 2 Rash [facility] Work Phone: (15 sources) amLODIPine; Translations: [AMLODIPINE BESYLATE] Drug Allergy 2 Swelling [facility] (15 sources) atorvastatin; Translations: [ATORVASTATIN] Drug Allergy 1 Other: See Comments [facility] Work Phone: (15 sources) Bisoprolol / hydroCHLOROthiaz kaci; Translations: [BISOPROLOL-HYDR OCHLOROTHIAZIDE] Drug Allergy 6 [facility] Work Phone: Medications Completed/Discontinued Medications Medication [...] Coronary arteriosclerosis; Translations: [Atherosclerotic heart disease of kaibab coronary artery without angina pectoris] Chronic Disorders [...] 10:02-0500 Body height 161.9 cm Lelo White [employer]BUSTER[employer] Work Phone: [facility] 07-21-2022 10:02-0500 Body temperature 98.8 [degF] Lelo White [employer] Work Phone: [facility] 07-21-2022 10:02-0500 Body weight 82.33 kg Lelo White [employer] Work Phone: [facility] 07-21-2022 10:02-0500 Diastolic blood pressure 82 mm[Hg] Lelo White [employer] Work Phone: [facility] 07-21-2022 10:02-0500 Heart rate 65 /min Lelo White [employer] Work Phone: [facility] 07-21-2022 10:02-0500 Systolic blood pressure 156 mm[Hg] [place] White [employer]BUSTER[employer] Work Phone: [facility] 06-22-2022 08:40-0500 Body weight 82.56 kg Stewart Moody MD Work Phone: [facility] 06-22-2022 08:40-0500 Diastolic blood pressure 80 mm[Hg] Stewart Moody MD Work Phone: [facility] 06-22-2022 08:40-0500 Heart rate 65 /min Stewart Moody MD Work Phone: [facility] 06-22-2022 08:40-0500 Respiratory rate 16 /min Stewart Moody MD Work Phone: [facility] 06-22-2022 08:40-0500 SaO2% (BldA) [Mass fraction] 97 % Stewart Moody MD Work Phone: [facility] 06-22-2022 08:40-0500 Systolic blood pressure 136 mm[Hg] Stewart Moody MD Work Phone: [facility] 12-12-2021 10:38-0400 Body weight 80.56 kg Stewart Moody MD Work Phone: [facility] 12-12-2021 10:38-0400 Diastolic blood pressure 84 mm[Hg] Stewart Moody MD Work Phone: [facility] 12-12-2021 10:38-0400 Heart rate 61 /min Stewart Moody MD Work Phone: [facility] 12-12-2021 10:38-0400 Respiratory rate 16 /min Stewart Moody MD Work Phone: [facility] 12-12-2021 10:38-0400 SaO2% (BldA) [Mass fraction] 98 % Stewart Moody MD Work Phone: [facility] 12-12-2021 10:38-0400 Systolic blood pressure 120 mm[Hg] Stewart Moody MD Work Phone: [facility] Encounters Encounter Date Encounter Type Care Provider Facility Start: 07-21-2023 End: 07-21-2023 ambulatory STEWART MOODY Facility:[facility] Start: 06-21-2023 Telephone encounter Lelo rasmussen APRN.CNP Work Phone: Hematology/Oncology Procedures Date Procedure Procedure Detail Performing Clinician Start: 07-14-2022 Us breast uni real t catherine with image limited eLlo Cindy [employer] Work Phone: Start: 07-14-2022 JAMAICA AKUAG W MARTITA RIGHT D lana White [employer] Work Phone: Start: 06-22-2022 Lipid 1996 panel - S alexander or Plasma Us 1 Work Phone: Start: 06-01-2022 End: 06-01-2022 Mammography Lelo White [employer]BUSTER [employer] Work Phone: Start: 06-26-2021 Adult depression screening assessment Stewart Moody MD Work Phone: Start: 05-12-2021 Mammography Shamir Moody MD Work Phone: Start: 09-10-2020 Colonoscopy Shamir Moody MD Work Phone: Plan of Treatment Date Care Activity Detail Author Start: 09-10-2030 Colonoscopy COLONOSCOPY [facility] Start: 09-10-2030 COLORECTAL CANCER SCREENING COLORECTAL CANCER SCREENING [facility] Start: 06-22-2027 Lipid 1996 panel - S alexander or Plasma Lipid Screening [facility] Start: 06-22-2027 LIPID SCREEN LIPID SCREEN [facility] Start: 11-29-2025 LIPID SCREEN LIPID SCREEN [facility] Start: 06-22-2025 DIABETES SCREEN DIABETES SCREEN [facility] Start: 06-22-2025 Diabetes Screening Diabetes Screenin g [facility] Start: 06-24-2024 DIABETES SCREEN DIABETES SCREEN [facility] Start: 06-22-2023 ANNUAL PCP TEAM SMALL PRODUCTS ASSEMBLER TONE DISEASE VISIT ANNUAL PCP TEAM CHRONIC DISEASE VISIT [facility] Start: 06-22-2023 COVID-19 VACCINE (5 - Booster for Pfizer series) COVID-19 VACCINE (5 - Booster for Pfizer series) [facility] Immunizations Immunization Date Immunization Notes Care Provider Kathy palmer 04-12-2023 influenza (aIIV4) vaccine, age 65+ yr, quadrivalent, PF (FLUAD QUAD) Screen Wstr [facility] 04-22-2022 influenza (aIIV4) vaccine, age 65+ yr, quadrivalent, PF (FLUAD QUADRIVALENT) Stewart Moody MD Work Phone: [facility] Work Phone: 04-27-2021 influenza (aIIV4) vaccine, age 65+ yr, quadrivalent, PF (FLUAD QUADRIVALENT) Stewart Moody MD Work Phone: [facility] Work Phone: 09-14-2020 COVID-19 vaccine, ag e 12+ yr (PFIZER-BIONTECH - PURPLE TOP) Stewart Moody MD Work Phone: [facility] 08-24-2020 COVID-19 vaccine, ag e 12+ yr (PFIZER-BIONTECH - PURPLE TOP) Stewart Moody MD Work Phone: [facility] Payers Date Payer Category Payer Private Health Insurance [facility] AARP SUPPLEMENT [id number] 2013-Present [phone] [address] [place] [address] Indemnity [id number] 2013 Private Health Insurance [facility] AARP SUPPLEMENT [id number] 2013-Present [phone] [address] [place] [address] Indemnity [id number] 2013 Unknown [id number] 2012 Medicare MEDICARE MEDICAR E A AND B [id number] 2012-Present [phone] [place] [address] Medicare [id number] 2012 Medicare MEDICARE MEDICAR E A AND B [id number] 2012-Present [phone] [place] [address] Medicare [id number] 2012 Medicare [id number] Social History Date Type Detail Facility Start: 05-12-2011 Tobacco smoking stat us MIIS Never smoked tobacco [facility] Start: 12-12-2021 End: 07-21-2022 Alcohol intake Current non-drinker of alcohol (finding) [facility] Start: 1945 Sex Assigned At Not on file [facility] Start: 12-02-2021 End: 06-01-2022 Exposure to SARS-CoV-2 (event) Not sure [facility] Start: 05-12-2011 Tobacco use and exposure Smokeless tobacco non-user [facility] Work Phone: Start: 06-16-2020 End: 06-22-2022 History of Social function [facility] Work Phone: Start: 06-16-2020 End: 06-22-2022 Tobacco use panel [facility] Work Phone: Adult Depression Screening Assessment 0 [facility] Work Phone: Goals Date Patient Goal Desired Activity /State Personal health goal Clinical Notes 06-10-2017 to 07-21-2023 Telephone Encounter - Ani Salmon - 06/21/2023 12:19 PM ESTTelephone Encounter - Lelo White APRN.CNP - 06/21/2023 12:13 PM Dana Downs Mammo Tech - 06/11/2023 9:30 AM EST Note Date & Type Note Facility 07-21-2023 Note HNO ID: [id number] Author: LELO WHITE APRN.AIYANA Service: ? Author [...] invasive ductal carcinoma. It was ER positive, TX positiveand Her2/barb 2+. She underwent left breast [...] - ICD9: V10.3, ICD10: Z85.3 Stage IIA, [id number], invasive ductal carcinoma of the left breast [...] necessary for today's visit. Lelo White APRN.AIYANA [facility] 06-21-2023 Miscellaneous Notes Patient informed No concerning findings on exam. Follow up as scheduled. Thank you. Lelo White APRN.[employer] Patient calling for 06/11 mamm results documented in this encounter [facility] 06-11-2023 Note HNO ID: [id number] Author: Dana Balderrama Mammo Tech Service: ? Author Type: Security Messenger Type: Progress Notes Filed: 06/11/2023 9:45 AM [...] Lavelle Westbrook June 11, 2023 9:11 AM [facility] 06-11-2023 History of Present illness Narrative Radiology [...] 2023 9:11 AM documented in this encounter [facility] 02-11-2023 Note HNO ID: [id number] Author: Nora Vanessa MA Service: ? Author Type: Data Quality Consultant Type: Progress Notes Filed: 02/11/2023 9:43 AM Note Text: POPULATION HEALTH NAVIGATION OUTREACH Action/FYI Letter prepared and placed in outgoing mail. Navigation Signature: Nora Vanessa MA February 11, 2023 9:42 AM [facility] 02-10-2023 Note Patient Outreach (NE TNAV) GABI ASHBY ([id number]) 1945 F Date Time Provider Department 02/10/23 [...] Date Reviewed: 07/21/2022 Reviewed by: Lelo White APRN.[employer] - Fully Assessed Reason for Visit: Population [...] tablet by mouth once daily. - omega 9-acq-jtm-fish-turmeric 417 mg-120 mg- 276 mg-600 mg cap [...] (estrogen receptor positive status) [Z17.0] 07/18/2012 Seroma [[id number]] 08/01/2012 10/05/2017 Degenerative disc disease, lumbar [M51.36] [...] Encounter Status:Closed by MULU VYAS on 02/10/23 [facility] 02-10-2023 Note HNO ID: [id number] Author: Mulu Vyas MA Service: ? Author Type: Data Quality Consultant Type: Progress Notes Filed: 02/10/2023 3:32 PM [...] Vyas MA February 10, 2023 10:22 AM [facility] 07-21-2022 History of Present illness Narrative Chief [...] invasive ductal carcinoma. It was ER positive, TX positive and Her2/barb 2+. She underwent left [...] - ICD9: V10.3, ICD10: Z85.3 Stage IIA, [id number], invasive ductal carcinoma of the left breast [...] Lelo White APRN.CNP documented in this encounter [facility] 07-14-2022 Miscellaneous Notes Spoke with patient and scheduled. Sravanthi Yuan Please see previous phone note. Pt. needs OV. Thank you. Lelo White APRN.CNP documented in this encounter [facility] 07-14-2022 History of Present illness Narrative [...] 2022 3:44 PM documented in this encounter [facility] 07-14-2022 History of Present illness Narrative [...] 2022 1:59 PM documented in this encounter [facility] 06-23-2022 Miscellaneous Notes Patient returned call [...] Telma Sainz APRN.AIYANA documented in this encounter [facility] 06-22-2022 Miscellaneous Notes Thank you, hopefully they can get her imaging completed sooner than July with her history of breast CA. Patient was instructed to call to see if she could be scheduled sooner for her callback diagnostic mammogram. She was directed to speak with the Breast [facility] due to no available openings at the [place] location at this time. documented in this encounter [facility] 06-22-2022 History of Present illness Narrative [...] of Arimidex since 2017. CAD: Following with [facility] cardiology. Last OV 08/2021. Switched to [...] uteri, except isthmus (HCC) 1979 Uterine cancer AL, old Osteoarthritis Other and unspecified hyperlipidemia Rheumatoid [...] DX W/COLLJ SPEC WHEN PFRMD N/A 09/10/2020 [facility]-Dr. Lopez ESOPHAGOGASTRODUODENOSCOPY TRANSORAL DIAGNOSTIC 01/03/2019 EGD ESOPHAGOGASTRODUODENOSCOPY TRANSORAL DIAGNOSTIC N/A 09/10/2020 [facility]-Dr. Lopez MASTECTOMY, PARTIAL 06/06/2012 LEFT PAST SURGICAL HISTORY OF Right shoulder replacement SURGERY (GENERAL SURGERY) CONSULT Right 03/24/2016 right knee replacement - [facility] TOTAL ABDOMINAL HYSTERECT W/WO RMVL TUBE OVARY 1979 uterine ca Family History FAMILY HISTORY Problem Relation Age of Onset Cancer Mother uterine Hypertension Mother hyperlipidemia Arthritis Mother Osteoporosis Mother Heart Father AL at age 39 Hypertension Sister arthritis Osteoporosis Sister Arthritis Sister hypertension Hypertension Brother None Brother None Brother None Brother Diabetes Maternal Grandmother Thyroid Maternal Aunt Patient Allergies ALLERGIES Allergen Reactions Adhesive Tape (Tash* Rash Lipitor [Atorvastat* Other: See Comments Headache Norvasc [Amlodipine* Swelling Ziac [Bisoprolol-Hy* headaches Current Medications Current Outpatient Medications on File Prior to Visit Medication Sig omega 4-njk-eft-fish-turmeric 417 mg-120 mg- 276 mg-600 mg cap [...] <0.01 ASSESSMENT/PLAN: 1. Coronary artery disease involving kaibab heart without angina pectoris, unspecified vessel or [...] Stewart Moody MD documented in this encounter [facility] 06-02-2022 Miscellaneous Notes Patient returned call and was transferred to the Breast Center. LM for patient to return call. When patient calls, please advise patient that, per Lelo's note below, she needs to have additional mammogram images done and her office visit w/ Lelo will be rescheduled to after the imaging appointment. Then transfer her to the Breast Center at [phone] to schedule her additional imaging. Once transferred, document and route this note to P WSTR HEM/ONC PSR so follow up with Lelo can be rescheduled. Sravanthi Yuan Please inform pt. that the radiologist would like additional images of R breast. Please schedule R dx mamm/US soon. Move OV out until after above. Thank you. Lelo White APRN.AIYANA documented in this encounter [facility] 06-01-2022 Miscellaneous Notes June 01, 2022 PID: [id number] Gabi Ashby [address] [place] [address] Dear Ms. Ashby, Your recent breast imaging exam on 06/01/2022 showed a possible finding that requires additional imaging studies for a complete evaluation. Most such findings are probably benign (not cancer). If you have a healthcare provider who ordered/prescribed your screening mammogram: Please call [phone] or [phone]: [phone] to schedule an appointment for your additional [...] and reports are kept on file at [facility] as part of your permanent medical record, and are available for your continuing care. Thank you for allowing us to help in meeting your health care needs. Sincerely, Dr. Ruiz Interpreting Radiologist [facility] (Additional imaging) documented in this encounter [facility] 06-01-2022 History of Present illness Narrative [...] DATA: Not applicable SIGNED BY: Flaca [employer] Jessica June 01, 2022 11:38 AM documented in this encounter [facility] 12-12-2021 History of Present illness Narrative [...] uteri, except isthmus (HCC) 1979 Uterine cancer AL, old Osteoarthritis Other and unspecified hyperlipidemia Rheumatoid [...] DX W/COLLJ SPEC WHEN PFRMD N/A 09/10/2020 [facility]-Dr. Lopez ESOPHAGOGASTRODUODENOSCOPY TRANSORAL DIAGNOSTIC 01/03/2019 EGD ESOPHAGOGASTRODUODENOSCOPY TRANSORAL DIAGNOSTIC N/A 09/10/2020 [facility]-Dr. Lopez MASTECTOMY, PARTIAL 06/06/2012 LEFT PAST SURGICAL HISTORY OF Right shoulder replacement SURGERY (GENERAL SURGERY) CONSULT Right 03/24/2016 right knee replacement - [facility] TOTAL ABDOMINAL HYSTERECT W/WO RMVL TUBE OVARY 1979 uterine ca Family History FAMILY HISTORY Problem Relation Age of Onset Cancer Mother uterine Hypertension Mother hyperlipidemia Arthritis Mother Osteoporosis Mother Heart Father AL at age 39 Hypertension Sister arthritis Osteoporosis [...] tablet by mouth daily at bedtime. omega 7-fof-awh-fish-turmeric 417 mg-120 mg- 276 mg-600 mg cap [...] PANEL, NONFASTING 3. Coronary artery disease involving kaibab heart without angina pectoris, unspecified vessel or [...] Stewart Moody MD documented in this encounter [facility] documented as of this encounter (statuses as of 12/12/2021) [facility] History of Past illness Narrative* Problem [...] of this encounter (statuses as of 06/02/2022) [facility] History of Past illness Narrative* Problem [...] of this encounter (statuses as of 06/02/2022) [facility] History of Past illness Narrative* Problem [...] of this encounter (statuses as of 06/03/2022) [facility] History of Past illness Narrative* Problem [...] of this encounter (statuses as of 06/22/2022) [facility] History of Past illness Narrative* Problem [...] of this encounter (statuses as of 06/23/2022) [facility] History of Past illness Narrative* Problem [...] of this encounter (statuses as of 07/05/2022) [facility] History of Past illness Narrative* Problem [...] of this encounter (statuses as of 07/16/2022) [facility] History of Past illness Narrative* Problem [...] of this encounter (statuses as of 07/21/2022) [facility] History of Past illness Narrative* Problem [...] of this encounter (statuses as of 05/16/2023) [facility] History of Past illness Narrative* Problem [...] of this encounter (statuses as of 05/16/2023) [facility] History of Past illness Narrative* Problem [...] of this encounter (statuses as of 05/16/2023) [facility] History of Past illness Narrative* Problem [...] of this encounter (statuses as of 06/12/2023) [facility] History of Past illness Narrative* Problem [...] of this encounter (statuses as of 06/21/2023) [facility] note* Diagnosis Essential hypertension, benign- Primary Hyperlipidemia with target LDL less than 100 Other and unspecified hyperlipidemia Coronary artery disease involving kaibab heart without angina pectoris, unspecified vessel or lesion type Rheumatoid arthritis involving multiple sites with positive rheumatoid factor (HCC) History of left breast cancer Chronic anemia Anemia, unspecified documented in this encounter [facility] note* Diagnosis History of left breast cancer- Primary Abnormal mammogram of right breast documented in this encounter [facility] note* Diagnosis Coronary artery disease involving kaibab heart without angina pectoris, unspecified vessel or [...] Other specified counseling documented in this encounter [facility] note* Diagnosis Hyperlipidemia with target LDL less than 100 Other and unspecified hyperlipidemia documented in this encounter [facility] note* Diagnosis Personal history of breast cancer- Primary Personal history of malignant neoplasm of breast Encounter for screening mammogram for high-risk patient documented in this encounter [facility] note* Diagnosis History of left breast cancer Abnormal mammogram of right breast documented in this encounter [facility] note* Diagnosis History of left breast cancer Abnormal mammogram of right breast documented in this encounter [facility] note* Diagnosis 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) Encounter for screening mammogram for high-risk patient documented in this encounter [facility] note* Diagnosis Personal history of breast cancer Personal history of malignant neoplasm of breast Encounter for screening mammogram for high-risk patient documented in this encounter [facility] for referral (narrative)* Diagnostic Procedure Only (Routine) - Pending Review Specialty Diagnoses / Procedures Referred By Korina santoyo Referred To Contact [facility] Diagnoses History of left breast cancer Abnormal mammogram of right breast Procedures US BREAST LTD RT US BREAST UNI REAL TIME WITH IMAGE LIMITED Lelo White APRN.[employer] [address] [place] [address] [facility] [address] [place] [address] Referral ID Status Reason Start Date Expiration Date Visits Requested Visits Authorized [id number] Pending Review Auto-Generat ed Referral 2 07/02/2023 1 1 * Diagnostic Procedure Only (Routine) - Authorized Specialty Diagnoses / Procedures Referred By Korina t Referred To Contact [facility] History of left breast cancer Abnormal mammogram of right breast Procedures [place] DIAGNOSTIC RT DIAGNOSTIC MAMMOGRAPHY COMPUTER-AIDED DETCJ UNI Lelo White APRN.[employer] [address] [place] [address] [facility] [address] [place] [address] Referral ID Status Reason Start Date Expiration Date Visits Requested Visits Authorized [id number] Authorized Auto-Generat ed Referral 2 07/02/2023 1 1 [facility] for referral (narrative)* Diagnostic Procedure Only (Routine) - Authorized Specialty Diagnoses / Procedures Referred By Korina santoyo Referred To Contact [facility] Diagnoses Personal history of breast cancer Encounter for screening mammogram for high-risk patient Procedures J[place]ICA SCREENING SCREENING MAMMOGRAPHY BI 2-VIEW BREAST INC CAD Lelo White APRN.[employer] [address] [place] [address] [facility] [address] [place] [address] Referral ID Status Reason Start Date Expiration Date Visits Requested Visits Authorized [id number] Authorized Auto-Generat ed Referral 07/21/2022 08/20/2023 1 1 [facility] for referral (narrative)* Diagnostic Procedure Only (Routine) - Closed Specialty Diagnoses / Procedures Referred By Korina santoyo Referred To Contact [facility] Diagnoses History of left breast cancer Abnormal mammogram of right breast Procedures US BREAST LTD RT US BREAST UNI REAL TIME WITH IMAGE LIMITED Lelo White APRN.[employer]TER [employer] [address] [place] [address] [facility] [address] [place] [address] Referral ID Status Reason Start Date Expiration Date V isits Requested Visits Authorized [id number] Closed Auto-Generate d Referral 06/02/2022 07/02/2023 1 1 [facility] for referral (narrative)* Diagnostic Procedure Only (Routine) - Closed Specialty Diagnoses / Procedures Referred By Contac t Referred To Contact [facility] Diagnoses 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) Encounter for screening mammogram for high-risk patient Procedures [place] SCREENING SCREENING MAMMOGRAPHY BI 2-VIEW BREAST INC [facility] Lelo White APRN.S[employer]TER [employer]DRY [employer]LES [address] [place] [address] [facility] [address] [place] [address] Referral ID Status Reason Start Date Expiration Date V isits Requested Visits Authorized [id number] Closed Auto-Generate d Referral 07/01/2021 07/31/2022 1 1 [facility] for visit Narrative* Diagnostic Procedure Only (Routine) - Closed Specialty Diagnoses / Procedures Referred By Contac t Referred To Contact [facility] Diagnoses History of left breast cancer Abnormal mammogram of right breast Procedures [place] DIAGNOSTIC RT DIAGNOSTIC MAMMOGRAPHY COMPUTER-AIDED DETCJ [facility] Lelo White APRN.SORTER LAUNDRY ARTICLES [address] [place] [address] [facility] [address] [place] [address] Referral ID Status Reason Start Date Expiration Date V isits Requested Visits Authorized [id number] Closed Auto-Generate d Referral 06/02/2022 07/02/2023 1 1 [facility] for visit Narrative* Diagnostic Procedure Only (Routine) - Closed Specialty Diagnoses / Procedures Referred By Contac t Referred To Contact [facility] Diagnoses 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) Encounter for screening mammogram for high-risk patient Procedures [place] SCREENING SCREENING MAMMOGRAPHY BI 2-VIEW BREAST INC CAD CindyLelo, CALEB.SORTER LAUNDRY ARTICLES [address] [place] [address] [facility] [address] [place] [address] Referral ID Status Reason Start Date Expiration Date V isits Requested Visits Authorized [id number] Closed Auto-Generate d Referral 07/01/2021 07/31/2022 1 1 [facility] Diagnostic Procedure Only (Routine) - Closed Specialty Diagnoses / Procedures Referred By Contac t Referred To Contact [facility] Diagnoses Personal history of breast cancer Encounter for screening mammogram for high-risk patient Procedures [place] SCREENING SCREENING MAMMOGRAPHY BI 2-VIEW BREAST INC CAD CindyLelo, RODBUSTER.SORTER LAUNDRY ARTICLES [address] [place] [address] [facility] [address] [place] [address] Referral ID Status Reason Start Date Expiration Date V isits Requested Visits Authorized [id number] Closed Auto-Generate d Referral 07/21/2022 08/20/2023 1 1 [facility] Advance Directives No Advanced Directives Records FoundDocuments on File Type Date Recorded 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 Advance Directive(s) 01/03/2019 7:21 AM [...] or prosecute any alcohol or drug abuse patient.[facility] the event this information is protected by the Federal Confidentiality of Alcohol and Drug Abuse Patient Records regulations: The Federal rules restrict any use of the information to criminally investigate or prosecute any alcohol or drug abuse patient.[facility] the event this information is protected by the Federal Confidentiality of Alcohol and Drug Abuse Patient Records regulations: The Federal rules restrict any use of the information to criminally investigate or prosecute any alcohol or drug abuse patient.[facility] the event this information is protected by the Federal Confidentiality of Alcohol and Drug Abuse Patient Records regulations: The Federal rules restrict any use of the information to criminally investigate or prosecute any alcohol or drug abuse patient.[facility] the event this information is protected by the Federal Confidentiality of Alcohol and Drug Abuse Patient Records regulations: The Federal rules restrict any use of the information to criminally investigate or prosecute any alcohol or drug abuse patient.[facility] the event this information is protected by the Federal Confidentiality of Alcohol and Drug Abuse Patient Records regulations: The Federal rules restrict any use of the information to criminally investigate or prosecute any alcohol or drug abuse patient.[facility] the event this information is protected by the Federal Confidentiality of Alcohol and Drug Abuse Patient Records regulations: The Federal rules restrict any use of the information to criminally investigate or prosecute any alcohol or drug abuse patient.[facility] the event this information is protected by the Federal Confidentiality of Alcohol and Drug Abuse Patient Records regulations: The Federal rules restrict any use of the information to criminally investigate or prosecute any alcohol or drug abuse patient.[facility] the event this information is protected by the Federal Confidentiality of Alcohol and Drug Abuse Patient Records regulations: The Federal rules restrict any use of the information to criminally investigate or prosecute any alcohol or drug abuse patient.[facility] the event this information is protected by the Federal Confidentiality of Alcohol and Drug Abuse Patient Records regulations: The Federal rules restrict any use of the information to criminally investigate or prosecute any alcohol or drug abuse patient.[facility] Hospital[facility] the event this information is protected by the Federal Confidentiality of Alcohol and Drug Abuse Patient Records regulations: The Federal rules restrict any use of the information to criminally investigate or prosecute any alcohol or drug abuse patient.[facility] Hospital[facility] the event this information is protected by the Federal Confidentiality of Alcohol and Drug Abuse Patient Records regulations: The Federal rules restrict any use of the information to criminally investigate or prosecute any alcohol or drug abuse patient.[facility] Hospital[facility] the event this information is protected by the Federal Confidentiality of Alcohol and Drug Abuse Patient Records regulations: The Federal rules restrict any use of the information to criminally investigate or prosecute any alcohol or drug abuse patient.[facility] Hospital[facility] the event this information is protected by the Federal Confidentiality of Alcohol and Drug Abuse Patient Records regulations: The Federal rules restrict any use of the information to criminally investigate or prosecute any alcohol or drug abuse patient.[facility] Reason for Visit (unrecogniz ed section [...] REAL TIME WITH IMAGE LIMITED Lelo White APRN.SORTER LAUNDRY ARTICLES [address] [place] [address] [facility] [address] [place] [address] Referral ID Status Reason Start Date Expiration Date V isits Requested Visits Authorized [id number] Closed Auto-Generate d Referral 06/02/2022 07/02/2023 1 1 Care Teams (unrecognized sec tion and content) Conference Translator Relationship Specialty Start Date End Date Stewart Moody MD [address], [place] [address] PCP - General Family Medicine 12/04/20 Pily Tubbs, AIYANA [address] [place] [address] Specialty Appeals Coordinator Family Medicine 01/25/19 Conference Translator Relationship Specialty Start Date End Date Stewart Moody MD [address], [place] [phone] PCP - General Family Medicine 12/04/20 Pily Tubbs CNP [address] [place] [address] Specialty Appeals Coordinator Family Medicine 01/25/19 Conference Translator Relationship Specialty Start Date End Date Stewart Moody MD [address] [facility] [address] PCP - General Family Medicine 12/04/20 Pily Tubbs CNP [address] [facility] [place] [address] Specialty Appeals Coordinator Family Medicine 01/25/19 Conference Translator Relationship Specialty Start Date End Date Stewart Moody MD [address] [place] [address] PCP - General Family Medicine 12/04/20 Pily Tubbs CNP [address] [place] [address] Specialty Appeals Coordinator Family Medicine 01/25/19 Conference Translator Relationship Specialty Start Date End Date Stewart Moody MD [address] [facility] [address] PCP - General Family Medicine 12/04/20 Pily Tubbs CNP [address] [facility] [place] [address] Specialty Appeals Coordinator Family Medicine 01/25/19 Conference Translator Relationship Specialty Start Date End Date Stewart Moody MD [address] [place] [address] PCP - General Family Medicine 12/04/20 Pily uTbbs CNP [address] [facility] [place] [address] Specialty Appeals Coordinator Family Medicine 01/25/19 Conference Translator Relationship Specialty Start Date End Date Stewart Moody MD [address] [place] [address] PCP - General Family Medicine 12/04/20 Pily Tubbs SORTER LAUNDRY ARTICLES [address] [facility] [place] [address] Specialty Appeals Coordinator Family Medicine 01/25/19 Conference Translator Relationship Specialty Start Date End Date Stewart Moody MD [address] [place] [address] PCP - General Family Medicine 12/04/20 Pily Tubbs CNP [address] [facility] [place] [address] Specialty Appeals Coordinator Family Medicine 01/25/19 Conference Translator Relationship Specialty Start Date End Date Stewart Moody MD [address] [place] [address] PCP - General Family Medicine 12/04/20 Pily Tubbs CNP [address] [facility] [place] [address] Specialty Appeals Coordinator Family Medicine 01/25/19 Conference Translator Relationship Specialty Start Date End Date Stewart Moody MD [address] [place] [address] PCP - General Family Medicine 12/04/20 Pily Tubbs, SORTER LAUNDRY ARTICLES [address] [facility] [place] [address] Specialty Appeals Coordinator Family Medicine 01/25/19 Conference Translator Relationship Specialty Start Date End Date Stewart Moody MD [address] [place], [place] [address] PCP - General Family Medicine 12/04/20 Pily Tubbs, SORTER LAUNDRY ARTICLES [address] [place] [address] Specialty Appeals Coordinator Family Medicine 01/25/19 Conference Translator Relationship Specialty Start Date End Date Stewart Moody MD [address] [place], [place] [address] PCP - General Family Medicine 12/04/20 Pily Tubbs, SORTER LAUNDRY ARTICLES [address] [facility] [place] [address] Specialty Appeals Coordinator Family Medicine 01/25/19 Conference Translator Relationship Specialty Start Date End Date Stewart Moody MD [address] [place], [place] [address] PCP - General Family Medicine 12/04/20 Pily Tubbs SORTER LAUNDRY ARTICLES [address] [facility], [place] [address] Specialty Appeals Coordinator Family Medicine 01/25/19 INFORMATION SOURCE (unrecogn ized [...] BE BASED ON THE PRIMARY CLINICAL RECORDS. [facility]. provides no warranty or guarantee of the accuracy or completeness of information in this document.
[2023-08-18 16:48] LABS: M R Staph aureus DNA By PCR Negative (Negative); Probe Check PASS; Specimen Processing Control PASS
[2023-08-18] MEDS: Budesonide Respules 0.5 MG/2 ML AMPUL.NEB. INHALATION (20:23)
[2023-08-18] MEDS: Hydroxychloroquine 200 MG Tablet PO (21:44)
[2023-08-18] MEDS: Atorvastatin Calcium 10 MG Tablet PO (21:44)
[2023-08-18] MEDS: MELATONIN 3 MG TABLET PO (22:51)
[2023-08-19] VITALS (10 sets, daily range): BP systolic 102–136; BP diastolic 60–86; PULSE 80–107; RESP 16–22; TEMP 36.6–38.5; O2SAT 90–96; BMI 26.4
[2023-08-19] MEDS: Acetaminophen 325 MG Tablet 650 MG PO ×3 (00:29→22:07)
--- NOTE | 2023-08-19 06:15 | PN.HOSP_ITS ---
Reason for Visit Reason for Visit: Diagnoses Other nonspecific abnormal finding of lung field (08/18/23) Subjective Subjective Patient with no acute events overnight with significant improvement. Patient is up this morning moving the bed with greater ease and has been weaned to room air. She notes feeling less fatigued and more herself. She does have a mild appetite this morning which is new as she had not eaten for the last several days secondary to her illness. She notes mild cough still but less and dyspnea. Patient denies fevers, chills, nausea, emesis, abdominal pain, chest pain. Objective Data Objective Data Vital Signs: Vital Signs Temp Pulse Resp BP Pulse Ox O2 Del Method 97.9 F 81 16 102/60 93 Room Air 08/19/23 03:52 08/19/23 04:13 08/19/23 03:52 08/19/23 03:52 08/19/23 03:52 08/19/23 03:52 Oxygen Delivery Method Room Air Weight: 166 lb 10.711 oz Body Mass Index (BMI) 27.7 Intake & Output: Intake and Output for Last 24 Hours 08/17/23 08/18/23 08/19/23 23:59 23:59 23:59 Intake Total 1481.5 / 1481.5 1000 / 1000 Balance 1481.5 / 1481.5 1000 / 1000 Lab / Micro Data 08/19/23 07:15 08/19/23 07:15 Labs: Laboratory Results - last 24 hr 08/18/23 09:13: WBC 3.7 L, RBC 3.26 L, Hgb 9.9 L, Hct 30.2 L, MCV 92.6, MCH 30.4, MCHC 32.8, RDW Std Deviation 50.2 H, RDW Coeff of Juan 14.7 H, Plt Count 142 L, MPV 11.8, Immature Gran % (Auto) 0.300, Neut % (Auto) 85.0 H, Lymph % (Auto) 6.4 L, [place] % (Auto) 8.3, Eos % (Auto) 0.0, Baso % (Auto) 0.0, Absolute Neuts (auto) 3.2, Absolute Lymphs (auto) 0.24 L, Nucleated RBC % 0, Sodium 132 L , Potassium 3.6, Chloride 101, Carbon Dioxide 25.0, Anion Gap 6, BUN 13, Creatinine 0.76, Estim Creat Clear Calc 53.83, Est GFR (MDRD) Af Amer 96, Est GFR (MDRD) Non-Af 79, BUN/Creatinine Ratio 17.2, Glucose 109 H, Calcium 9.2, Magnesium 1.9 08/18/23 10:20: Lactic Acid 1.1 08/18/23 14:50: MRSA (PCR) Negative Micro: Microbiology 08/18/23 15:15 Mucosa - Nasopharyngeal Respiratory Panel (PCR) - Final Radiography Diagnostic Testing: Radiology Impression Chest X-Ray 08/18/23 09:44 IMPRESSION: Heterogeneous consolidation in the right upper lobe. Radiographic follow-up recommended. CT scan of the chest may be considered. Electronically Signed: Jeison Waters MD at 10:03 EST , Chest CT 08/18/23 12:10 IMPRESSION: Dense consolidation in the right upper lobe with areas of patchy infiltrates in both upper lobes. Scattered nodular peripheral density seen. Radiographic follow-up is recommended. Right pleural effusion. Electronically Signed: Jeison Waters MD at 12:33 EST , Physical Exam Narrative Physical Examination: General: Awake, alert, oriented x 3 and cooperative, seated upright in the PCU bed, less fatigued, more alert, interactive. Skin: Normal color, normal turgor, no icterus, no cyanosis except for occasional staged ecchymoses. HEENT: AT/NC, EOMI, PERRLA, improved MMM. Lungs: Diminished, greater bases, decreased right side primarily posteriorly, respiratory rate is normalized, no evidence of any distress, significantly improved, mildly coarse. Heart: Regular rate and rhythm; no gallop, rub audible. Abdomen: Soft, NTTP, ND, normal BS. Extremities: No cyanosis, clubbing, or edema. Neurological: Patient awake, alert, oriented as noted, cognitive function intact; pupils equally reactive to light and accommodation, cranial nerves II- XII grossly normal, moving all 4 extremities, no focal deficits, strength improved, moderately globally decreased. Psychiatric: Affect appears less fatigued, interactive, no acute evidence of depressive or anxiety feelings. Assessment & Plan Assessment/Plan (1) Right upper lobe pulmonary infiltrate: PLAN: Plan The patient is a 78 y/o F w/ PMHx: HFpEF, CAD, Hx L Breast CA, GERD w/ Hx GI bleed, HTN, HLD, Hx Uterine CA, Chronic normocytic anemia/iron deficiency anemia, Rheumatoid arthritis who presents to the [facility] ED on 08/18/2023 with history of generalized, fatigue and ongoing cough more severe over the last several weeks although she does have more of a chronic component cough with pleuritic chest discomfort nausea and occasional bouts of emesis reportedly over the last 2 to 3 weeks. #1. Acute Hypoxia (presentation not consistent with respiratory failure) secondary to Acute RUL Pneumonia/Consolidation: Chest x-ray upon presentation in the ED with consolidation right upper lobe. Will admit to [facility] telemetry given #2 associated, maintain on oxygen with wean as tolerated to room air, continue ATC budesonide, PRN albuterol, will maintain on IV Rocephin an Azithromycin but given reported history of bouts of emesis in case of aspiration component will monitor and request ST evaluation but location consistent with aspiration pattern, CT chest obtained w/ dense consolidation right upper lobe with areas of patchy infiltrates bilateral upper lobes, scattered nodular peripheral densities, right pleural effusion, HOB, IS parameters w/ pending sputum cultures, urine antigens pending, full respiratory viral panel negative negative. Bld cx x 2 obtained in the ED. PT/OT/case management consulted for discharge planning. Given how patient appears today 08/19/2023 as discussed with her we will likely obtain oxygenation ambulatory trial in a.m. 08/20/2023 and if appropriate consider discharge at that time. #2. Sinus tachycardia, initial concern for possible new onset atrial fibrillation however this is ruled out: EKG in the ED with initial concerns for possible atrial fibrillation with RVR however following EKG review with previous EKGs it is very similar and more consistent with sinus tachycardia, maintained on telemetry to be cautious overnight, improved with BB resumption, d/c telemetry 08/19/23. As noted below reinitiating patient beta-milana therapy. 08/19/2023 patient with normalized heart rate likely secondary to IV fluids and treatment of acute infection as well as administered beta-milana therapy. #3. Hyponatremia, mild, likely hypovolemic component: Admission sodium 132, baseline previously normal, given acute illness suspect likely poor intake, judiciously hydrated, 08/19/2023 Na 138, repeat CMP in AM. #4. HFpEF: 09/18/2020 echocardiogram with normal LV size, EF 53%, mild MVI and JIGNESH, small pericardial effusion, stage I diastolic dysfunction, mean AV gradient 24 mmHg, mild concentric LVH. Will continue aspirin, not on statin nor beta- milana therapy nor INDIGO inhibitor/ARB nor any diuretic therapy per current list but at last cardiology visit patient medication included lovastatin 10 mg daily, metoprolol succinate 25 mg extended release daily, lisinopril 40 mg daily, Lasix 40 mg daily, potassium chloride 20 mill equivalent daily. Given patient low BP upon presentation we will further assess once IV fluids additionally administered judiciously but at this time will prioritize restarting statin the rapy, metoprolol succinate and once appropriate add Lasix and lisinopril if able. From discussions suspect that she was lost to follow-up during COVID. #5. Nonobstructive CAD: Most recent cardiology note noted 08/19/2021, no PCI noted in the record, currently patient is not on statin, beta-milana therapy nor INDIGO inhibitor however in the past at most recent cardiology visit 08/19/2021 as noted above she was on statin, metoprolol, lisinopril therapy. Given patient low BP upon presentation we will further assess once IV fluids additionally administered judiciously but at this time will prioritize restarting statin therapy, metoprolol succinate and once appropriate add Lasix and lisinopril if able. From discussions suspect that she was lost to follow-up during COVID. #6. Chronic normocytic anemia/Fe Deficiency anemia: Admission hemoglobin 9.9, MCV 92.6, baseline appears 89, stable, 08/19/23 Hgb 9.3, continue to trend. #7. Chronic thrombocytopenia, unclear etiology: Admission platelets 142, baseline appears similar although has been lower in the past but labs are remote since recent presentation, 08/19/23 Plts 144, will continue to trend CBC. #8. History of breast cancer: Patient with history of left-sided breast cancer, unclear specific type, status post remote 2011 partial mastectomy left breast, considered in remission, encourage continued outpatient follow-up as previously arranged. #9. History uterine cancer: Patient status post total abdominal hysterectomy in 1979, considered in remission, encourage continued outpatient follow-up as previously arranged. #10. Rheumatoid arthritis: Will continue patient home hydroxychloroquine regimen. #11. GERD with history of GI bleed: Patient is not on any PPI, encourage continued outpatient follow-up and assessment. #12. DVT prophylaxis: Lovenox. #13. CODE status: Patient HCPOA and living will are not in place but her neville would be her decision-maker if necessary she notes. Full Code status. Charges/Coding Visit Charges Inpatient E&M: 41465 Subs Hosp L2
[2023-08-19] MEDS: Budesonide Respules 0.5 MG/2 ML AMPUL.NEB. INHALATION ×2 (07:01→19:05)
[2023-08-19] MEDS: Aspirin 81 MG TAB.CHEW PO (07:55)
[2023-08-19] MEDS: Enoxaparin 40 MG/0.4 ML Syringe SC (07:55)
[2023-08-19] MEDS: Metoprolol(XL)Succ 25 MG Tablet PO (07:56)
[2023-08-19] MEDS: Magnesium Chloride 64 MG Delay Rel.Tablet 128 MG PO (07:56)
[2023-08-19 08:13] LABS: Absolute Lymphocyte Count 0.58 X10^3/uL (0.83-4.51); Absolute Neutrophil Count 2.2 X10^3/uL (2.0-7.7); Hematocrit 29.5 % (37-47); Hemoglobin 9.3 g/dL (12.0-15.0); Lymphocyte # 0.58 X10^3/ul (0.83-4.51); Lymphocyte % 18.4 % (19-41); Mean Corp Hgb Conc 31.5 g/dL (32-36); Mean Corpuscular Hgb 29.9 pg (27.0-32.0); Mean Corpuscular Volume 94.9 fL (81-99); Mean Platelet Vol. 12.4 fl (6.2-12.0); Monocyte# 0.35 X10^3/uL; Monocyte% 11.1 % (0-10); NRBC Flagged by Analyzer 0 % (0-5); Neutrophil # 2.22 X10^3/uL (2.7-7.7); Neutrophil % 70.2 % (47-70); POSITIVE DIFFERENTIAL YES; Platelet Count 144 K/mm3 (150-450); RBC Distribution Width CV 14.8 % (11.6-14.6); RBC Distribution Width SD 51.8 fl (35.1-43.9); Red Blood Count 3.11 M/mm3 (4.2-5.4); White Blood Count 3.2 K/mm3 (4.4-11.0)
[2023-08-19 08:43] LABS: ALB/GLOB Ratio 0.8 RATIO (0.9-2.4); AST(SGOT) 16 U/L (15-37); Alanine Aminotransfer ALT/SGPT 13 U/L (13-56); Albumin, Serum 2.8 g/dL (3.2-5.0); Alkaline Phosphatase 76 U/L (45-117); Anion Gap 4 (5-15); BUN 11 mg/dL (7-18); BUN/Creat Ratio 17.2 RATIO (10-20); Calcium,Total 9.2 mg/dL (8.5-10.1); Chloride 107 mmol/L (98-107); Creatinine, Serum 0.64 mg/dL (0.55-1.02); EST Glomerular Filtration Rate 96 mL/min (>60); Est Glom Filt Rate - Afr Amer 116 mL/min (>60); Estimated Creatinine Clearance 60.86 ml/min; Globulin 3.3 g/dL (2.2-4.2); Glucose 110 mg/dL (74-106); Potassium 3.7 mmol/L (3.5-5.1); Protein, Total 6.1 g/dL (6.4-8.2); Sodium Level 138 mmol/L (136-145)
[2023-08-19] MEDS: Ceftriaxone 1 GM/50 ML BAG IV (09:39)
[2023-08-19] MEDS: Azithromycin 500 MG in Dextrose 5%-Water (250mL Bag) 250 ML 250 MG IV (10:17)
[2023-08-19] MEDS: Hydroxychloroquine 200 MG Tablet PO ×2 (10:17→22:07)
--- NOTE | 2023-08-19 11:19 | CASEMGMT ---
ORALIA PARSONS DC Planning Assessment: Face to Face with patient for initial transition planning/care coordination assessment.?ORALIA PARSONS introduced self and role at [facility], pt voices understanding and is agreeable to participating in assessment with her spouse Julien at bedside.?Pt alert and answering questions appropriately. Care providers, pharmacy,?and demographics verified. ? Admission dx: pneumonia PCP: He[facility], has an appt with the registered nurse first assistant next week Specialists: none Preferred Pharmacy: [facility] Insurance: [facility] A/B, AARP Prescription Benefit:?yes Living Will/HPOA: none LNOK: spouse Julien Living Arrangements: Pt lives with her spouse in a single story home with 1-2 steps to enter with handrails. Pt states she is independent with ADLs and states her spouse is able to assist her if needed. Transportation: pt drives and her spouse drives when pt does not feel up to driving DME: walker, cane, comfort height toilet, grab bars in bathroom, has a scale and weighs herself monthly. SNF/HHC: none Pt's goal/plan: Return home with the support of her spouse. Denies any DC needs at this time. Discussed DME providers if pt were to need home O2 or nebulizer at discharge. Verbal list of local providers given including [facility] [employer], [facility], and [facility]. Pt's spouse states he would need to investigate these options if DME were needed. Pt currently on RA. Will continue to watch for determined DME need and f/u as appropriate. Plan: Return home with spouse. Monitor for home O2 needs. Preston Cisneros RN AC
[2023-08-19] MEDS: MELATONIN 3 MG TABLET PO (22:07)
[2023-08-19] MEDS: Atorvastatin Calcium 10 MG Tablet PO (22:07)
[2023-08-20] VITALS (8 sets, daily range): BP systolic 143–145; BP diastolic 89–97; PULSE 87–102; RESP 16–18; TEMP 36.5–37.3; O2SAT 87–97; BMI 26.4
[2023-08-20] MEDS: Acetaminophen 325 MG Tablet 650 MG PO (03:21)
--- NOTE | 2023-08-20 06:17 | PN.HOSP_ITS ---
Reason for Visit Reason for Visit: Diagnoses Other nonspecific abnormal finding of lung field (08/18/23) Subjective Subjective Patient with no acute events overnight per self and per nursing report. She notes feeling remarkably improved and oxygenation assessment today with no need for supplemental oxygen upon discharge to home. She is very eager for discharge and is even asking questions regarding how much she is allowed to do. She notes breathing with greater ease but still coughing. Patient denies fevers, chills, nausea, emesis, abdominal pain, chest pain or dyspnea. Objective Data Objective Data Vital Signs: Vital Signs Temp Pulse Resp BP Pulse Ox O2 Del Method 97.7 F L 102 H 16 143/89 H 90 Room Air 08/20/23 03:30 08/20/23 03:30 08/20/23 03:30 08/20/23 03:30 08/20/23 03:30 08/20/23 04:24 Oxygen Delivery Method Room Air Weight: 158 lb 8.198 oz Body Mass Index (BMI) 26.4 Intake & Output: Intake and Output for Last 24 Hours 08/18/23 08/19/23 08/20/23 23:59 23:59 23:59 Intake Total 1481.5 / 1481.5 2079 Output Total 0 / 0 Balance 1481.5 / 1481.5 2079 Lab / Micro Data 08/19/23 07:15 08/19/23 07:15 Labs: Laboratory Results - last 24 hr 08/19/23 07:15: WBC 3.2 L, RBC 3.11 L, Hgb 9.3 L, Hct 29.5 L, MCV 94.9, MCH 29.9, MCHC 31.5 L, RDW Std Deviation 51.8 H, RDW Coeff of Juan 14.8 H, Plt Count 144 L, MPV 12.4 H, Immature Gran % (Auto) 0.300, Neut % (Auto) 70.2 H, Lymph % (Auto) 18.4 L, [place] % (Auto) 11.1 H, Eos % (Auto) 0.0, Baso % (Auto) 0.0, Absol [place] Neuts (auto) 2.2, Absolute Lymphs (auto) 0.58 L, Nucleated RBC % 0, Sodium 138, Potassium 3.7, Chloride 107, Carbon Dioxide 27.0, Anion Gap 4 L, BUN 11, Creatinine 0.64, Estim Creat Clear Calc 60.86, Est GFR (MDRD) Af Amer 116, Est GFR (MDRD) Non-Af 96, BUN/Creatinine Ratio 17.2, Glucose 110 H, Calcium 9.2, Total Bilirubin 0.50, AST 16, ALT 13, Alkaline Phosphatase 76, Total Protein 6.1 L, Albumin 2.8 L, Globulin 3.3, Albumin/Globulin Ratio 0.8 L Micro: Microbiology 08/18/23 15:15 Mucosa - Nasopharyngeal Respiratory Panel (PCR) - Final Physical Exam Narrative Physical Examination: General: Awake, alert, oriented x 3 and cooperative, seated upright in the PCU bedside chair, alert, well-appearing, notes feeling much improved. Skin: Normal color, normal turgor, no icterus, no cyanosis except for occasional staged ecchymoses. HEENT: AT/NC, EOMI, PERRLA, MMM. Lungs: Improved, still diminished, right greater than left, appropriate respiratory rate, no evidence of distress, previously had been coarse. Heart: Regular rate and rhythm; no gallop, rub audible. Abdomen: Soft, NTTP, ND, normal BS. Extremities: No cyanosis, clubbing, or edema. Neurological: Patient awake, alert, oriented as noted, cognitive function intact; pupils equally reactive to light and accommodation, cranial nerves II- XII grossly normal, moving all 4 extremities, no focal deficits, strength improved, mildly globally decreased. Psychiatric: Affect appears more alert, interactive, normal, no acute evidence of depressive or anxiety feelings. Assessment & Plan Assessment/Plan (1) Right upper lobe pulmonary infiltrate: PLAN: Plan The patient is a 78 y/o F w/ PMHx: HFpEF, CAD, Hx L Breast CA, GERD w/ Hx GI bleed, HTN, HLD, Hx Uterine CA, Chronic normocytic anemia/iron deficiency anemia, Rheumatoid arthritis who presents to the [facility] ED on 08/18/2023 with history of generalized, fatigue and ongoing cough more severe over the last several weeks although she does have more of a chronic component cough with pleuritic chest discomfort nausea and occasional bouts of emesis reportedly over the last 2 to 3 weeks. #1. Acute Hypoxia (presentation not consistent with respiratory failure) secondary to Acute RUL Pneumonia/Consolidation: Chest x-ray upon presentation in the ED with consolidation right upper lobe. Will admit to [facility] telemetry given #2 associated, maintain on oxygen with wean as tolerated to room air, continue ATC budesonide, PRN albuterol, will maintain on IV Rocephin an Azithromycin but given reported history of bouts of emesis in case of aspiration component will monitor and request ST evaluation but location consistent with aspiration pattern, CT chest obtained w/ dense consolidation right upper lobe with areas of patchy infiltrates bilateral upper lobes, scattered nodular peripheral densities, right pleural effusion, HOB, IS parameters w/ pending sputum cultures, urine antigens pending, full respiratory viral panel negative negative. Bld cx x 2 obtained in the ED. PT/OT/case management consulted for discharge planning. 08/20/2023 patient significantly continued to improve. Oxygenation trial performed with no home oxygen necessities. Discussed with patient and her discharge to home which she is eager for with plan for continued oral antibiotic therapy. #2. Sinus tachycardia, initial concern for possible new onset atrial fibrillation however this is ruled out: EKG in the ED with initial concerns for possible atrial fibrillation with RVR however following EKG review with previous EKGs it is very similar and more consistent with sinus tachycardia, maintained on telemetry to be cautious overnight, improved with BB resumption, d/c telemetry 08/19/23. As noted below reinitiating patient beta-milana therapy. 08/19/2023 patient with normalized heart rate likely secondary to IV fluids and treatment of acute infection as well as administered beta-milana therapy. Discussed with patient need for continued medications including beta-milana therapy which she had been on previously and discontinued for unclear reasons, possibly lost to follow-up during COVID. #3. Hyponatremia, mild, likely hypovolemic component: Admission sodium 132, baseline previously normal, given acute illness suspect likely poor intake, judiciously hydrated, 08/19/2023 Na 138, resolved. #4. HFpEF: 09/18/2020 echocardiogram with normal LV size, EF 53%, mild MVI and JIGNESH, small pericardial effusion, stage I diastolic dysfunction, mean AV gradient 24 mmHg, mild concentric LVH. Will continue aspirin, not on statin nor beta- milana therapy nor INDIGO inhibitor/ARB nor any diuretic therapy per current list but at last cardiology visit patient medication included lovastatin 10 mg daily, metoprolol succinate 25 mg extended release daily, lisinopril 40 mg daily, Lasix 40 mg daily, potassium chloride 20 mill equivalent daily. Patient was restarted on aspirin, statin and metoprolol succinate. Discussed follow-up with cardiology and likely at that time if blood pressure remained appropriate consideration of resumption also of lisinopril and Lasix given patient upon presentation had lower blood pressures initially. From discussions suspect that she was lost to follow-up during COVID. #5. Nonobstructive CAD: Most recent cardiology note noted 08/19/2021, no PCI noted in the record, currently patient is not on statin, beta-milana therapy nor INDIGO inhibitor however in the past at most recent cardiology visit 08/19/2021 as noted above she was on statin, metoprolol, lisinopril therapy. Given patient low BP upon presentation patient was restarted on aspirin, statin and metoprolol succinate. Discussed follow-up with cardiology and likely at that time if blood pressure remained appropriate consideration of resumption also of lisinopril and Lasix given patient upon presentation had lower blood pressures initially. From discussions suspect that she was lost to follow-up during COVID. #6. Chronic normocytic anemia/Fe Deficiency anemia: Admission hemoglobin 9.9, MCV 92.6, baseline appears 89, stable, 08/19/23 Hgb 9.3. Encouraged continued outpatient evaluation. #7. Chronic thrombocytopenia, unclear etiology: Admission platelets 142, baseline appears similar although has been lower in the past but labs are remote since recent presentation, 08/19/23 Plts 144. Encouraged continued outpatient ev aluation. #8. History of breast cancer: Patient with history of left-sided breast cancer, unclear specific type, status post remote 2011 partial mastectomy left breast, considered in remission, encourage continued outpatient follow-up as previously arranged. #9. History uterine cancer: Patient status post total abdominal hysterectomy in 1979, considered in remission, encourage continued outpatient follow-up as previously arranged. #10. Rheumatoid arthritis: Will continue patient home hydroxychloroquine regimen. #11. GERD with history of GI bleed: Patient is not on any PPI, encourage co ntinued outpatient follow-up and assessment. #12. DVT prophylaxis: Lovenox. #13. CODE status: Patient HCPOA and living will are not in place but her would be her decision-maker if necessary she notes. Full Code status. Charges/Coding Visit Charges Inpatient E&M: 39176 Subs Hosp L2
[2023-08-20] MEDS: Budesonide Respules 0.5 MG/2 ML AMPUL.NEB. INHALATION (07:06)
[2023-08-20] MEDS: Aspirin 81 MG TAB.CHEW PO (08:13)
[2023-08-20] MEDS: Magnesium Chloride 64 MG Delay Rel.Tablet 128 MG PO (08:13)
[2023-08-20] MEDS: Hydroxychloroquine 200 MG Tablet PO (08:13)
[2023-08-20] MEDS: Metoprolol(XL)Succ 25 MG Tablet PO (08:13)
[2023-08-20] MEDS: Ceftriaxone 1 GM/50 ML BAG IV (08:57)
[2023-08-20] MEDS: Azithromycin 500 MG in Dextrose 5%-Water (250mL Bag) 250 ML 250 MG IV (10:01)
--- NOTE | 2023-08-20 10:01 | PCM.DC.SUM ---
Providers Date of Admission: 08/18/23 Date of Discharge: 08/20/23 Primary Care Physician: Dr. Shamir Moody MD Reason For Visit: PNA, HYPOXIA Diagnosis Discharge Diagnosis (1) Right upper lobe pulmonary infiltrate: Status: Acute Code(s): R91.8 - Other nonspecific abnormal finding of lung field Plan: DISCHARGE DIAGNOSES: #1. Acute Hypoxia (presentation not consistent with respiratory failure) secondary to Acute Community Acquired RUL Pneumonia/Consolidation, unclear organism #2. Sinus tachycardia, initial concern for possible new onset atrial fibrillation however this is ruled out, consistent with sinus tachycardia with history of having not been refilling her metoprolol therapy which confounds this presentation #3. Hyponatremia, mild, likely hypovolemic component #4. HFpEF #5. Nonobstructive CAD #6. Chronic normocytic anemia/Fe Deficiency anemia #7. Chronic thrombocytopenia, unclear etiology #8. History of breast cancer, left-sided breast cancer, unclear specific type #9. History uterine cancer #10. Rheumatoid arthritis #11. GERD with history of GI bleed #12. Patient HCPOA and living will are not in place but her would be her decision-maker if necessary she notes. Full Code status. Medications at Discharge Home Medications magnesium 250 mg tablet 250 mg PO DAILY supplement 03/13/16 acetaminophen 500 mg tablet 1,000 mg PO Q8H PRN Pain 1-10 Or Fever 09/09/20 hydroxychloroquine 200 mg tablet 200 mg PO BID arthritis 09/18/20 calcium carbonate 600 mg-vitamin D3 10 mcg (400 unit) tablet 1 tablet PO DAILY supplement 10/09/20 aspirin 81 mg chewable tablet 81 mg PO BREAKFAST 30 days #30 tabs 08/20/23 atorvastatin 10 mg tablet 10 mg PO QHS 30 days #30 tabs 08/20/23 azithromycin 500 mg tablet 500 mg PO DAILY 2 days #2 tabs 08/20/23 cefdinir 300 mg capsule 300 mg PO BID 4 days #8 caps 08/20/23 guaifenesin 1,200 mg tablet, extended release 12 hr (Mucinex) 1,200 mg PO Q12H 10 days #20 tabs 08/20/23 metoprolol succinate 25 mg tablet,extended release 24 hr 25 mg PO DAILY 30 days #30 tabs 08/20/23 Hospital Course Operations None Procedures EKG Summary of Care Provided Minutes Spent on Discharge: 35 Hospital Course: The patient is a 78 y/o F w/ PMHx: HFpEF, CAD, Hx L Breast CA, GERD w/ Hx GI bleed, HTN, HLD, Hx Uterine CA, Chronic normocytic anemia/iron deficiency anemia, Rheumatoid arthritis who presented to the [facility] ED on 08/18/2023 with history of generalized, fatigue and ongoing cough more severe over the last several weeks although she does have more of a chronic component cough with pleuritic chest discomfort nausea and occasional bouts of emesis reportedly over the last 2 to 3 weeks. Chest x-ray upon presentation in the ED with consolidation right upper lobe. Admitted to [facility], placed on PCU for hospital convenience. Maintained on oxygen with wean to room air. Patient maintained on ATC budesonide, PRN albuterol. Maintained on IV Rocephin an Azithromycin, CT chest obtained w/ dense consolidation right upper lobe with areas of patchy infiltrates bilateral upper lobes, scattered nodular peripheral densities, right pleural effusion. Negative full respiratory viral panel. EKG in the ED with initial concerns for possible atrial fibrillation with RVR however following EKG review with previous EKGs it is very similar and more consistent with sinus tachycardia likely in part as patient was not taking her metoprolol therapy. Patient improved with BB resumption, d/c telemetry 08/19/23. Admission sodium 132, baseline previously normal, given acute illness suspect likely poor intake, judiciously hydrated, 08/19/2023 Na 138. 09/18/2020 echocardiogram with normal LV size, EF 53%, mild MVI and JIGNESH, small pericardial effusion, stage I diastolic dysfunction, mean AV gradient 24 mmHg, mild concentric LVH. From review of records last cardiology visit patient medication included lovastatin 10 mg daily, metoprolol succinate 25 mg extended release daily, lisinopril 40 mg daily, Lasix 40 mg daily, potassium chloride 20 mill equivalent daily. Patient was restarted on aspirin, statin and metoprolol succinate. Discussed follow-up with cardiology and likely at that time if blood pressure remained appropriate consideration of resumption also of lisinopril and Lasix given patient upon presentation had lower blood pressures initially. From discussions suspect that she was lost to follow-up during COVID. Given clinical improvement patient was discharged on oral abx regimen with encouraged follow-up with PCP as well as Cardiology to assure she continues to have evaluation and if BP remains appropriate potential resumption of also ACEI and lasix in the future. Weight / BMI Weight Weight: 158 lb 15.253 oz Body Mass Index (BMI) 26.4 ABG / Lab / Microbiology Data 08/19/23 07:15 08/19/23 07:15 Microbiology: Microbiology 08/18/23 15:15 Mucosa - Nasopharyngeal Respiratory Panel (PCR) - Final D/C Instructions Discharge Diet: Low fat / Low cholesterol May resume sexual activity in: 10-14 days Weight Bearing Status: Weight bearing as tolerated Call your doctor if you observe: Fever of 101 or Higher, Numbness or Tingling, Shortness of breath, Dizziness, Chest pain, Increased palpitations (irregular heartbeat), Calf discomfort and Uncontrolled pain Meaningful Use Info Meaningful Use Diagnoses (Choose all that apply): None applicable Discharge Plan Admission Admit Date/Time: 08/18/23 11:29 Primary Reason for Your Visit: Hypoxia, RUL PNA Attending Provider: Lola Naik Primary Care Provider: Shamir Moody Instructions Additional Instructions / Restrictions: ADDITIONAL DISCHARGE ORDERS/PLAN OF CARE DURING ADMISSION: Acute Hypoxia (low oxygen level) secondary to Acute RUL Pneumonia/Consolidation: Chest x-ray upon presentation in the ED with consolidation right upper lobe. You were treated with IV Rocephin and Azithromycin antibiotic therapies. CT chest obtained w/ dense consolidation right upper lobe with areas of patchy infiltrates bilateral upper lobes, scattered nodular peripheral densities, right pleural effusion. Negative respiratory full panel. Oxygenation trial performed with appropriate saturation at rest and with activity with no oxygen needs. Upon discharge we have transitioned you to oral azithromycin and cefdinir. GENERAL MEDICATION UPDATE: Upon admission you have been noted to stop several of your medications. We have resumed baby aspirin, low-dose statin, metoprolol succinate 25 mg p.o. daily and strongly encourage you to continue these medications with close early follow-up with your primary care physician. CHRONIC HEALTH ISSUES: Chronic anemia (low blood count), Iron deficiency: Admission hemoglobin 9.9, MCV 92.6, baseline appears 8-9, stable, 08/19/23 Hgb 9.3. Encourage continued outpatient work-up and reassessment of your chronic anemia (low blood count). Chronic thrombocytopenia, unclear etiology (low platlets): Admission platelets 142, baseline appears similar although has been lower in the past but labs are remote since recent presentation, 08/19/23 Plts 144. Encourage continued outpatient work-up and reassessment of your chronic thrombocytopenia (low platlets). Discharge Orders/Prescriptions Prescriptions: New aspirin 81 mg Tablet,Chewable 81 mg PO BREAKFAST 30 Days Qty: 30 0RF atorvastatin 10 mg Tablet 10 mg PO QHS 30 Days Qty: 30 0RF metoprolol succinate 25 mg Tablet Extended Release 24 Hr 25 mg PO DAILY 30 Days Qty: 30 0RF guaifenesin [Mucinex] 1,200 mg tablet extended release 12hr 1,200 mg PO Q12H 10 Days Qty: 20 0RF azithromycin 500 mg tablet 500 mg PO DAILY 2 Days Qty: 2 0RF cefdinir 300 mg capsule 300 mg PO BID 4 Days Qty: 8 0RF Continued calcium carbonate-vitamin D3 600 mg(1,500mg) -400 unit tablet 1 tablet PO DAILY magnesium 250 MG tablet 250 mg PO DAILY acetaminophen 500 MG tablet 1,000 mg PO Q8H PRN (Reason: Pain 1-10 Or Fever) hydroxychloroquine 200 MG tablet 200 mg PO BID Referrals / Follow Up: Shamir Moody MD [Primary Care Provider] - 08/24/23 1:40 pm (Follow-up in 3-5 days to review admission. Added back your chronic medications which may also be reviewed at your visit.) Vijaya Jade NP, FINANCIAL SERVICES PROFESSIONAL-C [Non-Staff -Ordering Privileges] - 09/07/23 10:30 am (Please follow-up with Cardiology to assure you continue to take the appropriate regimen. We have restarted all your appropriate medications. Please follow-up with Cardiology FINANCIAL SERVICES PROFESSIONAL in 2-3 weeks.) Disposition Disposition (needs filled in before D/C Order can be placed): Home, Self Care Charges/Coding Visit Charges Inpatient E&M: 33841 Disch Hosp >30min
--- NOTE | 2023-08-20 10:51 | NURSING ---
discharge instructions given to patient and . all questions answered
== END 2023-08-20 11:03 | disposition home or self-care (01) | DRG 194 ==
LOC: ED 10:23 → PCU 12:01
PROVIDERS: Admitting Provider Family Medicine; Emergency Provider Emergency Medicine; PCP Family Medicine; Visit Provider Family Medicine
DX: J18.9 Pneumonia, unspecified organism (principal); E87.1 Hypo-osmolality and hyponatremia; I50.32 Chronic diastolic (congestive) heart failure; D70.9 Neutropenia, unspecified; I11.0 Hypertensive heart disease with heart failure; M06.9 Rheumatoid arthritis, unspecified; D50.9 Iron deficiency anemia, unspecified; E86.0 Dehydration; I25.10 Atherosclerotic heart disease of native coronary artery without angina pectoris; E78.5 Hyperlipidemia, unspecified; M19.90 Unspecified osteoarthritis, unspecified site; K21.9 Gastro-esophageal reflux disease without esophagitis; R00.0 Tachycardia, unspecified; Z11.2 Encounter for screening for other bacterial diseases; R09.02 Hypoxemia; Z90.12 Acquired absence of left breast and nipple; Z79.82 Long term (current) use of aspirin; Z79.899 Other long term (current) drug therapy
CPT/HCPCS: 71046; 71250; 80048; 80053; 83605; 83735; 85025; 87040; 87633; 87641; 92610; 93005; 94640; 94668; 97162; 97165; 99285; J7030; J7040; A4216

== ENCOUNTER 2023-08-22 23:49 | Emergency (ER) | payer MEDICARE, OTHER, SELFPAY ==
[2023-08-22 23:50] VITALS: BP 147/106; PULSE 123; RESP 24; TEMP 36.4; O2SAT 90
[2023-08-23 00:31] VITALS: BP 127/93; PULSE 107; RESP 18; TEMP 37.6; O2SAT 91; BMI 29.1
[2023-08-23 00:34] VITALS: O2SAT 91
--- NOTE | 2023-08-23 00:38 | CT_ITS ---
STUDY: CTA CHEST REASON FOR EXAM: Female, 78 years old. dyspnea RADIATION DOSAGE (If Supplied By Facility): CTDIvol = ( 12.58 ) mGy, DLP = ( 395.08 ) mGycm TECHNIQUE: The examination was performed with the intravenous administration of IV 100mL Isovue-370. Post-processing of the angiographic images was performed, with multiplanar reformation and 3D reconstruction. Individualized dose optimization techniques were used for this CT. COMPARISON: None. FINDINGS: Exam is limited due to motion/breathing artifact for evaluation of distal pulmonary arteries in the lung bases. Normal enhancement of the main pulmonary artery and right and left pulmonary arteries. Normal enhancement of the bilateral peripheral pulmonary arteries. There is no demonstrated pulmonary embolism. There is atherosclerotic calcification of the aortic arch with tortuosity. There is no demonstrated aortic dissection. Moderate cardiomegaly with coronary artery calcifications. Multiple borderline prominent lymph nodes within the mediastinum and hilar region most compatible with nonspecific inflammatory response. Normal trachea and central bronchi. The lungs are slightly underexpanded. Bilateral upper lobe and right lower lobe consolidation compatible with pneumonia. Additional foci of groundglass opacities within the left lower lobe compatible with pneumonitis. There is mild to moderate right-sided pleural effusion. There is minimal left-sided pleural effusion. Normal chest wall structures. There are degenerative changes of thoracic spine. Diffuse osteopenia. Normal visualized upper abdomen. CT/CTA Chest W/WO Contrast IMPRESSION: Negative CTA chest examination, without a demonstrated pulmonary embolism or arterial dissection. Cardiomegaly. No pulmonary embolus or aortic dissection. Diffuse multifocal pneumonia with bilateral pleural effusions, right larger than left. Electronically Signed: Abbey Lewis MD at 2:28 EST ,
--- NOTE | 2023-08-23 00:38 | EKG12_ITS ---
Test Reason : SOB Blood Pressure : / mmHG Vent. Rate : 116 BPM Atrial Rate : 116 BPM P-R Int : 138 ms QRS Dur : 106 ms QT Int : 352 ms P-R-T Axes : 071 -37 095 degrees QTc Int : 489 ms Sinus tachycardia with Premature atrial complexes Left axis deviation Cannot rule out Septal infarct , age undetermined Abnormal ECG Confirmed by Vinod Nice ([id number]), editorial manager MICHAEL OLIVIER ([id number]) on 08/24/2023 9:14:30 AM Referred By: Confirmed By:Vinod Nice
--- OUTSIDE RECORDS SUMMARY | 2023-08-23 00:54 | XMS RPT_ITS | CCD ---
Author Name Unknown Address [address] [place] [address] Organization [facility] Care Team Providers Care Director Of Nurses Registry Name Role Phone Arley BRONSON Pily Unavailable Stewart Moody MD Primary Care Provider STEWART MOODY Primary Care UnavailLELO Willis Attending Unavailable LELO WHITE Referring Unavailable LELO WHITE Referring Unavailable STEWART MOODY Primary Care Unavailab beck Allergies Allergy Classification Reported Allergen(s) Allergy Type Date of Onset Reaction(s) Facility (15 sources) Adhesive Tape; Translations: [ADHESIVE TAPE (ROSINS)] Allergy to substance 2 Rash [facility] Work Phone: (15 sources) amLODIPine; Translations: [AMLODIPINE BESYLATE] Drug Allergy 2 Swelling [facility] (15 sources) atorvastatin; Translations: [ATORVASTATIN] Drug Allergy 1 Other: See Comments [facility] Work Phone: (15 sources) Bisoprolol / hydroCHLOROthiaz kaci; Translations: [BISOPROLOL-HYDR OCHLOROTHIAZIDE] Drug Allergy 6 [facility] Work Phone: Medications Completed/Discontinued Medications Medication Drug [...] Coronary arteriosclerosis; Translations: [Atherosclerotic heart disease of [place] coronary artery without angina pectoris] Chronic Disorders [...] 10:02-0500 Body height 161.9 cm Lelo White WEB APPLICATIONS DEVELOPER.BUSINESS INTELLIGENCE ETL DEVELOPER Work Phone: [facility] 07-21-2022 10:02-0500 Body temperature 98.8 [degF] Lelo White WEB APPLICATIONS DEVELOPER.BUSINESS INTELLIGENCE ETL DEVELOPER Work Phone: [facility] 07-21-2022 10:02-0500 Body weight 82.33 kg Lelo White WEB APPLICATIONS DEVELOPER.BUSINESS INTELLIGENCE ETL DEVELOPER Work Phone: [facility] 07-21-2022 10:02-0500 Diastolic blood pressure 82 mm[Hg] Lelo White WEB APPLICATIONS DEVELOPER.BUSINESS INTELLIGENCE ETL DEVELOPER Work Phone: [facility] 07-21-2022 10:02-0500 Heart rate 65 /min Lelo White WEB APPLICATIONS DEVELOPER.BUSINESS INTELLIGENCE ETL DEVELOPER Work Phone: [facility] 07-21-2022 10:02-0500 Systolic blood pressure 156 mm[Hg] Lelo White WEB APPLICATIONS DEVELOPER.BUSINESS INTELLIGENCE ETL DEVELOPER Work Phone: [facility] 06-22-2022 08:40-0500 Body weight 82.56 kg Stewart Moody MD Work Phone: [facility] 06-22-2022 08:40-0500 Diastolic blood pressure 80 mm[Hg] Stewart Moody MD Work Phone: [facility] 06-22-2022 08:40-0500 Heart rate 65 /min Stewart Moody MD Work Phone: [facility] 06-22-2022 08:40-0500 Respiratory rate 16 /min Stewart Moody MD Work Phone: [facility] 06-22-2022 08:40-0500 SaO2% (BldA) [Mass fraction] 97 % Stewart Moody MD Work Phone: [facility] 06-22-2022 08:40-0500 Systolic blood pressure 136 mm[Hg] Stewart Moody MD Work Phone: [facility] 12-12-2021 10:38-0400 Body weight 80.56 kg Stewart Moody MD Work Phone: [facility] 12-12-2021 10:38-0400 Diastolic blood pressure 84 mm[Hg] Stewart Moody MD Work Phone: [facility] 12-12-2021 10:38-0400 Heart rate 61 /min Stewart Moody MD Work Phone: [facility] 12-12-2021 10:38-0400 Respiratory rate 16 /min Stewart Moody MD Work Phone: [facility] 12-12-2021 10:38-0400 SaO2% (BldA) [Mass fraction] 98 % Stewart Moody MD Work Phone: [facility] 12-12-2021 10:38-0400 Systolic blood pressure 120 mm[Hg] Stewart Moody MD Work Phone: [facility] Encounters Encounter Date Encounter Type Care Provider Facility Start: 07-21-2023 End: 07-21-2023 ambulatory STEWART MOODY Facility:[facility] Start: 06-21-2023 Telephone encounter Lelo rasmussen APRN.CNP Work Phone: Hematology/Oncology Procedures Date Procedure Procedure Detail Performing Clinician Start: 07-14-2022 Us breast uni real t catherine with image limited Lelo Cindy WEB APPLICATIONS DEVELOPER.BUSINESS INTELLIGENCE ETL DEVELOPER Work Phone: Start: 07-14-2022 J[place]ICA AKUAG W MARTITA RIGHT D lana White WEB APPLICATIONS DEVELOPER.BUSINESS INTELLIGENCE ETL DEVELOPER Work Phone: Start: 06-22-2022 Lipid 1996 panel - S alexander or Plasma Us 1 Work Phone: Start: 06-01-2022 End: 06-01-2022 Mammography Lelo White WEB APPLICATIONS DEVELOPER .BUSINESS INTELLIGENCE ETL DEVELOPER Work Phone: Start: 06-26-2021 Adult depression screening assessment Stewart Moody MD Work Phone: Start: 05-12-2021 Mammography Shamir Moody MD Work Phone: Start: 09-10-2020 Colonoscopy Shamir Moody MD Work Phone: Plan of Treatment Date Care Activity Detail Author Start: 09-10-2030 Colonoscopy COLONOSCOPY [facility] Start: 09-10-2030 COLORECTAL CANCER SCREENING COLORECTAL CANCER SCREENING [facility] Start: 06-22-2027 Lipid 1996 panel - S alexander or Plasma Lipid Screening [facility] Start: 06-22-2027 LIPID SCREEN LIPID SCREEN [facility] Start: 11-29-2025 LIPID SCREEN LIPID SCREEN [facility] Start: 06-22-2025 DIABETES SCREEN DIABETES SCREEN [facility] Start: 06-22-2025 Diabetes Screening Diabetes Screenin g [facility] Start: 06-24-2024 DIABETES SCREEN DIABETES SCREEN [facility] Start: 06-22-2023 ANNUAL PCP TEAM CANAL STRUCTURE OPERATOR TONE DISEASE VISIT ANNUAL PCP TEAM CHRONIC DISEASE VISIT [facility] Start: 06-22-2023 COVID-19 VACCINE (5 - Booster for Pfizer series) COVID-19 VACCINE (5 - Booster for Pfizer series) [facility] Immunizations Immunization Date Immunization Notes Care Provider Kathy palmer 04-12-2023 influenza (aIIV4) vaccine, age 65+ yr, quadrivalent, PF (FLUAD QUAD) Screen [facility] 04-22-2022 influenza (aIIV4) vaccine, age 65+ yr, quadrivalent, PF (FLUAD QUADRIVALENT) Stewart Moody MD Work Phone: [facility] Work Phone: 04-27-2021 influenza (aIIV4) vaccine, age 65+ yr, quadrivalent, PF (FLUAD QUADRIVALENT) Stewart Moody MD Work Phone: [facility] Work Phone: 09-14-2020 COVID-19 vaccine, ag e 12+ yr (PFIZER-BIONTECH - PURPLE TOP) Stewart Moody MD Work Phone: [facility] 08-24-2020 COVID-19 vaccine, ag e 12+ yr (PFIZER-BIONTECH - PURPLE TOP) Stewart Moody MD Work Phone: [facility] Payers Date Payer Category Payer Private Health Insurance [facility] AARP SUPPLEMENT [id number] 2013-Present [phone] [address] [place] [address] Indemnity [id number] 2013 Private Health Insurance [facility] A[employer] SUPPLEMENT [id number] 2013-Present [phone] [address] [place] [address] Indemnity [id number] 2013 Unknown [id number] 2012 Medicare MEDICARE MEDICAR E A AND B [id number] 2012-Present [phone] [place] [address] Medicare [id number] 2012 Medicare MEDICARE MEDICAR E A AND B [id number] 2012-Present [phone] [place] [address] Medicare [id number] 2012 Medicare [id number] Social History Date Type Detail Facility Start: 05-12-2011 Tobacco smoking stat us ALIS Never smoked tobacco [facility] Start: 12-12-2021 End: 07-21-2022 Alcohol intake Current non-drinker of alcohol (finding) [facility] Start: 1945 Sex Assigned At Not on file [facility] Start: 12-02-2021 End: 06-01-2022 Exposure to SARS-CoV-2 (event) Not sure [facility] Start: 05-12-2011 Tobacco use and exposure Smokeless tobacco non-user [facility] Work Phone: Start: 06-16-2020 End: 06-22-2022 History of Social function [facility] Work Phone: Start: 06-16-2020 End: 06-22-2022 Tobacco use panel [facility] Work Phone: Adult Depression Screening Assessment 0 [facility] Work Phone: Goals Date Patient Goal Desired Activity /State Personal health goal Clinical Notes 06-10-2017 to 07-21-2023 Telephone Encounter - Ani Salmon - 06/21/2023 12:19 PM ESTTelephone Encounter - Lelo White APRN.CNP - 06/21/2023 12:13 PM Dana Downs Mammo Tech - 06/11/2023 9:30 AM EST Note Date & Type Note Facility 07-21-2023 Note HNO ID: [id number] Author: LELO WHITE APRN.AIYANA Service: ? Author [...] invasive ductal carcinoma. It was ER positive, DE positiveand Her2/barb 2+. She underwent left breast [...] R wrist fx. Casted for 2 months. [facility]. R hand dominant. Appetite: Too much. [...] - ICD9: V10.3, ICD10: Z85.3 Stage IIA, [id number], invasive ductal carcinoma of the left breast [...] necessary for today's visit. Lelo White APRN.AIYANA [facility] 06-21-2023 Miscellaneous Notes Patient informed No concerning findings on exam. Follow up as scheduled. Thank you. Lelo White APRN.BUSINESS INTELLIGENCE ETL DEVELOPER Patient calling for 06/11 mamm results documented in this encounter [facility] 06-11-2023 Note HNO ID: [id number] Author: Dana Balderrama Mammo Tech Service: ? Author Type: Business Owner/Engineer Type: Progress Notes Filed: 06/11/2023 9:45 AM [...] Lavelle Westbrook June 11, 2023 9:11 AM [facility] 06-11-2023 History of Present illness Narrative Radiology [...] 2023 9:11 AM documented in this encounter [facility] 02-11-2023 Note HNO ID: [id number] Author: Nora Vanessa MA Service: ? Author Type: Lease Out Worker Type: Progress Notes Filed: 02/11/2023 9:43 AM Note Text: POPULATION HEALTH NAVIGATION OUTREACH Action/FYI Letter prepared and placed in outgoing mail. Navigation Signature: Nora Vanessa MA February 11, 2023 9:42 AM [facility] 02-10-2023 Note Patient Outreach (NE TNAV) GABI ASHBY ([id number]) 1945 F Date Time Provider Department 02/10/23 [...] Date Reviewed: 07/21/2022 Reviewed by: Lelo White APRN.BUSINESS INTELLIGENCE ETL DEVELOPER - Fully Assessed Reason for Visit: Population Health Navigation Outreach [3910] Cmt: ACO MEL PCSA Prescriptions as of 02/11/2023 - rosuvastatin (CRESTOR) 20 mg tablet Take 1 tablet by mouth daily at bedtime. - lisinopril (ZESTRIL, PRINIVIL) 40 mg tablet Take 1 tablet by mouth once daily. - metoprolol succinate ER (TOPROL XL) 25 mg 24 hr tablet Take 1 tablet by mouth once daily. - omega 2-bau-jrp-fish-turmeric 417 mg-120 mg- 276 mg-600 mg cap [...] (estrogen receptor positive status) [Z17.0] 07/18/2012 Seroma [[id number]] 08/01/2012 10/05/2017 Degenerative disc disease, lumbar [M51.36] [...] Encounter Status:Closed by MULU VYAS on 02/10/23 [facility] 02-10-2023 Note HNO ID: [id number] Author: Mulu Vyas MA Service: ? Author Type: Lease Out Worker Type: Progress Notes Filed: 02/10/2023 3:32 PM [...] Vyas MA February 10, 2023 10:22 AM [facility] 07-21-2022 History of Present illness Narrative Chief [...] invasive ductal carcinoma. It was ER positive, DE positive and Her2/barb 2+. She underwent left [...] - ICD9: V10.3, ICD10: Z85.3 Stage IIA, [id number], invasive ductal carcinoma of the left breast [...] Lelo White APRN.CNP documented in this encounter [facility] 07-14-2022 Miscellaneous Notes Spoke with patient and scheduled. Sravanthi Yuan Please see previous phone note. Pt. needs OV. Thank you. Lelo White APRN.CNP documented in this encounter [facility] 07-14-2022 History of Present illness Narrative Radiology [...] 2022 3:44 PM documented in this encounter [facility] 07-14-2022 History of Present illness Narrative Radiology [...] 2022 1:59 PM documented in this encounter [facility] 06-23-2022 Miscellaneous Notes Patient returned call and given provider's message below with verbalized understanding. VM left for patient to call PCP office for message below. Mikayla Brnad RN Please call patient and let her know her cholesterol has increased, recommend increasing her Crestor to 20 mg. The rest of her blood work is in acceptable ranges. Thanks, Telma Sainz APRN.AIYANA documented in this encounter [facility] 06-22-2022 Miscellaneous Notes Thank you, hopefully they can get her imaging completed sooner than July with her history of breast CA. Patient was instructed to call to see if she could be scheduled sooner for her callback diagnostic mammogram. She was directed to speak with the [facility] due to no available openings at the [facility] location at this time. documented in this encounter [facility] 06-22-2022 History of Present illness Narrative Chief [...] of Arimidex since 2017. CAD: Following with [facility] cardiology. Last OV 08/2021. Switched to [...] uteri, except isthmus (HCC) 1979 Uterine cancer [place], old Osteoarthritis Other and unspecified hyperlipidemia Rheumatoid [...] DX W/COLLJ SPEC WHEN PFRMD N/A 09/10/2020 [facility]-Dr. Lopez ESOPHAGOGASTRODUODENOSCOPY TRANSORAL DIAGNOSTIC 01/03/2019 EGD ESOPHAGOGASTRODUODENOSCOPY TRANSORAL DIAGNOSTIC N/A 09/10/2020 [facility]-Dr. Lopez MASTECTOMY, PARTIAL 06/06/2012 LEFT PAST SURGICAL HISTORY OF Right shoulder replacement SURGERY (GENERAL SURGERY) CONSULT Right 03/24/2016 right knee replacement - [facility] TOTAL ABDOMINAL HYSTERECT W/WO RMVL TUBE OVARY 1979 uterine ca Family History FAMILY HISTORY Problem Relation Age of Onset Cancer Mother uterine Hypertension Mother hyperlipidemia Arthritis Mother Osteoporosis Mother Heart Father [place] at age 39 Hypertension Sister arthritis Osteoporosis Sister Arthritis Sister hypertension Hypertension Brother None Brother None Brother None Brother Diabetes Maternal Grandmother Thyroid Maternal Aunt Patient Allergies ALLERGIES Allergen Reactions Adhesive Tape (Tash* Rash Lipitor [Atorvastat* Other: See Comments Headache Norvasc [Amlodipine* Swelling Ziac [Bisoprolol-Hy* headaches Current Medications Current Outpatient Medications on File Prior to Visit Medication Sig omega 1-koo-eoq-fish-turmeric 417 mg-120 mg- 276 mg-600 mg cap [...] <0.01 ASSESSMENT/PLAN: 1. Coronary artery disease involving [place] heart without angina pectoris, unspecified vessel or [...] Stewart Moody MD documented in this encounter [facility] 06-02-2022 Miscellaneous Notes Patient returned call and was transferred to the Breast Center. LM for patient to return call. When patient calls, please advise patient that, per Lelo's note below, she needs to have additional mammogram images done and her office visit w/ Lelo will be rescheduled to after the imaging appointment. Then transfer her to the Breast Center at [phone] to schedule her additional imaging. Once transferred, document and route this note to P [facility] HEM/ONC PSR so follow up with Lelo can be rescheduled. Sravanthi Yuan Please inform pt. that the radiologist would like additional images of R breast. Please schedule R dx mamm/US soon. Move OV out until after above. Thank you. Lelo White APRN.AIYANA documented in this encounter [facility] 06-01-2022 Miscellaneous Notes June 01, 2022 PID: [id number] Gabi Ashby [address] [place] [address] Dear Ms. Ashby, Your recent breast imaging exam on 06/01/2022 showed a possible finding that requires additional imaging studies for a complete evaluation. Most such findings are probably benign (not cancer). If you have a healthcare provider who ordered/prescribed your screening mammogram: Please call [phone] or [phone]: [phone] to schedule an appointment for your additional [...] and reports are kept on file at [facility] as part of your permanent medical record, and are available for your continuing care. Thank you for allowing us to help in meeting your health care needs. Sincerely, Dr. Ruiz Interpreting Radiologist [facility] (Additional imaging) documented in this encounter [facility] 06-01-2022 History of Present illness Narrative Radiology [...] DATA: Not applicable SIGNED BY: Flaca Jordan [employer] Jessica June 01, 2022 11:38 AM documented in this encounter [facility] 12-12-2021 History of Present illness Narrative Chief [...] uteri, except isthmus (HCC) 1979 Uterine cancer [place], old Osteoarthritis Other and unspecified hyperlipidemia Rheumatoid [...] DX W/COLLJ SPEC WHEN PFRMD N/A 09/10/2020 [facility]-Dr. Lopez ESOPHAGOGASTRODUODENOSCOPY TRANSORAL DIAGNOSTIC 01/03/2019 EGD ESOPHAGOGASTRODUODENOSCOPY TRANSORAL DIAGNOSTIC N/A 09/10/2020 [facility]-Dr. Lopez MASTECTOMY, PARTIAL 06/06/2012 LEFT PAST SURGICAL HISTORY OF Right shoulder replacement SURGERY (GENERAL SURGERY) CONSULT Right 03/24/2016 right knee replacement - [facility] TOTAL ABDOMINAL HYSTERECT W/WO RMVL TUBE OVARY 1979 uterine ca Family History FAMILY HISTORY Problem Relation Age of Onset Cancer Mother uterine Hypertension Mother hyperlipidemia Arthritis Mother Osteoporosis Mother Heart Father [place] at age 39 Hypertension Sister arthritis Osteoporosis [...] tablet by mouth daily at bedtime. omega 7-bgv-heg-fish-turmeric 417 mg-120 mg- 276 mg-600 mg cap [...] PANEL, NONFASTING 3. Coronary artery disease involving [place] heart without angina pectoris, unspecified vessel or [...] Stewart Moody MD documented in this encounter [facility] documented as of this encounter (statuses as of 12/12/2021) [facility]-30-2017 History of Past illness Narrative* Problem Noted [...] of this encounter (statuses as of 06/02/2022) [facility] History of Past illness Narrative* Problem Noted [...] of this encounter (statuses as of 06/02/2022) [facility] History of Past illness Narrative* Problem Noted [...] of this encounter (statuses as of 06/03/2022) [facility] History of Past illness Narrative* Problem Noted [...] of this encounter (statuses as of 06/22/2022) [facility] History of Past illness Narrative* Problem Noted [...] of this encounter (statuses as of 06/23/2022) [facility] History of Past illness Narrative* Problem Noted [...] of this encounter (statuses as of 07/05/2022) [facility] History of Past illness Narrative* Problem Noted [...] of this encounter (statuses as of 07/16/2022) [facility] History of Past illness Narrative* Problem Noted [...] of this encounter (statuses as of 07/21/2022) [facility] History of Past illness Narrative* Problem Noted [...] of this encounter (statuses as of 05/16/2023) [facility] History of Past illness Narrative* Problem Noted [...] of this encounter (statuses as of 05/16/2023) [facility] History of Past illness Narrative* Problem Noted [...] of this encounter (statuses as of 05/16/2023) [facility] History of Past illness Narrative* Problem Noted [...] of this encounter (statuses as of 06/12/2023) [facility] History of Past illness Narrative* Problem Noted [...] of 06/21/2023) [facility] note* Diagnosis Essential hypertension, benign- Primary Hyperlipidemia with target LDL less than 100 Other and unspecified hyperlipidemia Coronary artery disease involving [place] heart without angina pectoris, unspecified vessel or lesion type Rheumatoid arthritis involving multiple sites with positive rheumatoid factor (HCC) History of left breast cancer Chronic anemia Anemia, unspecified documented in this encounter [facility] note* Diagnosis History of left breast cancer- Primary Abnormal mammogram of right breast documented in this encounter [facility] note* Diagnosis Coronary artery disease involving [place] heart without angina pectoris, unspecified vessel or [...] this encounter [facility] note* Diagnosis Hyperlipidemia with target LDL less than 100 Other and unspecified hyperlipidemia documented in this encounter [facility] note* Diagnosis Personal history of breast cancer- Primary Personal history of malignant neoplasm of breast Encounter for screening mammogram for high-risk patient documented in this encounter [facility] note* Diagnosis History of left breast cancer Abnormal mammogram of right breast documented in this encounter [facility] note* Diagnosis History of left breast cancer Abnormal mammogram of right breast documented in this encounter [facility] note* Diagnosis 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) Encounter for screening mammogram for high-risk patient documented in this encounter [facility] note* Diagnosis Personal history of breast cancer Personal history of malignant neoplasm of breast Encounter for screening mammogram for high-risk patient documented in this encounter [facility] for referral (narrative)* Diagnostic Procedure Only (Routine) - Pending Review Specialty Diagnoses / Procedures Referred By Korina santoyo Referred To Contact [facility] Diagnoses History of left breast cancer Abnormal mammogram of right breast Procedures US BREAST LTD RT US BREAST UNI REAL TIME WITH IMAGE LIMITED Lelo White APRN.BUSINESS INTELLIGENCE ETL DEVELOPER [address] [place] [address] [facility] [address] [place] [address] Referral ID Status Reason Start Date Expiration Date Visits Requested Visits Authorized [id number] Pending Review Auto-Generat ed Referral 2 07/02/2023 1 1 * Diagnostic Procedure Only (Routine) - Authorized Specialty Diagnoses / Procedures Referred By Korina t Referred To Contact [facility] History of left breast cancer Abnormal mammogram of right breast Procedures [place] DIAGNOSTIC RT DIAGNOSTIC MAMMOGRAPHY COMPUTER-AIDED DETCJ UNI Lelo White APRN.BUSINESS INTELLIGENCE ETL DEVELOPER [address] [place] [address] [facility] [address] [place] [address] Referral ID Status Reason Start Date Expiration Date Visits Requested Visits Authorized [id number] Authorized Auto-Generat ed Referral 2 07/02/2023 1 1 [facility] for referral (narrative)* Diagnostic Procedure Only (Routine) - Authorized Specialty Diagnoses / Procedures Referred By Korina santoyo Referred To Contact [facility] Diagnoses Personal history of breast cancer Encounter for screening mammogram for high-risk patient Procedures J[place]ICA SCREENING SCREENING MAMMOGRAPHY BI 2-VIEW BREAST INC CAD Lelo White APRN.BUSINESS INTELLIGENCE ETL DEVELOPER [address] [place] [address] [facility] [address] [place] [address] Referral ID Status Reason Start Date Expiration Date Visits Requested Visits Authorized [id number] Authorized Auto-Generat ed Referral 07/21/2022 08/20/2023 1 1 [facility] for referral (narrative)* Diagnostic Procedure Only (Routine) - Closed Specialty Diagnoses / Procedures Referred By Korina santoyo Referred To Contact [facility] Diagnoses History of left breast cancer Abnormal mammogram of right breast Procedures US BREAST LTD RT US BREAST UNI REAL TIME WITH IMAGE LIMITED Lelo White APRN.BUSINESS INTELLIGENCE ETL DEVELOPER [address] [place] [address] [facility] [address] [place] [address] Referral ID Status Reason Start Date Expiration Date V isits Requested Visits Authorized [id number] Closed Auto-Generate d Referral 06/02/2022 07/02/2023 1 1 [facility] for referral (narrative)* Diagnostic Procedure Only (Routine) - Closed Specialty Diagnoses / Procedures Referred By Contac t Referred To Contact [facility] Diagnoses 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) Encounter for screening mammogram for high-risk patient Procedures [place] SCREENING SCREENING MAMMOGRAPHY BI 2-VIEW BREAST INC [facility] Lelo White APRN.BUSINESS INTELLIGENCE ETL DEVELOPER [address] [place] [address] [facility] [address] [place] [address] Referral ID Status Reason Start Date Expiration Date V isits Requested Visits Authorized [id number] Closed Auto-Generate d Referral 07/01/2021 07/31/2022 1 1 [facility] for visit Narrative* Diagnostic Procedure Only (Routine) - Closed Specialty Diagnoses / Procedures Referred By Contac t Referred To Contact [facility] Diagnoses History of left breast cancer Abnormal mammogram of right breast Procedures [place] DIAGNOSTIC RT DIAGNOSTIC MAMMOGRAPHY COMPUTER-AIDED DETCJ [facility] Lelo White APRN.BUSINESS INTELLIGENCE ETL DEVELOPER [address] [place] [address] [facility] [address] [place] [address] Referral ID Status Reason Start Date Expiration Date V isits Requested Visits Authorized [id number] Closed Auto-Generate d Referral 06/02/2022 07/02/2023 1 1 [facility] for visit Narrative* Diagnostic Procedure Only (Routine) - Closed Specialty Diagnoses / Procedures Referred By Contac t Referred To Contact [facility] Diagnoses 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) Encounter for screening mammogram for high-risk patient Procedures [place] SCREENING SCREENING MAMMOGRAPHY BI 2-VIEW BREAST INC CAD CindyLelo, CALEB.BUSINESS INTELLIGENCE ETL DEVELOPER [address] [place] [address] [facility] [address] [place] [address] Referral ID Status Reason Start Date Expiration Date V isits Requested Visits Authorized [id number] Closed Auto-Generate d Referral 07/01/2021 07/31/2022 1 1 [facility] Diagnostic Procedure Only (Routine) - Closed Specialty Diagnoses / Procedures Referred By Contac t Referred To Contact [facility] Diagnoses Personal history of breast cancer Encounter for screening mammogram for high-risk patient Procedures [place] SCREENING SCREENING MAMMOGRAPHY BI 2-VIEW BREAST INC CAD CindyLelo, WEB APPLICATIONS DEVELOPER.BUSINESS INTELLIGENCE ETL DEVELOPER [address] [place] [address] [facility] [address] [place] [address] Referral ID Status Reason Start Date Expiration Date V isits Requested Visits Authorized [id number] Closed Auto-Generate d Referral 07/21/2022 08/20/2023 1 1 [facility] Advance Directives No Advanced Directives Records FoundDocuments on File Type Date Recorded 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 Advance Directive(s) 01/03/2019 7:21 AM [...] or prosecute any alcohol or drug abuse patient.[facility] the event this information is protected by the Federal Confidentiality of Alcohol and Drug Abuse Patient Records regulations: The Federal rules restrict any use of the information to criminally investigate or prosecute any alcohol or drug abuse patient.[facility] the event this information is protected by the Federal Confidentiality of Alcohol and Drug Abuse Patient Records regulations: The Federal rules restrict any use of the information to criminally investigate or prosecute any alcohol or drug abuse patient.[facility] the event this information is protected by the Federal Confidentiality of Alcohol and Drug Abuse Patient Records regulations: The Federal rules restrict any use of the information to criminally investigate or prosecute any alcohol or drug abuse patient.[facility] the event this information is protected by the Federal Confidentiality of Alcohol and Drug Abuse Patient Records regulations: The Federal rules restrict any use of the information to criminally investigate or prosecute any alcohol or drug abuse patient.[facility] the event this information is protected by the Federal Confidentiality of Alcohol and Drug Abuse Patient Records regulations: The Federal rules restrict any use of the information to criminally investigate or prosecute any alcohol or drug abuse patient.[facility] the event this information is protected by the Federal Confidentiality of Alcohol and Drug Abuse Patient Records regulations: The Federal rules restrict any use of the information to criminally investigate or prosecute any alcohol or drug abuse patient.[facility] the event this information is protected by the Federal Confidentiality of Alcohol and Drug Abuse Patient Records regulations: The Federal rules restrict any use of the information to criminally investigate or prosecute any alcohol or drug abuse patient.[facility] the event this information is protected by the Federal Confidentiality of Alcohol and Drug Abuse Patient Records regulations: The Federal rules restrict any use of the information to criminally investigate or prosecute any alcohol or drug abuse patient.[facility] the event this information is protected by the Federal Confidentiality of Alcohol and Drug Abuse Patient Records regulations: The Federal rules restrict any use of the information to criminally investigate or prosecute any alcohol or drug abuse patient.[facility] the event this information is protected by the Federal Confidentiality of Alcohol and Drug Abuse Patient Records regulations: The Federal rules restrict any use of the information to criminally investigate or prosecute any alcohol or drug abuse patient.[facility] the event this information is protected by the Federal Confidentiality of Alcohol and Drug Abuse Patient Records regulations: The Federal rules restrict any use of the information to criminally investigate or prosecute any alcohol or drug abuse patient.[facility] the event this information is protected by the Federal Confidentiality of Alcohol and Drug Abuse Patient Records regulations: The Federal rules restrict any use of the information to criminally investigate or prosecute any alcohol or drug abuse patient.[facility] the event this information is protected by the Federal Confidentiality of Alcohol and Drug Abuse Patient Records regulations: The Federal rules restrict any use of the information to criminally investigate or prosecute any alcohol or drug abuse patient.[facility] Reason for Visit (unrecogniz ed section and [...] REAL TIME WITH IMAGE LIMITED Lelo White APRN.BUSINESS INTELLIGENCE ETL DEVELOPER [address] [place] [address] [facility] [address] [place] [address] Referral ID Status Reason Start Date Expiration Date V isits Requested Visits Authorized [id number] Closed Auto-Generate d Referral 06/02/2022 07/02/2023 1 1 Care Teams (unrecognized sec tion and content) Director Of Nurses Registry Relationship Specialty Start Date End Date Stewart Moody MD [address] [place], [place] [address] PCP - General Family Medicine 12/04/20 Pily Tubbs, AIYANA [address] [place] [address] Specialty Sulfonation Equipment Operator Family Medicine 01/25/19 Director Of Nurses Registry Relationship Specialty Start Date End Date Stewart Moody MD [address] [place], [place] [id number] [phone] PCP - General Family Medicine 12/04/20 Pily Tubbs CNP [address] [facility] [place] [address] Specialty Sulfonation Equipment Operator Family Medicine 01/25/19 Director Of Nurses Registry Relationship Specialty Start Date End Date Stewart Moody MD [address] [facility] [address] PCP - General Family Medicine 12/04/20 Pily Tubbs CNP [address] [place] [address] Specialty Sulfonation Equipment Operator Family Medicine 01/25/19 Director Of Nurses Registry Relationship Specialty Start Date End Date Stewart Moody MD [address] [facility] [address] PCP - General Family Medicine 12/04/20 Pily Tubbs CNP [address] [facility] [place] [address] Specialty Sulfonation Equipment Operator Family Medicine 01/25/19 Director Of Nurses Registry Relationship Specialty Start Date End Date Stewart Moody MD [address] [facility] [address] PCP - General Family Medicine 12/04/20 Pily Tubbs CNP [address] [facility] [place] [address] Specialty Sulfonation Equipment Operator Family Medicine 01/25/19 Director Of Nurses Registry Relationship Specialty Start Date End Date Stewart Moody MD [address] [facility] [address] PCP - General Family Medicine 12/04/20 Pily Tubbs CNP [address] [place] [address] Specialty Sulfonation Equipment Operator Family Medicine 01/25/19 Director Of Nurses Registry Relationship Specialty Start Date End Date Stewart Moody MD [address] [place] [address] PCP - General Family Medicine 12/04/20 Pily Tubbs BUSINESS INTELLIGENCE ETL DEVELOPER [address] [place] [address] Specialty Sulfonation Equipment Operator Family Medicine 01/25/19 Director Of Nurses Registry Relationship Specialty Start Date End Date Stewart Moody MD [address] [place] [address] PCP - General Family Medicine 12/04/20 Pily Tubbs CNP [address] [place] [address] Specialty Sulfonation Equipment Operator Family Medicine 01/25/19 Director Of Nurses Registry Relationship Specialty Start Date End Date Stewart Moody MD [address] [place] [address] PCP - General Family Medicine 12/04/20 Pily Tubbs CNP [address] [place] [address] Specialty Sulfonation Equipment Operator Family Medicine 01/25/19 Director Of Nurses Registry Relationship Specialty Start Date End Date Stewart Moody MD [address] [place] [address] PCP - General Family Medicine 12/04/20 Pily Tubbs, BUSINESS INTELLIGENCE ETL DEVELOPER [address] [place] [address] Specialty Sulfonation Equipment Operator Family Medicine 01/25/19 Director Of Nurses Registry Relationship Specialty Start Date End Date Stewart Moody MD [address] [place], [place] [id number] PCP - General Family Medicine 12/04/20 Pily Tubbs, BUSINESS INTELLIGENCE ETL DEVELOPER [address] [place] [address] Specialty Sulfonation Equipment Operator Family Medicine 01/25/19 Director Of Nurses Registry Relationship Specialty Start Date End Date Stewart Moody MD [address] [place], [place] [address] PCP - General Family Medicine 12/04/20 Pily Tubbs, BUSINESS INTELLIGENCE ETL DEVELOPER [address] [place] [address] Specialty Sulfonation Equipment Operator Family Medicine 01/25/19 Director Of Nurses Registry Relationship Specialty Start Date End Date Stewart Moody MD [address] [place], [place] [address] PCP - General Family Medicine 12/04/20 Pily Tubbs BUSINESS INTELLIGENCE ETL DEVELOPER [address] [facility], [place] [address] Specialty Sulfonation Equipment Operator Family Medicine 01/25/19 INFORMATION SOURCE (unrecogn ized [...] BE BASED ON THE PRIMARY CLINICAL RECORDS. [facility]. provides no warranty or guarantee of the accuracy or completeness of information in this document.
[2023-08-23 01:06] LABS: Absolute Lymphocyte Count 0.41 X10^3/uL (0.83-4.51); Absolute Neutrophil Count 7.8 X10^3/uL (2.0-7.7); Basophil# 0.02 X10^3/uL; Basophil% 0.2 % (0-1); Hematocrit 29.1 % (37-47); Hemoglobin 9.7 g/dL (12.0-15.0); Lymphocyte # 0.41 X10^3/ul (0.83-4.51); Lymphocyte % 4.6 % (19-41); Mean Corp Hgb Conc 33.3 g/dL (32-36); Mean Corpuscular Hgb 30.2 pg (27.0-32.0); Mean Corpuscular Volume 90.7 fL (81-99); Mean Platelet Vol. 12.5 fl (6.2-12.0); Monocyte# 0.55 X10^3/uL; Monocyte% 6.2 % (0-10); NRBC Flagged by Analyzer 0 % (0-5); Neutrophil # 7.83 X10^3/uL (2.7-7.7); Neutrophil % 88.7 % (47-70); POSITIVE DIFFERENTIAL YES; Platelet Count 228 K/mm3 (150-450); RBC Distribution Width CV 14.6 % (11.6-14.6); RBC Distribution Width SD 48.5 fl (35.1-43.9); Red Blood Count 3.21 M/mm3 (4.2-5.4); White Blood Count 8.8 K/mm3 (4.4-11.0)
[2023-08-23 01:12] LABS: International Normalized Ratio 1.2; Prothrombin Time (Protime)PT. 14.9 SECONDS (11.7-14.9)
[2023-08-23 01:31] LABS: Anion Gap 12 (5-15); BUN 17 mg/dL (7-18); BUN/Creat Ratio 23.9 RATIO (10-20); Calcium,Total 9.1 mg/dL (8.5-10.1); Chloride 101 mmol/L (98-107); Creatinine, Serum 0.71 mg/dL (0.55-1.02); EST Glomerular Filtration Rate 85 mL/min (>60); Est Glom Filt Rate - Afr Amer 103 mL/min (>60); Estimated Creatinine Clearance 62.33 ml/min; Glucose 143 mg/dL (74-106); Magnesium 1.8 mg/dL (1.6-2.6); Potassium 3.7 mmol/L (3.5-5.1); Sodium Level 134 mmol/L (136-145)
[2023-08-23 01:41] LABS: BNP,B-Type NATRIURETIC PEPTIDE 2710.7 pg/mL (0-100)
[2023-08-23 01:50] LABS: Procalcitonin 0.16 ng/mL (0.00-0.09)
[2023-08-23 02:01] LABS: Lactic Acid 2.1 mmol/L (0.4-1.9)
[2023-08-23 03:00] VITALS: BP 135/96; PULSE 109; RESP 25; TEMP 36.6; O2SAT 92
[2023-08-23] MEDS: Furosemide 40 MG/4 ML Vial IV (03:18)
[2023-08-23 03:32] VITALS: O2SAT 93
--- NOTE | 2023-08-23 03:51 | EDS_ITS ---
HPI History of Present Illness Chief Complaint: Shortness of Breath Informant: patient and spouse/S.O. Narrative Narrative: Patient is a 78-year-old female with past medical history of hypertension hyperlipidemia and preserved heart failure not on a diuretic as well as CAD. She was recently admitted to the hospital secondary to pneumonia and states she stayed for multiple days on IV antibiotics and was transitioned to oral antibiotics. She states she has been home now for a few days but since returning home she has been having increased fatigue and shortness of breath and therefore returns for repeat evaluation. [facility] Medical History (HFpEF) heart failure with preserved ejection fraction Acute hypoxemic respiratory failure Atherosclerosis of coronary artery of minto heart without angina pectoris Bilateral pleural effusion Breast cancer, left DDD (degenerative disc disease) Diverticulosis Essential hypertension GERD (gastroesophageal reflux disease) GI bleed History of malignant neoplasm of left breast History of ME (myocardial infarction) History of non-ST elevation myocardial infarction (NSTEMI) (09/18/20) History of uterine cancer Hyperlipidemia Hypokalemia Iron deficiency anemia Nonrheumatic aortic (valve) stenosis Osteoarthritis Rheumatoid arthritis Home Medications magnesium 250 mg tablet 250 mg PO DAILY supplement 03/13/16 [History Last Taken 08/16/23] acetaminophen 500 mg tablet 1,000 mg PO Q8H PRN Pain 1-10 Or Fever 09/09/20 [History Last Taken 08/17/23] hydroxychloroquine 200 mg tablet 200 mg PO BID arthritis 09/18/20 [History Last Taken 08/16/23] calcium carbonate 600 mg-vitamin D3 10 mcg (400 unit) tablet 1 tablet PO DAILY supplement 10/09/20 [History Last Taken 08/16/23] aspirin 81 mg chewable tablet 81 mg PO BREAKFAST 30 days #30 tabs 08/20/23 [Rx Last Taken Unknown] atorvastatin 10 mg tablet 10 mg PO QHS 30 days #30 tabs 08/20/23 [Rx Last Taken Unknown] cefdinir 300 mg capsule 300 mg PO BID 4 days #8 caps 08/20/23 [Rx Last Taken Unknown] guaifenesin 1,200 mg tablet, extended release 12 hr (Mucinex) 1,200 mg PO Q12H 10 days #20 tabs 08/20/23 [Rx Last Taken Unknown] metoprolol succinate 25 mg tablet,extended release 24 hr 25 mg PO DAILY 30 days #30 tabs 08/20/23 [Rx Last Taken Unknown] furosemide 20 mg tablet (Lasix) 20 mg PO DAILY 10 days #10 tabs 08/23/23 [Rx Last Taken Unknown] Allergy/AdvReac Type Severity Reaction Status Date / Time amlodipine besylate Allergy Swelling Verified 08/22/23 23:50 [From Norvasc] bisoprolol fumarate Allergy Unknown Verified 08/22/23 23:50 [From Ziac] adhesive AdvReac Itching Verified 08/22/23 23:50 hydrochlorothiazide AdvReac Unknown Verified 08/22/23 23:50 Family History Mother Cancer Uterine Hypertension Hyperlipidemia Osteoporosis Father Myocardial infarction, Onset Age: 39 Grandmother Diabetes Sister Hypertension Osteoporosis Brother Hypertension Aunt Thyroid disorder Surgical History History of colonoscopy (01/03/19) History of esophagogastroduodenoscopy (EGD) (01/03/19) History of left breast biopsy (05/24/12) History of lymph node biopsy (06/06/12) History of partial mastectomy of left breast (06/06/12) History of shoulder surgery (02/07/20) History of total abdominal hysterectomy (1979) History of total right knee replacement (03/24/16) Social History (Updated 08/18/23 @ 11:[address] Lola Naik MD) household members: spouse Smoking Status: Never smoker alcohol intake: never substance use type: does not use ROS ROS ED Constitutional Constitutional ED: Denies chills or fever(s) Eyes Eyes: Denies change in vision ENT ENT ED: Denies rhinorrhea or sore throat Cardiovascular Cardiovascular: Denies chest pain or palpitations Respiratory/Chest Respiratory/Chest: Reports cough and dyspnea Gastrointestinal Gastrointestinal: Denies abdominal pain, diarrhea, nausea or vomiting Genitourinary Genitourinary ED: Denies dysuria or hematuria Musculoskeletal Musculoskeletal: Reports myalgias Integumentary Denies rash Neurologic Neurologic: Reports weakness; Denies headache(s) Hematologic/Lymphatic Hematologic/Lymphatic: Denies easy bleeding or easy bruising EXAM Physical Exam Const Vital Signs: 08/22/23 23:50 08/23/23 00:31 08/23/23 00:34 Temperature 97.5 F L 99.7 F H Temperature Source Temporal Oral Pulse Rate 123 H 107 H Respiratory Rate 24 H 18 Respiratory Effort Short of Breath Respiratory Depth Shallow Respiratory Pattern Tachypnea Blood Pressure 147/106 H 127/93 H Blood Pressure Mean 119 104 Pulse Ox 90 91 Oxygen Delivery Method Room Air Room Air 08/23/23 03:00 Temperature 97.9 F Temperature Source Temporal Pulse Rate 109 H Respiratory Rate 25 H Respiratory Effort Respiratory Depth Respiratory Pattern Blood Pressure 135/96 H Blood Pressure Mean 109 Pulse Ox 92 Oxygen Delivery Method Room Air Positive well nourished and well developed General Appearance ED: well developed and pallor HEENT HEENT Narrative: Cobblestoning is noted in the posterior pharynx consistent with sinus drainage however there is no airway edema or compromise No tongue or lip swelling no oral lesions No secondary changes in the posterior pharynx to suggest infection Eyes PERRL and EOMs intact bilaterally General Eye ED: Yes pale conjunctiva; Negative for scleral icterus Neck supple and No no JVD Neck Narrative: No nuchal rigidity or meningeal signs noted Chest Wall palpation of chest normal Chest Narrative: No bony deformity or crepitance Resp Resp Narrative: Patient is tachypneic and breath sounds are diminished throughout with rhonchi noted in the right lower lung field. No nasal flaring or accessory muscle use. No stridor Cardio regular rhythm Rate: tachycardic and other Other Details: Tachycardic rate with regular rhythm. There is an occasional ectopic beat noted Radial and carotid pulses are equal and symmetric GI normal to inspection, nondistended, normoactive bowel sounds, non-tender, non- distended and no masses GI Narrative: No pulsatile mass or fluid wave Auscultation: normoactive bowel sounds Palpation: soft Extremity Extremity Narrative: +2 pitting edema to the bilateral lower extremities that is equal and symmetric Negative Homans' sign bilaterally Neuro oriented x3 and CN's II-XII intact bilaterally Sensorium / Orientation: alert Motor Exam: strength 5/5 throughout Psych mental status grossly normal Skin no rashes or lesions noted General Skin Exam: pallor MDM MDM MDM Narrative Medical decision making narrative: Patient presented to the ER with low-grade fever and mild tachypnea as well as tachycardia. She was recently admitted to the hospital secondary to pneumonia and states that she was discharged and is currently on antibiotics. Differential diagnosis is for failure of outpatient treatment versus new infection such as COVID influenza or RSV versus congestive heart failure exacerbation versus pneumothorax versus acute blood loss anemia or electrolyte derangement. Lab work showed chronic anemia with hemoglobin near baseline. Her white count has now normalized at 8.8 when it previous was low at approximately 3.8. There is no severe electrolyte abnormalities or signs of acute kidney injury. Her proBNP is elevated approximate 2700 however which does correlate with her leg swelling. As there is concern that her increased shortness of breath is secondary to a pulmonary embolus as she is tachypneic and tachycardic with low-grade fever a CTA was obtained. This revealed the persistent multifocal pneumonia but this does correlate with the short timeframe that she has had the infection and it will take another few weeks before it resolves on x-ray/imaging. There is no PE noted. However does show right and left pleural effusions greatest on the right which correlates with the elevated proBNP. Secondary to this the patient was given IV Lasix. She was ambulated on room air and her sats remained greater than 92% the entire time. Also at rest her oxygen was 92 to 95% on room air. Therefore at this time CT scan does not reveal a PE or dissection or pneumothorax there is no empyema noted. She does have retained multifocal pneumonia but her vitals and labs do not suggest sepsis and she is currently on antibiotics and was recently treated for this and will take time before it resolves on imaging. As she does not require supplemental oxygen at rest and she does not desat with ambulation I do not feel there is need for readmission. Patient will be given IV Lasix here and placed on Lasix for home as she is not on a diuretic. However as she does not show signs of septicemia or is requiring supplemental oxygen she can be discharged home and follow-up on an outpatient basis History & Record Review Discussion w/independent historian: Patient and Significant other Lab Data Attestation: I reviewed the patient's lab results. Labs: Laboratory Results - last 24 hr 08/23/23 08/23/23 00:30 00:40 WBC 8.8 RBC 3.21 L Hgb 9.7 L Hct 29.1 L MCV 90.7 MCH 30.2 MCHC 33.3 D RDW Std Deviation 48.5 H RDW Coeff of Juan 14.6 Plt Count 228 MPV 12.5 H Immature Gran % (Auto) 0.300 Neut % (Auto) 88.7 H Lymph % (Auto) 4.6 L Ventura % (Auto) 6.2 Eos % (Auto) 0.0 Baso % (Auto) 0.2 Absolute Neuts (auto) 7.8 H Absolute Lymphs (auto) 0.41 L Nucleated RBC % 0 PT 14.9 INR 1.2 APTT 30.0 Sodium 134 L Potassium 3.7 Chloride 101 Carbon Dioxide 21.0 Anion Gap 12 BUN 17 Creatinine 0.71 Estim Creat Clear Calc 62.33 Est GFR (MDRD) Af Amer 103 Est GFR (MDRD) Non-Af 85 BUN/Creatinine Ratio 23.9 H Glucose 143 H Lactic Acid 2.1 H* Calcium 9.1 Magnesium 1.8 B-Natriuretic Peptide 2710.7 H Procalcitonin 0.16 H Blood Type A POSITIVE Antibody Screen NEGATIVE Radiography Diagnostic Testing: Clinical Impression(s) from Imaging Studies Chest CTA 08/23/23 00:38 IMPRESSION: Negative CTA chest examination, without a demonstrated pulmonary embolism or arterial dissection. Cardiomegaly. No pulmonary embolus or aortic dissection. Diffuse multifocal pneumonia with bilateral pleural effusions, right larger than left. Electronically Signed: Abbey Lewis MD at 2:28 EST , Discharge Plan Triage Chief Complaint: Shortness of Breath ED Provider: Caleb Reyes Dx/Rx/DC Orders Clinical Impression: Dyspnea, Pleural effusion, Essential hypertension, (HFpEF) heart failure with preserved ejection fraction, Chronic anemia Instructions: ED Dyspnea, ED Pleural Effusion Prescriptions: New furosemide [Lasix] 20 mg tablet 20 mg PO DAILY 10 Days Qty: 10 0RF No Action calcium carbonate-vitamin D3 600 mg(1,500mg) -400 unit tablet 1 tablet PO DAILY magnesium 250 MG tablet 250 mg PO DAILY acetaminophen 500 MG tablet 1,000 mg PO Q8H PRN (Reason: Pain 1-10 Or Fever) hydroxychloroquine 200 MG tablet 200 mg PO BID aspirin 81 mg Tablet,Chewable 81 mg PO BREAKFAST 30 Days Qty: 30 0RF atorvastatin 10 mg Tablet 10 mg PO QHS 30 Days Qty: 30 0RF metoprolol succinate 25 mg Tablet Extended Release 24 Hr 25 mg PO DAILY 30 Days Qty: 30 0RF guaifenesin [Mucinex] 1,200 mg tablet extended release 12hr 1,200 mg PO Q12H 10 Days Qty: 20 0RF cefdinir 300 mg capsule 300 mg PO BID 4 Days Qty: 8 0RF Primary Care Provider: Shamir Moody Referrals: Shamir Moody MD [Primary Care Provider] - Activity Restrictions/Additional Instructions: Your CT scan showed that you have fluid in your lungs known as pleural effusions and this will cause shortness of breath. Take the Lasix/furosemide (water pill) as directed for the next 10 days to help pull fluid off the lungs and make breathing easier. Continue antibiotic as lab work shows that it is resolving the Pneumonia you were recently admitted for. If you have any further concerns or worsening of symptoms please return for repeat evaluation Disposition Disposition: Home, Self Care
[2023-08-23 04:51] LABS: Reflex Lactate? Y
== END 2023-08-23 04:58 | disposition home or self-care (01) ==
PROVIDERS: Emergency Provider Emergency Medicine; PCP Family Medicine; Visit Provider Emergency Medicine
DX: R06.02 Shortness of breath (principal); I11.0 Hypertensive heart disease with heart failure; I50.32 Chronic diastolic (congestive) heart failure; D64.9 Anemia, unspecified; J18.9 Pneumonia, unspecified organism; E78.5 Hyperlipidemia, unspecified; I25.10 Atherosclerotic heart disease of native coronary artery without angina pectoris; K21.9 Gastro-esophageal reflux disease without esophagitis; J90 Pleural effusion, not elsewhere classified
CPT/HCPCS: 71275; 80048; 83605; 83735; 83880; 84145; 85025; 85610; 85730; 86850; 86900; 86901; 87631; 93005; 99283; Q9967; A4216; J1940

== ENCOUNTER 2023-08-29 18:42 | Inpatient (IN) | payer MEDICARE, OTHER, SELFPAY ==
[2023-08-29 18:44] VITALS: BP 126/114; PULSE 106; RESP 24; TEMP 36.6; O2SAT 88
[2023-08-29 19:12] VITALS: BMI 27.5
[2023-08-29 19:13] VITALS: BP 154/102; PULSE 102; RESP 22; O2SAT 98
--- NOTE | 2023-08-29 19:17 | EKG12_ITS ---
Test Reason : SOB Blood Pressure : / mmHG Vent. Rate : 103 BPM Atrial Rate : 103 BPM P-R Int : 130 ms QRS Dur : 106 ms QT Int : 358 ms P-R-T Axes : 085 -27 076 degrees QTc Int : 468 ms Sinus tachycardia with Premature atrial complexes Minimal voltage criteria for LVH, may be normal variant ( [place] product ) Cannot rule out Anteroseptal infarct , age undetermined Abnormal ECG Confirmed by OLEGARIO LOPEZ, CHRISTA ([id number]), industrial editor MICHAEL OLIVIER ([id number]) on 08/30/2023 10:23:58 AM Referred By: CAITLYN Confirmed By:CHRISTA MELVIN MD
--- NOTE | 2023-08-29 19:21 | EX.ED.DYSGE1 ---
HPI <Constanza Sepulveda RN - Last Filed: 08/29/23 20:13> History of Present Illness Chief Complaint: Shortness of Breath Informant: patient and spouse/S.O. Onset/Context/Timing Onset: Days (11 days) Context: Gradual Onset Timing: Continuous Current Severity: Moderate Maximum Severity: Moderate Worsened by: Activity Relieved by: Rest Associated Symptoms Associated Symptoms: Occasional dizziness, midsternal chest pain, weakness, nausea Narrative Narrative: Patient presents to the ED with cough originally beginning in May 2023. Patient admitted 08/18/2023 to 08/20/2023 for pneumonia. Patient returned to the ED on 08/23/2023 for continued cough, shortness of breath and forgetfulness. At that time patient was diagnosed with CHF exacerbation, placed on furosemide, and antibiotics for continued pneumonia. At that time it was felt the patient was able to be discharged home as her O2 sats were in the 90s on room air, vital signs stable, and she was able to ambulate. Patient and both report patient has not returned to baseline since prior to admission. Patient reports productive cough with yellow sputum, nausea, decreased appetite, and occasional dizziness. Patient also reports not being able to sleep well due to cough. Currently taking Mucinex and Robitussin at home for cough with minimal relief. reports patient has completed her course of antibiotics. She continues to take furosemide as prescribed. Patient reports today she has had decreased urination. Patient and also reported increased edema to bilateral lower extremities. Patient admits to midsternal chest pressure with coughing. Patient also report increased weakness at home. Patient denies fever and chills. Patient denies history of COPD, asthma, CAD, CVA, DVT/PE. Patient denies recent travel Prior similar symptoms: Yes Recent Illness/Hospitalization: No PFSH <Constanza Sepulveda RN - Last Filed: 08/29/23 20:13> [facility] Medical History (HFpEF) heart failure with preserved ejection fraction Acute hypoxemic respiratory failure Atherosclerosis of coronary artery of [place] heart without angina pectoris Bilateral pleural effusion Breast cancer, left Chronic anemia DDD (degenerative disc disease) Diverticulosis Essential hypertension GERD (gastroesophageal reflux disease) GI bleed History of malignant neoplasm of left breast History of [place] (myocardial infarction) History of non-ST elevation myocardial infarction (NSTEMI) (09/18/20) History of uterine cancer Hyperlipidemia Hypokalemia Iron deficiency anemia Nonrheumatic aortic (valve) stenosis Osteoarthritis Rheumatoid arthritis Home Medications magnesium 250 mg tablet 250 mg PO DAILY supplement 03/13/16 [History Last Taken 08/16/23] acetaminophen 500 mg tablet 1,000 mg PO Q8H PRN Pain 1-10 Or Fever 09/09/20 [History Last Taken 08/17/23] hydroxychloroquine 200 mg tablet 200 mg PO BID arthritis 09/18/20 [History Last Taken 08/16/23] calcium carbonate 600 mg-vitamin D3 10 mcg (400 unit) tablet 1 tablet PO DAILY supplement 10/09/20 [History Last Taken 08/16/23] aspirin 81 mg chewable tablet 81 mg PO BREAKFAST 30 days #30 tabs 08/20/23 [Rx Last Taken Unknown] atorvastatin 10 mg tablet 10 mg PO QHS 30 days #30 tabs 08/20/23 [Rx Last Taken Unknown] guaifenesin 1,200 mg tablet, extended release 12 hr (Mucinex) 1,200 mg PO Q12H 10 days #20 tabs 08/20/23 [Rx Last Taken Unknown] metoprolol succinate 25 mg tablet,extended release 24 hr 25 mg PO DAILY 30 days #30 tabs 08/20/23 [Rx Last Taken Unknown] furosemide 20 mg tablet (Lasix) 20 mg PO DAILY 10 days #10 tabs 08/23/23 [Rx Last Taken Unknown] Allergy/AdvReac Type Severity Reaction Status Date / Time amlodipine besylate Allergy Swelling Verified 08/29/23 18:44 [From Norvasc] bisoprolol fumarate Allergy Unknown Verified 08/29/23 18:44 [From Ziac] adhesive AdvReac Itching Verified 08/29/23 18:44 hydrochlorothiazide AdvReac Unknown Verified 08/29/23 18:44 Family History Mother Cancer Uterine Hypertension Hyperlipidemia Osteoporosis Father Myocardial infarction, Onset Age: 39 Grandmother Diabetes Sister Hypertension Osteoporosis Brother Hypertension Aunt Thyroid disorder Surgical History History of colonoscopy (01/03/19) History of esophagogastroduodenoscopy (EGD) (01/03/19) History of left breast biopsy (05/24/12) History of lymph node biopsy (06/06/12) History of partial mastectomy of left breast (06/06/12) History of shoulder surgery (02/07/20) History of total abdominal hysterectomy (1979) History of total right knee replacement (03/24/16) Social History household members: spouse Smoking Status: Never smoker alcohol intake: never substance use type: does not use ROS <Constanza Sepulveda RN - Last Filed: 08/29/23 20:13> ROS ED Constitutional Constitutional ED: Denies chills, fever(s) or sweats ENT ENT ED: Denies ear pain, rhinorrhea or sore throat Cardiovascular Cardiovascular: Reports chest pain; Denies palpitations or racing heartbeat Respiratory/Chest Respiratory/Chest: Reports cough, dyspnea, dyspnea on exertion and sputum Gastrointestinal Gastrointestinal: Reports nausea; Denies abdominal pain, constipation, diarrhea or vomiting Genitourinary Genitourinary ED: Denies dysuria, hematuria or urinary frequency Neurologic Neurologic: Reports weakness; Denies headache(s) EXAM <Constanza Sepulveda RN - Last Filed: 08/29/23 20:13> Physical Exam Const Vital Signs: 08/29/23 18:44 08/29/23 19:13 08/29/23 19:14 Temperature 98 F Temperature Source Temporal Pulse Rate 106 H 102 H Respiratory Rate 24 H 22 H Respiratory Pattern Tachypnea Blood Pressure 126/114 H 154/102 H Blood Pressure Mean 118 119 Pulse Ox 88 98 Oxygen Delivery Method Room Air Nasal Cannula Oxygen Flow Rate (L/min) 2 08/29/23 20:08 Temperature 98 F Temperature Source Temporal Pulse Rate 101 H Respiratory Rate 22 H Respiratory Pattern Blood Pressure 145/103 H Blood Pressure Mean 117 Pulse Ox 99 Oxygen Delivery Method Nasal Cannula Oxygen Flow Rate (L/min) 2 Constitutional Narrative: Ill-appearing female in mild distress. HEENT Reports moist mucous membranes Eyes PERRL Chest Wall inspection of chest normal and palpation of chest normal Resp Resp Narrative: Mildly labored breathing with clear breath sounds throughout. O2 sats 88% on room air. Patient placed on 2 L O2 per nasal cannula with O2 sats increasing to 98%. Cardio Rate: tachycardic and other Other Details: Sinus tachycardia with PACs GI normal to inspection, nondistended, normoactive bowel sounds and non-tender Palpation: soft Narrative: Patient reports decreased urination today Extremity Extremity Narrative: 3+ pitting edema bilaterally from feet to midway up shins. General Extremety ED: Yes edema General Extremity: edema Neuro oriented x3 Neuro Narrative: Patient reports forgetfulness that began with admission on 08/18/2023. States it has not resolved and has worsened. Sensorium / Orientation: alert Motor Exam: strength 5/5 throughout Psych mental status grossly normal Skin no rashes or lesions noted <Dr. Araceli Polo MD - Last Filed: 08/29/23 20:19> Physical Exam Const Vital Signs: 08/29/23 18:44 08/29/23 19:13 08/29/23 19:14 Temperature 98 F Temperature Source Temporal Pulse Rate 106 H 102 H Respiratory Rate 24 H 22 H Respiratory Pattern Tachypnea Blood Pressure 126/114 H 154/102 H Blood Pressure Mean 118 119 Pulse Ox 88 98 Oxygen Delivery Method Room Air Nasal Cannula Oxygen Flow Rate (L/min) 2 08/29/23 20:08 Temperature 98 F Temperature Source Temporal Pulse Rate 101 H Respiratory Rate 22 H Respiratory Pattern Blood Pressure 145/103 H Blood Pressure Mean 117 Pulse Ox 99 Oxygen Delivery Method Nasal Cannula Oxygen Flow Rate (L/min) 2 MDM <Constanza Sepulveda RN - Last Filed: 08/29/23 20:13> [facility] Narrative Medical decision making narrative: Patient placed on clinical research monitor. IV line initiated. Labwork obtained to evaluate for leukocytosis, anemia, and electrolyte derangement. Chest x-ray obtained to evaluate for acute lung pathology, cardiac size, or mediastinal abnormality. Blood cultures obtained due to hypoxia and multilobular pneumonia despite recent outpatient therapy with antibiotics. History & Record Review Discussion w/independent historian: Patient and Family Lab Data Labs: Laboratory Results - last 24 hr 08/29/23 19:20 WBC 7.8 RBC 3.14 L Hgb 9.4 L Hct 30.4 L MCV 96.8 MCH 29.9 MCHC 30.9 L RDW Std Deviation 55.5 H RDW Coeff of Juan 15.7 H Plt Count 250 MPV 11.7 Immature Gran % (Auto) 0.400 Neut % (Auto) 81.0 H Lymph % (Auto) 8.4 L [place] % (Auto) 9.3 Eos % (Auto) 0.5 Baso % (Auto) 0.4 Absolute Neuts (auto) 6.3 Absolute Lymphs (auto) 0.65 L Nucleated RBC % 0 D-Dimer Quant (PE/DVT) < 0.27 L Sodium 138 Potassium 3.2 L Chloride 106 Carbon Dioxide 25.0 Anion Gap 7 BUN 15 Creatinine 0.66 Estim Creat Clear Calc 60.67 Est GFR (MDRD) Af Amer 111 Est GFR (MDRD) Non-Af 92 BUN/Creatinine Ratio 22.6 H Glucose 132 H Calcium 9.1 Troponin I High Sens 38 B-Natriuretic Peptide 3030.9 H Radiography Chest X-Ray - ED: 1 View and Read by Radiologist Diagnostic Testing: Clinical Impression(s) from Imaging Studies Chest X-Ray 08/29/23 19:30 IMPRESSION: 1. Interval development of left upper lobe pneumonia or alveolar edema. 2. Persistent opacity in the right upper lobe worrisome for mass or persistent pneumonia. Follow-up is recommended.. 3. Mild congestive heart failure. Electronically Signed: Julien David MD at 19:43 EST , EKG Initial EKG: Interpretation: Sinus Tachycardia Comments: Sinus tachycardia with PACs with rate of 103. No dysrhythmia or ischemia noted. Differential Diagnosis Chest pain/SOB: pulmonary embolism, pneumonia and CHF Management Discussion w/another healthcare provider: Other (Dr. Phan, ED provider) Treatment and Re-Evaluation :: Lab work reviewed. CBC shows normal white count of 7.8 with high neutrophils 81. Hemoglobin is 9.4 which is at the patient's baseline. Chemistry showed a low potassium 3.2, creatinine 0.66, glucose elevated at 132, high-sensitivity troponin normal at 38, BNP elevated at 3030.9. D-dimer normal at less than 0.27. Chest x-ray reviewed showing congestive heart failure and multilobular pneumonia. Zosyn 3.375 g IV and vancomycin 1250 mg IV ordered for pneumonia. Furosemide 40 mg IV ordered for CHF. Potassium chloride 40 mill equivalents ordered for hypokalemia. Upon reevaluation, patient appears more awake and alert, not as forgetful. Discussed lab and radiology results with patient and . Discussed the need for inpatient admission. Patient and agreeable. <Dr. Araceli Polo MD - Last Filed: 08/29/23 20:19> [facility] Lab Data Labs: Laboratory Results - last 24 hr 08/29/23 19:20 WBC 7.8 RBC 3.14 L Hgb 9.4 L Hct 30.4 L MCV 96.8 MCH 29.9 MCHC 30.9 L RDW Std Deviation 55.5 H RDW Coeff of Juan 15.7 H Plt Count 250 MPV 11.7 Immature Gran % (Auto) 0.400 Neut % (Auto) 81.0 H Lymph % (Auto) 8.4 L [place] % (Auto) 9.3 Eos % (Auto) 0.5 Baso % (Auto) 0.4 Absolute Neuts (auto) 6.3 Absolute Lymphs (auto) 0.65 L Nucleated RBC % 0 D-Dimer Quant (PE/DVT) < 0.27 L Sodium 138 Potassium 3.2 L Chloride 106 Carbon Dioxide 25.0 Anion Gap 7 BUN 15 Creatinine 0.66 Estim Creat Clear Calc 60.67 Est GFR (MDRD) Af Amer 111 Est GFR (MDRD) Non-Af 92 BUN/Creatinine Ratio 22.6 H Glucose 132 H Calcium 9.1 Troponin I High Sens 38 B-Natriuretic Peptide 3030.9 H Radiography Diagnostic Testing: Clinical Impression(s) from Imaging Studies Chest X-Ray 08/29/23 19:30 IMPRESSION: 1. Interval development of left upper lobe pneumonia or alveolar edema. 2. Persistent opacity in the right upper lobe worrisome for mass or persistent pneumonia. Follow-up is recommended.. 3. Mild congestive heart failure. Electronically Signed: Julien David MD at 19:43 EST , Treatment and Re-Evaluation :: Lab work reviewed. CBC shows normal white count of 7.8 with high neutrophils 81. Hemoglobin is 9.4 which is at the patient's baseline. Chemistry showed a low potassium 3.2, creatinine 0.66, glucose elevated at 132, high-sensitivity troponin normal at 38, BNP elevated at 3030.9. D-dimer normal at less than 0.27. Chest x-ray reviewed showing congestive heart failure and multilobular pneumonia. Zosyn 3.375 g IV and vancomycin 1250 mg IV ordered for pneumonia. Furosemide 40 mg IV ordered for CHF. Potassium chloride 40 mill equivalents ordered for hypokalemia. Upon reevaluation, patient appears more awake and alert, not as forgetful. Discussed lab and radiology results with patient and . Discussed the need for inpatient admission. Patient and agreeable. Patient seen and evaluated with [employer] student. I personally interviewed and examined the patient. I was involved in all aspects of patient's orders, interpretation of results, and treatment. Patient presents secondary to increasing shortness of breath and forgetfulness. Patient was admitted to the hospital August 18 through the with pneumonia and hypoxia. She was able to be weaned to room air. Echocardiogram done during that admission revealed an EF of 53%. At the time of discharge her INDIGO inhibitor and Lasix were held because of borderline blood pressure readings. Hope was that this could be added back to her regimen at her follow-up visit. Patient completed her full course of antibiotics. She presented back to the emergency room on the secondary to shortness of breath. Workup included a CTA of the chest which revealed continued evidence of infiltrate along with bilateral pleural effusions. There is no evidence of PE. She was started on 20 mg of Lasix daily. In spite of this patient states she continues to worsen. Patient sitting upright in bed in no acute distress. Appears ill. Head and neck examination unremarkable. Heart is tachycardic and slightly irregular. Lung sounds are slightly diminished bilaterally. Occasional expiratory wheezes noted, right greater than left. Abdomen is soft and nontender. Lower extremity examination reveals 3+ edema distal to the knees. EKG is sinus tachycardia with PACs. No evidence of acute ischemia. Portable chest x-ray per my interpretation reveals multifocal infiltrates with mild fluid overload. Radiology interpretation reviewed and agrees. CBC reveals a normal white count at 7.8 with 81% neutrophils. Hemoglobin is 9.4 which is consistent with her prior values. Her D-dimer is less than 0.27. Chemistry studies significant for a potassium of 3.2. Renal function is unremarkable. Glucose is 132. Troponin is normal at 38. BNP is 3030. This is increased from her visit just 6 days ago. Patient given p.o. potassium replacement along with IV Lasix. Given her continued significant infiltrates on x-ray she is covered with Zosyn and vancomycin. Repeat blood cultures have been drawn. Patient's O2 sat on room air was 88% on arrival. She is satting in the high 90s on 2 L. I will speak with hospitalist regarding admission for pneumonia, CHF exacerbation, failed outpatient management. Discharge Plan Dx/Rx/DC Orders Clinical Impression: CHF (congestive heart failure), Pneumonia Disposition Disposition: Acute Care [facility]
[2023-08-29 19:29] LABS: Absolute Lymphocyte Count 0.65 X10^3/uL (0.83-4.51); Absolute Neutrophil Count 6.3 X10^3/uL (2.0-7.7); Basophil# 0.03 X10^3/uL; Basophil% 0.4 % (0-1); Eosinophil# 0.04 X10^3/uL; Eosinophils% 0.5 % (0-5); Hematocrit 30.4 % (37-47); Hemoglobin 9.4 g/dL (12.0-15.0); Lymphocyte # 0.65 X10^3/ul (0.83-4.51); Lymphocyte % 8.4 % (19-41); Mean Corp Hgb Conc 30.9 g/dL (32-36); Mean Corpuscular Hgb 29.9 pg (27.0-32.0); Mean Corpuscular Volume 96.8 fL (81-99); Mean Platelet Vol. 11.7 fl (6.2-12.0); Monocyte# 0.72 X10^3/uL; Monocyte% 9.3 % (0-10); NRBC Flagged by Analyzer 0 % (0-5); Platelet Count 250 K/mm3 (150-450); RBC Distribution Width CV 15.7 % (11.6-14.6); RBC Distribution Width SD 55.5 fl (35.1-43.9); Red Blood Count 3.14 M/mm3 (4.2-5.4); White Blood Count 7.8 K/mm3 (4.4-11.0)
--- NOTE | 2023-08-29 19:30 | RAD_ITS ---
STUDY: X-RAY CHEST REASON FOR EXAM: Female, 78 years old. chest pain TECHNIQUE: Single AP portable view of the chest. COMPARISON: 08/18/2023 FINDINGS: Interval development of alveolar opacity the upper left lung worrisome for left upper lobe pneumonia or pulmonary edema. Persistent focal opacity in the upper right lung may represent mass or of a persistent pneumonia. Follow-up is recommended to document resolution. There is no demonstrated pleural abnormality. There is moderate cardiac enlargement. Normal mediastinum and pati. There is prominence of the pulmonary hilar arteries and peripheral pulmonary arteries, consistent with congestive heart failure (CHF). Normal visualized aortic arch and descending thoracic aorta. Normal visualized thoracic spine. Status post right shoulder reverse arthroplasty. There is no demonstrated abnormality of the visualized soft tissue structures of the upper abdomen. RAD/Chest 1 View (Portable) IMPRESSION: 1. Interval development of left upper lobe pneumonia or alveolar edema. 2. Persistent opacity in the right upper lobe worrisome for mass or persistent pneumonia. Follow-up is recommended.. 3. Mild congestive heart failure. Electronically Signed: Julien David MD at 19:43 EST ,
[2023-08-29 19:46] LABS: D-Dimer Quantitative (DVT/PE) < 0.27 FEU/ug/m (0.27-0.49)
[2023-08-29 19:50] LABS: Anion Gap 7 (5-15); BUN 15 mg/dL (7-18); BUN/Creat Ratio 22.6 RATIO (10-20); Calcium,Total 9.1 mg/dL (8.5-10.1); Chloride 106 mmol/L (98-107); Creatinine, Serum 0.66 mg/dL (0.55-1.02); EST Glomerular Filtration Rate 92 mL/min (>60); Est Glom Filt Rate - Afr Amer 111 mL/min (>60); Estimated Creatinine Clearance 60.67 ml/min; Glucose 132 mg/dL (74-106); Potassium 3.2 mmol/L (3.5-5.1); Sodium Level 138 mmol/L (136-145); Troponin-I HS (w/2H Reflex) 38 pg/mL (3.0-54.0)
[2023-08-29 19:54] LABS: BNP,B-Type NATRIURETIC PEPTIDE 3030.9 pg/mL (0-100)
[2023-08-29] MEDS: Furosemide 40 MG/4 ML Vial IV (20:06)
[2023-08-29] MEDS: Potassium Chloride Oral Tablet 20 MEQ 40 MEQ PO (20:06)
[2023-08-29 20:08] VITALS: BP 145/103; PULSE 101; RESP 22; TEMP 36.6; O2SAT 99
[2023-08-29 20:16] VITALS: BP 152/96; PULSE 101; RESP 20; TEMP 36.8; O2SAT 98
[2023-08-29] MEDS: Vancomycin HCl 1,250 MG in 0.9% Normal Saline (250mL Bag) 250 ML 167 MG IV (20:29)
[2023-08-29] MEDS: Piperacil/Tazobactam 3.375 GM in 0.9% Normal Saline (50mL MB+) 50 ML IV (20:29)
--- NOTE | 2023-08-29 20:45 | PCM.HP.STD ---
[facility] - General General Date of Admission: 08/29/23 Date of Service: 08/29/23 Chief Complaint: Worsening SOB. [facility] Narrative BEBETO ASHBY, is a 78 F with a past medical history of essential hypertension, hyperlipidemia, overweight; with BMI of 27.6 this admission, CAD; s/p NSTEMI (2020), chronic diastolic CHF; with preserved LVEF, history of non-rheumatic aortic valve stenosis, history of breast cancer in 2013 (left), history of uterine cancer, chronic anemia, RA, OA, DDD, CINDY, GERD, history of diverticulosis, history of GI bleed and recent admission here from August 18, 2023 to August 20, 2023 for treatment of RUL pneumonia with hypoxia and sinus tachycardia with her diuretics help due to relative hypotension who then came back to the ER here on August 23, 2023 due to increasing SOB and generalized weakness with patient then diagnosed with AE of chronic diastolic CHF; with preserved LVEF with her Lasix restarted at that time who now re-presents to [facility] ER complaining of worsening SOB. Ms. Ashby reports her symptoms began approximately 11 days prior to admission with the gradual-onset of BARNETT that progressed to SOB at rest with symptoms made worse by exertion and relieved by rest. Both the patient and her state she has not returned to her previous baseline since her previous admission with continued cough productive of yellowish sputum with RA oxygen saturations of ~90% plus nausea, decreased appetite and intermittent dizziness. She also admits to worsening LE edema in spite of taking her Lasix as prescribed with midsternal chest pressure made worse with coughing. She denies associated fever, chills, vomiting, diarrhea or constipation. In the ER she was noted to have an elevated BNP of 3,030.9 pg/mL present on admission with CXR positive for cephalization consistent with AE of Chronic Diastolic CHF; with preserved LVEF complicated by interval development of AMANDA and persistent opacity of RLL infiltrate consistent with suspected worsening Multilobar Nosocomial (HCAP) Pneumonia with clinical evidence of acute respiratory insufficiency compounded by laboratory evidence of Hypokalemia of 3.2 mmol/L present on admission and she was then admitted to the PCU for ongoing care for a stay that is expected to be greater than 48 hours. [facility] Medical History (Updated 08/30/23 @ 07:[address] Duarte de Nehemiah, DO) (HFpEF) heart failure with preserved ejection fraction Acute hypoxemic respiratory failure Atherosclerosis of coronary artery of [place] heart without angina pectoris Bilateral pleural effusion Breast cancer, left Chronic anemia DDD (degenerative disc disease) Diverticulosis Essential hypertension GERD (gastroesophageal reflux disease) GI bleed History of malignant neoplasm of left breast History of SD (myocardial infarction) History of non-ST elevation myocardial infarction (NSTEMI) (09/18/20) History of uterine cancer Hyperlipidemia Hypokalemia Iron deficiency anemia Nonrheumatic aortic (valve) stenosis Osteoarthritis Rheumatoid arthritis Home Medications magnesium 250 mg tablet 250 mg PO DAILY supplement 03/13/16 [History Last Taken 08/16/23] acetaminophen 500 mg tablet 1,000 mg PO Q8H PRN Pain 1-10 Or Fever 09/09/20 [History Last Taken 08/17/23] hydroxychloroquine 200 mg tablet 200 mg PO BID arthritis 09/18/20 [History Last Taken 08/16/23] calcium carbonate 600 mg-vitamin D3 10 mcg (400 unit) tablet 1 tablet PO DAILY supplement 10/09/20 [History Last Taken 08/28/23] aspirin 81 mg chewable tablet 81 mg PO BREAKFAST 30 days #30 tabs 08/20/23 [Rx Last Taken Unknown] atorvastatin 10 mg tablet 10 mg PO QHS 30 days #30 tabs 08/20/23 [Rx Last Taken Unknown] guaifenesin 1,200 mg tablet, extended release 12 hr (Mucinex) 1,200 mg PO Q12H 10 days #20 tabs 08/20/23 [Rx Last Taken 08/29/23 15:00] metoprolol succinate 25 mg tablet,extended release 24 hr 25 mg PO DAILY 30 days #30 tabs 08/20/23 [Rx Last Taken Unknown] furosemide 20 mg tablet (Lasix) 20 mg PO DAILY 10 days #10 tabs 08/23/23 [Rx Last Taken Unknown] Allergy/AdvReac Type Severity Reaction Status Date / Time amlodipine besylate Allergy Swelling Verified 08/29/23 18:44 [From Norvasc] bisoprolol fumarate Allergy Unknown Verified 08/29/23 18:44 [From Ziac] adhesive AdvReac Itching Verified 08/29/23 18:44 hydrochlorothiazide AdvReac Unknown Verified 08/29/23 18:44 Family History Mother Cancer Uterine Hypertension Hyperlipidemia Osteoporosis Father Myocardial infarction, Onset Age: 39 Grandmother Diabetes Sister Hypertension Osteoporosis Brother Hypertension Aunt Thyroid disorder Surgical History History of colonoscopy (01/03/19) History of esophagogastroduodenoscopy (EGD) (01/03/19) History of left breast biopsy (05/24/12) History of lymph node biopsy (06/06/12) History of partial mastectomy of left breast (06/06/12) History of shoulder surgery (02/07/20) History of total abdominal hysterectomy (1979) History of total right knee replacement (03/24/16) Social History household members: spouse Smoking Status: Never smoker alcohol intake: never substance use type: does not use ROS ROS Narrative Review of systems: General: Denies fevers, chills or sweats. HENT: Denies headache, denies stuffy nose, denies sore throat EYES: Denies changes in vision or discharge from eyes Resp: Patient admits to congested cough with dyspnea on exertion progressing to shortness of breath at rest as per HPI Cardiac: Patient has pleuritic type chest pain worse with deep breathing and cough as per HPI GI: Patient admits to nausea but denies vomiting, abdominal pain, constipation or diarrhea : Denies changes in urination Extremity: Patient reports increasing lower extremity edema Musculoskeletal: Feels somewhat generally weak and unwell Neuro: Denies any numbness/tingling, denies headache or focal neurologic deficits Heme: Denies any bleeding or bruising Skin: Denies rashes Psychiatric: No complaints voiced related to uncontrolled depression or anxiety Endocrine: No polyuria, polydipsia or polyphagia The rest of the 14 point ROS was negative except for positives in HPI. Vital Signs Vital Signs Vital Signs: 08/29/23 18:44 08/29/23 19:13 08/29/23 19:14 Temperature 98 F Temperature Source Temporal Pulse Rate 106 H 102 H Respiratory Rate 24 H 22 H Respiratory Pattern Tachypnea Blood Pressure 126/114 H 154/102 H Blood Pressure Mean 118 119 Pulse Ox 88 98 Oxygen Delivery Method Room Air Nasal Cannula Oxygen Flow Rate (L/min) 2 08/29/23 20:08 08/29/23 20:16 Temperature 98 F 98.2 F Temperature Source Temporal Pulse Rate 101 H 101 H Respiratory Rate 22 H 20 H Respiratory Pattern Blood Pressure 145/103 H 152/96 H Blood Pressure Mean 117 114 Pulse Ox 99 98 Oxygen Delivery Method Nasal Cannula Oxygen Flow Rate (L/min) 2 Weight Weight: 165 lb 9.074 oz Body Mass Index (BMI) 27.5 Physical Exam Const alert, oriented x3 and average body habitus General Appearance: cooperative HEENT normocephalic, head/scalp atraumatic, hearing grossly normal bilaterally, moist oral mucous membranes and oropharynx normal Eyes PERRL and EOMs intact bilaterally Neck no lymphadenopathy and supple Resp Resp Narrative: Diminished breath sounds throughout. Cardio regular rate and regular rhythm GI normal to inspection, nondistended, normoactive bowel sounds, soft to palpation, non-tender and non-distended Extremity Extremity Narrative: 1-2+ bilateral LE edema. Skin Skin Narrative: Patient has no evidence of rash or jaundice at this time. Neuro oriented x3, CN's II-XII intact bilaterally, moves all extremities and no focal motor deficits Sensorium / Orientation: awake, alert, oriented to person, oriented to place and oriented to time Speech: speech normal Motor Exam: strength 5/5 throughout Psych affect normal Results Medical Records Data Attestation: I reviewed the patient's medical records Lab / Micro Data Attestation: I reviewed the patient's lab results. 08/29/23 19:20 08/29/23 19:20 Labs: Laboratory Results - last 24 hr 08/29/23 19:20: WBC 7.8, RBC 3.14 L, Hgb 9.4 L, Hct 30.4 L, MCV 96.8, MCH 29.9, MCHC 30.9 L, RDW Std Deviation 55.5 H, RDW Coeff of Juan 15.7 H, Plt Count 250, MPV 11.7, Immature Gran % (Auto) 0.400, Neut % (Auto) 81.0 H, Lymph % (Auto) 8.4 L, Dodge % (Auto) 9.3, Eos % (Auto) 0.5, Baso % (Auto) 0.4, Absolute Neuts (auto) 6.3, Absolute Lymphs (auto) 0.65 L, Nucleated RBC % 0, D-Dimer Quant (PE/DVT) < 0.27 L, Sodium 138, Potassium 3.2 L, Chloride 106, Carbon Dioxide 25.0, Anion Gap 7, BUN 15, Creatinine 0.66, Estim Creat Clear Calc 60.67, Est GFR (MDRD) Af Amer 111, Est GFR (MDRD) Non-Af 92, BUN/Creatinine Ratio 22.6 H, Glucose 132 H, Calcium 9.1, Troponin I High Sens 38, B-Natriuretic Peptide 3030.9 H Imaging Radiology Impression Chest X-Ray 08/29/23 19:30 IMPRESSION: 1. Interval development of left upper lobe pneumonia or alveolar edema. 2. Persistent opacity in the right upper lobe worrisome for mass or persistent pneumonia. Follow-up is recommended.. 3. Mild congestive heart failure. Electronically Signed: Julien David MD at 19:43 EST , Assessment & Plan Assessment/Plan (1) CHF (congestive heart failure): QUALIFIERS: Heart failure chronicity: acute on chronic Heart failure type: unspecified Qualified Code(s): I50.9 - Heart failure, unspecified (2) Pneumonia: QUALIFIERS: Laterality: bilateral Lung location: unspecified part of lung Pneumonia type: due to unspecified organism Qualified Code(s): J18.9 - Pneumonia, unspecified organism (3) Dyspnea: QUALIFIERS: Dyspnea type: shortness of breath Qualified Code(s): R06.02 - Shortness of breath (4) Hypokalemia: PLAN: Plan 1. AE of Chronic Diastolic CHF; with preserved LVEF evidenced by elevated BNP of 3,030.9 pg/mL present on admission with CXR positive for cephalization with LE edema - Admit to PCU. Continue IV Lasix plus supplemental KCl and magnesium. Check daily CXR and BNP to monitor response to treatment. I will defer decision to obtain cardiology consultation to [facility] hospitalist. 2. Multilobar Nosocomial (HCAP) Pneumonia evidenced by interval development of AMANDA and persistent opacity of RLL infiltrate on imaging this admission with yellowish sputum and failure of recent antibiotic treatment complicating #1 - Continue broad-spectrum antibiotics to cover nosocomial pathogens with IV vancomycin and IV Zosyn began in the ER and await culture and sensitivity data. Give Tylenol as needed 1-10 pain or fever. 3. Acute Hypoxic Respiratory Insufficiency arising from #1 & #2 - Wean supplemental oxygen as tolerated. 4. Hypokalemia of 3.2 mmol/L present on admission - Give supplemental KCl and then recheck BMP in the AM to ensure correction. 5. Recent admission here from August 18, 2023 to August 20, 2023 for treatment of RUL pneumonia with hypoxia and sinus tachycardia with her diuretics help due to relative hypotension who then came back to the ER here on August 23, 2023 due to increasing SOB and generalized weakness - Noted. 6. Essential hypertension - Resume home medications as previous and give prn IV hydralazine for systolic blood pressure > 160 mm Hg. 7. Hyperlipidemia - Continue statin. 8. Overweight; with BMI of 27.6 this admission - Weight loss will be recommended. Check TSH. 9. CAD; s/p NSTEMI (2020) - Noted. 10. History of non-rheumatic aortic valve stenosis - Noted with recent echocardiogram. 11. History of breast cancer in 2012 (left) - Noted. 12. History of uterine cancer - Noted. 13. Chronic anemia - Stable. 14. RA - Stable with no evidence of flare. 15. OA with DDD - Stable. Give Tylenol prn. 16. CINDY - Stable. 17. GERD - Stable. 18. History of diverticulosis - Noted. 19. History of GI bleed - Noted with no evidence of bleeding a this time. 20. DVT prophylaxis - Lovenox 40 mg sq daily. Total time: Approximately 55 minutes. Charges/Coding Visit Charges Inpatient E&M: 03765 Init Hosp L2
--- OUTSIDE RECORDS SUMMARY | 2023-08-29 21:03 | XMS RPT_ITS | CCD ---
Author Name Unknown Address [address] [place] [address] Organization [facility] Care Team Providers Care Accelerator Systems Director Name Role Phone Reema Tubbs CNPzabeth Unavailable Stewart Moody MD Primary Care Provider MAGGIE SAINZ Attending Unavailable STEWART MOODY Primary Care UnavailLELO Willis Attending Unavailable STEWART MOODY Primary Care UnavailLELO Willis Referring Unavailable STEWART MOODY Primary Care UnavailLELO Willis Referring Unavailable Allergies Allergy Classification Reported Allergen(s) Allergy Type Date of Onset Reaction(s) Facility (16 sources) Adhesive Tape; Translations: [ADHESIVE TAPE (ROSINS)] Allergy to substance 2 Rash [facility] Work Phone: (16 sources) amLODIPine; Translations: [AMLODIPINE BESYLATE] Drug Allergy 2 Swelling [facility] (16 sources) atorvastatin; Translations: [ATORVASTATIN] Drug Allergy 1 Other: See Comments [facility] Work Phone: (16 sources) Bisoprolol / hydroCHLOROthiaz kaci; Translations: [BISOPROLOL-HYDR OCHLOROTHIAZIDE] Drug Allergy 6 [facility] Work Phone: Medications Completed/Discontinued Medications Medication Drug Class(es) Dates Sig (Normalized) Sig (Original) acetaminophen 500 mg oral tablet (15 sources) End: 08-24-2023 take 2 tablets by mouth every eight hours as needed acetaminophen (TYLENOL) 500 mg tablet Take 1,000 mg by mouth every 8 hours as needed. 0 08/24/2023 Discontinued (Course of therapy completed) Problems Active Problems Problem Classification Problem Date [...] history of malignant neoplasm of breast] Onset: 7 Episodic Coagulation and hemorrhagic disorders (2 sources) Thrombocytopenic disorder; Translations: [Thrombocytopenia, unspecified] Onset: 4 08-24-2023 Chronic Congestive heart failure; nonhypertensive (2 sources) Heart failure with normal ejection fraction; Translations: [Unspecified diastolic (congestive) heart failure] Onset: 4 08-24-2023 Chronic Coronary atherosclerosis and other heart disease (3 sources) Coronary arteriosclerosis; Translations: [Atherosclerotic heart disease of [place] coronary artery without angina pectoris] Chronic Deficiency and other anemia (18 sources) Chronic anemia; Translations: [Anemia, unspecified] Onset: 8 Episodic Disorders of lipid metabolism (19 sources) Hyperlipidemia; Translations: [Hyperlipidemia, unspecified] Onset: 8 Chronic Essential hypertension (17 sources) Benign essential hypertension; Translations: [Essential (primary) hypertension] Chronic Gastrointestinal hemorrhage (16 sources) Gastrointestinal hemorrhage; Translations: [Hematemesis] Onset: 1 09-23-2020 Episodic Osteoarthritis (20 sources) Primary gonarthrosis, bilateral; Translations: [Bilateral primary osteoarthritis of knee] Onset: 5 01-23-2015 Chronic Osteoporosis (15 sources) Osteoporosis; Translations: [Age-related osteoporosis without current pathological fracture] Onset: 9 01-06-2017 Chronic Other aftercare (1 source) Post-discharge follow-up; Translations: [Encounter for follow-up examination after completed treatment for conditions other than malignant neoplasm] 08-24-2023 Episodic Other bone disease and musculoskeletal deformities (1 source) Disorder of bone; Translations: [Disorder of bone, unspecified] 08-24-2023 Episodic Other connective tissue disease (1 source) History of osteoporosis; Translations: [Personal history of other diseases of the musculoskeletal system and connective tissue] 08-24-2023 Episodic Other lower respiratory disease (1 source) Cough; Translations: [Acute cough] 08-24-2023 Episodic Other nervous system disorders (15 sources) Carpal tunnel syndrome of right wrist; Translations: [Carpal tunnel syndrome, right upper limb] Onset: 7 02-15-2017 Chronic Other screening for suspected conditions (not mental disorders or infectious disease) (8 sources) Mammography abnormal; Translations: [Other abnormal and inconclusive findings on diagnostic imaging of breast] Onset: 3 Episodic Rheumatoid arthritis and related disease (17 sources) Rheumatoid arthritis of multiple joints; Translations: [Rheumatoid arthritis with rheumatoid factor of multiple sites without organ or systems involvement] Onset: 8 Chronic Secondary malignancies (15 sources) Secondary malignant neoplasm of axillary lymph nodes; Translations: [Secondary and unspecified malignant neoplasm of axilla and upper limb lymph nodes] Onset: 2 06-22-2012 Chronic Spondylosis; intervertebral disc disorders; other back problems (20 sources) Degeneration of lumbar intervertebral disc; Translations: [Other intervertebral disc degeneration, lumbar region] Onset: 3 12-09-2012 Chronic Past or Other Problems Problem Classification Problem Date Documented Da te Episodic/Chronic Other connective tissue disease (15 sources) Pain in limb; Translations: [Pain in unspecified limb] Onset: 04-06-2017 04-06-2017 Episodic Other fractures (15 sources) Compression fracture of lumbar spine; Translations: [Wedge compression fracture of fifth lumbar vertebra, sequela] Onset: 07-11-2018 07-11-2018 Episodic Residual codes; unclassified (16 sources) Estrogen receptor positive tumor; Translations: [Estrogen receptor positive status [ER+]] Onset: 07-18-2012 07-18-2012 Episodic Spondylosis; intervertebral disc disorders; other back problems (15 sources) Lumbar radiculopathy; Translations: [Radiculopathy, lumbar region] Onset: 06-06-2018 06-06-2018 Episodic Results Test Name Value Interpretation Reference Range Facil ity Vital Signs Date Time Vital Sign Value Performing Clinician Anival morin 08-24-2023 08:59-0500 Body weight 73.12 kg Maggie Sainz APRN.CNP Work Phone: [facility] 08-24-2023 08:59-0500 Diastolic blood pressure 64 mm[Hg] Maggie Podlogar FIELD SUPERINTENDENT.ESTIMATOR LUMBER Work Phone: [facility] 08-24-2023 08:59-0500 Heart rate 101 /min Maggie Podlogar FIELD SUPERINTENDENT.ESTIMATOR LUMBER Work Phone: [facility] 08-24-2023 08:59-0500 Respiratory rate 16 /min Maggie Podlogar FIELD SUPERINTENDENT.ESTIMATOR LUMBER Work Phone: [facility] 08-24-2023 08:59-0500 SaO2% (BldA) [Mass fraction] 94 % Maggie Podlogar FIELD SUPERINTENDENT.ESTIMATOR LUMBER Work Phone: [facility] 08-24-2023 08:59-0500 Systolic blood pressure 126 mm[Hg] Maggie Podlogar FIELD SUPERINTENDENT.ESTIMATOR LUMBER Work Phone: [facility] 07-21-2022 10:02-0500 Body height 161.9 cm Lelo White FIELD SUPERINTENDENT.ESTIMATOR LUMBER Work Phone: [facility] 07-21-2022 10:02-0500 Body temperature 98.8 [degF] [place] White FIELD SUPERINTENDENT.ESTIMATOR LUMBER Work Phone: [facility] 07-21-2022 10:02-0500 Body weight 82.33 kg [place] White FIELD SUPERINTENDENT.ESTIMATOR LUMBER Work Phone: [facility] 07-21-2022 10:02-0500 Diastolic blood pressure 82 mm[Hg] Lelo White FIELD SUPERINTENDENT.ESTIMATOR LUMBER Work Phone: [facility] 07-21-2022 10:02-0500 Heart rate 65 /min Lelo White FIELD SUPERINTENDENT.ESTIMATOR LUMBER Work Phone: [facility] 07-21-2022 10:02-0500 Systolic blood pressure 156 mm[Hg] Lelo White FIELD SUPERINTENDENT.ESTIMATOR LUMBER Work Phone: [facility] 06-22-2022 08:40-0500 Body weight 82.56 kg Stewart Moody MD Work Phone: [facility] 06-22-2022 08:40-0500 Diastolic blood pressure 80 mm[Hg] Stewart Moody MD Work Phone: [facility] 06-22-2022 08:40-0500 Heart rate 65 /min Stewart Moody MD Work Phone: [facility] 06-22-2022 08:40-0500 Respiratory rate 16 /min Stewart Moody MD Work Phone: [facility] 06-22-2022 08:40-0500 SaO2% (BldA) [Mass fraction] 97 % Stewart Moody MD Work Phone: [facility] 06-22-2022 08:40-0500 Systolic blood pressure 136 mm[Hg] Stewart Moody MD Work Phone: [facility] 12-12-2021 10:38-0400 Body weight 80.56 kg Stewart Moody MD Work Phone: [facility] 12-12-2021 10:38-0400 Diastolic blood pressure 84 mm[Hg] Stewart Moody MD Work Phone: [facility] 12-12-2021 10:38-0400 Heart rate 61 /min Stewart Moody MD Work Phone: [facility] 12-12-2021 10:38-0400 Respiratory rate 16 /min Stewart Moody MD Work Phone: [facility] 12-12-2021 10:38-0400 SaO2% (BldA) [Mass fraction] 98 % Stewart Moody MD Work Phone: [facility] 12-12-2021 10:38-0400 Systolic blood pressure 120 mm[Hg] Stewart Moody MD Work Phone: [facility] Encounters Encounter Date Encounter Type Care Provider Facility Start: 08-24-2023 End: 08-24-2023 ambulatory MAGGIE SAINZ Facility:[facility] Start: 08-24-2023 End: 08-24-2023 Patient encounter procedure Maggie Sainz FIELD SUPERINTENDENT.ESTIMATOR LUMBER Work Phone: [facility] Procedures Date Procedure Procedure Detail Performing Clinician Start: 07-14-2022 Us breast uni real t catherine with image limited Lelo White FIELD SUPERINTENDENT.ESTIMATOR LUMBER Work Phone: Start: 07-14-2022 [place] CARLOS W MARTITA KAM D lana White FIELD SUPERINTENDENT.ESTIMATOR LUMBER Work Phone: Start: 06-22-2022 Lipid 1996 panel - S alexander or Plasma Us 1 Work Phone: Start: 06-01-2022 End: 06-01-2022 Mammography Lelo White FIELD SUPERINTENDENT .ESTIMATOR LUMBER Work Phone: Start: 06-26-2021 Adult depression screening assessment Stewart Moody MD Work Phone: Start: 05-12-2021 Mammography Shamir Moody MD Work Phone: Start: 09-10-2020 Colonoscopy Shamir Moody MD Work Phone: Plan of Treatment Date Care Activity Detail Author Start: 09-10-2030 Colonoscopy COLONOSCOPY [facility] Start: 09-10-2030 COLORECTAL CANCER SCREENING COLORECTAL CANCER SCREENING [facility] Start: 06-22-2027 Lipid 1996 panel - Serum or Plasma Lipid Screening [facility] Start: 06-22-2027 LIPID SCREEN LIPID SCREEN [facility] Start: 11-29-2025 LIPID SCREEN LIPID SCREEN [facility] Start: 06-22-2025 DIABETES SCREEN DIABETES SCREEN [facility] Start: 06-22-2025 Diabetes Screening Diabetes Screening [facility] Start: 08-24-2024 Annual PCP Team Chronic Disease Visit Annual PCP Team Chronic Disease Visit [facility] Start: 08-24-2024 BP Controlled (<130/80) BP Controlled (<130/80) [facility] Start: 06-24-2024 DIABETES SCREEN DIABETES SCREEN [facility] Start: 08-24-2023 End: 11-23-2023 25-hydroxyvitamin D3 [Mass/volume] in Serum or Plasma VITAMIN D 25 HYDROXY Lab Routine Hx of osteoporosis Disorder of bone, unspecified Expected: 08/24/2023, Expires: 11/23/2023 [facility] Work Phone: Immunizations Immunization Date Immunization Notes Care Provider Fa cili 04-12-2023 influenza (aIIV4) vaccine, age 65+ yr, quadrivalent, PF (FLUAD QUAD) Screen Wstr [facility] 04-22-2022 influenza (aIIV4) vaccine, age 65+ yr, quadrivalent, PF (FLUAD QUADRIVALENT) Stewart Moody MD Work Phone: [facility] Work Phone: 04-27-2021 influenza (aIIV4) vaccine, age 65+ yr, quadrivalent, PF (FLUAD QUADRIVALENT) Stewart Moody MD Work Phone: [facility] Work Phone: 09-14-2020 COVID-19 vaccine, ag e 12+ yr (PFIZER-BIONTECH - PURPLE TOP) Stewart Moody MD Work Phone: [facility] 08-24-2020 COVID-19 vaccine, ag e 12+ yr (PFIZER-BIONTECH - PURPLE TOP) Stewart Moody MD Work Phone: [facility] Payers Date Payer Category Payer Private Health Insurance [facility] AARP SUPPLEMENT [id number] 2013-Present [phone] [address] [place] [address] Indemnity [id number] 2013 Private Health Insurance [facility] AARP SUPPLEMENT [id number] 2013-Present [phone] [address] [place] [address] Indemnity [id number] 2013 Unknown [id number] 2012 Medicare MEDICARE MEDICAR E A AND B [id number] 2012-Present [phone] [address] [address] [place] [address] Medicare [id number] 2012 Medicare MEDICARE MEDICAR E A AND B [id number] 2012-Present [phone] [place] [address] Medicare [id number] 2012 Medicare [id number] Social History Date Type Detail Facility Start: 05-12-2011 Tobacco smoking stat [facility] Never smoked tobacco [facility] Start: 12-12-2021 End: 07-21-2022 Alcohol intake Current non-drinker of alcohol (finding) [facility] Start: 1945 Sex Assigned At Not on file [facility] Start: 12-02-2021 End: 06-01-2022 Exposure to SARS-CoV-2 (event) Not sure [facility] Start: 05-12-2011 Tobacco use and exposure Smokeless tobacco non-user [facility] Work Phone: Start: 06-16-2020 End: 06-22-2022 History of Social function [facility] Work Phone: Start: 06-16-2020 End: 06-22-2022 Tobacco use panel [facility] Work Phone: Adult Depression Screening Assessment 0 [facility] Work Phone: Goals Date Patient Goal Desired Activity /State Personal health goal Clinical Notes 06-10-2017 to 08-24-2023 Patient InstructionsPoMaggie myers APRN.ESTIMATOR LUMBER - 08/24/2023 8:45 AM ESTTelephone Encounter - Ani Salmon - 06/21/2023 12:19 PM Dana Downs Mammo Tech - 06/11/2023 9:30 AM EST Note Date & Type Note Facility 08-24-2023 Note HNO ID: [id number] Author: MAGGIE SAINZ APRN.CNP Service: ? Author Type: Nurse Practitioner Type: Progress Notes Filed: 08/24/2023 14:33 Note Text: 08/24/2023 Patient presents with: Hospital F/U: [facility] 08/20/2023 dx: Pneumonia Seen in ER 08/23/2023. SUBJECTIVE: This is a 78 year old, accompanied by , that is here today for Above Complaints. HOSPITAL/ER FOLLOW UP: Reason for visit: PNA, hypoxia Which facility: [facility] Date of visit: 08/18/2023-08/20/2023 Diagnosis: right upper pneumonia Testing done: CT chest, EKG,ECHO Treatment given: IV antibiotics Since discharge patient had to go back to ER on 08/23/2023. Per he took her back because she didn't look good. They did completed a CTA to check for possible blood clot. They noted bilateral pleural effusions and multiofocal pneumonia. Treated for CHF exacerbation give leg swelling, increase proBNP of and pleural effusions. She just completed her po antibiotics she was discharged with on . It was noted in ER report they believed it would take some time before the pneumonia would resolved on imaging. She was given a prescription for lasix which she is taking. Per patient today she is feeling improved but still has cough. Does have follow-up with [facility] cardiology scheduled for end of this month. Denies fevers, chills, SOB, dyspnea, wheezing, hemoptysis, chest pain, palpitations or leg edema. Patient with noted anemia on recent labs with hx of chromic anemia. She admits to recent black stool. No currently taking iron Hospital records reviewed PAST MEDICAL HISTORY Diagnosis Date Anemia 2/2 [...] uteri, except isthmus (HCC) 1979 Uterine cancer [place], old Osteoarthritis Other and unspecified hyperlipidemia Rheumatoid arthritis involving multiple sites with positive rheumatoid factor (HCC) 10/05/2017 Dr. Gonzales Snoring ALLERGIES Adhesive Tape (Rosins), Lipitor [Atorvastatin], Norvasc [Amlodipine Besylate], and Ziac [Bisoprolol-Hydrochlorothiazide] MEDICATIONS Current Outpatient Medications Medication Sig omega 3-wul-hck-fish-turmeric 417 mg-120 mg- 276 mg-600 mg cap Take 1 capsule by mouth once daily. acetaminophen (TYLENOL) 500 mg tablet Take 1,000 mg by mouth every 8 hours as needed. hydroxychloroquine (PLAQUENIL) 200 mg tablet Take 1.5 tablets by mouth once daily. CALCIUM CARBONATE/VITAMIN D3 (CALCIUM 600 + D,3, ORAL) Take 1 tablet by mouth once daily. No current facility-administered medications for this visit. Medications and allergies reviewed by this provider. SOCIAL HISTORY Social History Tobacco Use Smoking status: Never Smokeless tobacco: Never Vaping Use Vaping Use: Never used Substance Use Topics Alcohol use: No Drug use: No REVIEW OF SYSTEMS All other reviewed and negative other than HPI. OBJECTIVE: BP 126/64 Pulse 101 Resp 16 Wt 73.1 kg (161 lb 3.2 oz) SpO2 94% BMI 27.89 kg/m? . Vital signs reviewed by this provider. APPEARANCE Well appearing, alert, pale in no acute distress, well-hydrated, well nourished. EYES PERRLA, conjunctiva and sclera normal. HEART Occasional ectopic beat with tachycardia with normal S1 and S2, no murmurs, no gallops, no JVD appreciated LUNG clear to auscultation. No wheezes, rhonchi or rales. Dry cough noted. Able to speak in full sentences without difficulty EXTREMITIES Extremities normal, No deformities, No skin discoloration. Trace edema BLE SKIN Skin color, texture, turgor normal, no suspicious rashes or lesions to exposed skin BP Controlled (<130/80) Never done DTaP,Tdap,Td Vaccine(1 - Tdap) Never done Shingrix Vaccine(1 of 2) Never done RSV Vaccine(1 - 1-dose 60+ series) Never done Pneumococcal Vaccine: 65+(1 of 1 - PCV) Never done Covid-19 Vaccine(2022-24 season) due on 03/12/2023 LDL Cholesterol due on 06/22/2023 Annual PCP Team Chronic Disease Visit due on 06/22/2023 Advance Directive Discussion due on 07/12/2023 Depression Assessment due on 07/12/2023 Diabetes Screening due on 06/22/2025 Bone Density Screening Completed Influenza Vaccine Completed Hepatitis C Screening Completed HPV Vaccine Aged Out Mammogram Screening Discontinued Colorectal Cancer Screening Discontinued ASSESSMENT/PLAN: 1. Hospital discharge follow-up - ICD9: V67.59, ICD10: Z09 (primary diagnosis) - plan as below - follow-up in one month for routine office visit 2. Chronic anemia - ICD9: 285.9, ICD10: D64.9 - FERRITIN BLD - IRON + TIBC (more content not included)... [facility] 08-24-2023 Instructions PascuallogMaggie feliz APRN.AIYANA - 08/24/2023 9:27 AM EST Follow-up with cardiology as scheduled Labs prior to next office visit- Follow-up in one month with Dr. Moody for routine visit documented in this encounter [facility] 08-24-2023 History of Present illness Narrative 08/24/2023 Patient presents with: Hospital F/U: [facility] 08/20/2023 dx: Pneumonia Seen in ER 08/23/2023. SUBJECTIVE: This is a 78 year old, accompanied by , that is here today for Above Complaints. HOSPITAL/ER FOLLOW UP: Reason for visit: PNA, hypoxia Which facility: [facility] Date of visit: 08/18/2023-08/20/2023 Diagnosis: right upper pneumonia Testing done: CT chest, EKG,ECHO Treatment given: IV antibiotics Since discharge patient had to go back to ER on 08/23/2023. Per he took her back because she didn't look good. They did completed a CTA to check for possible blood clot. They noted bilateral pleural effusions and multiofocal pneumonia. Treated for CHF exacerbation give leg swelling, increase proBNP of and pleural effusions. She just completed her po antibiotics she was discharged with on . It was noted in ER report they believed it would take some time before the pneumonia would resolved on imaging. She was given a prescription for lasix which she is taking. Per patient today she is feeling improved but still has cough. Does have follow-up with [facility] cardiology scheduled for end of this month. Denies fevers, chills, SOB, dyspnea, wheezing, hemoptysis, chest pain, palpitations or leg edema. Patient with noted anemia on recent labs with hx of chromic anemia. She admits to recent black stool. No currently taking iron Hospital records reviewed PAST MEDICAL HISTORY Diagnosis Date Anemia 2/2 [...] uteri, except isthmus (HCC) 1979 Uterine cancer [place], old Osteoarthritis Other and unspecified hyperlipidemia Rheumatoid arthritis involving multiple sites with positive rheumatoid factor (HCC) 10/05/2017 Dr. Gonzales Snoring ALLERGIES Adhesive Tape (Rosins), Lipitor [Atorvastatin], Norvasc [Amlodipine Besylate], and Ziac [Bisoprolol-Hydrochlorothiazide] MEDICATIONS Current Outpatient Medications Medication Sig omega 7-sli-sho-fish-turmeric 417 mg-120 mg- 276 mg-600 mg cap Take 1 capsule by mouth once daily. acetaminophen (TYLENOL) 500 mg tablet Take 1,000 mg by mouth every 8 hours as needed. hydroxychloroquine (PLAQUENIL) 200 mg tablet Take 1.5 tablets by mouth once daily. CALCIUM CARBONATE/VITAMIN D3 (CALCIUM 600 + D,3, ORAL) Take 1 tablet by mouth once daily. No current facility-administered medications for this visit. Medications and allergies reviewed by this provider. SOCIAL HISTORY Social History Tobacco Use Smoking status: Never Smokeless tobacco: Never Vaping Use Vaping Use: Never used Substance Use Topics Alcohol use: No Drug use: No REVIEW OF SYSTEMS All other reviewed and negative other than HPI. OBJECTIVE: BP 126/64 Pulse 101 Resp 16 Wt 73.1 kg (161 lb 3.2 oz) SpO2 94% BMI 27.89 kg/m . Vital signs reviewed by this provider. APPEARANCE Well appearing, alert, pale in no acute distress, well-hydrated, well nourished. EYES PERRLA, conjunctiva and sclera normal. HEART Occasional ectopic beat with tachycardia with normal S1 and S2, no murmurs, no gallops, no JVD appreciated LUNG clear to auscultation. No wheezes, rhonchi or rales. Dry cough noted. Able to speak in full sentences without difficulty EXTREMITIES Extremities normal, No deformities, No skin discoloration. Trace edema BLE SKIN Skin color, texture, turgor normal, no suspicious rashes or lesions to exposed skin BP Controlled (<130/80) Never done DTaP,Tdap,Td Vaccine(1 - Tdap) Never done Shingrix Vaccine(1 of 2) Never done RSV Vaccine(1 - 1-dose 60+ series) Never done Pneumococcal Vaccine: 65+(1 of 1 - PCV) Never done Covid-19 Vaccine(5 - 2022-24 season) due on 03/12/2023 LDL Cholesterol due on 06/22/2023 Annual PCP Team Chronic Disease Visit due on 06/22/2023 Advance Directive Discussion due on 07/12/2023 Depression Assessment due on 07/12/2023 Diabetes Screening due on 06/22/2025 Bone Density Screening Completed Influenza Vaccine Completed Hepatitis C Screening Completed HPV Vaccine Aged Out Mammogram Screening Discontinued Colorectal Cancer Screening Discontinued ASSESSMENT/PLAN: 1. Hospital discharge follow-up - ICD9: V67.59, ICD10: Z09 (primary diagnosis) - plan as below - follow-up in one month for routine office visit 2. Chronic anemia - ICD9: 285.9, ICD10: D64.9 - FERRITIN BLD - IRON + TIBC - FOLATE SERUM - VITAMIN B12 BLOOD - CBC - FECAL OCCULT BLOOD TEST 3. Hyperlipidemia with target LDL less than 100 - ICD9: 272.4, ICD10: E78.5 - Control undetermined, due for labs - Continue current medications - Counseled on healthy diet and regular exercise - Follow up in 1 month, sooner should any other issues arise. - LIPID PANEL BASIC - ATORVASTATIN 10 MG TABLET 4. Coronary artery disease involving [place] heart without angina pectoris, unspecified vessel or lesion type - ICD9: 414.01, ICD10: I25.10 - continue current medications - COMP METABOLIC PANEL - LIPID PANEL BASIC - ASPIRIN 81 MG CHEWABLE TABLET - METOPROLOL SUCCINATE ER 25 MG TABLET,EXTENDED RELEASE 24 HR - follow-up with cardiology as scheduled 5. Hx of osteoporosis - ICD9: V13.59, ICD10: Z87.39 - VITAMIN D 25 HYDROXY 6. Disorder of bone, unspecified - ICD9: 733.90, ICD10: M89.9 - Reviewed the need for Calcium and Vitamin D supplements and weight bearing exercise as tolerated - VITAMIN D 25 HYDROXY - consider BMD testing at future office visit 7. Heart failure with preserved ejection fraction, unspecified HF chronicity (HCC) - ICD9: 428.9, ICD10: I50.30 - plan as in #4 - FUROSEMIDE 20 MG TABLET 8. Thrombocytopenia, unspecified (HCC) - ICD9: 287.5, ICD10: D69.6 - repeat labs prior to next office appointment 9. Acute cough - ICD9: 786.2, ICD10: R05.1 - may use OTC cough suppressant - MUCUS RELIEF ER 600 MG TABLET, EXTENDED RELEASE 10. Black stool - ICD9: 792.1, ICD10: K92.1 - FECAL OCCULT BLOOD TEST Maggie Sainz APRN.AIYANA Prescription instructions reviewed with patient as applicable. Patient advised if symptoms do not improve or if symptoms worsen sooner, to contact their primary care physician. Potential red flag symptoms discussed with the patient. Reviewed appropriate action plan to take if red flag symptoms occur. Patient agreeable to treatment plan. I spent a total of 60 minutes on the date of the service which included preparing to see the patient, bwtx-[id number] patient care, completing clinical documentation, obtaining and/or reviewing separately obtained history, performing a medically appropriate examination, counseling and educating the patient/family/caregiver, and ordering medications, tests, or procedures. documented in this encounter [facility] 07-21-2023 Note HNO ID: [id number] Author: LELO WHITE APRN.CNP Service: ? Author Type: Nurse Practitioner Type: [...] invasive ductal carcinoma. It was ER positive, [place] positiveand Her2/barb 2+. She underwent left breast [...] R wrist fx. Casted for 2 months. [facility]. R hand dominant. Appetite: Too much. [...] - ICD9: V10.3, ICD10: Z85.3 Stage IIA, [id number], invasive ductal carcinoma of the left breast [...] Mammogram due 2023. - Needs f/u with Maggie Sainz CNP (Dr. Moody) for Rx refills/physical. - Follow up in one year. - Pt. aware to call office with any questions/concerns. The patient indicates understanding of these issues and agrees with the plan. All documentation from previous visit of 07/21/22-Марина/myself was copied and pasted, documentation has been reviewed and edited as necessary for today's visit. Lelo White APRN.CNP [facility] 06-21-2023 Miscellaneous Notes Patient informed No concerning findings on exam. Follow up as scheduled. Thank you. Lelo White APRN.ESTIMATOR LUMBER Patient calling for 06/11 mamm results documented in this encounter [place] [address]-01-2023 Note HNO ID: [id number] Author: Dana Balderrama Mammo Tech Service: ? Author Type: [employer] Certified Network Associate Type: Progress Notes Filed: 06/11/2023 9:45 AM [...] Lavelle Westbrook June 11, 2023 9:11 AM [facility] 06-11-2023 History of Present illness Narrative [...] 9:11 AM documented in this encounter [facility] 02-11-2023 Note HNO ID: [id number] Author: Noar Vanessa MA Service: ? Author Type: Cut Out Marker Type: Progress Notes Filed: 02/11/2023 9:43 AM Note Text: POPULATION HEALTH NAVIGATION OUTREACH Action/FYI Letter prepared and placed in outgoing mail. Navigation Signature: Nora Vanessa MA February 11, 2023 9:42 AM [facility] 02-10-2023 Note Patient Outreach (CHRISTOPHER WESLEY) GABI ASHBY ([id number]) 1945 F Date Time Provider Department 02/10/23 [...] (AMLODIPINE BESYLATE) 10/01/2011 7 - Swelling ZIAC (BISOPROLOL-HYDROCHLOROTHIAZ*12/12/2005 Comments: headaches Date Reviewed: 07/21/2022 Reviewed by: Lelo White APRN.ESTIMATOR LUMBER - Fully Assessed Reason for Visit: Population [...] tablet by mouth once daily. - omega 5-dsc-ewy-fish-turmeric 417 mg-120 mg- 276 mg-600 mg cap [...] (estrogen receptor positive status) [Z17.0] 07/18/2012 Seroma [DLG0090] 08/01/2012 10/05/2017 Degenerative disc disease, lumbar [M51.36] [...] Encounter Status:Closed by MULU VYAS on 02/10/23 [facility] 02-10-2023 Note HNO ID: [id number] Author: Mulu Vyas MA Service: ? Author Type: Cut Out Marker Type: Progress Notes Filed: 02/10/2023 3:32 PM [...] Vyas MA February 10, 2023 10:22 AM [facility] 07-21-2022 History of Present illness Narrative [...] invasive ductal carcinoma. It was ER positive, [place] positive and Her2/barb 2+. She underwent left [...] - ICD9: V10.3, ICD10: Z85.3 Stage IIA, [id number], invasive ductal carcinoma of the left breast [...] White APRN.CNP documented in this encounter [facility] 07-14-2022 Miscellaneous Notes Spoke with patient and scheduled. Sravanthi Yuan Please see previous phone note. Pt. needs OV. Thank you. Lelo White APRN.CNP documented in this encounter [facility] 07-14-2022 History of Present illness Narrative Radiology [...] 3:44 PM documented in this encounter [facility] 07-14-2022 History of Present illness Narrative Radiology [...] 1:59 PM documented in this encounter [facility] 06-23-2022 Miscellaneous Notes Patient returned call and given provider's message below with verbalized understanding. VM left for patient to call PCP office for message below. Mikayla Brand RN Please call patient and let her know her cholesterol has increased, recommend increasing her Crestor to 20 mg. The rest of her blood work is in acceptable ranges. Thanks, Maggie Sainz APRN.AIYANA documented in this encounter [facility] 06-22-2022 Miscellaneous Notes Thank you, hopefully they can get her imaging completed sooner than July with her history of breast CA. Patient was instructed to call to see if she could be scheduled sooner for her callback diagnostic mammogram. She was directed to speak with the [facility] due to no available openings at the [place] location at this time. documented in this encounter [facility] 06-22-2022 History of Present illness Narrative Chief [...] of Arimidex since 2017. CAD: Following with [facility] cardiology. Last OV 08/2021. Switched to [...] uteri, except isthmus (HCC) 1979 Uterine cancer [place], old Osteoarthritis Other and unspecified hyperlipidemia Rheumatoid [...] DX W/COLLJ SPEC WHEN PFRMD N/A 09/10/2020 [facility]-Dr. Lopez ESOPHAGOGASTRODUODENOSCOPY TRANSORAL DIAGNOSTIC 01/03/2019 EGD ESOPHAGOGASTRODUODENOSCOPY TRANSORAL DIAGNOSTIC N/A 09/10/2020 [facility]-Dr. Lopez MASTECTOMY, PARTIAL 06/06/2012 LEFT PAST SURGICAL HISTORY OF Right shoulder replacement SURGERY (GENERAL SURGERY) CONSULT Right 03/24/2016 right knee replacement - [facility] TOTAL ABDOMINAL HYSTERECT W/WO RMVL TUBE OVARY 1980 uterine ca Family History FAMILY HISTORY Problem Relation Age of Onset Cancer Mother uterine Hypertension Mother hyperlipidemia Arthritis Mother Osteoporosis Mother Heart Father [place] at age 39 Hypertension Sister arthritis Osteoporosis Sister Arthritis Sister hypertension Hypertension Brother None Brother None Brother None Brother Diabetes Maternal Grandmother Thyroid Maternal Aunt Patient Allergies ALLERGIES Allergen Reactions Adhesive Tape (Tash* Rash Lipitor [Atorvastat* Other: See Comments Headache Norvasc [Amlodipine* Swelling Ziac [Bisoprolol-Hy* headaches Current Medications Current Outpatient Medications on File Prior to Visit Medication Sig omega 2-qxx-zsh-fish-turmeric 417 mg-120 mg- 276 mg-600 mg cap [...] <0.01 ASSESSMENT/PLAN: 1. Coronary artery disease involving [place] tribe heart without angina pectoris, unspecified vessel or [...] Moody MD documented in this encounter [facility] 06-02-2022 Miscellaneous Notes Patient returned call and was transferred to the Breast Center. LM for patient to return call. When patient calls, please advise patient that, per Lelo's note below, she needs to have additional mammogram images done and her office visit w/ Lelo will be rescheduled to after the imaging appointment. Then transfer her to the Breast Center at [phone] to schedule her additional imaging. Once transferred, document and route this note to P [facility] HEM/ONC PSR so follow up with Lelo can be rescheduled. Sravanthi Yuan Please inform pt. that the radiologist would like additional images of R breast. Please schedule R dx mamm/US soon. Move OV out until after above. Thank you. Lelo White APRN.AIYANA documented in this encounter [facility] 06-01-2022 Miscellaneous Notes June 01, 2022 PID: [id number] Gabi Ashby [address] [place] [address] Dear Ms. Ashby, Your recent breast imaging exam on 06/01/2022 showed a possible finding that requires additional imaging studies for a complete evaluation. Most such findings are probably benign (not cancer). If you have a healthcare provider who ordered/prescribed your screening mammogram: Please call [phone] or [phone] to schedule an appointment for your additional [...] reports are kept on file at [facility] as part of your permanent medical record, and are available for your continuing care. Thank you for allowing us to help in meeting your health care needs. Sincerely, Dr. Ruiz Interpreting Radiologist (Additional imaging) documented in this encounter [facility] 06-01-2022 History of Present illness Narrative Radiology [...] DATA: Not applicable SIGNED BY: Flaca [employer] June 01, 2022 11:38 AM documented in this encounter [facility] 12-12-2021 History of Present illness Narrative Chief [...] unspecified site 2011 Breast cancer LEFT, Dr. Марина Malignant neoplasm of corpus uteri, except isthmus (HCC) 1979 Uterine cancer [place], old Osteoarthritis Other and unspecified hyperlipidemia Rheumatoid [...] DX W/COLLJ SPEC WHEN PFRMD N/A 09/10/2020 [facility]-Dr. Lopez ESOPHAGOGASTRODUODENOSCOPY TRANSORAL DIAGNOSTIC 01/03/2019 EGD ESOPHAGOGASTRODUODENOSCOPY TRANSORAL DIAGNOSTIC N/A 09/10/2020 [facility]-Dr. Lopez MASTECTOMY, PARTIAL 06/06/2012 LEFT PAST SURGICAL HISTORY OF Right shoulder replacement SURGERY (GENERAL SURGERY) CONSULT Right 03/24/2016 right knee replacement - [facility] TOTAL ABDOMINAL HYSTERECT W/WO RMVL TUBE OVARY 1979 uterine ca Family History FAMILY HISTORY Problem Relation Age of Onset Cancer Mother uterine Hypertension Mother hyperlipidemia Arthritis Mother Osteoporosis Mother Heart Father [place] at age 39 Hypertension Sister arthritis Osteoporosis [...] tablet by mouth daily at bedtime. omega 3-ukz-sgv-fish-turmeric 417 mg-120 mg- 276 mg-600 mg cap [...] PANEL, NONFASTING 3. Coronary artery disease involving [place] tribe heart without angina pectoris, unspecified vessel or [...] Moody MD documented in this encounter [facility] documented as of this encounter (statuses as of 12/12/2021) [facility] History of Past illness Narrative* Problem Noted [...] of this encounter (statuses as of 06/02/2022) [facility] History of Past illness Narrative* Problem Noted [...] of this encounter (statuses as of 06/02/2022) [facility] History of Past illness Narrative* Problem Noted [...] of this encounter (statuses as of 06/03/2022) [facility] of Past illness Narrative* Problem Noted [...] of this encounter (statuses as of 06/22/2022) [facility] of Past illness Narrative* Problem Noted [...] of this encounter (statuses as of 06/23/2022) [facility] of Past illness Narrative* Problem Noted [...] of this encounter (statuses as of 07/05/2022) [facility] of Past illness Narrative* Problem Noted [...] of this encounter (statuses as of 07/16/2022) [facility] of Past illness Narrative* Problem Noted [...] of this encounter (statuses as of 07/21/2022) [facility] of Past illness Narrative* Problem Noted [...] of this encounter (statuses as of 05/16/2023) [facility] of Past illness Narrative* Problem Noted [...] of this encounter (statuses as of 05/16/2023) [facility] of Past illness Narrative* Problem Noted [...] of this encounter (statuses as of 05/16/2023) [facility] of [facility] illness Narrative* Problem Noted [...] of this encounter (statuses as of 06/12/2023) [facility] Narrative* Problem Noted [...] of this encounter (statuses as of 06/21/2023) [facility] of [facility] Narrative* Problem Noted [...] as of this encounter (statuses as of 08/24/2023) [facility] Diagnosis Essential hypertension, benign- Primary Hyperlipidemia with target LDL less than 100 Other and unspecified hyperlipidemia Coronary artery disease involving [place] heart without angina pectoris, unspecified vessel or lesion type Rheumatoid arthritis involving multiple sites with positive rheumatoid factor (HCC) History of left breast cancer Chronic anemia Anemia, unspecified [facility] Diagnosis History of left breast cancer- Primary Abnormal mammogram of right breast [facility] Diagnosis Coronary artery disease involving [place] heart without angina pectoris, unspecified vessel or [...] Other specified counseling [facility] Diagnosis Hyperlipidemia with target LDL less than 100 Other and unspecified hyperlipidemia [facility] Diagnosis Personal history of breast cancer- Primary Personal history of malignant neoplasm of breast Encounter for screening mammogram for high-risk patient [facility] Diagnosis History of left breast cancer Abnormal mammogram of right breast [facility] Diagnosis History of left breast cancer Abnormal mammogram of right breast documented in this encounter [facility] note* Diagnosis 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) Encounter for screening mammogram for high-risk patient documented in this encounter [facility] note* Diagnosis Personal history of breast cancer Personal history of malignant neoplasm of breast Encounter for screening mammogram for high-risk patient documented in this encounter [facility] note* Diagnosis Hospital discharge follow-up- Primary Other follow-up examination Chronic anemia Anemia, unspecified Hyperlipidemia with target LDL less than 100 Other and unspecified hyperlipidemia Coronary artery disease involving [place] tribe heart without angina pectoris, unspecified vessel or lesion type Hx of osteoporosis Personal history of other musculoskeletal disorders Disorder of bone, unspecified Heart failure with preserved ejection fraction, unspecified HF chronicity (HCC) Thrombocytopenia, unspecified (HCC) Thrombocytopenia, unspecified Acute cough Black stool Nonspecific abnormal finding in stool contents documented in this encounter [facility] for referral (narrative)* Diagnostic Procedure Only (Routine) - Pending Review Specialty Diagnoses / Procedures Referred By Korina santoyo Referred To Contact [facility] Diagnoses History of left breast cancer Abnormal mammogram of right breast Procedures US BREAST LTD RT US BREAST UNI REAL TIME WITH IMAGE LIMITED Lelo White APRN.ESTIMATOR LUMBER [address] [place] [address] [facility] [address] [place] [address] Referral ID Status Reason Start Date Expiration Date Visits Requested Visits Authorized [id number] Pending Review Auto-Generat ed Referral 2 07/02/2023 1 1 * Diagnostic Procedure Only (Routine) - Authorized Specialty Diagnoses / Procedures Referred By Korina santoyo Referred To Contact [facility] History of left breast cancer Abnormal mammogram of right breast Procedures [facility] DIAGNOSTIC RT DIAGNOSTIC MAMMOGRAPHY COMPUTER-AIDED DETCJ UNI Lelo White APRN.ESTIMATOR LUMBER [address] [place] [address] [facility] [address] [place] [address] Referral ID Status Reason Start Date Expiration Date Visits Requested Visits Authorized [id number] Authorized Auto-Generat ed Referral 07/02/2023 1 1 [facility] for referral (narrative)* Diagnostic Procedure Only (Routine) - Authorized Specialty Diagnoses / Procedures Referred By Korina t Referred To Contact [facility] Diagnoses Personal history of breast cancer Encounter for screening mammogram for high-risk patient Procedures [place] SCREENING SCREENING MAMMOGRAPHY BI 2-VIEW BREAST INC Lelo Sheffield APRN.ESTIMATOR LUMBER [address] [place] [address] [facility] [address] [place] [address] Referral ID Status Reason Start Date Expiration Date Visits Requested Visits Authorized [id number] Authorized Auto-Generat ed Referral 07/21/2022 08/20/2023 1 1 [facility] for referral (narrative)* Diagnostic Procedure Only (Routine) - Closed Specialty Diagnoses / Procedures Referred By Korina santoyo Referred To Contact [facility] Diagnoses History of left breast cancer Abnormal mammogram of right breast Procedures US BREAST LTD RT US BREAST UNI REAL TIME WITH IMAGE LIMITED Lelo White APRN.ESTIMATOR LUMBER [address] [place] [address] [facility] [address] [place] [address] Referral ID Status Reason Start Date Expiration Date V isits Requested Visits Authorized [id number] Closed Auto-Generate d Referral 06/02/2022 07/02/2023 1 1 [facility] for referral (narrative)* Diagnostic Procedure Only (Routine) - Closed Specialty Diagnoses / Procedures Referred By Korina t Referred To Contact [facility] 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) Encounter for screening mammogram for high-risk patient Procedures [place] SCREENING SCREENING MAMMOGRAPHY BI 2-VIEW BREAST INC Lelo Sheffield APRN.ESTIMATOR LUMBER [address] [place] [address] [facility] [address] [place] [address] Referral ID Status Reason Start Date Expiration Date V isits Requested Visits Authorized [id number] Closed Auto-Generate d Referral 07/01/2021 07/31/2022 1 1 [facility] for visit Narrative* Diagnostic Procedure Only (Routine) - Closed Specialty Diagnoses / Procedures Referred By Korina santoyo Referred To Contact [facility] Diagnoses History of left breast cancer Abnormal mammogram of right breast Procedures [facility] DI[facility] RT DIAGNOSTIC MAMMOGRAPHY COMPUTER-AIDED DETCJ Lelo Palumbo APRN.ESTIMATOR LUMBER [address] [place] [address] [facility] [address] [place] [address] Referral ID Status Reason Start Date Expiration Date V isits Requested Visits Authorized [id number] Closed Auto-Generate d Referral 06/02/2022 07/02/2023 1 1 [facility] for visit Narrative* Diagnostic Procedure Only (Routine) - Closed Specialty Diagnoses / Procedures Referred By Korina santoyo Referred To Contact [facility] Diagnoses 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) Encounter for screening mammogram for high-risk patient Procedures [place] SCREENING SCREENING MAMMOGRAPHY BI 2-VIEW BREAST INC Lelo Sheffield APRN.ESTIMATOR LUMBER [address] [place] [address] [facility] [address] [place] [address] Referral ID Status Reason Start Date Expiration Date V isits Requested Visits Authorized [id number] Closed Auto-Generate d Referral 07/01/2021 07/31/2022 1 1 [facility] for visit Narrative* Diagnostic Procedure Only (Routine) - Closed Specialty Diagnoses / Procedures Referred By Korina santoyo Referred To Contact [facility]oses Personal history of breast cancer Encounter for screening mammogram for high-risk patient Procedures [place] SCREENING SCREENING MAMMOGRAPHY BI 2-VIEW BREAST INC eLlo Sheffield APRN.ESTIMATOR LUMBER [address] [place] [address] [facility] [address] [place] [address] Referral ID Status Reason Start Date Expiration Date V isits Requested Visits Authorized [id number] Closed Auto-Generate d Referral 07/21/2022 08/20/2023 1 1 [facility] Advance Directives No Advanced Directives Records FoundDocuments on File Type Date Recorded Patient Readers' Advisory Service Librarian Expl anation Advance Directive(s) 01/03/2019 7:21 AM [...] prosecute any alcohol or drug abuse patient.[facility] CenterIn the event this information is protected by the Federal Confidentiality of Alcohol and Drug Abuse Patient Records regulations: The Federal rules restrict any use of the information to criminally investigate or prosecute any alcohol or drug abuse patient.[facility] CenterIn the event this information is protected by the Federal Confidentiality of Alcohol and Drug Abuse Patient Records regulations: The Federal rules restrict any use of the information to criminally investigate or prosecute any alcohol or drug abuse patient.[facility] CenterIn the event this information is protected by the Federal Confidentiality of Alcohol and Drug Abuse Patient Records regulations: The Federal rules restrict any use of the information to criminally investigate or prosecute any alcohol or drug abuse patient.[facility] CenterIn the event this information is protected by the Federal Confidentiality of Alcohol and Drug Abuse Patient Records regulations: The Federal rules restrict any use of the information to criminally investigate or prosecute any alcohol or drug abuse patient.[facility] Center[facility] the event this information is protected by the Federal Confidentiality of Alcohol and Drug Abuse Patient Records regulations: The Federal rules restrict any use of the information to criminally investigate or prosecute any alcohol or drug abuse patient.[facility] CenterIn the event this information is protected by the Federal Confidentiality of Alcohol and Drug Abuse Patient Records regulations: The Federal rules restrict any use of the information to criminally investigate or prosecute any alcohol or drug abuse patient.[facility] CenterIn the event this information is protected by the Federal Confidentiality of Alcohol and Drug Abuse Patient Records regulations: The Federal rules restrict any use of the information to criminally investigate or prosecute any alcohol or drug abuse patient.[facility] CenterIn the event this information is protected by the Federal Confidentiality of Alcohol and Drug Abuse Patient Records regulations: The Federal rules restrict any use of the information to criminally investigate or prosecute any alcohol or drug abuse patient.[facility] CenterIn the event this information is protected by the Federal Confidentiality of Alcohol and Drug Abuse Patient Records regulations: The Federal rules restrict any use of the information to criminally investigate or prosecute any alcohol or drug abuse patient.[facility] CenterIn the event this information is protected by the Federal Confidentiality of Alcohol and Drug Abuse Patient Records regulations: The Federal rules restrict any use of the information to criminally investigate or prosecute any alcohol or drug abuse patient.[facility] CenterIn the event this information is protected by the Federal Confidentiality of Alcohol and Drug Abuse Patient Records regulations: The Federal rules restrict any use of the information to criminally investigate or prosecute any alcohol or drug abuse patient.[facility] CenterIn the event this information is protected by the Federal Confidentiality of Alcohol and Drug Abuse Patient Records regulations: The Federal rules restrict any use of the information to criminally investigate or prosecute any alcohol or drug abuse patient.[facility] CenterIn the event this information is protected by the Federal Confidentiality of Alcohol and Drug Abuse Patient Records regulations: The Federal rules restrict any use of the information to criminally investigate or prosecute any alcohol or drug abuse patient.[facility] CenterIn the event this information is protected by the Federal Confidentiality of Alcohol and Drug Abuse Patient Records regulations: The Federal rules restrict any use of the information to criminally investigate or prosecute any alcohol or drug abuse patient.[facility] Reason for Visit (unrecogniz ed section and [...] REAL TIME WITH IMAGE LIMITED Lelo White APRN.[employer]ATOR [employer] [address] [place] [address] [facility] [address] [place] [address] Referral ID Status Reason Start Date Expiration Date V isits Requested Visits Authorized [id number] Closed Auto-Generate d Referral 06/02/2022 07/02/2023 1 1 Reason Comments Hospital F/U [facility] 08/20/2023 dx: Pne umonia Seen in ER 06/22/2024Having increased weakness since becoming illCovid negative 08/23/2023 Care Teams (unrecognized sec tion and content) [employer] Director Relationship Specialty Start Date End Date Stewart Moody MD [address] [place], [place] [id number] PCP - General Family Medicine 12/04/20 Pily Tubbs, ESTIMATOR [employer] [address] [place] [address] Specialty Progressive Care Unit Registered Nurse Family Medicine 01/25/19 [employer] Director Relationship Specialty Start Date End Date Stewart Moody MD [address] [place], [place] [id number] PCP - General Family Medicine 12/04/20 Pily Tubbs, ESTIMATOR L[employer] [address] [place] [address] Specialty Progressive Care Unit Registered Nurse Family Medicine 01/25/19 [employer] Director Relationship Specialty Start Date End Date Stewart Moody MD [address] [facility] [place] [address] PCP - General Family Medicine 12/04/20 Pily Tubbs, ESTIMATOR L[employer] [address] [place] [place] [address] Specialty Progressive Care Unit Registered Nurse Family Medicine 01/25/19 [employer] Director Relationship Specialty Start Date End Date Stewart Moody MD [address] [facility] [place] [address] PCP - General Family Medicine 12/04/20 Pily Tubbs CNP [address] [place] [place] [address] Specialty Progressive Care Unit Registered Nurse Family Medicine 01/25/19 [employer] Director Relationship Specialty Start Date End Date Stewart Moody MD [address] [facility] [place] [address] PCP - General Family Medicine 12/04/20 Pily Tubbs CNP [address] [place] [place] [address] Specialty Progressive Care Unit Registered Nurse Family Medicine 01/25/19 [employer] Director Relationship Specialty Start Date End Date Stewart Moody MD [address] [facility] [place] [address] PCP - General Family Medicine 12/04/20 Pily Tubbs CNP [address] [place] [address] Specialty Progressive Care Unit Registered Nurse Family Medicine 01/25/19 [employer] Director Relationship Specialty Start Date End Date Stewart Moody MD [address] [facility] [place] [address] PCP - General Family Medicine 12/04/20 Pily Tubbs, ESTIMATOR [employer] [address] [place] [address] Specialty Progressive Care Unit Registered Nurse Family Medicine 01/25/19 [employer] Director Relationship Specialty Start Date End Date Stewart Moody MD [address] [facility] [place] [address] PCP - General Family Medicine 12/04/20 Pily Tubbs, ESTIMATOR LUMBER [address] [place] [facility] [address] Specialty Progressive Care Unit Registered Nurse Family Medicine 01/25/19 [employer] Director Relationship Specialty Start Date End Date Stewart Moody MD [address] [facility] [place] [address] PCP - General Family Medicine 12/04/20 Pily Tubbs, ESTIMATOR LUMBER [address] [place] [address] Specialty Progressive Care Unit Registered Nurse Family Medicine 01/25/19 [employer] Director Relationship Specialty Start Date End Date Stewart Moody MD [address] [facility] [place] [address] PCP - General Family Medicine 12/04/20 Pily Tubbs, ESTIMATOR LUMBER [address] [facility] [place] [address] Specialty Progressive Care Unit Registered Nurse Family Medicine 01/25/19 [employer] Systems Director Relationship Specialty Start Date End Date Stewart Moody MD [address] [place] [address] PCP - General Family Medicine 12/04/20 Pily Tubbs ESTIMATOR [employer] [address] [place] [address] Specialty Progressive Care Unit Registered Nurse Family Medicine 01/25/19 [employer] Director Relationship Specialty Start Date End Date Stewart Moody MD [address] [place] [address] PCP - General Family Medicine 12/04/20 Pily Tubbs CNP [address] [place] [address] Specialty Progressive Care Unit Registered Nurse Family Medicine 01/25/19 [employer] Director Relationship Specialty Start Date End Date Stewart Moody MD [address] [place] [address] PCP - General Family Medicine 12/04/20 Pily Tubbs CNP [address] [place] [address] Specialty Progressive Care Unit Registered Nurse Family Medicine 01/25/19 [employer] Director Relationship Specialty Start Date End Date Stewart oMody MD [address] [place] [address] PCP - General Family Medicine 12/04/20 Pily Tubbs CNP [address] [place] [address] Specialty Progressive Care Unit Registered Nurse Family Medicine 01/25/19 INFORMATION SOURCE (unrecogn ized [...] BE BASED ON THE PRIMARY CLINICAL RECORDS. [facility] [employer] [facility]. provides no warranty or guarantee of the accuracy or completeness of information in this document.
[2023-08-29 21:24] LABS: Reflex Troponin-HS? (from REC) Y
--- OUTSIDE RECORDS SUMMARY | 2023-08-29 21:45 | XMS RPT_ITS | CCD ---
Author Name Unknown Address [address] [place] [address] Organization [facility] Care Team Providers Care Bacteriology Research Assistant Name Role Phone Reema Tubbs CNPzabeth Unavailable [...] TAPE (ROSINS)] Allergy to substance 2 Rash [facility] Work Phone: (16 sources) amLODIPine; Translations: [AMLODIPINE BESYLATE] Drug Allergy 2 Swelling [facility] (16 sources) atorvastatin; Translations: [ATORVASTATIN] Drug Allergy 1 Other: See Comments [facility] Work Phone: (16 sources) Bisoprolol / hydroCHLOROthiaz kaci; Translations: [BISOPROLOL-HYDR OCHLOROTHIAZIDE] Drug Allergy 6 [facility] Work Phone: Medications Completed/Discontinued Medications Medication [...] Coronary arteriosclerosis; Translations: [Atherosclerotic heart disease of catawba coronary artery without angina pectoris] Chronic Deficiency [...] 73.12 kg Maggie Sainz APRN.CNP Work Phone: [facility] 08-24-2023 08:59-0500 Diastolic blood pressure 64 mm[Hg] Maggie Podlogar [employer]ANT MANAGER.SENIOR INFORMATION SECURITY CONSULTANT Work Phone: [facility] 08-24-2023 08:59-0500 Heart rate 101 /min Maggie Podlogar [employer]ANT MANAGER.SENIOR INFORMATION SECURITY CONSULTANT Work Phone: [facility] 08-24-2023 08:59-0500 Respiratory rate 16 /min Maggie Podlogar [employer] MANAGER.SENIOR INFORMATION SECURITY CONSULTANT Work Phone: [facility] 08-24-2023 08:59-0500 SaO2% (BldA) [Mass fraction] 94 % Maggie Podlogar [employer] MANAGER.SENIOR INFORMATION SECURITY CONSULTANT Work Phone: [facility] 08-24-2023 08:59-0500 Systolic blood pressure 126 mm[Hg] Maggie Podlogar [employer]ANT MANAGER.SENIOR INFORMATION SECURITY CONSULTANT Work Phone: [facility] 07-21-2022 10:02-0500 Body height 161.9 cm Lelo White [employer] MANAGER.SENIOR INFORMATION SECURITY CONSULTANT Work Phone: [facility] 07-21-2022 10:02-0500 Body temperature 98.8 [degF] Hamden White [employer] MANAGER.SENIOR INFORMATION SECURITY CONSULTANT Work Phone: [facility] 07-21-2022 10:02-0500 Body weight 82.33 kg Hamden White [employer] MANAGER.SENIOR INFORMATION SECURITY CONSULTANT Work Phone: [facility] 07-21-2022 10:02-0500 Diastolic blood pressure 82 mm[Hg] Lelo White [employer] PLANT MANAGER.SENIOR INFORMATION SECURITY CONSULTANT Work Phone: [facility] 07-21-2022 10:02-0500 Heart rate 65 /min Lelo White [employer] MANAGER.SENIOR INFORMATION SECURITY CONSULTANT Work Phone: [facility] 07-21-2022 10:02-0500 Systolic blood pressure 156 mm[Hg] Lelo White [employer] PLANT MANAGER.SENIOR INFORMATION SECURITY CONSULTANT Work Phone: [facility] 06-22-2022 08:40-0500 Body weight 82.56 kg Stewart Moody MD Work Phone: [facility] 06-22-2022 08:40-0500 Diastolic blood pressure 80 mm[Hg] Stewart Moody MD Work Phone: [facility] 06-22-2022 08:40-0500 Heart rate 65 /min Stewart Moody MD Work Phone: [facility] 06-22-2022 08:40-0500 Respiratory rate 16 /min Stewart Moody MD Work Phone: [facility] 06-22-2022 08:40-0500 SaO2% (BldA) [Mass fraction] 97 % Stewart Moody MD Work Phone: [facility] 06-22-2022 08:40-0500 Systolic blood pressure 136 mm[Hg] Stewart Moody MD Work Phone: [facility] 12-12-2021 10:38-0400 Body weight 80.56 kg Stewart Moody MD Work Phone: [facility] 12-12-2021 10:38-0400 Diastolic blood pressure 84 mm[Hg] Stewart Moody MD Work Phone: [facility] 12-12-2021 10:38-0400 Heart rate 61 /min Stewart Moody MD Work Phone: [facility] 12-12-2021 10:38-0400 Respiratory rate 16 /min Stewart Moody MD Work Phone: [facility] 12-12-2021 10:38-0400 SaO2% (BldA) [Mass fraction] 98 % Stewart Moody MD Work Phone: [facility] 12-12-2021 10:38-0400 Systolic blood pressure 120 mm[Hg] Stewart Moody MD Work Phone: [facility] Encounters Encounter Date Encounter Type Care Provider Facility Start: 08-24-2023 End: 08-24-2023 ambulatory MAGGEI SAINZ Facility:[facility] Start: 08-24-2023 End: 08-24-2023 Patient encounter procedure Maggie Sainz [employer] MANAGER.SENIOR INFORMATION SECURITY CONSULTANT Work Phone: [facility] Procedures Date Procedure Procedure Detail Performing Clinician Start: 07-14-2022 Us breast uni real t catherine with image limited Lelo White [employer] MANAGER.SENIOR INFORMATION SECURITY CONSULTANT Work Phone: Start: 07-14-2022 [place] CARLOS W MARTITA KAM D lana White [employer] MANAGER.SENIOR INFORMATION SECURITY CONSULTANT Work Phone: Start: 06-22-2022 Lipid 1996 panel - S alexander or Plasma Us 1 Work Phone: Start: 06-01-2022 End: 06-01-2022 Mammography Lelo White [employer] MANAGER .SENIOR INFORMATION SECURITY CONSULTANT Work Phone: Start: 06-26-2021 Adult depression screening assessment Stewart Moody MD Work Phone: Start: 05-12-2021 Mammography Shamir Moody MD Work Phone: Start: 09-10-2020 Colonoscopy Shamir Moody MD Work Phone: Plan of Treatment Date Care Activity Detail Author Start: 09-10-2030 Colonoscopy COLONOSCOPY [facility] Start: 09-10-2030 COLORECTAL CANCER SCREENING COLORECTAL CANCER SCREENING [facility] Start: 06-22-2027 Lipid 1996 panel - Serum or Plasma Lipid Screening [facility] Start: 06-22-2027 LIPID SCREEN LIPID SCREEN [facility] Start: 11-29-2025 LIPID SCREEN LIPID SCREEN [facility] Start: 06-22-2025 DIABETES SCREEN DIABETES SCREEN [facility] Start: 06-22-2025 Diabetes Screening Diabetes Screening [facility] Start: 08-24-2024 Annual PCP Team Chronic Disease Visit Annual PCP Team Chronic Disease Visit [facility] Start: 08-24-2024 BP Controlled (<130/80) BP Controlled (<130/80) [facility] Start: 06-24-2024 DIABETES SCREEN DIABETES SCREEN [facility] Start: 08-24-2023 End: 11-23-2023 25-hydroxyvitamin D3 [Mass/volume] in Serum or Plasma VITAMIN D 25 HYDROXY Lab Routine Hx of osteoporosis Disorder of bone, unspecified Expected: 08/24/2023, Expires: 11/23/2023 [facility] Work Phone: Immunizations Immunization Date Immunization Notes Care Provider Fa cili 04-12-2023 influenza (aIIV4) vaccine, age 65+ yr, quadrivalent, PF (FLUAD QUAD) Screen Wstr [facility] 04-22-2022 influenza (aIIV4) vaccine, age 65+ yr, quadrivalent, PF (FLUAD QUADRIVALENT) Stewart Moody MD Work Phone: [facility] Work Phone: 04-27-2021 influenza (aIIV4) vaccine, age 65+ yr, quadrivalent, PF (FLUAD QUADRIVALENT) Stewart Moody MD Work Phone: [facility] Work Phone: 09-14-2020 COVID-19 vaccine, ag e 12+ yr (PFIZER-BIONTECH - PURPLE TOP) Stewart Moody MD Work Phone: [facility] 08-24-2020 COVID-19 vaccine, ag e 12+ yr (PFIZER-BIONTECH - PURPLE TOP) Stewart Moody MD Work Phone: [facility] Payers Date Payer Category Payer Private Health Insurance [facility] AARP SUPPLEMENT [id number] 2013-Present [phone] [address] [place] [address] Indemnity [id number] 2013 Private Health Insurance [facility] AARP SUPPLEMENT [id number] 2013-Present [phone] [address] [place] [address] Indemnity [id number] 2013 Unknown [id number] 2012 Medicare MEDICARE MEDICAR E A AND B [id number] 2012-Present [phone] [address] [address] [place] [address] Medicare [id number] 2012 Medicare MEDICARE MEDICAR E A AND B [id number] 2012-Present [phone] [place] [address] Medicare [id number] 2012 Medicare [id number] Social History Date Type Detail Facility Start: 05-12-2011 Tobacco smoking stat [place] [facility] Never smoked tobacco [facility] Start: 12-12-2021 End: 07-21-2022 Alcohol intake Current non-drinker of alcohol (finding) [facility] Start: 1945 Sex Assigned At Not on file C [facility] Start: 12-02-2021 End: 06-01-2022 Exposure to SARS-CoV-2 (event) Not sure [facility] Start: 05-12-2011 Tobacco use and exposure Smokeless tobacco non-user [facility] Work Phone: Start: 06-16-2020 End: 06-22-2022 History of Social function [facility] Work Phone: Start: 06-16-2020 End: 06-22-2022 Tobacco use panel [facility] Work Phone: Adult Depression Screening Assessment 0 [facility] Work Phone: Goals Date Patient Goal Desired Activity /State Personal health goal Clinical Notes 06-10-2017 to 08-24-2023 Patient InstructionsPoMaggie myers APRN.SENIOR INFORMATION SECURITY CONSULTANT - 08/24/2023 8:45 AM ESTTelephone Encounter - Ani Salmon - 06/21/2023 12:19 PM Dana Downs Mammo Tech - 06/11/2023 9:30 AM EST Note Date & Type Note Facility 08-24-2023 Note HNO ID: [id number] Author: MAGGIE SAINZ APRN.CNP Service: ? Author Type: Nurse Practitioner Type: Progress Notes Filed: 08/24/2023 14:33 Note Text: 08/24/2023 Patient presents with: Hospital F/U: [facility] 08/20/2023 dx: Pneumonia Seen in ER 08/23/2023. SUBJECTIVE: This is a 78 year old, accompanied by , that is here today for Above Complaints. HOSPITAL/ER FOLLOW UP: Reason for visit: PNA, hypoxia Which facility: [facility] Date of visit: 08/18/2023-08/20/2023 Diagnosis: right [...] still has cough. Does have follow-up with [facility] cardiology scheduled for end of this [...] MEDICATIONS Current Outpatient Medications Medication Sig omega 1-vab-ljq-fish-turmeric 417 mg-120 mg- 276 mg-600 mg cap [...] IRON + TIBC (more content not included)... [facility] 08-24-2023 Instructions PascuallogMaggie feliz APRN.AIYANA - 08/24/2023 9:27 AM EST Follow-up with cardiology as scheduled Labs prior to next office visit- Follow-up in one month with Dr. Moody for routine visit documented in this encounter [facility] 08-24-2023 History of Present illness Narrative 08/24/2023 Patient presents with: Hospital F/U: [facility] 08/20/2023 dx: Pneumonia Seen in ER 08/23/2023. SUBJECTIVE: This is a 78 year old, accompanied by , that is here today for Above Complaints. HOSPITAL/ER FOLLOW UP: Reason for visit: PNA, hypoxia Which facility: [facility] Date of visit: 08/18/2023-08/20/2023 Diagnosis: right [...] still has cough. Does have follow-up with [facility] cardiology scheduled for end of this [...] MEDICATIONS Current Outpatient Medications Medication Sig omega 7-sea-qus-fish-turmeric 417 mg-120 mg- 276 mg-600 mg cap [...] MG TABLET 4. Coronary artery disease involving catawba heart without angina pectoris, unspecified vessel or [...] which included preparing to see the patient, [id number] patient care, completing clinical documentation, obtaining and/or reviewing separately obtained history, performing a medically appropriate examination, counseling and educating the patient/family/caregiver, and ordering medications, tests, or procedures. documented in this encounter [facility] 07-21-2023 Note HNO ID: [id number] Author: LELO WHITE APRN.CNP Service: ? Author [...] invasive ductal carcinoma. It was ER positive, FL positiveand Her2/barb 2+. She underwent left breast [...] R wrist fx. Casted for 2 months. [facility]. R hand dominant. Appetite: Too much. [...] - ICD9: V10.3, ICD10: Z85.3 Stage IIA, [id number], invasive ductal carcinoma of the left breast [...] necessary for today's visit. Lelo White APRN.CNP [facility] 06-21-2023 Miscellaneous Notes Patient informed No concerning findings on exam. Follow up as scheduled. Thank you. Lelo White APRN.SENIOR INFORMATION SECURITY CONSULTANT Patient calling for 06/11 mamm results documented in this encounter [place] [address]-01-2023 Note HNO ID: [id number] Author: Dana Balderrama Mammo Tech Service: ? Author Type: Carburetor Specialist Type: Progress Notes Filed: 06/11/2023 9:45 [...] Lavelle Westbrook June 11, 2023 9:11 AM [facility] 06-11-2023 History of Present illness Narrative [...] 2023 9:11 AM documented in this encounter [facility] 02-11-2023 Note HNO ID: [id number] Author: Nora Vanessa MA Service: ? Author Type: Powder Hand Type: Progress Notes Filed: 02/11/2023 9:43 AM Note Text: POPULATION HEALTH NAVIGATION OUTREACH Action/FYI Letter prepared and placed in outgoing mail. Navigation Signature: Nora Vanessa MA February 11, 2023 9:42 AM [facility] 02-10-2023 Note Patient Outreach (CHRISTOPHER WESLEY) GABI ASHBY ([id number]) 1945 F Date Time Provider Department 02/10/23 [...] Date Reviewed: 07/21/2022 Reviewed by: Lelo White APRN.SENIOR INFORMATION SECURITY CONSULTANT - Fully Assessed Reason for Visit: Population [...] tablet by mouth once daily. - omega 3-xmk-eis-fish-turmeric 417 mg-120 mg- 276 mg-600 mg cap [...] (estrogen receptor positive status) [Z17.0] 07/18/2012 Seroma [[id number]] 08/01/2012 10/05/2017 Degenerative disc disease, lumbar [M51.36] [...] Encounter Status:Closed by MULU VYAS on 02/10/23 [facility] 02-10-2023 Note HNO ID: [id number] Author: Mulu Vyas MA Service: ? Author Type: Powder Hand Type: Progress Notes Filed: 02/10/2023 3:32 PM [...] Vyas MA February 10, 2023 10:22 AM [facility] 07-21-2022 History of Present illness Narrative [...] invasive ductal carcinoma. It was ER positive, FL positive and Her2/barb 2+. She underwent left [...] - ICD9: V10.3, ICD10: Z85.3 Stage IIA, [id number], invasive ductal carcinoma of the left breast [...] Lelo White APRN.CNP documented in this encounter [facility] 07-14-2022 Miscellaneous Notes Spoke with patient and scheduled. Sravanthi Yuan Please see previous phone note. Pt. needs OV. Thank you. Lelo White APRN.CNP documented in this encounter [facility] 07-14-2022 History of Present illness Narrative [...] 2022 3:44 PM documented in this encounter [facility] 07-14-2022 History of Present illness Narrative [...] 2022 1:59 PM documented in this encounter [facility] 06-23-2022 Miscellaneous Notes Patient returned call [...] Maggie Sainz APRN.AIYANA documented in this encounter [facility] 06-22-2022 Miscellaneous Notes Thank you, hopefully they can get her imaging completed sooner than July with her history of breast CA. Patient was instructed to call to see if she could be scheduled sooner for her callback diagnostic mammogram. She was directed to speak with the [facility] due to no available openings at the [place] location at this time. documented in this encounter [facility] 06-22-2022 History of Present illness Narrative [...] of Arimidex since 2017. CAD: Following with [facility] cardiology. Last OV 08/2021. Switched to [...] DX W/COLLJ SPEC WHEN PFRMD N/A 09/10/2020 [facility]-Dr. Lopez ESOPHAGOGASTRODUODENOSCOPY TRANSORAL DIAGNOSTIC 01/03/2019 EGD ESOPHAGOGASTRODUODENOSCOPY TRANSORAL DIAGNOSTIC N/A 09/10/2020 [facility]-Dr. Lopez MASTECTOMY, PARTIAL 06/06/2012 LEFT PAST SURGICAL HISTORY OF Right shoulder replacement SURGERY (GENERAL SURGERY) CONSULT Right 03/24/2016 right knee replacement - [facility] TOTAL ABDOMINAL HYSTERECT W/WO RMVL TUBE [...] File Prior to Visit Medication Sig omega 0-sfx-shf-fish-turmeric 417 mg-120 mg- 276 mg-600 mg cap [...] <0.01 ASSESSMENT/PLAN: 1. Coronary artery disease involving catawba heart without angina pectoris, unspecified vessel or [...] complete. Will return copies to our office. tSewart Moody MD documented in this encounter [facility] 06-02-2022 Miscellaneous Notes Patient returned call and was transferred to the Breast Center. LM for patient to return call. When patient calls, please advise patient that, per Lelo's note below, she needs to have additional mammogram images done and her office visit w/ Lelo will be rescheduled to after the imaging appointment. Then transfer her to the Breast Center at [phone] to schedule her additional imaging. Once transferred, document and route this note to P [facility] HEM/ONC PSR so follow up with Lelo can be rescheduled. Sravanthi Yuan Please inform pt. that the radiologist would like additional images of R breast. Please schedule R dx mamm/US soon. Move OV out until after above. Thank you. Lelo White APRN.AIYANA documented in this encounter [facility] 06-01-2022 Miscellaneous Notes June 01, 2022 PID: [id number] Gabi Ashby [address] [place] [address] Dear Ms. Ashby, Your recent breast imaging exam on 06/01/2022 showed a possible finding that requires additional imaging studies for a complete evaluation. Most such findings are probably benign (not cancer). If you have a healthcare provider who ordered/prescribed your screening mammogram: Please call [phone] or [phone]: [phone] to schedule an appointment for your additional [...] and reports are kept on file at [facility] as part of your permanent medical record, and are available for your continuing care. Thank you for allowing us to help in meeting your health care needs. Sincerely, Dr. Ruiz Interpreting Radiologist [facility] (Additional imaging) documented in this encounter [facility] 06-01-2022 History of Present illness Narrative [...] DATA: Not applicable SIGNED BY: Flaca Jordan [email or web address] June 01, 2022 11:38 AM documented in this encounter [facility] 12-12-2021 History of Present illness Narrative [...] DX W/COLLJ SPEC WHEN PFRMD N/A 09/10/2020 [facility]-Dr. Lopez ESOPHAGOGASTRODUODENOSCOPY TRANSORAL DIAGNOSTIC 01/03/2019 EGD ESOPHAGOGASTRODUODENOSCOPY TRANSORAL DIAGNOSTIC N/A 09/10/2020 [facility]-Dr. Lopez MASTECTOMY, PARTIAL 06/06/2012 LEFT PAST SURGICAL HISTORY OF Right shoulder replacement SURGERY (GENERAL SURGERY) CONSULT Right 03/24/2016 right knee replacement - [facility] TOTAL ABDOMINAL HYSTERECT W/WO RMVL TUBE [...] tablet by mouth daily at bedtime. omega 9-ewp-ugg-fish-turmeric 417 mg-120 mg- 276 mg-600 mg cap [...] PANEL, NONFASTING 3. Coronary artery disease involving catawba heart without angina pectoris, unspecified vessel or [...] Stewart Moody MD documented in this encounter [facility] documented as of this encounter (statuses as of 12/12/2021) [facility] History of Past illness Narrative* Problem [...] of this encounter (statuses as of 06/02/2022) [facility] History of Past illness Narrative* Problem [...] of this encounter (statuses as of 06/02/2022) [facility] History of Past illness Narrative* Problem [...] of this encounter (statuses as of 06/03/2022) [facility] of Past illness Narrative* Problem [...] of this encounter (statuses as of 06/22/2022) [facility] of Past illness Narrative* Problem [...] of this encounter (statuses as of 06/23/2022) [facility] of Past illness Narrative* Problem [...] of this encounter (statuses as of 07/05/2022) [facility] of [facility] Narrative* Problem [...] of this encounter (statuses as of 07/16/2022) [facility] of [facility] Narrative* Problem [...] of this encounter (statuses as of 07/21/2022) [facility] of Past illness Narrative* Problem [...] of this encounter (statuses as of 05/16/2023) [facility] of Past illness Narrative* Problem [...] of this encounter (statuses as of 05/16/2023) [facility] of Past illness Narrative* Problem [...] of this encounter (statuses as of 05/16/2023) [facility] of Past illness Narrative* Problem [...] of this encounter (statuses as of 06/12/2023) [facility] of Past illness Narrative* Problem [...] of this encounter (statuses as of 06/21/2023) [facility] of Past illness Narrative* Problem [...] of this encounter (statuses as of 08/24/2023) [facility] Diagnosis Essential hypertension, benign- Primary Hyperlipidemia with target LDL less than 100 Other and unspecified hyperlipidemia Coronary artery disease involving catawba heart without angina pectoris, unspecified vessel or lesion type Rheumatoid arthritis involving multiple sites with positive rheumatoid factor (HCC) History of left breast cancer Chronic anemia Anemia, unspecified [facility] Diagnosis History of left breast cancer- Primary Abnormal mammogram of right breast [facility] Diagnosis Coronary artery disease involving catawba heart without angina pectoris, unspecified vessel or [...] Other specified counseling [facility] Diagnosis Hyperlipidemia with target LDL less than 100 Other and unspecified hyperlipidemia [facility] Diagnosis Personal history of breast cancer- Primary Personal history of malignant neoplasm of breast Encounter for screening mammogram for high-risk patient [facility] Diagnosis History of left breast cancer Abnormal mammogram of right breast [facility] Diagnosis History of left breast cancer Abnormal mammogram of right breast documented in this encounter [facility] note* Diagnosis 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) Encounter for screening mammogram for high-risk patient documented in this encounter [facility] note* Diagnosis Personal history of breast cancer Personal history of malignant neoplasm of breast Encounter for screening mammogram for high-risk patient documented in this encounter [facility] note* Diagnosis Hospital discharge follow-up- Primary Other follow-up examination Chronic anemia Anemia, unspecified Hyperlipidemia with target LDL less than 100 Other and unspecified hyperlipidemia Coronary artery disease involving catawba heart without angina pectoris, unspecified vessel or lesion type Hx of osteoporosis Personal history of other musculoskeletal disorders Disorder of bone, unspecified Heart failure with preserved ejection fraction, unspecified HF chronicity (HCC) Thrombocytopenia, unspecified (HCC) Thrombocytopenia, unspecified Acute cough Black stool Nonspecific abnormal finding in stool contents documented in this encounter Mary Rutan [facility] (narrative[facility] Diagnostic Procedure Only (Routine) - Pending Review Specialty Diagnoses / Procedures Referred By Korina santoyo Referred To Contact [facility] Diagnoses History of left breast cancer Abnormal mammogram of right breast Procedures US BREAST LTD RT US BREAST UNI REAL TIME WITH IMAGE LIMITED Lelo White APRN.SENIOR INFORMATION SECURITY CONSULTANT [address] [place] [address] [facility] [address] [place] [address] Referral ID Status Reason Start Date Expiration Date Visits Requested Visits Authorized [id number] Pending Review Auto-Generat ed Referral 2 07/02/2023 1 1 * Diagnostic Procedure Only (Routine) - Authorized Specialty Diagnoses / Procedures Referred By Korina santoyo Referred To Contact [facility] Diagnoses History of left breast cancer Abnormal mammogram of right breast Procedures [place] DIAGNOSTIC RT DIAGNOSTIC MAMMOGRAPHY COMPUTER-AIDED DETCJ UNI Lelo White APRN.SENIOR INFORMATION SECURITY CONSULTANT [address] [place] [address] [facility] [address] [place] [address] Referral ID Status Reason Start Date Expiration Date Visits Requested Visits Authorized [id number] Authorized Auto-Generat ed Referral 07/02/2023 1 1 [facility] for referral (narrative)* Diagnostic Procedure Only (Routine) - Authorized Specialty Diagnoses / Procedures Referred By Korina t Referred To Contact [facility] Diagnoses Personal history of breast cancer Encounter for screening mammogram for high-risk patient Procedures [place] SCREENING SCREENING MAMMOGRAPHY BI 2-VIEW BREAST INC Lelo Sheffield APRN.SENIOR INFORMATION SECURITY CONSULTANT [address] [place] [address] [facility] [address] [place] [address] Referral ID Status Reason Start Date Expiration Date Visits Requested Visits Authorized [id number] Authorized Auto-Generat ed Referral 07/21/2022 08/20/2023 1 1 [facility] for referral (narrative)* Diagnostic Procedure Only (Routine) - Closed Specialty Diagnoses / Procedures Referred By Korina santoyo Referred To Contact [facility] Diagnoses History of left breast cancer Abnormal mammogram of right breast Procedures US BREAST LTD RT US BREAST UNI REAL TIME WITH IMAGE LIMITED Lelo White APRN.SENIOR INFORMATION SECURITY CONSULTANT [address] [place] [address] [facility] [address] [place] [address] Referral ID Status Reason Start Date Expiration Date V isits Requested Visits Authorized [id number] Closed Auto-Generate d Referral 06/02/2022 07/02/2023 1 1 [facility] for referral (narrative)* Diagnostic Procedure Only (Routine) - Closed Specialty Diagnoses / Procedures Referred By Korina t Referred To Contact [facility] Diagnoses 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) Encounter for screening mammogram for high-risk patient Procedures [place] SCREENING SCREENING MAMMOGRAPHY BI 2-VIEW BREAST INC Lelo Sheffield APRN.SENIOR INFORMATION SECURITY CONSULTANT [address] [place] [address] [facility] [address] [place] [address] Referral ID Status Reason Start Date Expiration Date V isits Requested Visits Authorized [id number] Closed Auto-Generate d Referral 07/01/2021 07/31/2022 1 1 [facility] for visit Narrative* Diagnostic Procedure Only (Routine) - Closed Specialty Diagnoses / Procedures Referred By Korina santoyo Referred To Contact [facility] Diagnoses History of left breast cancer Abnormal mammogram of right breast Procedures [place] DIAGNOSTIC RT DIAGNOSTIC MAMMOGRAPHY COMPUTER-AIDED DETCJ Lelo Palumbo APRN.SENIOR INFORMATION SECURITY CONSULTANT [address] [place] [address] [facility] [address] [place] [address] Referral ID Status Reason Start Date Expiration Date V isits Requested Visits Authorized [id number] Closed Auto-Generate d Referral 06/02/2022 07/02/2023 1 1 [facility] for visit Narrative* Diagnostic Procedure Only (Routine) - Closed Specialty Diagnoses / Procedures Referred By Korina santoyo Referred To Contact [facility] Diagnoses 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) Encounter for screening mammogram for high-risk patient Procedures [place] SCREENING SCREENING MAMMOGRAPHY BI 2-VIEW BREAST INC Lelo Sheffield APRN.SENIOR INFORMATION SECURITY CONSULTANT [address] [place] [address] [facility] [address] [place] [address] Referral ID Status Reason Start Date Expiration Date V isits Requested Visits Authorized [id number] Closed Auto-Generate d Referral 07/01/2021 07/31/2022 1 1 [facility] for visit Narrative* Diagnostic Procedure Only (Routine) - Closed Specialty Diagnoses / Procedures Referred By Korina santoyo Referred To Contact [facility] Diagnoses Personal history of breast cancer Encounter for screening mammogram for high-risk patient Procedures [place] SCREENING SCREENING MAMMOGRAPHY BI 2-VIEW BREAST INC Lelo Sheffield APRN.SENIOR INFORMATION SECURITY CONSULTANT [address] [place] [address] [facility] [address] [place] [address] Referral ID Status Reason Start Date Expiration Date V isits Requested Visits Authorized [id number] Closed Auto-Generate d Referral 07/21/2022 08/20/2023 1 1 [facility] Advance Directives No Advanced Directives Records FoundDocuments on File Type Date Recorded 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 Advance Directive(s) 01/03/2019 7:21 AM [...] or prosecute any alcohol or drug abuse patient.[facility] the event this information is protected by the Federal Confidentiality of Alcohol and Drug Abuse Patient Records regulations: The Federal rules restrict any use of the information to criminally investigate or prosecute any alcohol or drug abuse patient.[facility] the event this information is protected by the Federal Confidentiality of Alcohol and Drug Abuse Patient Records regulations: The Federal rules restrict any use of the information to criminally investigate or prosecute any alcohol or drug abuse patient.[facility] the event this information is protected by the Federal Confidentiality of Alcohol and Drug Abuse Patient Records regulations: The Federal rules restrict any use of the information to criminally investigate or prosecute any alcohol or drug abuse patient.[facility] Hospital[facility] the event this information is protected by the Federal Confidentiality of Alcohol and Drug Abuse Patient Records regulations: The Federal rules restrict any use of the information to criminally investigate or prosecute any alcohol or drug abuse patient.[facility] Hospital[facility] the event this information is protected by the Federal Confidentiality of Alcohol and Drug Abuse Patient Records regulations: The Federal rules restrict any use of the information to criminally investigate or prosecute any alcohol or drug abuse patient.[facility] Hospital[facility] the event this information is protected by the Federal Confidentiality of Alcohol and Drug Abuse Patient Records regulations: The Federal rules restrict any use of the information to criminally investigate or prosecute any alcohol or drug abuse patient.[facility] Hospital[facility] the event this information is protected by the Federal Confidentiality of Alcohol and Drug Abuse Patient Records regulations: The Federal rules restrict any use of the information to criminally investigate or prosecute any alcohol or drug abuse patient.[facility] Hospital[facility] the event this information is protected by the Federal Confidentiality of Alcohol and Drug Abuse Patient Records regulations: The Federal rules restrict any use of the information to criminally investigate or prosecute any alcohol or drug abuse patient.[facility] Hospital[facility] the event this information is protected by the Federal Confidentiality of Alcohol and Drug Abuse Patient Records regulations: The Federal rules restrict any use of the information to criminally investigate or prosecute any alcohol or drug abuse patient.[facility] Hospital[facility] the event this information is protected by the Federal Confidentiality of Alcohol and Drug Abuse Patient Records regulations: The Federal rules restrict any use of the information to criminally investigate or prosecute any alcohol or drug abuse patient.[facility] Hospital[facility] the event this information is protected by the Federal Confidentiality of Alcohol and Drug Abuse Patient Records regulations: The Federal rules restrict any use of the information to criminally investigate or prosecute any alcohol or drug abuse patient.[facility] Hospital[facility] the event this information is protected by the Federal Confidentiality of Alcohol and Drug Abuse Patient Records regulations: The Federal rules restrict any use of the information to criminally investigate or prosecute any alcohol or drug abuse patient.[facility] Hospital[facility] the event this information is protected by the Federal Confidentiality of Alcohol and Drug Abuse Patient Records regulations: The Federal rules restrict any use of the information to criminally investigate or prosecute any alcohol or drug abuse patient.[facility] Hospital[facility] the event this information is protected by the Federal Confidentiality of Alcohol and Drug Abuse Patient Records regulations: The Federal rules restrict any use of the information to criminally investigate or prosecute any alcohol or drug abuse patient.[facility] Reason for Visit (unrecogniz ed section [...] REAL TIME WITH IMAGE LIMITED Lelo White APRN.SENIOR INFORMATION SECURITY CONSULTANT [address] [place] [address] [facility] [address] [place] [address] Referral ID Status Reason Start Date Expiration Date V isits Requested Visits Authorized [id number] Closed Auto-Generate d Referral 06/02/2022 07/02/2023 1 1 Reason Comments Hospital F/U [facility] 08/20/2023 dx: Pne umonia Seen in ER 06/22/2024Having increased weakness since becoming illCovid negative 08/23/2023 Care Teams (unrecognized sec tion and content) Bacteriology Research Assistant Relationship Specialty Start Date End Date Stewart Moody MD [address] [place], [place] [id number] PCP - General Family Medicine 12/04/20 Pily Tubbs, SENIOR INFORMATION SECURITY CONSULTANT [address] [place] [address] Specialty Locomotive Driver Family Medicine 01/25/19 Bacteriology Research Assistant Relationship Specialty Start Date End Date Stewart Moody MD [address] [place], [place] [id number] PCP - General Family Medicine 12/04/20 Pily Tubbs, SENIOR INFORMATION SECURITY CONSULTANT [address] [facility] [place] [address] Specialty Locomotive Driver Family Medicine 01/25/19 Bacteriology Research Assistant Relationship Specialty Start Date End Date Stewart Moody MD [address] [facility] [place] [address] PCP - General Family Medicine 12/04/20 Pily Tubbs, SENIOR INFORMATION SECURITY CONSULTANT [address] [facility] [place] [address] Specialty Locomotive Driver Family Medicine 01/25/19 Bacteriology Research Assistant Relationship Specialty Start Date End Date Stewart Moody MD [address] [facility] [place] [address] PCP - General Family Medicine 12/04/20 Pily Tubbs CNP [address] [facility] [place] [address] Specialty Locomotive Driver Family Medicine 01/25/19 Bacteriology Research Assistant Relationship Specialty Start Date End Date Stewart Moody MD [address] [facility] [place] [address] PCP - General Family Medicine 12/04/20 Pily Tubbs CNP [address] [facility] [place] [address] Specialty Locomotive Driver Family Medicine 01/25/19 Bacteriology Research Assistant Relationship Specialty Start Date End Date Stewart Moody MD [address] [facility] [place] [address] PCP - General Family Medicine 12/04/20 Pily Tubbs CNP [address] [facility] [place] [address] Specialty Locomotive Driver Family Medicine 01/25/19 Bacteriology Research Assistant Relationship Specialty Start Date End Date Stewart Moody MD [address] [facility] [place] [address] PCP - General Family Medicine 12/04/20 Pily Tubbs, SENIOR INFORMATION SECURITY CONSULTANT [address] [facility] [place] [address] Specialty Locomotive Driver Family Medicine 01/25/19 Bacteriology Research Assistant Relationship Specialty Start Date End Date Stewart Moody MD [address] [facility] [place] [address] PCP - General Family Medicine 12/04/20 Pily Tubbs, SENIOR INFORMATION SECURITY CONSULTANT [address] [place] [facility] [place] [address] Specialty Locomotive Driver Family Medicine 01/25/19 Bacteriology Research Assistant Relationship Specialty Start Date End Date Stewart Moody MD [address] [facility] [place] [address] PCP - General Family Medicine 12/04/20 Pily Tubbs, SENIOR INFORMATION SECURITY CONSULTANT [address] [facility] [place] [address] Specialty Locomotive Driver Family Medicine 01/25/19 Bacteriology Research Assistant Relationship Specialty Start Date End Date Stewart Moody MD [address] [facility] [place] [address] PCP - General Family Medicine 12/04/20 Pily Tubbs, SENIOR INFORMATION SECURITY CONSULTANT [address] [facility] [place] [address] Specialty Locomotive Driver Family Medicine 01/25/19 Bacteriology Research Assistant Relationship Specialty Start Date End Date Stewart Moody MD [address] [place] [address] PCP - General Family Medicine 12/04/20 Pily Tubbs SENIOR INFORMATION SECURITY CONSULTANT [address] [place] [address] Specialty Locomotive Driver Family Medicine 01/25/19 Bacteriology Research Assistant Relationship Specialty Start Date End Date Stewart Moody MD [address] [place] [address] PCP - General Family Medicine 12/04/20 Pily Tubbs CNP [address] [place] [address] Specialty Locomotive Driver Family Medicine 01/25/19 Bacteriology Research Assistant Relationship Specialty Start Date End Date Stewart Moody MD [address] [place] [address] PCP - General Family Medicine 12/04/20 Pily Tubbs CNP [address] [place] [address] Specialty Locomotive Driver Family Medicine 01/25/19 Bacteriology Research Assistant Relationship Specialty Start Date End Date Stewart Moody MD [address] [place] [address] PCP - General Family Medicine 12/04/20 Pily Tubbs CNP [address] [place] [address] Specialty Locomotive Driver Family Medicine 01/25/19 INFORMATION SOURCE (unrecogn ized [...] BE BASED ON THE PRIMARY CLINICAL RECORDS. [facility] [employer] [facility]. provides no warranty or guarantee of the accuracy or completeness of information in this document.
[2023-08-29 22:00] VITALS: BP 160/107; PULSE 116; RESP 20; TEMP 36.8; O2SAT 98; BMI 26.9
[2023-08-29 22:08] LABS: Troponin-I HS 42 pg/mL (3.0-54.0)
--- NOTE | 2023-08-29 22:08 | PCM.RX.CS ---
Consult Antibiotic Management Pharmacy has been consulted to manage selected antibiotic: Vancomycin Type of Intervention Type of Consult: New start Suspected Infection Suspected Infection: Pneumonia Labs Labs: Sodium 138 mmol/L (136-145) 08/29/23 19:20 Potassium 3.2 mmol/L (3.5-5.1) L 08/29/23 19:20 Chloride 106 mmol/L (98-107) 08/29/23 19:20 Carbon Dioxide 25.0 mmol/L (21.0-32.0) 08/29/23 19:20 Anion Gap 7 (5-15) 08/29/23 19:20 BUN 15 mg/dL (7-18) 08/29/23 19:20 Creatinine 0.66 mg/dL (0.55-1.02) 08/29/23 19:20 Est GFR (MDRD) Af Amer 111 mL/min (>60) 08/29/23 19:20 Est GFR (MDRD) Non-Af 92 mL/min (>60) 08/29/23 19:20 BUN/Creatinine Ratio 22.6 RATIO (10-20) H 08/29/23 19:20 Glucose 132 mg/dL (74-106) H 08/29/23 19:20 Microbiology Microbiology: Microbiology 08/29/23 19:45 Mucosa - Nose SARS-CoV-2, Influenza & RSV (PCR) - Final Estimated Creatinine Clearance Estimated Creatinine Clearance: 60.67 Goal Trough Goal Trough: 15-20 mcg/mL Pharmacy Plan for Drug Dosing Pharmacy Plan for Drug Dosing: Consulting Physician: Dr. Bradshaw Indication: Pneumonia Goal Trough: 15-20 SrCr: 0.66 mg/dl CrCl: 60.67 ml/min Comments: Received Vancomycin 1250mg x1 dose in ED @ 20:29 08/29/23 Vancomycin Dose: 1000mg Q12H to start @ 08:30 08/30/23 Pending Level: Vancomycin trough @ 08:00 08/31/23 Pharmacy Service will continue to monitor and adjust dosing as required. Follow-Up Labs Follow-Up Labs: Trough: Vancomycin (08:00 08/31/23)
[2023-08-29 22:49] LABS: Lactic Acid 1.6 mmol/L (0.4-1.9)
[2023-08-29] MEDS: Atorvastatin Calcium 10 MG Tablet PO (22:49)
[2023-08-29] MEDS: guaiFENesin 1,200 MG Tablet 1200 MG PO (22:50)
[2023-08-29] MEDS: Magnesium Chloride 64 MG Delay Rel.Tablet 128 MG PO (22:50)
[2023-08-29] MEDS: Hydroxychloroquine 200 MG Tablet PO (22:50)
[2023-08-30] VITALS (12 sets, daily range): BP systolic 114–139; BP diastolic 83–88; PULSE 55–100; RESP 16–18; TEMP 36.6–36.8; O2SAT 93–100
[2023-08-30 01:57] LABS: M R Staph aureus DNA By PCR Negative (Negative); Probe Check PASS; Specimen Processing Control PASS
--- NOTE | 2023-08-30 05:55 | RAD_ITS ---
EXAM: XR CHEST, 1 VIEW CLINICAL INDICATION: Multilobar PNA and AE CHF. TECHNIQUE: Frontal view of the chest. COMPARISON: Single view chest 08/29/2023 FINDINGS: LUNGS AND PLEURAL SPACES: Continued multilobar consolidations with small pleural effusions. No pneumothorax. HEART: Moderate enlargement of the cardiac silhouette. MEDIASTINUM: Central airways and mediastinal contour are unremarkable. BONES/JOINTS: Right shoulder reverse arthroplasty. Degenerative changes of the spine. No acute fracture. SOFT TISSUES: Unremarkable. RAD/Chest 1 View (Portable) IMPRESSION: Continued multilobar consolidations with small pleural effusions. Findings consistent with pneumonia. Electronically Signed: Trav Hart MD at 6:10 EST ,
[2023-08-30] MEDS: Ipratropium/Albuterol Sulfate 3 ML AMPUL.NEB INHALATION ×5 (07:12→23:00)
[2023-08-30 07:20] LABS: BNP,B-Type NATRIURETIC PEPTIDE 3834.9 pg/mL (0-100)
[2023-08-30 08:36] LABS: Absolute Neutrophil Count 4.2 X10^3/uL (2.0-7.7); Basophil# 0.04 X10^3/uL; Basophil% 0.6 % (0-1); Eosinophil# 1.07 X10^3/uL; Hematocrit 30.1 % (37-47); Hemoglobin 9.4 g/dL (12.0-15.0); Mean Corp Hgb Conc 31.2 g/dL (32-36); Mean Corpuscular Hgb 29.9 pg (27.0-32.0); Mean Corpuscular Volume 95.9 fL (81-99); Mean Platelet Vol. 11.6 fl (6.2-12.0); Monocyte# 0.74 X10^3/uL; Monocyte% 11.1 % (0-10); NRBC Flagged by Analyzer 0 % (0-5); Neutrophil # 4.23 X10^3/uL (2.7-7.7); Neutrophil % 63.2 % (47-70); POSITIVE DIFFERENTIAL YES; POSITIVE MORPHOLOGY YES; Platelet Count 289 K/mm3 (150-450); RBC Distribution Width CV 15.6 % (11.6-14.6); RBC Distribution Width SD 54.5 fl (35.1-43.9); Red Blood Count 3.14 M/mm3 (4.2-5.4); White Blood Count 6.7 K/mm3 (4.4-11.0)
[2023-08-30] MEDS: Aspirin 81 MG TAB.CHEW PO (08:57)
[2023-08-30] MEDS: Calcium Carb/Vitamin D 1 TABLET Tablet PO (08:57)
[2023-08-30] MEDS: Magnesium Chloride 64 MG Delay Rel.Tablet 128 MG PO (08:57)
[2023-08-30] MEDS: guaiFENesin 1,200 MG Tablet 1200 MG PO ×2 (08:57→21:35)
[2023-08-30] MEDS: Cholecalciferol (Vit D3) 125 MCG CAPSULE (5,000 UNITS) PO (08:58)
[2023-08-30] MEDS: Zinc Sulfate 50 mg zinc (220 mg) ORAL capsule PO (08:58)
[2023-08-30] MEDS: Ascorbic Acid 500 MG Tablet 1000 MG PO ×2 (08:58→17:31)
[2023-08-30] MEDS: Metoprolol(XL)Succ 25 MG Tablet PO (08:58)
[2023-08-30] MEDS: Hydroxychloroquine 200 MG Tablet PO ×2 (08:58→21:34)
[2023-08-30] MEDS: Potassium Chloride Oral Tablet 20 MEQ PO ×2 (08:58→17:31)
[2023-08-30] MEDS: 0.9% Saline Lock 10 ML Syringe IV ×2 (08:59→17:31)
[2023-08-30] MEDS: Enoxaparin 40 MG/0.4 ML Syringe SC (08:59)
[2023-08-30] MEDS: Furosemide 40 MG/4 ML Vial IV ×2 (08:59→17:31)
[2023-08-30] MEDS: Vancomycin IV 1,000 MG/200 ML BAG 200 MG IV ×2 (09:00→21:20)
[2023-08-30 09:09] LABS: Anion Gap 7 (5-15); BUN 12 mg/dL (7-18); BUN/Creat Ratio 16.7 RATIO (10-20); Calcium,Total 9.2 mg/dL (8.5-10.1); Chloride 106 mmol/L (98-107); Creatinine, Serum 0.72 mg/dL (0.55-1.02); EST Glomerular Filtration Rate 84 mL/min (>60); Est Glom Filt Rate - Afr Amer 102 mL/min (>60); Estimated Creatinine Clearance 60.03 ml/min; Glucose 104 mg/dL (74-106); Potassium 3.5 mmol/L (3.5-5.1); Sodium Level 138 mmol/L (136-145)
[2023-08-30] MEDS: Piperacil/Tazobactam 3.375 GM in 0.9% Normal Saline (50mL MB+) 50 ML IV ×2 (13:06→22:50)
--- NOTE | 2023-08-30 14:22 | PN_ITS ---
Subjective Subjective Patient seen and examined. was by her bedside. She was admitted with a complaint of shortness of breath. She says she feels much better. Oxygen requirements have improved. She is now on 2 L of oxygen. She denies cough, chest pain, palpitations, dizziness, nausea vomiting or any other symptoms. Review of systems otherwise negative. Objective Data Objective Data Vital Signs: Vital Signs Temp Pulse Resp BP Pulse Ox O2 Del Method O2 Flow Rate 98.2 F 88 17 129/88 H 99 Nasal Cannula 2 08/30/23 08:55 08/30/23 10:18 08/30/23 10:18 08/30/23 08:55 08/30/23 08:55 08/30/23 13:10 08/30/23 13:10 Oxygen Flow Rate (L/min) 2 Oxygen Delivery Method Nasal Cannula Weight: 161 lb 13.109 oz Body Mass Index (BMI) 26.9 Intake & Output: Intake and Output for Last 24 Hours 08/28/23 08/29/23 08/30/23 23:59 23:59 23:59 Intake Total 2.78 / 202.78 1122.22 / 1122.22 Balance 2.78 / 202.78 1122.22 / 1122.22 Lab / Micro Data 08/30/23 05:35 08/30/23 05:35 Labs: Laboratory Results - last 24 hr 08/29/23 19:20: WBC 7.8, RBC 3.14 L, Hgb 9.4 L, Hct 30.4 L, MCV 96.8, MCH 29.9, MCHC 30.9 L, RDW Std Deviation 55.5 H, RDW Coeff of Juan 15.7 H, Plt Count 250, MPV 11.7, Immature Gran % (Auto) 0.400, Neut % (Auto) 81.0 H, Lymph % (Auto) 8.4 L, [place] % (Auto) 9.3, Eos % (Auto) 0.5, Baso % (Auto) 0.4, Absolute Neuts (auto) 6.3, Absolute Lymphs (auto) 0.65 L, Nucleated RBC % 0, D-Dimer Quant (PE/DVT) < 0.27 L, Sodium 138, Potassium 3.2 L, Chloride 106, Carbon Dioxide 25.0, Anion Gap 7, BUN 15, Creatinine 0.66, Estim Creat Clear Calc 60.67, Est GFR (MDRD) Af Amer 111, Est GFR (MDRD) Non-Af 92, BUN/Creatinine Ratio 22.6 H, Glucose 132 H, Calcium 9.1, Troponin I High Sens 38, B-Natriuretic Peptide 3030.9 H 08/29/23 21:34: Troponin I High Sens 42 08/29/23 22:00: Lactic Acid 1.6 08/30/23 00:26: MRSA (PCR) Negative 08/30/23 05:35: WBC 6.7, RBC 3.14 L, Hgb 9.4 L, Hct 30.1 L, MCV 95.9, MCH 29.9, MCHC 31.2 L, RDW Std Deviation 54.5 H, RDW Coeff of Juan 15.6 H, Plt Count 289, M PV 11.6, Immature Gran % (Auto) 0.100, Neut % (Auto) 63.2, Lymph % (Auto) 9.0 L, [place] % (Auto) 11.1 H, Eos % (Auto) 16.0 H, Baso % (Auto) 0.6, Absolute Neuts (auto) 4.2, Absolute Lymphs (auto) 0.60 L, Nucleated RBC % 0, Sodium 138, Potassium 3.5, Chloride 106, Carbon Dioxide 25.0, Anion Gap 7, BUN 12, Creat inine 0.72, Estim Creat Clear Calc 60.03, Est GFR (MDRD) Af Amer 102, Est GFR (MDRD) Non-Af 84, BUN/Creatinine Ratio 16.7, Glucose 104, Calcium 9.2, B- Natriuretic Peptide 3834.9 H Micro: Microbiology 08/30/23 01:30 Mucosa - Nasopharyngeal Respiratory Panel (PCR) - Final 08/30/23 01:10 Urine, Clean Catch Legionella Antigen - Final 08/30/23 01:10 Urine, Clean Catch Streptococcus pneumoniae Antigen (M - Final 08/29/23 19:45 Mucosa - Nose SARS-CoV-2, Influenza & RSV (PCR) - Final Radiography Diagnostic Testing: Radiology Impression Chest X-Ray 08/29/23 19:30 IMPRESSION: 1. Interval development of left upper lobe pneumonia or alveolar edema. 2. Persistent opacity in the right upper lobe worrisome for mass or persistent pneumonia. Follow-up is recommended.. 3. Mild congestive heart failure. Electronically Signed: Julien David MD at 19:43 EST , Chest X-Ray 08/30/23 05:55 IMPRESSION: Continued multilobar consolidations with small pleural effusions. Findings consistent with pneumonia. Electronically Signed: Trav Hart MD at 6:10 EST , Physical Exam Const alert, oriented x3 and no apparent distress General Appearance: cooperative and well developed HEENT normocephalic, head/scalp atraumatic, moist oral mucous membranes and oropharynx normal Eyes PERRL and EOMs intact bilaterally Neck no lymphadenopathy, supple, no JVD and thyroid normal Lymph Lymphatic: no lymphadenopathy noted and no lymphedema noted Resp Resp Narrative: mildly diminished breath sounds bibasally, no wheezes or crackles. On 2L of oxygen by nasal canula. Cardio regular rate, regular rhythm, S1 normal heart sound, S2 normal heart sound and no murmurs GI normal to inspection, nondistended, normoactive bowel sounds, soft to palpation, non-tender and non-distended Extremity normal capillary refill, no clubbing, cyanosis or edema and no calf tenderness General Extremity: no tenderness to palpation of joints or extremities Skin General Skin Exam: no breakdown Neuro CN's II-XII intact bilaterally, no focal motor deficits and no sensory deficits noted Motor Exam: strength 5/5 throughout and general weakness Psych thought process normal and cooperative Appearance: appropriate Assessment & Plan Assessment/Plan (1) CHF (congestive heart failure): QUALIFIERS: Heart failure type: unspecified Heart failure chronicity: acute on chronic Qualified Code(s): I50.9 - Heart failure, unspecified (2) Pneumonia: QUALIFIERS: Pneumonia type: due to unspecified organism La terality: bilateral Lung location: unspecified part of lung Qualified Code(s): J18.9 - Pneumonia, unspecified organism PLAN: Plan #Acute on chronic HFpEF * BNP was elevated at 3000 and chest x-ray showed cephalization and he also had lower extremity edema. * Being diuresed with IV Lasix previously she was taking Lasix at home and had been recently started on it. * Breathing has improved and is now down to 2 L of oxygen. * Titrate oxygen to maintain saturation above 90%. Breathing treatments bron hodilators. #Health associated pneumonia * Had a left upper lobe pneumonia and persistent right lower lobe infiltrate on x-ray. * She also has cough productive of yellowish sputum. On IV vancomycin and Zosyn. * Sputum cultures and blood cultures ordered. * Breathing treatments with bronchodilators. * #Hypokalemia: Potassium is 3.2. Will replace and trend. # Hyperlipidemia: On statin. #Benign essential hypertension: on metoprolol #History of breast and uterine cancer: S/p treatment. Stable. #History of GERD: On PPI DVT prophylaxis: Lovenox Charges/Coding Visit Charges Inpatient E&M: 48459 Subs Hosp L2
--- NOTE | 2023-08-30 14:30 | CASEMGMT ---
ORALIA PARSONS chart review: Patient was admitted 08/18-08/20/23 for pneumonia and hypoxia. See assessment from 08/19/23. Patient discharged to home with support from and did not qualify for home oxygen. Patient returned 08/29/23 for increased SOB and was admitted for acute exacerbation of CHF and multilobular pneumonia and hypoxia. ORALIA PARSONS int to discuss discharge needs and readmission with patient, at bedside. Patient states she attended PCP appt on 08/24/23. Patient states she was taking medications as prescribed. Patient wishes to discharge home with support from . Will monitor for home oxygen at discharge. CM will continue to follow this patient and plan for a safe discharge.
[2023-08-30] MEDS: Atorvastatin Calcium 10 MG Tablet PO (21:35)
[2023-08-31] VITALS (11 sets, daily range): BP systolic 104–128; BP diastolic 80–90; PULSE 83–100; RESP 16–24; TEMP 36.1–37.4; O2SAT 96–99
[2023-08-31] MEDS: Ipratropium/Albuterol Sulfate 3 ML AMPUL.NEB INHALATION ×4 (07:11→19:21)
[2023-08-31] MEDS: Ascorbic Acid 500 MG Tablet 1000 MG PO ×2 (08:14→18:35)
[2023-08-31] MEDS: Magnesium Chloride 64 MG Delay Rel.Tablet 128 MG PO (08:14)
[2023-08-31] MEDS: Cholecalciferol (Vit D3) 125 MCG CAPSULE (5,000 UNITS) PO (08:14)
[2023-08-31] MEDS: guaiFENesin 1,200 MG Tablet 1200 MG PO ×2 (08:14→21:30)
[2023-08-31] MEDS: Hydroxychloroquine 200 MG Tablet PO ×2 (08:15→21:30)
[2023-08-31] MEDS: Zinc Sulfate 50 mg zinc (220 mg) ORAL capsule PO (08:15)
[2023-08-31] MEDS: Calcium Carb/Vitamin D 1 TABLET Tablet PO (08:15)
[2023-08-31] MEDS: Aspirin 81 MG TAB.CHEW PO (08:15)
[2023-08-31] MEDS: Metoprolol(XL)Succ 25 MG Tablet PO (08:16)
[2023-08-31] MEDS: Enoxaparin 40 MG/0.4 ML Syringe SC (08:16)
[2023-08-31] MEDS: Potassium Chloride Oral Tablet 20 MEQ PO ×2 (08:19→18:36)
[2023-08-31] MEDS: Furosemide 40 MG/4 ML Vial IV ×2 (08:20→18:40)
[2023-08-31 08:40] LABS: Absolute Lymphocyte Count 0.44 X10^3/uL (0.83-4.51); Absolute Neutrophil Count 5.9 X10^3/uL (2.0-7.7); Basophil# 0.02 X10^3/uL; Basophil% 0.3 % (0-1); Hematocrit 28.8 % (37-47); Hemoglobin 9.3 g/dL (12.0-15.0); Lymphocyte # 0.44 X10^3/ul (0.83-4.51); Lymphocyte % 6.3 % (19-41); Mean Corp Hgb Conc 32.3 g/dL (32-36); Mean Corpuscular Hgb 30.7 pg (27.0-32.0); Mean Platelet Vol. 11.1 fl (6.2-12.0); Monocyte# 0.54 X10^3/uL; Monocyte% 7.7 % (0-10); NRBC Flagged by Analyzer 0 % (0-5); Neutrophil # 5.93 X10^3/uL (2.7-7.7); Neutrophil % 85.1 % (47-70); POSITIVE DIFFERENTIAL YES; Platelet Count 251 K/mm3 (150-450); RBC Distribution Width CV 15.7 % (11.6-14.6); RBC Distribution Width SD 53.7 fl (35.1-43.9); Red Blood Count 3.03 M/mm3 (4.2-5.4)
[2023-08-31 08:56] LABS: Anion Gap 7 (5-15); BUN 13 mg/dL (7-18); Calcium,Total 9.3 mg/dL (8.5-10.1); Chloride 104 mmol/L (98-107); Creatinine, Serum 0.82 mg/dL (0.55-1.02); EST Glomerular Filtration Rate 73 mL/min (>60); Est Glom Filt Rate - Afr Amer 88 mL/min (>60); Estimated Creatinine Clearance 58.56 ml/min; Glucose 113 mg/dL (74-106); Potassium 3.4 mmol/L (3.5-5.1); Sodium Level 138 mmol/L (136-145)
[2023-08-31 09:17] LABS: Vancomycin, Trough Level 19.5 ug/mL (5.0-15.0)
--- NOTE | 2023-08-31 09:26 | PHA.PHARE_ITS ---
Consult Antibiotic Management Pharmacy has been consulted to manage selected antibiotic: Vancomycin Type of Intervention Type of Consult: Follow-up Labs Labs: Sodium 138 mmol/L (136-145) 08/31/23 08:22 Potassium 3.4 mmol/L (3.5-5.1) L 08/31/23 08:22 Chloride 104 mmol/L (98-107) 08/31/23 08:22 Carbon Dioxide 27.0 mmol/L (21.0-32.0) 08/31/23 08:22 Anion Gap 7 (5-15) 08/31/23 08:22 BUN 13 mg/dL (7-18) 08/31/23 08:22 Creatinine 0.82 mg/dL (0.55-1.02) 08/31/23 08:22 Est GFR (MDRD) Af Amer 88 mL/min (>60) 08/31/23 08:22 Est GFR (MDRD) Non-Af 73 mL/min (>60) 08/31/23 08:22 BUN/Creatinine Ratio 16.0 RATIO (10-20) 08/31/23 08:22 Glucose 113 mg/dL (74-106) H 08/31/23 08:22 Vancomycin Trough 19.5 ug/mL (5.0-15.0) H 08/31/23 08:22 Microbiology Microbiology: Microbiology 08/30/23 01:30 Mucosa - Nasopharyngeal Respiratory Panel (PCR) - Final 08/30/23 01:10 Urine, Clean Catch Legionella Antigen - Final 08/30/23 01:10 Urine, Clean Catch Streptococcus pneumoniae Antigen (M - Fi nal 08/29/23 19:45 Mucosa - Nose SARS-CoV-2, Influenza & RSV (PCR) - Final Pharmacy Plan for Drug Dosing Pharmacy Plan for Drug Dosing: VANCOMYCIN LEVEL RECEIVED Current Vancomycin Dose: 1000MG Q12 Number of Doses Received: 3 (1000 X2, 1250 X1) Vancomycin Level: 19.5 MG/DL Hours Since Last Dose: 11 Renal Function: SCr 0.82 mg/dL. CrCl 58 mL/min Renal Function Trend: SCr increased from 0.66 mg/dL (08/29) Lab/Micro: blood cx pending Vancomycin Plan/Comments: 11 hour trough came back therapeutic at 19.5 mg/dL (goal 15-20 mg/dL). Will continue current dosing and get a trough in 2 days. Pending Level: 09/02/23 @ 0800 Pharmacy Service will continue to monitor and adjust dosing as required.
--- NOTE | 2023-08-31 09:37 | PCM.PROGNOTE ---
Subjective Subjective Patient seen and examined. She said she felt much better today and had no active complaints. Her breathing has improved. Review of systems is otherwise negative. She has remained hemodynamically stable and is on 2L of oxygen. Objective Data Objective Data Vital Signs: Vital Signs Temp Pulse Resp BP Pulse Ox O2 Del Method O2 Flow Rate 99.2 F H 95 16 122/83 H 97 Room Air 2 08/31/23 08:00 08/31/23 08:16 08/31/23 08:00 08/31/23 08:16 08/31/23 08:00 08/31/23 08:11 08/31/23 08:00 Oxygen Flow Rate (L/min) 2 Oxygen Delivery Method Room Air Weight: 161 lb 13.109 oz Body Mass Index (BMI) 26.9 Intake & Output: Intake and Output for Last 24 Hours 08/29/23 08/30/23 08/31/23 23:59 23:59 23:59 Intake Total 2.78 / 202.78 1822.22 / 1822.22 50 / 50 Balance 2.78 / 202.78 1822.22 / 1822.22 50 / 50 Lab / Micro Data 08/31/23 08:22 08/31/23 08:22 Labs: Laboratory Results - last 24 hr 08/31/23 08:22: WBC 7.0, RBC 3.03 L, Hgb 9.3 L, Hct 28.8 L, MCV 95.0, MCH 30.7, MCHC 32.3, RDW Std Deviation 53.7 H, RDW Coeff of Juan 15.7 H, Plt Count 251, MPV 11.1, Immature Gran % (Auto) 0.600, Neut % (Auto) 85.1 H, Lymph % (Auto) 6.3 L, [place] % (Auto) 7.7, Eos % (Auto) 0.0, Baso % (Auto) 0.3, Absolute Neuts (auto) 5.9, Absolute Lymphs (auto) 0.44 L, Nucleated RBC % 0, Sodium 138, Potassium 3.4 L, Chloride 104, Carbon Dioxide 27.0, Anion Gap 7, BUN 13, Creatinine 0.82, Estim Creat Clear Calc 58.56, Est GFR (MDRD) Af Amer 88, Est GFR (MDRD) Non-Af 73, BUN/Creatinine Ratio 16.0, Glucose 113 H, Calcium 9.3, Vancomycin Trough 19.5 H Micro: Microbiology 08/30/23 01:30 Mucosa - Nasopharyngeal Respiratory Panel (PCR) - Final 08/30/23 01:10 Urine, Clean Catch Legionella Antigen - Final 08/30/23 01:10 Urine, Clean Catch Streptococcus pneumoniae Antigen (M - Final 08/29/23 19:45 Mucosa - Nose SARS-CoV-2, Influenza & RSV (PCR) - Final Physical Exam Const alert, oriented x3, no apparent distress and average body habitus General Appearance: cooperative and well developed HEENT normocephalic, head/scalp atraumatic, hearing grossly normal bilaterally, moist oral mucous membranes and oropharynx normal Eyes PERRL and EOMs intact bilaterally Neck no lymphadenopathy, supple, no JVD and thyroid normal Lymph Lymphatic: no lymphadenopathy noted and no lymphedema noted Resp Resp Narrative: mildly diminished breath sounds bibasally, no wheezes or crackles. On 2L of oxygen by nasal canula. Cardio regular rate, regular rhythm, S1 normal heart sound, S2 normal heart sound and no murmurs GI normal to inspection, nondistended, normoactive bowel sounds, soft to palpation, non-tender and non-distended Extremity normal capillary refill, no clubbing, cyanosis or edema and no calf tenderness General Extremity: no tenderness to palpation of joints or extremities Skin General Skin Exam: no breakdown Neuro oriented x3, CN's II-XII intact bilaterally, moves all extremities, no focal motor deficits and no sensory deficits noted Sensorium / Orientation: awake, alert, oriented to person, oriented to place and oriented to time Speech: speech normal Motor Exam: strength 5/5 throughout and general weakness Psych thought process normal, cooperative and affect normal Appearance: appropriate Assessment & Plan Assessment/Plan (1) CHF (congestive heart failure): QUALIFIERS: Heart failure type: unspecified Heart failure chronicity: acute on chronic Qualified Code(s): I50.9 - Heart failure, unspecified (2) Pneumonia: QUALIFIERS: Pneumonia type: due to unspecified organism Laterality: bilateral Lung location: unspecified part of lung Qualified Code(s): J18.9 - Pneumonia, unspecified organism PLAN: Plan #Acute on chronic HFpEF BNP was elevated at 3000 and chest x-ray showed cephalization and he also had lower extremity edema. Being diuresed with IV Lasix Breathing has improved and she remains on2 L of oxygen. Titrate oxygen to maintain saturation above 90%. Breathing treatments with bronchodilators. #Health associated pneumonia Had a left upper lobe pneumonia and persistent right lower lobe infiltrate on x-ray. She also has cough productive of yellowish sputum. On IV vancomycin and Zosyn. Sputum cultures and blood cultures ordered. Breathing treatments with bronchodilators. MRSA screen negative, so will dc vancomycin and continue zosyn. #Hypokalemia: Potassium is 3.4 today. Will replace and trend. # Hyperlipidemia: On statin. #Benign essential hypertension: on metoprolol #History of breast and uterine cancer: S/p treatment. Stable. #History of GERD: On PPI DVT prophylaxis: Lovenox Disposition; anticipate dc in 1-2 days. Will need walking pulse ox prior to dc. Charges/Coding Visit Charges Inpatient E&M: 63345 Subs Hosp L2
[2023-08-31] MEDS: 0.9% Saline Lock 10 ML Syringe IV ×2 (11:35→18:36)
[2023-08-31] MEDS: Piperacil/Tazobactam 3.375 GM in 0.9% Normal Saline (50mL MB+) 50 ML IV ×2 (11:35→22:58)
[2023-08-31] MEDS: Acetaminophen 325 MG Tablet 650 MG PO (15:23)
[2023-08-31] MEDS: guaiFENesin 10 ML UDC (200MG/10ML) PO (15:23)
[2023-08-31] MEDS: Atorvastatin Calcium 10 MG Tablet PO (21:30)
[2023-09-01] VITALS (10 sets, daily range): BP systolic 107–126; BP diastolic 70–88; PULSE 82–100; RESP 16–18; TEMP 36.5–36.8; O2SAT 94–100
[2023-09-01 04:53] LABS: Absolute Neutrophil Count 5.9 X10^3/uL (2.0-7.7); Basophil# 0.01 X10^3/uL; Basophil% 0.1 % (0-1); Eosinophil# 0.02 X10^3/uL; Eosinophils% 0.3 % (0-5); Hematocrit 26.6 % (37-47); Hemoglobin 8.8 g/dL (12.0-15.0); Lymphocyte % 5.9 % (19-41); Mean Corp Hgb Conc 33.1 g/dL (32-36); Mean Corpuscular Hgb 31.3 pg (27.0-32.0); Mean Corpuscular Volume 94.7 fL (81-99); Mean Platelet Vol. 11.3 fl (6.2-12.0); Monocyte# 0.45 X10^3/uL; Monocyte% 6.6 % (0-10); NRBC Flagged by Analyzer 0 % (0-5); Neutrophil # 5.86 X10^3/uL (2.7-7.7); Neutrophil % 86.7 % (47-70); POSITIVE DIFFERENTIAL YES; Platelet Count 213 K/mm3 (150-450); RBC Distribution Width CV 15.8 % (11.6-14.6); RBC Distribution Width SD 53.6 fl (35.1-43.9); Red Blood Count 2.81 M/mm3 (4.2-5.4); White Blood Count 6.8 K/mm3 (4.4-11.0)
[2023-09-01 05:14] LABS: Anion Gap 7 (5-15); BUN 15 mg/dL (7-18); BUN/Creat Ratio 18.9 RATIO (10-20); Calcium,Total 8.8 mg/dL (8.5-10.1); Chloride 103 mmol/L (98-107); EST Glomerular Filtration Rate 75 mL/min (>60); Est Glom Filt Rate - Afr Amer 90 mL/min (>60); Estimated Creatinine Clearance 60.03 ml/min; Glucose 96 mg/dL (74-106); Sodium Level 140 mmol/L (136-145)
[2023-09-01] MEDS: Ipratropium/Albuterol Sulfate 3 ML AMPUL.NEB INHALATION ×3 (07:12→15:40)
[2023-09-01] MEDS: guaiFENesin 10 ML UDC (200MG/10ML) PO ×2 (08:18→17:46)
[2023-09-01] MEDS: Acetaminophen 325 MG Tablet 650 MG PO (08:18)
[2023-09-01] MEDS: Enoxaparin 40 MG/0.4 ML Syringe SC (08:18)
[2023-09-01] MEDS: Ascorbic Acid 500 MG Tablet 1000 MG PO ×2 (08:20→16:22)
[2023-09-01] MEDS: guaiFENesin 1,200 MG Tablet 1200 MG PO (08:20)
[2023-09-01] MEDS: Zinc Sulfate 50 mg zinc (220 mg) ORAL capsule PO (08:20)
[2023-09-01] MEDS: Hydroxychloroquine 200 MG Tablet PO (08:20)
[2023-09-01] MEDS: Cholecalciferol (Vit D3) 125 MCG CAPSULE (5,000 UNITS) PO (08:20)
[2023-09-01] MEDS: Potassium Chloride Oral Tablet 20 MEQ 40 MEQ PO (08:21)
[2023-09-01] MEDS: Magnesium Chloride 64 MG Delay Rel.Tablet 128 MG PO (08:21)
[2023-09-01] MEDS: Metoprolol(XL)Succ 25 MG Tablet PO (08:21)
[2023-09-01] MEDS: Calcium Carb/Vitamin D 1 TABLET Tablet PO (08:21)
[2023-09-01] MEDS: Potassium Chloride Oral Tablet 20 MEQ PO ×2 (08:21→16:23)
[2023-09-01] MEDS: Aspirin 81 MG TAB.CHEW PO (08:21)
[2023-09-01] MEDS: Furosemide 40 MG/4 ML Vial IV (08:23)
[2023-09-01] MEDS: 0.9% Saline Lock 10 ML Syringe IV (08:23)
[2023-09-01] MEDS: Piperacil/Tazobactam 3.375 GM in 0.9% Normal Saline (50mL MB+) 50 ML IV (09:23)
--- NOTE | 2023-09-01 15:32 | PN_ITS ---
Subjective Subjective Patient seen and examined. She had no active complaints and felt much better. She had an uneventful night. Review of systems is otherwise negative. She has remained hemodynamically stable. Objective Data Objective Data Vital Signs: Vital Signs Temp Pulse Resp BP Pulse Ox O2 Del Method O2 Flow Rate 98.3 F 82 16 107/83 H 95 Room Air 98 09/01/23 14:44 09/01/23 14:44 09/01/23 14:44 09/01/23 14:44 09/01/23 14:44 09/01/23 14:44 09/01/23 14:01 Oxygen Flow Rate (L/min) 98 Oxygen Delivery Method Room Air Weight: 161 lb 13.109 oz Body Mass Index (BMI) 26.9 Intake & Output: Intake and Output for Last 24 Hours 08/30/23 08/31/23 09/01/23 23:59 23:59 23:59 Intake Total 1822.22 / 1822.22 100 / 100 600 / 600 Balance 1822.22 / 1822.22 100 / 100 600 / 600 Lab / Micro Data 09/01/23 04:27 09/01/23 04:27 Labs: Laboratory Results - last 24 hr 09/01/23 04:27: WBC 6.8, RBC 2.81 L, Hgb 8.8 L, Hct 26.6 L, MCV 94.7, MCH 31.3, MCHC 33.1, RDW Std Deviation 53.6 H, RDW Coeff of Juan 15.8 H, Plt Count 213, MPV 11.3, Immature Gran % (Auto) 0.400, Neut % (Auto) 86.7 H, Lymph % (Auto) 5.9 L, [place] % (Auto) 6.6, Eos % (Auto) 0.3, Baso % (Auto) 0.1, Absolute Neuts (auto) 5.9, Absolute Lymphs (auto) 0.40 L, Nucleated RBC % 0, Sodium 140, Potassium 3.0 L, Chloride 103, Carbon Dioxide 30.0, Anion Gap 7, BUN 15, Creatinine 0.80, Estim Creat Clear Calc 60.03, Est GFR (MDRD) Af Amer 90, Est GFR (MDRD) Non-Af 75, BUN/Creatinine Ratio 18.9, Glucose 96, Calcium 8.8 Micro: Microbiology 09/01/23 08:35 Sputum, Expectorated/Coughed Gram Stain - Final 09/01/23 08:35 Sputum, Expectorated/Coughed Respiratory Culture - Final 08/29/23 19:51 Blood Culture (Wb) - Right Hand Blood Culture - Preliminary No growth in 48 hours. 08/29/23 19:45 Blood Culture (Wb) - Anticubital Left Blood Culture - Preliminary No growth in 48 hours. 08/30/23 01:30 Mucosa - Nasopharyngeal Respiratory Panel (PCR) - Final 08/30/23 01:10 Urine, Clean Catch Legionella Antigen - Final 08/30/23 01:10 Urine, Clean Catch Streptococcus pneumoniae Antigen (M - Final 08/29/23 19:45 Mucosa - Nose SARS-CoV-2, Influenza & RSV (PCR) - Final Physical Exam Const alert, oriented x3, no apparent distress and average body habitus General Appearance: cooperative and well developed HEENT normocephalic, head/scalp atraumatic, hearing grossly normal bilaterally, moist oral mucous membranes and oropharynx normal Eyes PERRL and EOMs intact bilaterally Neck no lymphadenopathy, supple, no JVD and thyroid normal Lymph Lymphatic: no lymphadenopathy noted and no lymphedema noted Resp Resp Narrative: mildly diminished breath sounds bibasally, no wheezes or crackles. On 2L of oxygen by nasal canula. Weaned off oxygen. Cardio regular rate, regular rhythm, S1 normal heart sound, S2 normal heart sound and no murmurs GI normal to inspection, nondistended, normoactive bowel sounds, soft to palpation, non-tender and non-distended Extremity normal capillary refill, no clubbing, cyanosis or edema and no calf tenderness Extremity Narrative: General Extremity: no tenderness to palpation of joints or extremities Skin General Skin Exam: no breakdown Neuro oriented x3, CN's II-XII intact bilaterally, moves all extremities, no focal motor deficits and no sensory deficits noted Sensorium / Orientation: awake, alert, oriented to person, oriented to place and oriented to time Speech: speech normal Motor Exam: strength 5/5 throughout and general weakness Psych thought process normal, cooperative and affect normal Appearance: appropriate Assessment & Plan Assessment/Plan (1) CHF (congestive heart failure): QUALIFIERS: Heart failure type: unspecified Heart failure chronicity: acute on chronic Qualified Code(s): I50.9 - Heart failure, unspecified (2) Pneumonia: QUALIFIERS: Pneumonia type: due to unspecified organism Laterality: bilateral Lung location: unspecified part of lung Qualified C ode(s): J18.9 - Pneumonia, unspecified organism PLAN: Plan #Acute on chronic HFpEF * BNP was elevated at 3000 and chest x-ray showed cephalization and he also had lower extremity edema. * Being diuresed with IV Lasix * Breathing has improved and she remains on2 L of oxygen. * Titrate oxygen to maintain saturation above 90%. Breathing treatments with bronchodilators. #Health associated pneumonia * Had a left upper lobe pneumonia and persistent right lower lobe infiltrate on x-ray. * She also has cough productive of yellowish sputum. On IV vancomycin and Zosyn. * Sputum cultures and blood cultures ordered. * Breathing treatments with bronchodilators. * MRSA screen negative, so will dc vancomycin and continue zosyn. * #Hypokalemia: Potassium is 3.4 today. Will replace and trend. # Hyperlipidemia: On statin. #Benign essential hypertension: on metoprolol #History of breast and uterine cancer: S/p treatment. Stable. #History of GERD: On PPI DVT prophylaxis: Lovenox Disposition; dc home today. Charges/Coding Visit Charges Inpatient E&M: 51529 Subs Hosp L2
--- NOTE | 2023-09-01 15:40 | DS.PCM_ITS ---
Providers Date of Admission: 08/29/23 Date of Discharge: 09/01/23 Primary Care Physician: Dr. Shamir Moody MD Reason For Visit: AE CHF, MULTILOBAR HCAP PNA & HYPOXIA Diagnosis Discharge Diagnosis (1) CHF (congestive heart failure): Status: Acute Code(s): I50.9 - Heart failure, unspecified Qualifiers: Heart failure type: unspecified Heart failure chronicity: acute on chronic Qualified Code(s): I50.9 - Heart failure, unspecified (2) Pneumonia: Status: Acute Code(s): J18.9 - Pneumonia, unspecified organism Qualifiers: Pneumonia type: due to unspecified organism Laterality: bilateral Lung location: unspecified part of lung Qualified Code(s): J18.9 - Pneumonia, unspecified organism Plan #Acute on chronic HFpEF * BNP was elevated at 3000 and chest x-ray showed cephalization and he also had lower extremity edema. * Being diuresed with IV Lasix * Breathing has improved and she remains on2 L of oxygen. * Titrate oxygen to maintain saturation above 90%. Breathing treatments with bronchodilators. #Health associated pneumonia * Had a left upper lobe pneumonia and persistent right lower lobe infiltrate on x-ray. * She also has cough productive of yellowish sputum. On IV vancomycin and Zosyn. * Sputum cultures and blood cultures ordered. * Breathing treatments with bronchodilators. * MRSA screen negative, so will dc vancomycin and continue zosyn. * #Hypokalemia: Potassium is 3.4 today. Will replace and trend. # Hyperlipidemia: On statin. #Benign essential hypertension: on metoprolol #History of breast and uterine cancer: S/p treatment. Stable. #History of GERD: On PPI DVT prophylaxis: Lovenox Disposition; dc home today. Medications at Discharge Home Medications magnesium 250 mg tablet 250 mg PO DAILY supplement 03/13/16 acetaminophen 500 mg tablet 1,000 mg PO Q8H PRN Pain 1-10 Or Fever 09/09/20 hydroxychloroquine 200 mg tablet 200 mg PO BID arthritis 09/18/20 calcium carbonate 600 mg-vitamin D3 10 mcg (400 unit) tablet 1 tablet PO DAILY supplement 10/09/20 aspirin 81 mg chewable tablet 81 mg PO BREAKFAST 30 days #30 tabs 08/20/23 atorvastatin 10 mg tablet 10 mg PO QHS 30 days #30 tabs 08/20/23 guaifenesin 1,200 mg tablet, extended release 12 hr (Mucinex) 1,200 mg PO Q12H 10 days #20 tabs 08/20/23 metoprolol succinate 25 mg tablet,extended release 24 hr 25 mg PO DAILY 30 days #30 tabs 08/20/23 amoxicillin 875 mg-potassium clavulanate 125 mg tablet 1 tab PO BID #10 tabs 09/01/23 furosemide 40 mg tablet 40 mg PO DAILY #30 tabs 09/01/23 potassium chloride 20 mEq tablet,extended release(part/cryst) (Klor-Con M) 20 meq PO DAILY #30 tabs 09/01/23 Hospital Course Operations None Procedures None Summary of Care Provided Minutes Spent on Discharge: 55 Hospital Course: Patient is a 78-year-old female with a past medical history as outlined who was admitted through the ED on 08/29/2023 with a complaint of worsening shortness of breath. She had recently been admitted in August 2023 for right upper lobe pneumonia and was subsequently discharged home. He said his symptoms have persisted when she went home so she came back to the ED. He had a cough productive of yellowish sputum. She was saturating at 90% on room air. She al so had worsening lower extremity edema. Chest x-ray showed evidence of fluid overload and BNP was also markedly elevated. Chest x-ray showed interval development of left upper lobe pneumonia and persistent right lower lobe opacity. She was therefore admitted and managed for acute exacerbation of heart failure preserved ejection fraction as well as health associated pneumonia. She was started on IV vancomycin and Zosyn. She was also diuresed with IV Lasix. Her shortness of breath gradually improved and she was weaned off of oxygen. MRSA screen was negative so vancomycin was discontinued. Blood cultures were negative and urine for strep and Legionella were also negative. His symptoms improved and she felt much better. She had walking pulse ox on day of discharge which showed that she does not require any oxygen and she worked well with therapy. She was therefore discharged home on 09/01/2023. She is to follow-up with her primary care doctor within 1 to 2 weeks. She was discharged on p.o. Lasix 40 mg daily as well as p.o. potassium 20 mEq daily. She was also discharged on p.o. Augmentin for 5-day course. She is to follow-up with her primary care doctor as needed. Patient seen and examined prior to discharge. She felt well and had no complaints. Asthma was by her bedside. She felt ready to go home. Review of systems otherwise negative. Labs and vitals reviewed. Home medication reviewed and reconciled. Physical Exam Const alert, oriented x3, no apparent distress and average body habitus General Appearance: cooperative, comfortable and well developed HEENT normocephalic, head/scalp atraumatic, hearing grossly normal bilaterally, moist oral mucous membranes and oropharynx normal Mouth: oral and palatal mucosa normal Eyes PERRL, EOMs intact bilaterally and conjunctivae normal Neck no lymphadenopathy, supple, no JVD and thyroid normal Lymph Lymphatic: no lymphadenopathy noted and no lymphedema noted Resp Resp Narrative: mildly diminished breath sounds bibasally, no wheezes or crackles. On room air Cardio regular rate, regular rhythm, S1 normal heart sound, S2 normal heart sound and no murmurs GI normal to inspection, nondistended, normoactive bowel sounds, soft to palpation, non-tender and non-distended Extremity normal capillary refill, no clubbing, cyanosis or edema and no calf tenderness Extremity Narrative: General Extremity: no tenderness to palpation of joints or extremities Skin General Skin Exam: no breakdown Neuro oriented x3, CN's II-XII intact bilaterally, moves all extremities, no focal motor deficits and no sensory deficits noted Sensorium / Orientation: awake, alert, oriented to person, oriented to place and oriented to time Speech: speech normal Motor Exam: strength 5/5 throughout and general weakness Psych thought process normal, cooperative and affect normal Appearance: appropriate Weight / BMI Weight Weight: 161 lb 13.109 oz Body Mass Index (BMI) 26.9 ABG / Lab / Microbiology Data 09/01/23 04:27 09/01/23 04:27 Laboratory: Laboratory Results - last 24 hr 09/01/23 04:27: WBC 6.8, RBC 2.81 L, Hgb 8.8 L, Hct 26.6 L, MCV 94.7, MCH 31.3, MCHC 33.1, RDW Std Deviation 53.6 H, RDW Coeff of Juan 15.8 H, Plt Count 213, MPV 11.3, Immature Gran % (Auto) 0.400, Neut % (Auto) 86.7 H, Lymph % (Auto) 5.9 L, [place] % (Auto) 6.6, Eos % (Auto) 0.3, Baso % (Auto) 0.1, Absolute Neuts (auto) 5.9, Absolute Lymphs (auto) 0.40 L, Nucleated RBC % 0, Sodium 140, Potassium 3.0 L, Chloride 103, Carbon Dioxide 30.0, Anion Gap 7, BUN 15, Creatinine 0.80, Estim Creat Clear Calc 60.03, Est GFR (MDRD) Af Amer 90, Est GFR (MDRD) Non-Af 75, BUN/Creatinine Ratio 18.9, Glucose 96, Calcium 8.8 Microbiology: Microbiology 09/01/23 08:35 Sputum, Expectorated/Coughed Gram Stain - Final 09/01/23 08:35 Sputum, Expectorated/Coughed Respiratory Culture - Final 08/29/23 19:51 Blood Culture (Wb) - Right Hand Blood Culture - Preliminary No growth in 48 hours. 08/29/23 19:45 Blood Culture (Wb) - Anticubital Left Blood Culture - Preliminary No growth in 48 hours. 08/30/23 01:30 Mucosa - Nasopharyngeal Respiratory Panel (PCR) - Final 08/30/23 01:10 Urine, Clean Catch Legionella Antigen - Final 08/30/23 01:10 Urine, Clean Catch Streptococcus pneumoniae Antigen (M - Final 08/29/23 19:45 Mucosa - Nose SARS-CoV-2, Influenza & RSV (PCR) - Final D/C Instructions Discharge Diet: Low fat / Low cholesterol Discharge Activity: Return to Normal Activity Weight Bearing Status: Weight bearing as tolerated Call your doctor if you observe: Fever of 101 or Higher, Shortness of breath, Dizziness, Swelling in the ankles and Chest pain Meaningful Use Info Meaningful Use Diagnoses (Choose all that apply): CHF CHF INDIGO/ARB ordered at discharge?: No Reason INDIGO/ARB not ordered?: Not indicated Documented LVEF (%): 53 Discharge Plan Admission Admit Date/Time: 08/29/23 21:29 Primary Reason for Your Visit: pneumonia, HFpEF Attending Provider: Nataliia Montaño Primary Care Provider: Shamir Moody Consulting Providers: Duarte Bradshaw Instructions Patient Instructions: ED Heart Failure, Congestive (CHF), ED Pneumonia (Adult) Additional Instructions / Restrictions: to have 2D echo ordered on outpatient basis by PCP Discharge Orders/Prescriptions Prescriptions: New furosemide 40 mg tablet 40 mg PO DAILY Qty: 30 1RF potassium chloride [Klor-Con M20] 20 mEq tablet,ER particles/crystals 20 meq PO DAILY Qty: 30 1RF amoxicillin-pot clavulanate 875-125 mg tablet 1 tab PO BID Qty: 10 0RF Continued calcium carbonate-vitamin D3 600 mg(1,500mg) -400 unit tablet 1 tablet PO DAILY magnesium 250 MG tablet 250 mg PO DAILY acetaminophen 500 MG tablet 1,000 mg PO Q8H PRN (Reason: Pain 1-10 Or Fever) hydroxychloroquine 200 MG tablet 200 mg PO BID aspirin 81 mg Tablet,Chewable 81 mg PO BREAKFAST 30 Days Qty: 30 0RF atorvastatin 10 mg Tablet 10 mg PO QHS 30 Days Qty: 30 0RF metoprolol succinate 25 mg Tablet Extended Release 24 Hr 25 mg PO DAILY 30 Days Qty: 30 0RF guaifenesin [Mucinex] 1,200 mg tablet extended release 12hr 1,200 mg PO Q12H 10 Days Qty: 20 0RF Discontinued furosemide [Lasix] 20 mg tablet 20 mg PO DAILY 10 Days Qty: 10 0RF Referrals / Follow Up: Shamir Moody MD [Primary Care Provider] - 09/14/23 11:20 am Disposition Disposition (needs filled in before D/C Order can be placed): Home, Self Care Charges/Coding Visit Charges Inpatient E&M: 53264 Disch Hosp >30min
--- NOTE | 2023-09-01 15:46 | CASEMGMT ---
RN CM updated that patient and would like to discuss needs at discharge. RN CM reviewed therapy, no therapy recommended at discharge as patient ambulated over 280feet. RN CM in to discuss needs at discharge. Patient and decline needs at discharge. RN CM updated patient and that if they would need DME or therapy in the further, they can follow-up with PCP, both voiced understanding. Patient does not qualify for home oxygen. Patient and deny further questions or concerns. Nursing and hospitalist updated.
== END 2023-09-01 17:48 | disposition home or self-care (01) | DRG 291 ==
LOC: ED 20:31 → PCU 21:42
PROVIDERS: Admitting Provider Internal Medicine; Emergency Provider Emergency Medicine; PCP Family Medicine; Visit Provider Student in an Organized Health Care Education/Training Program
DX: I11.0 Hypertensive heart disease with heart failure (principal); I50.33 Acute on chronic diastolic (congestive) heart failure; J18.9 Pneumonia, unspecified organism; M06.9 Rheumatoid arthritis, unspecified; D50.9 Iron deficiency anemia, unspecified; I35.0 Nonrheumatic aortic (valve) stenosis; E87.6 Hypokalemia; I25.10 Atherosclerotic heart disease of native coronary artery without angina pectoris; E78.5 Hyperlipidemia, unspecified; K21.9 Gastro-esophageal reflux disease without esophagitis; M19.90 Unspecified osteoarthritis, unspecified site; Y95 Nosocomial condition; E66.3 Overweight; R09.02 Hypoxemia; Z79.82 Long term (current) use of aspirin; Z79.899 Other long term (current) drug therapy; Z68.27 Body mass index [BMI] 27.0-27.9, adult
CPT/HCPCS: 36415; 71045; 80048; 80202; 83605; 83880; 84484; 85025; 85379; 87040; 87070; 87205; 87449; 87631; 87633; 87641; 93005; 94640; 94762; 97162; 97166; 97802; 99285; J7050; A4216; J1940

== ENCOUNTER 2023-09-11 00:56 | Emergency (ER) | payer MEDICARE, OTHER, SELFPAY ==
[2023-09-11 01:00] VITALS: BP 120/65; PULSE 102; RESP 15
--- OUTSIDE RECORDS SUMMARY | 2023-09-11 01:08 | XMS RPT_ITS | CCD ---
Author Name Unknown Address [address] [place] [address] Organization [facility] Care Team Providers Care Computer Numerical Control Grinder Name Role Phone Reema Tubbs CNPzabeth Unavailable [...] TAPE (ROSINS)] Allergy to substance 2 Rash [facility] Work Phone: (16 sources) amLODIPine; Translations: [AMLODIPINE BESYLATE] Drug Allergy 2 Swelling [facility] (16 sources) atorvastatin; Translations: [ATORVASTATIN] Drug Allergy 1 Other: See Comments [facility] Work Phone: (16 sources) Bisoprolol / hydroCHLOROthiaz kaci; Translations: [BISOPROLOL-HYDR OCHLOROTHIAZIDE] Drug Allergy 6 [facility] Work Phone: Medications Completed/Discontinued Medications Medication [...] Coronary arteriosclerosis; Translations: [Atherosclerotic heart disease of yomba shoshone coronary artery without angina pectoris] Chronic Deficiency [...] 73.12 kg Maggie Sainz APRN.CNP Work Phone: [facility] 08-24-2023 08:59-0500 Diastolic blood pressure 64 mm[Hg] Maggie Podlogar ARTIST [employer]NEQUIN COLORING.SUPERINTENDENT MECHANICAL Work Phone: [facility] 08-24-2023 08:59-0500 Heart rate 101 /min Maggie Podlogar ARTIST [employer]NE[employer]IN COLORING.SUPERINTENDENT MECHANICAL Work Phone: [facility] 08-24-2023 08:59-0500 Respiratory rate 16 /min Maggie Podlogar ARTIST MANNE[employer]IN COLORING.SUPERINTENDENT MECHANICAL Work Phone: [facility] 08-24-2023 08:59-0500 SaO2% (BldA) [Mass fraction] 94 % Maggie Podlogar ARTIST [employer]NE[employer]ORING.SUPERINTENDENT MECHANICAL Work Phone: [facility] 08-24-2023 08:59-0500 Systolic blood pressure 126 mm[Hg] Maggie Podlogar ARTIST [employer]NE[employer]ORING.SUPERINTENDENT MECHANICAL Work Phone: [facility] 07-21-2022 10:02-0500 Body height 161.9 cm Haleiwa White ARTIST MANNEQUIN COLORING.SUPERINTENDENT MECHANICAL Work Phone: [facility] 07-21-2022 10:02-0500 Body temperature 98.8 [degF] Haleiwa White ARTIST [employer]NE[employer]IN COLORING.SUPERINTENDENT MECHANICAL Work Phone: [facility] 07-21-2022 10:02-0500 Body weight 82.33 kg Lelo White ARTIST [employer]NE[employer]IN COLORING.SUPERINTENDENT MECHANICAL Work Phone: [facility] 07-21-2022 10:02-0500 Diastolic blood pressure 82 mm[Hg] Haleiwa White ARTIST [employer]NE[employer]IN COLORING.SUPERINTENDENT MECHANICAL Work Phone: [facility] 07-21-2022 10:02-0500 Heart rate 65 /min Lelo White ARTIST [employer]NE[employer]IN COLORING.SUPERINTENDENT MECHANICAL Work Phone: [facility] 07-21-2022 10:02-0500 Systolic blood pressure 156 mm[Hg] Lelo White ARTIST [employer]NE[employer] COLORING.SUPERINTENDENT MECHANICAL Work Phone: [facility] 06-22-2022 08:40-0500 Body weight 82.56 kg Stewart Moody MD Work Phone: [facility] 06-22-2022 08:40-0500 Diastolic blood pressure 80 mm[Hg] Stewart Moody MD Work Phone: [facility] 06-22-2022 08:40-0500 Heart rate 65 /min Stewart Moody MD Work Phone: [facility] 06-22-2022 08:40-0500 Respiratory rate 16 /min Stewart Moody MD Work Phone: [facility] 06-22-2022 08:40-0500 SaO2% (BldA) [Mass fraction] 97 % Stewart Moody MD Work Phone: [facility] 06-22-2022 08:40-0500 Systolic blood pressure 136 mm[Hg] Stewart Moody MD Work Phone: [facility] 12-12-2021 10:38-0400 Body weight 80.56 kg Stewart Moody MD Work Phone: [facility] 12-12-2021 10:38-0400 Diastolic blood pressure 84 mm[Hg] Stewart Moody MD Work Phone: [facility] 12-12-2021 10:38-0400 Heart rate 61 /min Stewart Moody MD Work Phone: [facility] 12-12-2021 10:38-0400 Respiratory rate 16 /min Stewart Moody MD Work Phone: [facility] 12-12-2021 10:38-0400 SaO2% (BldA) [Mass fraction] 98 % Stewart Moody MD Work Phone: [facility] 12-12-2021 10:38-0400 Systolic blood pressure 120 mm[Hg] Stewart Moody MD Work Phone: [facility] Encounters Encounter Date Encounter Type Care Provider Facility Start: 08-24-2023 End: 08-24-2023 ambulatory MAGGIE SAINZ Facility:[facility] Start: 08-24-2023 End: 08-24-2023 Patient encounter procedure Maggie Sainz ARTIST MANNEQUIN COLORING.SUPERINTENDENT MECHANICAL Work Phone: [facility] Procedures Date Procedure Procedure Detail Performing Clinician Start: 07-14-2022 Us breast uni real t catherine with image limited Lelo White ARTIST [employer]NE[employer]IN COLORING.SUPERINTENDENT MECHANICAL Work Phone: Start: 07-14-2022 J[place] CARLOS W MARTITA KAM D lana White ARTIST MANNEQUIN COLORING.SUPERINTENDENT MECHANICAL Work Phone: Start: 06-22-2022 Lipid 1996 panel - S alexander or Plasma Us 1 Work Phone: Start: 06-01-2022 End: 06-01-2022 Mammography Lelo White ARTIST [employer]NEQUIN COLORING .SUPERINTENDENT MECHANICAL Work Phone: Start: 06-26-2021 Adult depression screening assessment Stewart Moody MD Work Phone: Start: 05-12-2021 Mammography Shamir Moody MD Work Phone: Start: 09-10-2020 Colonoscopy Shamir Moody MD Work Phone: Plan of Treatment Date Care Activity Detail Author Start: 09-10-2030 Colonoscopy COLONOSCOPY [facility] Start: 09-10-2030 COLORECTAL CANCER SCREENING COLORECTAL CANCER SCREENING [facility] Start: 06-22-2027 Lipid 1996 panel - Serum or Plasma Lipid Screening [facility] Start: 06-22-2027 LIPID SCREEN LIPID SCREEN [facility] Start: 11-29-2025 LIPID SCREEN LIPID SCREEN [facility] Start: 06-22-2025 DIABETES SCREEN DIABETES SCREEN [facility] Start: 06-22-2025 Diabetes Screening Diabetes Screening [facility] Start: 08-24-2024 Annual PCP Team Chronic Disease Visit Annual PCP Team Chronic Disease Visit [facility] Start: 08-24-2024 BP Controlled (<130/80) BP Controlled (<130/80) [facility] Start: 06-24-2024 DIABETES SCREEN DIABETES SCREEN [facility] Start: 08-24-2023 End: 11-23-2023 25-hydroxyvitamin D3 [Mass/volume] in Serum or Plasma VITAMIN D 25 HYDROXY Lab Routine Hx of osteoporosis Disorder of bone, unspecified Expected: 08/24/2023, Expires: 11/23/2023 [facility] Work Phone: Immunizations Immunization Date Immunization Notes Care Provider Fa cili 04-12-2023 influenza (aIIV4) vaccine, age 65+ yr, quadrivalent, PF (FLUAD QUAD) Screen Wstr [facility] 04-22-2022 influenza (aIIV4) vaccine, age 65+ yr, quadrivalent, PF (FLUAD QUADRIVALENT) Stewart Moody MD Work Phone: [facility] Work Phone: 04-27-2021 influenza (aIIV4) vaccine, age 65+ yr, quadrivalent, PF (FLUAD QUADRIVALENT) Stewart Moody MD Work Phone: [facility] Work Phone: 09-14-2020 COVID-19 vaccine, ag e 12+ yr (PFIZER-BIONTECH - PURPLE TOP) Stewart Moody MD Work Phone: [facility] 08-24-2020 COVID-19 vaccine, ag e 12+ yr (PFIZER-BIONTECH - PURPLE TOP) Stewart Moody MD Work Phone: [facility] Payers Date Payer Category Payer Private Health Insurance [facility] AARP SUPPLEMENT [id number] 2013-Present [phone] [address] [place] [address] Indemnity [id number] 2013 Private Health Insurance [facility] AARP SUPPLEMENT [id number] 2013-Present [phone] [address] [place] [address] Indemnity [id number] 2013 Unknown [id number] 2012 Medicare MEDICARE MEDICAR E A AND B [id number] 2012-Present [phone] [address] [address] [place] [address] Medicare [id number] 2012 Medicare MEDICARE MEDICAR E A AND B [id number] 2012-Present [phone] [place] [address] Medicare [id number] 2012 Medicare [id number] Social History Date Type Detail Facility Start: 05-12-2011 Tobacco smoking stat [facility] Never smoked tobacco [facility] Start: 12-12-2021 End: 07-21-2022 Alcohol intake Current non-drinker of alcohol (finding) [facility] Start: 1945 Sex Assigned At Not on file [facility] Start: 12-02-2021 End: 06-01-2022 Exposure to SARS-CoV-2 (event) Not sure [facility] Start: 05-12-2011 Tobacco use and exposure Smokeless tobacco non-user [facility] Work Phone: Start: 06-16-2020 End: 06-22-2022 History of Social function [facility] Work Phone: Start: 06-16-2020 End: 06-22-2022 Tobacco use panel [facility] Work Phone: Adult Depression Screening Assessment 0 [facility] Work Phone: Goals Date Patient Goal Desired Activity /State Personal health goal Clinical Notes 06-10-2017 to 08-24-2023 Patient InstructionsPoMaggie myers APRN.SUPERINTENDENT MECHANICAL - 08/24/2023 8:45 AM ESTTelephone Encounter - Ani Salmon - 06/21/2023 12:19 PM Dana Downs Mammo Tech - 06/11/2023 9:30 AM EST Note Date & Type Note Facility 08-24-2023 Note HNO ID: [id number] Author: MAGGIE SAINZ APRN.CNP Service: ? Author Type: Nurse Practitioner Type: Progress Notes Filed: 08/24/2023 14:33 Note Text: 08/24/2023 Patient presents with: Hospital F/U: [facility] 08/20/2023 dx: Pneumonia Seen in ER 08/23/2023. SUBJECTIVE: This is a 78 year old, accompanied by , that is here today for Above Complaints. HOSPITAL/ER FOLLOW UP: Reason for visit: PNA, hypoxia Which facility: [facility] Date of visit: 08/18/2023-08/20/2023 Diagnosis: right upper [...] still has cough. Does have follow-up with [facility] cardiology scheduled for end of this month. [...] uteri, except isthmus (HCC) 1979 [place] cancer [place], old Osteoarthritis Other and unspecified hyperlipidemia Rheumatoid arthritis involving multiple sites with positive rheumatoid factor (HCC) 10/05/2017 Dr. Gonzales Snoring ALLERGIES Adhesive Tape (Rosins), Lipitor [Atorvastatin], Norvasc [Amlodipine Besylate], and Ziac [Bisoprolol-Hydrochlorothiazide] MEDICATIONS Current Outpatient Medications Medication Sig omega 9-tpr-wux-fish-turmeric 417 mg-120 mg- 276 mg-600 mg cap [...] IRON + TIBC (more content not included)... [facility] 08-24-2023 Instructions PascuallogMaggie feliz APRN.AIYANA - 08/24/2023 9:27 AM EST Follow-up with cardiology as scheduled Labs prior to next office visit- Follow-up in one month with Dr. Moody for routine visit documented in this encounter [facility] 08-24-2023 History of Present illness Narrative 08/24/2023 Patient presents with: Hospital F/U: [facility] 08/20/2023 dx: Pneumonia Seen in ER 08/23/2023. SUBJECTIVE: This is a 78 year old, accompanied by , that is here today for Above Complaints. HOSPITAL/ER FOLLOW UP: Reason for visit: PNA, hypoxia Which facility: [facility] Date of visit: 08/18/2023-08/20/2023 Diagnosis: right upper [...] still has cough. Does have follow-up with [facility] cardiology scheduled for end of this month. [...] uteri, except isthmus (HCC) 1979 [place]ine cancer [place], old Osteoarthritis Other and unspecified hyperlipidemia Rheumatoid arthritis involving multiple sites with positive rheumatoid factor (HCC) 10/05/2017 Dr. Gonzales Snoring ALLERGIES Adhesive Tape (Rosins), Lipitor [Atorvastatin], Norvasc [Amlodipine Besylate], and Ziac [Bisoprolol-Hydrochlorothiazide] MEDICATIONS Current Outpatient Medications Medication Sig omega 0-kwx-dfn-fish-turmeric 417 mg-120 mg- 276 mg-600 mg cap [...] MG TABLET 4. Coronary artery disease involving [place] heart without angina pectoris, unspecified vessel or [...] which included preparing to see the patient, [id number] patient care, completing clinical documentation, obtaining and/or reviewing separately obtained history, performing a medically appropriate examination, counseling and educating the patient/family/caregiver, and ordering medications, tests, or procedures. documented in this encounter [facility] 07-21-2023 Note HNO ID: [id number] Author: LELO WHITE APRN.CNP Service: ? Author [...] invasive ductal carcinoma. It was ER positive, RI positiveand Her2/barb 2+. She underwent left breast [...] R wrist fx. Casted for 2 months. [facility]. R hand dominant. Appetite: Too much. [...] - ICD9: V10.3, ICD10: Z85.3 Stage IIA, [id number], invasive ductal carcinoma of the left breast [...] necessary for today's visit. Lelo White APRN.CNP [facility] 06-21-2023 Miscellaneous Notes Patient informed No concerning findings on exam. Follow up as scheduled. Thank you. Lelo White APRN.SUPERINTENDENT MECHANICAL Patient calling for 06/11 mamm results documented in this encounter [place] [address]-01-2023 Note HNO ID: [id number] Author: Dana Balderrama Mammo Tech Service: ? Author Type: Utilization Management Nurse Type: Progress Notes Filed: 06/11/2023 9:45 AM [...] Lavelle Westbrook June 11, 2023 9:11 AM [facility] 06-11-2023 History of Present illness Narrative Radiology [...] 2023 9:11 AM documented in this encounter [facility] 02-11-2023 Note HNO ID: [id number] Author: Nora Vanessa MA Service: ? Author Type: Public Speaker Type: Progress Notes Filed: 02/11/2023 9:43 AM Note Text: POPULATION HEALTH NAVIGATION OUTREACH Action/FYI Letter prepared and placed in outgoing mail. Navigation Signature: Nora Vanessa MA February 11, 2023 9:42 AM [facility] 02-10-2023 Note Patient Outreach (CHRISTOPHER WESLEY) GABI ASHBY ([id number]) 1945 F Date Time Provider Department 02/10/23 [...] Date Reviewed: 07/21/2022 Reviewed by: Lelo White APRN.SUPERINTENDENT MECHANICAL - Fully Assessed Reason for Visit: Population [...] tablet by mouth once daily. - omega 9-zhd-xfu-fish-turmeric 417 mg-120 mg- 276 mg-600 mg cap [...] (estrogen receptor positive status) [Z17.0] 07/18/2012 Seroma [UVX0133] 08/01/2012 10/05/2017 Degenerative disc disease, lumbar [M51.36] [...] Encounter Status:Closed by MULU VYAS on 02/10/23 [facility] 02-10-2023 Note HNO ID: [id number] Author: Mulu Vyas MA Service: ? Author Type: Public Speaker Type: Progress Notes Filed: 02/10/2023 3:32 PM [...] Vyas MA February 10, 2023 10:22 AM [facility] 07-21-2022 History of Present illness Narrative Chief [...] invasive ductal carcinoma. It was ER positive, RI positive and Her2/barb 2+. She underwent left [...] - ICD9: V10.3, ICD10: Z85.3 Stage IIA, [id number], invasive ductal carcinoma of the left breast [...] Lelo White APRN.CNP documented in this encounter [facility] 07-14-2022 Miscellaneous Notes Spoke with patient and scheduled. Sravanthi Yuan Please see previous phone note. Pt. needs OV. Thank you. Lelo White APRN.CNP documented in this encounter [facility] 07-14-2022 History of Present illness Narrative [...] 2022 3:44 PM documented in this encounter [facility] 07-14-2022 History of Present illness Narrative [...] 2022 1:59 PM documented in this encounter [facility] 06-23-2022 Miscellaneous Notes Patient returned call [...] Maggie Sainz APRN.AIYANA documented in this encounter [facility] 06-22-2022 Miscellaneous Notes Thank you, hopefully they can get her imaging completed sooner than July with her history of breast CA. Patient was instructed to call to see if she could be scheduled sooner for her callback diagnostic mammogram. She was directed to speak with the [facility] due to no available openings at the [place] location at this time. documented in this encounter [facility] 06-22-2022 History of Present illness Narrative [...] of Arimidex since 2017. CAD: Following with [facility] cardiology. Last OV 08/2021. Switched to Crestor [...] uteri, except isthmus (HCC) 1979 [place]ine cancer [place], old Osteoarthritis Other and unspecified hyperlipidemia Rheumatoid [...] DX W/COLLJ SPEC WHEN PFRMD N/A 09/10/2020 [facility]-Dr. Lopez ESOPHAGOGASTRODUODENOSCOPY TRANSORAL DIAGNOSTIC 01/03/2019 EGD ESOPHAGOGASTRODUODENOSCOPY TRANSORAL DIAGNOSTIC N/A 09/10/2020 [facility]-Dr. Lopez MASTECTOMY, PARTIAL 06/06/2012 LEFT PAST SURGICAL HISTORY OF Right shoulder replacement SURGERY (GENERAL SURGERY) CONSULT Right 03/24/2016 right knee replacement - [facility] TOTAL ABDOMINAL HYSTERECT W/WO RMVL TUBE OVARY 1980 uterine ca Family History FAMILY HISTORY Problem Relation Age of Onset Cancer Mother uterine Hypertension Mother hyperlipidemia Arthritis Mother Osteoporosis Mother Heart Father [place] at age 39 Hypertension Sister arthritis Osteoporosis Sister Arthritis Sister hypertension Hypertension Brother None Brother None Brother None Brother Diabetes Maternal Grandmother Thyroid Maternal Aunt Patient Allergies ALLERGIES Allergen Reactions Adhesive Tape (Tash* Rash Lipitor [Atorvastat* Other: See Comments Headache Norvasc [Amlodipine* Swelling Ziac [Bisoprolol-Hy* headaches Current Medications Current Outpatient Medications on File Prior to Visit Medication Sig omega 7-adg-eue-fish-turmeric 417 mg-120 mg- 276 mg-600 mg cap [...] <0.01 ASSESSMENT/PLAN: 1. Coronary artery disease involving [place] heart without angina pectoris, unspecified vessel or [...] Stewart Moody MD documented in this encounter [facility] 06-02-2022 Miscellaneous Notes Patient returned call and was transferred to the Breast Center. LM for patient to return call. When patient calls, please advise patient that, per Lelo's note below, she needs to have additional mammogram images done and her office visit w/ Lelo will be rescheduled to after the imaging appointment. Then transfer her to the Breast Center at [phone] to schedule her additional imaging. Once transferred, document and route this note to P [facility] HEM/ONC PSR so follow up with Lelo can be rescheduled. Sravanthi Yuan Please inform pt. that the radiologist would like additional images of R breast. Please schedule R dx mamm/US soon. Move OV out until after above. Thank you. Lelo White APRN.AIYANA documented in this encounter [facility] 06-01-2022 Miscellaneous Notes June 01, 2022 PID: [id number] Gabi Ashby [address] [place] [address] Dear Ms. Ashby, Your recent breast imaging exam on 06/01/2022 showed a possible finding that requires additional imaging studies for a complete evaluation. Most such findings are probably benign (not cancer). If you have a healthcare provider who ordered/prescribed your screening mammogram: Please call [phone] or [phone]: [phone] to schedule an appointment for your additional [...] and reports are kept on file at [facility] as part of your permanent medical record, and are available for your continuing care. Thank you for allowing us to help in meeting your health care needs. Sincerely, Dr. Ruiz Interpreting Radiologist [facility] (Additional imaging) documented in this encounter [facility] 06-01-2022 History of Present illness Narrative [...] DATA: Not applicable SIGNED BY: Flaca Jordan [email or web address] June 01, 2022 11:38 AM documented in this encounter [facility] 12-12-2021 History of Present illness Narrative [...] uteri, except isthmus (HCC) 1979 Uterine cancer [place], old Osteoarthritis Other and unspecified hyperlipidemia Rheumatoid [...] DX W/COLLJ SPEC WHEN PFRMD N/A 09/10/2020 [facility]-Dr. Lopez ESOPHAGOGASTRODUODENOSCOPY TRANSORAL DIAGNOSTIC 01/03/2019 EGD ESOPHAGOGASTRODUODENOSCOPY TRANSORAL DIAGNOSTIC N/A 09/10/2020 [facility]-Dr. Lopez MASTECTOMY, PARTIAL 06/06/2012 LEFT PAST SURGICAL HISTORY OF Right shoulder replacement SURGERY (GENERAL SURGERY) CONSULT Right 03/24/2016 right knee replacement - [facility] TOTAL ABDOMINAL HYSTERECT W/WO RMVL TUBE OVARY 1979 uterine ca Family History FAMILY HISTORY Problem Relation Age of Onset Cancer Mother uterine Hypertension Mother hyperlipidemia Arthritis Mother Osteoporosis Mother Heart Father [place] at age 39 Hypertension Sister arthritis Osteoporosis [...] tablet by mouth daily at bedtime. omega 6-ymx-lda-fish-turmeric 417 mg-120 mg- 276 mg-600 mg cap [...] PANEL, NONFASTING 3. Coronary artery disease involving [place] heart without angina pectoris, unspecified vessel or [...] Stewart Moody MD documented in this encounter [facility] documented as of this encounter (statuses as of 12/12/2021) [facility] History of Past illness Narrative* Problem [...] of this encounter (statuses as of 06/02/2022) [facility] History of Past illness Narrative* Problem [...] of this encounter (statuses as of 06/02/2022) [facility] of Past illness Narrative* Problem [...] of this encounter (statuses as of 06/03/2022) [facility] of Past illness Narrative* Problem [...] of this encounter (statuses as of 06/22/2022) [facility] of Past illness Narrative* Problem [...] of this encounter (statuses as of 06/23/2022) [facility] of Past illness Narrative* Problem [...] of this encounter (statuses as of 07/05/2022) [facility] of [facility] illness Narrative* Problem [...] of this encounter (statuses as of 07/16/2022) [facility] Narrative* Problem [...] of this encounter (statuses as of 07/21/2022) [facility] of [facility] Narrative* Problem [...] of this encounter (statuses as of 05/16/2023) [facility] of [facility] illness Narrative* Problem [...] of this encounter (statuses as of 05/16/2023) [facility] of [facility] illness Narrative* Problem [...] of this encounter (statuses as of 05/16/2023) [facility] of Past illness Narrative* Problem [...] of this encounter (statuses as of 06/12/2023) [facility] of [facility] illness Narrative* Problem [...] of this encounter (statuses as of 06/21/2023) [facility] of Past illness Narrative* Problem [...] of this encounter (statuses as of 08/24/2023) [facility] Diagnosis Essential hypertension, benign- Primary Hyperlipidemia with target LDL less than 100 Other and unspecified hyperlipidemia Coronary artery disease involving [place] heart without angina pectoris, unspecified vessel or lesion type Rheumatoid arthritis involving multiple sites with positive rheumatoid factor (HCC) History of left breast cancer Chronic anemia Anemia, unspecified [facility] History of left breast cancer- Primary Abnormal mammogram of right breast [facility] Diagnosis Coronary artery disease involving [place] heart without angina pectoris, unspecified vessel or [...] Other specified counseling [facility] Diagnosis Hyperlipidemia with target LDL less than 100 Other and unspecified hyperlipidemia documented in this encounter [facility] [facility] Personal history of breast cancer- Primary Personal history of malignant neoplasm of breast Encounter for screening mammogram for high-risk patient [facility] History of left breast cancer Abnormal mammogram of right breast [facility] Diagnosis History of left breast cancer Abnormal mammogram of right breast documented in this encounter [facility] note* Diagnosis 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) Encounter for screening mammogram for high-risk patient documented in this encounter [facility] note* Diagnosis Personal history of breast cancer Personal history of malignant neoplasm of breast Encounter for screening mammogram for high-risk patient documented in this encounter [facility] note* Diagnosis Hospital discharge follow-up- Primary Other follow-up examination Chronic anemia Anemia, unspecified Hyperlipidemia with target LDL less than 100 Other and unspecified hyperlipidemia Coronary artery disease involving [place] heart without angina pectoris, unspecified vessel or lesion type Hx of osteoporosis Personal history of other musculoskeletal disorders Disorder of bone, unspecified Heart failure with preserved ejection fraction, unspecified HF chronicity (HCC) Thrombocytopenia, unspecified (HCC) Thrombocytopenia, unspecified Acute cough Black stool Nonspecific abnormal finding in stool contents documented in this encounter [facility] for referral (narrative)* Diagnostic Procedure Only (Routine) - Pending Review Specialty Diagnoses / Procedures Referred By Korina santoyo Referred To Contact [facility] Diagnoses History of left breast cancer Abnormal mammogram of right breast Procedures US BREAST LTD RT US BREAST UNI REAL TIME WITH IMAGE LIMITED Lelo White APRN.SUPERINTENDENT MECHANICAL [address] [place] [address] [facility] [address] [place] [address] Referral ID Status Reason Start Date Expiration Date Visits Requested Visits Authorized [id number] Pending Review Auto-Generat ed Referral 2 07/02/2023 1 1 * Diagnostic Procedure Only (Routine) - Authorized Specialty Diagnoses / Procedures Referred By Korina santoyo Referred To Contact [facility] Diagnoses History of left breast cancer Abnormal mammogram of right breast Procedures [place]ICA DIAGNOSTIC RT DIAGNOSTIC MAMMOGRAPHY COMPUTER-AIDED DETCJ UNI Lelo White APRN.SUPERINTENDENT MECHANICAL [address] [place] [address] [facility] [address] [place] [address] Referral ID Status Reason Start Date Expiration Date Visits Requested Visits Authorized [id number] Authorized Auto-Generat ed Referral 07/02/2023 1 1 [facility] for referral (narrative)* Diagnostic Procedure Only (Routine) - Authorized Specialty Diagnoses / Procedures Referred By Korina t Referred To Contact [facility] Diagnoses Personal history of breast cancer Encounter for screening mammogram for high-risk patient Procedures [place] SCREENING SCREENING MAMMOGRAPHY BI 2-VIEW BREAST INC Lelo Sheffield APRN.SUPERINTENDENT MECHANICAL [address] [place] [address] [facility] [address] [place] [address] Referral ID Status Reason Start Date Expiration Date Visits Requested Visits Authorized [id number] Authorized Auto-Generat ed Referral 07/21/2022 08/20/2023 1 1 [facility] for referral (narrative)* Diagnostic Procedure Only (Routine) - Closed Specialty Diagnoses / Procedures Referred By Korina santoyo Referred To Contact [facility] Diagnoses History of left breast cancer Abnormal mammogram of right breast Procedures US BREAST LTD RT US BREAST UNI REAL TIME WITH IMAGE LIMITED Lelo White APRN.SUPERINTENDENT MECHANICAL [address] [place] [address] [facility] [address] [place] [address] Referral ID Status Reason Start Date Expiration Date V isits Requested Visits Authorized [id number] Closed Auto-Generate d Referral 06/02/2022 07/02/2023 1 1 [facility] for referral (narrative)* Diagnostic Procedure Only (Routine) - Closed Specialty Diagnoses / Procedures Referred By Korina t Referred To Contact [facility] Diagnoses 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) Encounter for screening mammogram for high-risk patient Procedures J[place]ICA SCREENING SCREENING MAMMOGRAPHY BI 2-VIEW BREAST INC Lelo Sheffield APRN.SUPERINTENDENT MECHANICAL [address] [place] [address] [facility] [address] [place] [address] Referral ID Status Reason Start Date Expiration Date V isits Requested Visits Authorized [id number] Closed Auto-Generate d Referral 07/01/2021 07/31/2022 1 1 [facility] for visit Narrative* Diagnostic Procedure Only (Routine) - Closed Specialty Diagnoses / Procedures Referred By Korina santoyo Referred To Contact [facility] Diagnoses History of left breast cancer Abnormal mammogram of right breast Procedures [facility]ICA DIAGNOSTIC RT DIAGNOSTIC MAMMOGRAPHY COMPUTER-AIDED DETCJ Lelo Palumbo APRN.SUPERINTENDENT MECHANICAL [address] [place] [address] [facility] [address] [place] [address] Referral ID Status Reason Start Date Expiration Date V isits Requested Visits Authorized [id number] Closed Auto-Generate d Referral 06/02/2022 07/02/2023 1 1 [facility] for visit Narrative* Diagnostic Procedure Only (Routine) - Closed Specialty Diagnoses / Procedures Referred By Korina santoyo Referred To Contact [facility] Diagnoses 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) Encounter for screening mammogram for high-risk patient Procedures [place] SCREENING SCREENING MAMMOGRAPHY BI 2-VIEW BREAST INC Lelo Sheffield APRN.SUPERINTENDENT MECHANICAL [address] [place] [address] [facility] [address] [place] [address] Referral ID Status Reason Start Date Expiration Date V isits Requested Visits Authorized [id number] Closed Auto-Generate d Referral 07/01/2021 07/31/2022 1 1 [facility] for visit Narrative* Diagnostic Procedure Only (Routine) - Closed Specialty Diagnoses / Procedures Referred By Korina santoyo Referred To Contact [facility] Diagnoses Personal history of breast cancer Encounter for screening mammogram for high-risk patient Procedures [place] SCREENING SCREENING MAMMOGRAPHY BI 2-VIEW BREAST INC Lelo Sheffield APRN.SUPERINTENDENT MECHANICAL [address] [place] [address] [facility] [address] [place] [address] Referral ID Status Reason Start Date Expiration Date V isits Requested Visits Authorized [id number] Closed Auto-Generate d Referral 07/21/2022 08/20/2023 1 1 [facility] Advance Directives No Advanced Directives Records FoundDocuments on File Type Date Recorded 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 Advance Directive(s) 01/03/2019 7:21 AM [...] or prosecute any alcohol or drug abuse patient.[facility] the event this information is protected by the Federal Confidentiality of Alcohol and Drug Abuse Patient Records regulations: The Federal rules restrict any use of the information to criminally investigate or prosecute any alcohol or drug abuse patient.[facility] the event this information is protected by the Federal Confidentiality of Alcohol and Drug Abuse Patient Records regulations: The Federal rules restrict any use of the information to criminally investigate or prosecute any alcohol or drug abuse patient.[facility] the event this information is protected by the Federal Confidentiality of Alcohol and Drug Abuse Patient Records regulations: The Federal rules restrict any use of the information to criminally investigate or prosecute any alcohol or drug abuse patient.[facility] the event this information is protected by the Federal Confidentiality of Alcohol and Drug Abuse Patient Records regulations: The Federal rules restrict any use of the information to criminally investigate or prosecute any alcohol or drug abuse patient.[facility] the event this information is protected by the Federal Confidentiality of Alcohol and Drug Abuse Patient Records regulations: The Federal rules restrict any use of the information to criminally investigate or prosecute any alcohol or drug abuse patient.[facility] the event this information is protected by the Federal Confidentiality of Alcohol and Drug Abuse Patient Records regulations: The Federal rules restrict any use of the information to criminally investigate or prosecute any alcohol or drug abuse patient.[facility] the event this information is protected by the Federal Confidentiality of Alcohol and Drug Abuse Patient Records regulations: The Federal rules restrict any use of the information to criminally investigate or prosecute any alcohol or drug abuse patient.[facility] the event this information is protected by the Federal Confidentiality of Alcohol and Drug Abuse Patient Records regulations: The Federal rules restrict any use of the information to criminally investigate or prosecute any alcohol or drug abuse patient.[facility] the event this information is protected by the Federal Confidentiality of Alcohol and Drug Abuse Patient Records regulations: The Federal rules restrict any use of the information to criminally investigate or prosecute any alcohol or drug abuse patient.[facility] the event this information is protected by the Federal Confidentiality of Alcohol and Drug Abuse Patient Records regulations: The Federal rules restrict any use of the information to criminally investigate or prosecute any alcohol or drug abuse patient.[facility] the event this information is protected by the Federal Confidentiality of Alcohol and Drug Abuse Patient Records regulations: The Federal rules restrict any use of the information to criminally investigate or prosecute any alcohol or drug abuse patient.[facility] the event this information is protected by the Federal Confidentiality of Alcohol and Drug Abuse Patient Records regulations: The Federal rules restrict any use of the information to criminally investigate or prosecute any alcohol or drug abuse patient.[facility] the event this information is protected by the Federal Confidentiality of Alcohol and Drug Abuse Patient Records regulations: The Federal rules restrict any use of the information to criminally investigate or prosecute any alcohol or drug abuse patient.[facility] the event this information is protected by the Federal Confidentiality of Alcohol and Drug Abuse Patient Records regulations: The Federal rules restrict any use of the information to criminally investigate or prosecute any alcohol or drug abuse patient.[facility] Reason for Visit (unrecogniz ed section [...] REAL TIME WITH IMAGE LIMITED Lelo White APRN.SUPERINTENDENT MECHANICAL [address] [place] [address] [facility] [address] [place] [address] Referral ID Status Reason Start Date Expiration Date V isits Requested Visits Authorized [id number] Closed Auto-Generate d Referral 06/02/2022 07/02/2023 1 1 Reason Comments Hospital F/U [facility] 08/20/2023 dx: Pne umonia Seen in ER 06/22/2024Having increased weakness since becoming illCovid negative 08/23/2023 Care Teams (unrecognized sec tion and content) Computer Numerical Control Grinder Relationship Specialty Start Date End Date Stewart Moody MD [address] [place], [place] [id number] PCP - General Family Medicine 12/04/20 Pily Tubbs, SUPERINTENDENT MECHANICAL [address] [place] [address] Specialty Pharmacy Services Representative Family Medicine 01/25/19 Computer Numerical Control Grinder Relationship Specialty Start Date End Date Stewart Moody MD [address] [place], [place] [id number] PCP - General Family Medicine 12/04/20 Pily Tubbs, SUPERINTENDENT MECHANICAL [address] [facility] [place] [address] Specialty Pharmacy Services Representative Family Medicine 01/25/19 Computer Numerical Control Grinder Relationship Specialty Start Date End Date Stewart Moody MD [address] [place] [address] PCP - General Family Medicine 12/04/20 Pily Tubbs, SUPERINTENDENT MECHANICAL [address] [facility] [place] [address] Specialty Pharmacy Services Representative Family Medicine 01/25/19 Computer Numerical Control Grinder Relationship Specialty Start Date End Date Stewart Moody MD [address] [place] [place] [address] PCP - General Family Medicine 12/04/20 Pily Tubbs CNP [address] [facility] [place] [address] Specialty Pharmacy Services Representative Family Medicine 01/25/19 Computer Numerical Control Grinder Relationship Specialty Start Date End Date Stewart Moody MD [address] [place] [place] [address] PCP - General Family Medicine 12/04/20 Pily Tubbs CNP [address] [facility] [place] [address] Specialty Pharmacy Services Representative Family Medicine 01/25/19 Computer Numerical Control Grinder Relationship Specialty Start Date End Date Stewart Moody MD [address] [place] [place] [address] PCP - General Family Medicine 12/04/20 Pily Tubbs CNP [address] [facility] [place] [address] Specialty Pharmacy Services Representative Family Medicine 01/25/19 Computer Numerical Control Grinder Relationship Specialty Start Date End Date Stewart Moody MD [address] [place] [place] [address] PCP - General Family Medicine 12/04/20 Pily Tubbs, SUPERINTENDENT MECHANICAL [address] [facility] [place] [address] Specialty Pharmacy Services Representative Family Medicine 01/25/19 Computer Numerical Control Grinder Relationship Specialty Start Date End Date Stewart Moody MD [address] [place] [place] [address] PCP - General Family Medicine 12/04/20 Pily Tubbs, SUPERINTENDENT MECHANICAL [address] [facility] [place] [address] Specialty Pharmacy Services Representative Family Medicine 01/25/19 Computer Numerical Control Grinder Relationship Specialty Start Date End Date Stewart Moody MD [address] [place] [place] [address] PCP - General Family Medicine 12/04/20 Pily Tubbs, SUPERINTENDENT MECHANICAL [address] [facility] [place] [address] Specialty Pharmacy Services Representative Family Medicine 01/25/19 Computer Numerical Control Grinder Relationship Specialty Start Date End Date Stewart Moody MD [address] [place] [place] [address] PCP - General Family Medicine 12/04/20 Pily Tubbs, SUPERINTENDENT MECHANICAL [address] [facility] [place] [address] Specialty Pharmacy Services Representative Family Medicine 01/25/19 Computer Numerical Control Grinder Relationship Specialty Start Date End Date Stewart Moody MD [address] [place] [address] PCP - General Family Medicine 12/04/20 Pily Tubbs SUPERINTENDENT MECHANICAL [address] [place] [address] Specialty Pharmacy Services Representative Family Medicine 01/25/19 Computer Numerical Control Grinder Relationship Specialty Start Date End Date Stewart Moody MD [address] [place] [address] PCP - General Family Medicine 12/04/20 Pily Tubbs CNP [address] [place] [address] Specialty Pharmacy Services Representative Family Medicine 01/25/19 Computer Numerical Control Grinder Relationship Specialty Start Date End Date Stewart Moody MD [address] [place] [address] PCP - General Family Medicine 12/04/20 Pily Tubbs CNP [address] [place] [address] Specialty Pharmacy Services Representative Family Medicine 01/25/19 Computer Numerical Control Grinder Relationship Specialty Start Date End Date Stewart Moody MD [address] [place] [address] PCP - General Family Medicine 12/04/20 Pily Tubbs CNP [address] [place] [address] Specialty Pharmacy Services Representative Family Medicine 01/25/19 INFORMATION SOURCE (unrecogn ized [...] BE BASED ON THE PRIMARY CLINICAL RECORDS. [facility] provides no warranty or guarantee of the accuracy or completeness of information in this document.
[2023-09-11 01:10] VITALS: BP 120/65; PULSE 102; RESP 15; TEMP 35.7; O2SAT 0; BMI 30.5
[2023-09-11 01:35] VITALS: BP 0/0; PULSE 0; RESP 0; TEMP -17.7; TEMP 0; O2SAT 0
--- NOTE | 2023-09-11 01:37 | EDS_ITS ---
HPI History of Present Illness Chief Complaint: CPR Informant: EMS Narrative Narrative: Patient is a 78-year-old female from home with past medical history of aortic stenosis hypertension hyperlipidemia and congestive heart failure. EMS reports that they were called this evening secondary to shortness of breath. They state when they arrived the patient was awake and alert but their monitor showed a heart rate of approximately 200 that appeared to be supraventricular tachycardia. EMS states they placed the patient on the cot and wheeled her to their ambulance. They state that they were attempting to place an IV when the patient suddenly became unresponsive. At that time they did a pulse and rhythm check and she was asystole and therefore they began CPR/ACLS protocol. They state that patient has had a known downtime of approximately 20 to 30 minutes upon arrival to the ER [facility] Medical History (HFpEF) heart failure with preserved ejection fraction Acute hypoxemic respiratory failure Atherosclerosis of coronary artery of [place] heart without angina pectoris Bilateral pleural effusion Breast cancer, left Chronic anemia DDD (degenerative disc disease) Diverticulosis Essential hypertension GERD (gastroesophageal reflux disease) GI bleed History of malignant neoplasm of left breast History of AK (myocardial infarction) History of non-ST elevation myocardial infarction (NSTEMI) (09/18/20) History of uterine cancer Hyperlipidemia Hypokalemia Iron deficiency anemia Nonrheumatic aortic (valve) stenosis Osteoarthritis Rheumatoid arthritis Home Medications acetaminophen 500 mg tablet 1,000 mg PO Q8H PRN Pain 1-10 Or Fever 09/09/20 [History Last Taken 08/17/23] hydroxychloroquine 200 mg tablet 200 mg PO BID arthritis 09/18/20 [History Last Taken 08/16/23] calcium carbonate 600 mg-vitamin D3 10 mcg (400 unit) tablet 1 tablet PO DAILY supplement 10/09/20 [History Last Taken 08/28/23] aspirin 81 mg chewable tablet 81 mg PO BREAKFAST 30 days #30 tabs 08/20/23 [Rx Last Taken Unknown] atorvastatin 10 mg tablet 10 mg PO QHS 30 days #30 tabs 08/20/23 [Rx Last Taken Unknown] guaifenesin 1,200 mg tablet, extended release 12 hr (Mucinex) 1,200 mg PO Q12H 10 days #20 tabs 08/20/23 [Rx Last Taken 08/29/23 15:00] metoprolol succinate 25 mg tablet,extended release 24 hr 25 mg PO DAILY 30 days #30 tabs 08/20/23 [Rx Last Taken Unknown] furosemide 40 mg tablet 40 mg PO DAILY #30 tabs 09/01/23 [Rx Last Taken Unknown] potassium chloride 20 mEq tablet,extended release(part/cryst) (Klor-Con M) 20 meq PO DAILY #30 tabs 09/01/23 [Rx Last Taken Unknown] Allergy/AdvReac Type Severity Reaction Status Date / Time amlodipine besylate Allergy Swelling Verified 09/07/23 10:16 [From Norvasc] bisoprolol fumarate Allergy Unknown Verified 09/07/23 10:16 [From Ziac] adhesive AdvReac Itching Verified 09/07/23 10:16 hydrochlorothiazide AdvReac Unknown Verified 09/07/23 10:16 Family History Mother Cancer Uterine Hypertension Hyperlipidemia Osteoporosis Father Myocardial infarction, Onset Age: 39 Grandmother Diabetes Sister Hypertension Osteoporosis Brother Hypertension Aunt Thyroid disorder Surgical History History of colonoscopy (01/03/19) History of esophagogastroduodenoscopy (EGD) (01/03/19) History of left breast biopsy (05/24/12) History of lymph node biopsy (06/06/12) History of partial mastectomy of left breast (06/06/12) History of shoulder surgery (02/07/20) History of total abdominal hysterectomy (1979) History of total right knee replacement (03/24/16) Social History household members: spouse Smoking Status: Never smoker alcohol intake: never substance use type: does not use ROS ROS ED Review of Systems ROS Unobtainable: other Details: Unable to obtain review of systems based on patient's critical status EXAM Physical Exam Const Vital Signs: 09/11/23 01:00 09/11/23 01:10 09/11/23 01:35 Temperature 96.3 F L 0 F L Temperature Source Temporal Pulse Rate 102 H 0 L Pulse Rate [8] 102 H Respiratory Rate 15 0 L Respiratory Rate [8] 15 Blood Pressure 120/65 0/0 L Blood Pressure [8] 120/65 Blood Pressure Mean 83 Pulse Ox 0 Oxygen Delivery Method Ambu-Bag Ambu-Bag Oxygen Flow Rate (L/min) 25 25 Positive well nourished and well developed General Appearance ED: well developed HEENT HEENT Narrative: Small amount of blood noted in the posterior pharynx once the i-gel was removed. No oral lesions no airway edema or compromise no signs of infection in the posterior pharynx Eyes Eyes Narrative: Pupils are fixed and dilated Chest Wall Chest Narrative: No bony deformity or crepitance with palpation of the chest wall Resp Resp Narrative: No spontaneous breath sounds noted Status post intubation bilateral breath sounds are present Cardio Rate: other Other Details: No spontaneous heartbeat auscultated No spontaneous central or peripheral pulses palpated GI GI Narrative: Abdomen is soft and nondistended Extremity Extremity Narrative: No obvious bony deformity or joint effusion Trace pitting edema to the bilateral lower extremities Neuro Neuro Narrative: Patient has GCS of 3 Skin Skin Narrative: Skin is pale in color and cool No obvious signs of infection such as erythema or warmth and no signs of trauma such as abrasions or ecchymosis MDM MDM MDM Narrative Medical decision making narrative: Patient arrived to the ER without spontaneous respirations or pulses and ACLS protocol was in place per EMS. The patient's i-gel was removed and a 7.5 ET tube was placed under GlideScope visualization. There is no need for anesthesia/sedation as the patient has GCS of 3 and no spontaneous respirations or heartbeat. ACLS protocol was continued with epinephrine every 3 to 5 minutes and standard compressions. Patient did receive spontaneous return of circulation and at that time monitor and palpation of central pulses were irregular consistent with atrial fibrillation. As it was felt that her return of spontaneous circulation was mainly due to the epinephrine pushes a drip was ordered. Prior to the drip being brought up from pharmacy the patient's heartbeat slowed and then stopped once again. Compressions were resumed and ACLS protocol was once again followed. The patient's care was discussed with family members and at this time wishes is to continue with resuscitative efforts. This was continued and patient had a known downtime of over 60 minutes. Eventually despite epinephrine pushes and epinephrine drip the patient did not return to spontaneous circulation and therefore based on her prolonged downtime and no longer responding to treatment she was pronounced at 1:34 AM History & Record Review Discussion w/independent historian: EMS personnel Critical Care Time Critical Care Time: Yes Critical care time (excluding procedures): Discussing w/Patient &/or Family/Able Bodied Watchman, Performing Direct Patient Care at Bedside and - (Please note critical care time of 43 minutes) Discharge Plan Triage Chief Complaint: CPR ED Provider: Caleb Reyes Dx/Rx/DC Orders Clinical Impression: Cardiopulmonary arrest, Nonrheumatic aortic (valve) stenosis, Essential hypertension, (HFpEF) heart failure with preserved ejection fraction, Hyperlipidemia Prescriptions: No Action calcium carbonate-vitamin D3 600 mg(1,500mg) -400 unit tablet 1 tablet PO DAILY acetaminophen 500 MG tablet 1,000 mg PO Q8H PRN (Reason: Pain 1-10 Or Fever) hydroxychloroquine 200 MG tablet 200 mg PO BID aspirin 81 mg Tablet,Chewable 81 mg PO BREAKFAST 30 Days Qty: 30 0RF atorvastatin 10 mg Tablet 10 mg PO QHS 30 Days Qty: 30 0RF metoprolol succinate 25 mg Tablet Extended Release 24 Hr 25 mg PO DAILY 30 Days Qty: 30 0RF guaifenesin [Mucinex] 1,200 mg tablet extended release 12hr 1,200 mg PO Q12H 10 Days Qty: 20 0RF furosemide 40 mg tablet 40 mg PO DAILY Qty: 30 1RF potassium chloride [Klor-Con M20] 20 mEq tablet,ER particles/crystals 20 meq PO DAILY Qty: 30 1RF Primary Care Provider: Shamir Moody Referrals: Shamir Moody MD [Primary Care Provider] - Disposition Disposition: Discharge Date/Time: 09/11/23 04:09 Date/Time: 09/11/23 01:34
== END 2023-09-11 04:09 ==
PROVIDERS: Emergency Provider Emergency Medicine; PCP Family Medicine; Visit Provider Emergency Medicine
DX: I46.9 Cardiac arrest, cause unspecified (principal); I11.0 Hypertensive heart disease with heart failure; I50.32 Chronic diastolic (congestive) heart failure; I35.0 Nonrheumatic aortic (valve) stenosis; E78.5 Hyperlipidemia, unspecified; I25.10 Atherosclerotic heart disease of native coronary artery without angina pectoris; K21.9 Gastro-esophageal reflux disease without esophagitis
CPT/HCPCS: 31500; 92950; 99281; J7050; A4216